=== PATIENT | female | born 1955 | race Caucasian/White ===

== ENCOUNTER → 2016-07-06 | Outpatient (CLI) | payer OTHER ==
[~2016-07-06] MED LIST: ACLI1AER3 INH; ADVIN50/60 INH; ALBINS/ INH; ALBU1NEB10 INH; ALBUAER2 INH; LPT40 PO; OXGN; PRED-301 PO; SERT-234 PO; SPRIN/30 INH; SYMIN160 INH; VNTHFA/IN INH; ZLF/50 PO
== END | disposition home or self-care (01) ==
LOC: C.MAMM 10:18
PROVIDERS: ATTEND Nurse Practitioner
DX: M81.0 Age-related osteoporosis without current pathological fracture (principal)

== ENCOUNTER → 2016-07-21 | Outpatient (CLI) | payer OTHER ==
--- NOTE | 2016-07-21 08:22 | DIAGNOSTIC IMAGING REPORT ---
CHEST 2 VIEWS ROUTINE CLINICAL HISTORY: TOBACCO USE COMPARISON STUDY: 12/27/2013 FINDINGS: Moderate emphysematous change. No focal infiltrate. Diaphragms are somewhat flattened. IMPRESSION: Emphysematous change. No acute process. Electronically signed by: Luis Early M.D. 07/21/2016 8:20 AM Dictated Date/Time: 07/21/2016 8:20 AM
== END | disposition home or self-care (01) ==
LOC: C.RADBBURG 08:05
PROVIDERS: ATTEND Physician Assistant
DX: Z72.0 Tobacco use (principal)

== ENCOUNTER → 2016-07-23 | Outpatient (CLI) | payer OTHER ==
[2016-07-23 18:51] LABS: BLOOD UREA NITROGEN 12 mg/dl (7-18); BUN/CREATININE RATIO 12.6 (10-20); CALCIUM 8.8 mg/dl (8.5-10.1); CARBON DIOXIDE 30 mmol/L (21-32); CHLORIDE 106 mmol/L (98-107); CREATININE 0.92 mg/dl (0.60-1.20); GLUCOSE 111 mg/dl (70-99); SODIUM 140 mmol/L (136-145)
== END | disposition home or self-care (01) ==
LOC: C.LABPVFM 13:33
PROVIDERS: ATTEND Nurse Practitioner
DX: E55.9 Vitamin D deficiency, unspecified (principal); M81.0 Age-related osteoporosis without current pathological fracture; R69 Illness, unspecified

== ENCOUNTER → 2016-12-28 | Day surgery (SDC) | payer OTHER ==
[2016-12-24 13:08] VITALS: BMI 14.0
[~2016-12-28] VITALS: Ht 152.4 cm; Wt 33.2 kg
[~2016-12-28] MED LIST changes: -ACLI1AER3 INH; -ALBU1NEB10 INH; -ALBUAER2 INH; +ALBUT/IPRATROP 3MG/0.5MG NEB 3 ML VIAL INH ONE; +LIDOCAINE HCL 2% 2 ML VIAL (20MG/ML) ONE; +PROPOFOL IV EMULSION 10 MG/ML 20 ML VIAL IV ONE; -SYMIN160 INH; -ZLF/50 PO
--- NOTE | 2016-12-28 11:40 | Endo History and Physical ---
History & Physical Date of Service: Dec 28, 2016. Chief Complaint: Change in bowel habits Referring Physician: Coretta Mai History of Present Illness 61 yo CF who presents for colonoscopy secondary to change in bowel habits. Past Surgical History Hx Cardiac Surgery: No Hx Internal Defibrillator: No Hx Pacemaker: No Hx Abdominal Surgery: Yes () Hx of Implantable Prosthesis: No Hx Post-Op Nausea and Vomiting: No Hx Cancer Surgery: No Hx Thoracic Surgery: Yes (BRONCHOSCOPIES) Hx Orthopedic: Yes (RT FOOT SURGERY) Hx Urinary Tract Surgery: No Family History None Social History Smoking Status: Current Every Day Smoker Hx Substance Use: No Hx Alcohol Use: No Allergies Coded Allergies: No Known Allergies (Verified , 12/24/16) Current Medications Reported Home Medications Medications Dose Route/Sig Max Daily Dose Days Date Category Prednisone 5 Mg Tab 5 Mg PO QAM 12/24/16 Reported Ventolin Hfa (Albuterol) 200 Puffs/83974 Mcg Aers 2-4 Puffs INH Q6H PRN 12/24/16 Reported Proventil 0.083% 2.5MG/3ML (Albuterol Sulf) 2.5 Mg/3 Ml Nebu 2.5 Mg INH QID PRN 12/24/16 Reported Zoloft (Sertraline HCl) 100 Mg Tab 2 Tabs PO QAM 12/24/16 Reported Advair Diskus 500/50 60 Dose (Fluticasone Prop/Salmeterol) 1 Ea Aerp 1 Puff INH BID 12/24/16 Reported Spiriva Handihaler (Tiotropium [place]) 30 Puff/540 Mcg Aerp 1 Cap INH QAM 12/24/16 Reported Oxygen Gas 3-4 Liters NA CONTINOUS 11/27/13 Reported Atorvastatin Calcium (Atorvastatin) 40 Mg Tab 40 Mg PO HS 11/27/13 Reported Vital Signs Weight (Kilograms): 33.18 Height (Feet): 5 Height (Inches): 0 Physical Exam General Appearance: WD/WN, no apparent distress Respiratory/Chest: Auscultation: breath sounds normal Cardiovascular: Heart Auscultation: RRR Abdomen: Bowel Sounds: normal Inspection & Palpation: soft, non-distended, no tenderness, guarding & rebound Assessment and Plan Assessment: 61 yo CF who presents for colonoscopy secondary to change in bowel habits. Plan: Proceed with colonoscopy.
[2016-12-28 11:42] VITALS: Ht 152.4 cm; Wt 33.2 kg
[2016-12-28 11:47] VITALS: TEMP 36.4
[2016-12-28 12:18] VITALS: PULSE 66; O2SAT 100
--- NOTE | 2016-12-28 13:15 | GI REPORT ---
Procedure Date: 12/28/2016 12:06 PM Procedure: Colonoscopy Indications: Change in bowel habits Medicines: Monitored Anesthesia Care Complications: No immediate complications. Estimated Blood Loss: Estimated blood loss: none. Procedure: Pre-Anesthesia Assessment: - Prior to the procedure, a History and Physical was performed, and patient medications and allergies were reviewed. The patient's tolerance of previous anesthesia was also reviewed. The risks and benefits of the procedure and the sedation options and risks were discussed with the patient. All questions were answered, and informed consent was obtained. Prior Anticoagulants: The patient has taken no previous anticoagulant or antiplatelet agents. ASA Grade Assessment: IV - A patient with severe systemic disease that is a constant threat to life. After reviewing the risks and benefits, the patient was deemed in satisfactory condition to undergo the procedure. After I obtained informed consent, the scope was passed under direct vision. Throughout the procedure, the patient's blood pressure, pulse, and oxygen saturations were monitored continuously. The On-site loaner was introduced through the anus and advanced to the terminal ileum. The colonoscopy was performed without difficulty. The patient tolerated the procedure well. The quality of the bowel preparation was good. The terminal ileum, ileocecal valve, appendiceal orifice, and rectum were photographed. Findings: Two sessile polyps were found in the ascending colon. The polyps were 3 to 5 mm in size. These polyps were removed with a cold snare. Resection and retrieval were complete. Multiple small-mouthed diverticula were found in the sigmoid colon. Non-bleeding internal hemorrhoids were found during retroflexion. The hemorrhoids were small. Impression: - Two 3 to 5 mm polyps in the ascending colon, removed with a cold snare. Resected and retrieved. - Diverticulosis in the sigmoid colon. - Non-bleeding internal hemorrhoids. Recommendation: - Resume previous diet. - Continue present medications. - Repeat colonoscopy for surveillance based on pathology results. - Return to primary care physician as previously scheduled. Kyle Mckeon, DO 12/28/2016 1:14:54 PM This report has been signed electronically. Note Initiated On: 12/28/2016 12:06 PM I attest to the content of the Intraoperative Record and orders documented therein, exceptions below
--- NOTE | 2016-12-28 13:28 | Discharge Instructions ---
Endoscopy Patient Instructions Date / Procedure(s) Performed Dec 28, 2016. Colonoscopy Allergy Information Coded Allergies: No Known Allergies (Verified , 12/24/16) Discharge Date / Findings Dec 28, 2016. Colon polyps Diverticulosis Internal hemorrhoids Medication Instructions OK to resume all medications today as prescribed Reported Home Medications Medications Dose Route/Sig Max Daily Dose Days Date Category Prednisone 5 Mg Tab 5 Mg PO QAM 12/24/16 Reported Ventolin Hfa (Albuterol) 200 Puffs/90547 Mcg Aers 2-4 Puffs INH Q6H PRN 12/24/16 Reported Proventil 0.083% 2.5MG/3ML (Albuterol Sulf) 2.5 Mg/3 Ml Nebu 2.5 Mg INH QID PRN 12/24/16 Reported Zoloft (Sertraline HCl) 100 Mg Tab 2 Tabs PO QAM 12/24/16 Reported Advair Diskus 500/50 60 Dose (Fluticasone Prop/Salmeterol) 1 Ea Aerp 1 Puff INH BID 12/24/16 Reported Spiriva Handihaler (Tiotropium [place]) 30 Puff/540 Mcg Aerp 1 Cap INH QAM 12/24/16 Reported Oxygen Gas 3-4 Liters NA CONTINOUS 11/27/13 Reported Atorvastatin Calcium (Atorvastatin) 40 Mg Tab 40 Mg PO HS 11/27/13 Reported Provider Instructions Activity Restrictions - No exercising or heavy lifting for 24 hours. - Do not drink alcohol the day of the procedure. - Do not drive a car or operate machinery until the day after the procedure. - Do not make any important decisions or sign important papers in 24 hours after the procedure. Following Day: - Return to full activity which may include returning to work/school. Diet Start your diet with liquids and light foods (jello, soup, juice, toast). Then eat your usual diet if not nauseated. Treatment For Common After Affects For mild abdominal pain, bloating, or excessive gas: - Rest - Eat lightly - Lie on right side Follow-Up Information Follow-up with SWATI Johnson as scheduled Anesthesia Information What You Should Know You have had a procedure that required some medicine to reduce anxiety and discomfort. This treatment is called moderate sedation. After receiving the treatment, you may be sleepy, but you will be able to breathe on your own. The effects of the treatment may last for several hours. Follow these instructions along with Activity/Diet recommendations noted above: * Do NOT do anything where dizziness or clumsiness would be dangerous. * Rest quietly at home today, then you can be up and about tomorrow. * Have a responsible person stay with you the rest of today. * You may have had an I.V. today. If so, you may take the dressing off later today. Recommendations Call your doctor if: * Trouble breathing * Continuous vomiting for more than 24 hours * Temperature above 101 degrees * Severe abdominal pain or bloating * Pain not relieved by pain medicine ordered * There is increased drainage or redness from any incision * A large amount of rectal bleeding greater than 2-3 tablespoons. (If you had a polyp/s removed or have hemorrhoids, a small amount of blood - from the rectum is to be expected.) * You have any unanswered questions or concerns. IN THE EVENT OF A SERIOUS EMERGENCY, GO TO THE NEAREST EMERGENCY ROOM Your discharge instructions were prepared by provider Kyle Mckeon. Patient Instructions Signature Page Stacy Suazo Patient (or Guardian) Signature/Date: I have read and understand the instructions given to me by my caregivers. Caregiver/RN/Doctor Signature/Date: The above-named patient and/or guardian has received patient instructions on this date. + Original Patient Signature Page (only) stays with chart. Please make copy for patient.
[2016-12-28 13:37] VITALS: BP 172/78; PULSE 69; O2SAT 100
[2016-12-28 13:54] VITALS: PULSE 66; O2SAT 100
--- NOTE | 2016-12-28 14:38 | Anesthesiology Progress Note ---
Anesthesia Post Op Note Date & Time Dec 28, 2016 at 14:38 Vital Signs Pain Intensity: 0 Vital Signs Past 12 Hours Date Time Temp Pulse Resp B/P (MAP) Pulse Ox O2 Delivery O2 Flow Rate FiO2 12/28/16 13:37 69 20 172/78 (109) 100 Nasal Cannula 4 12/28/16 13:23 68 18 182/58 (99) 100 Nasal Cannula 4 12/28/16 13:12 68 18 174/79 (110) 100 Nasal Cannula 4 12/28/16 13:05 69 18 168/75 (106) 100 Nasal Cannula 4 12/28/16 12:18 66 18 100 Nasal Cannula 4.0 12/28/16 11:47 36.4 75 18 170/99 (122) 100 Nasal Cannula 4 Notes Mental Status: alert / awake / arousable, participated in evaluation Pt Amnestic to Procedure: Yes Nausea / Vomiting: adequately controlled Pain: adequately controlled Airway Patency, RR, SpO2: stable & adequate BP & HR: stable & adequate Hydration State: stable & adequate Anesthetic Complications: no major complications apparent
== END | disposition home or self-care (01) ==
LOC: C.GI 11:09
PROVIDERS: ATTEND Internal Medicine
DX: D12.2 Benign neoplasm of ascending colon (principal); K57.30 Diverticulosis of large intestine without perforation or abscess without bleeding; K64.8 Other hemorrhoids; R19.4 Change in bowel habit; F17.200 Nicotine dependence, unspecified, uncomplicated; Z79.899 Other long term (current) drug therapy

== ENCOUNTER → 2017-01-15 | Outpatient (CLI) | payer OTHER ==
[~2017-01-15] MED LIST changes: -ALBUT/IPRATROP 3MG/0.5MG NEB 3 ML VIAL INH ONE; -LIDOCAINE HCL 2% 2 ML VIAL (20MG/ML) ONE; -PROPOFOL IV EMULSION 10 MG/ML 20 ML VIAL IV ONE
[2017-01-15 13:15] LABS: BLOOD UREA NITROGEN 9 mg/dl (7-18); BUN/CREATININE RATIO 9.7 (10-20); CALCIUM 9.3 mg/dl (8.5-10.1); CARBON DIOXIDE 29 mmol/L (21-32); CHLORIDE 108 mmol/L (98-107); CHOLESTEROL 242 mg/dl (0-200); CREATININE 0.96 mg/dl (0.60-1.20); GLUCOSE 95 mg/dl (70-99); POTASSIUM 4.1 mmol/L (3.5-5.1); SODIUM 141 mmol/L (136-145)
[2017-01-15 13:18] LABS: CHOLESTEROL/HDL RATIO 2.2; HDL CHOLESTEROL 109 mg/dl; LDL CHOLESTEROL CALCULATED 113 mg/dl; TRIGLYCERIDES 101 mg/dl (0-150); VERY LOW DENSITY LIPOPROT CALC 20 mg/dl
== END | disposition home or self-care (01) ==
LOC: C.LABPVFM 08:06
PROVIDERS: ATTEND Nurse Practitioner
DX: E55.9 Vitamin D deficiency, unspecified (principal); M81.0 Age-related osteoporosis without current pathological fracture; E78.5 Hyperlipidemia, unspecified; J44.9 Chronic obstructive pulmonary disease, unspecified

== ENCOUNTER 2019-08-27 08:14 | Inpatient (IN) ==
[2019-08-27 08:28] LABS: Basophils # (auto) 0.01 K/uL (0-0.2); Basophils % (auto) 0.1 %; Hematocrit (blood only) 39.6 % (37-47); Hemoglobin 12.8 g/dL (12.0-16.0); Immature Granulocytes # (auto) 0.03 K/uL (0.00-0.02); Immature Granulocytes % (auto) 0.3 %; Lymphocytes # (auto) 1.33 K/uL (1.2-3.4); Lymphocytes % (auto) 11.5 %; Mean Corpuscular Hemoglobin 29.5 pg (25-34); Mean Corpuscular Hgb Conc 32.3 g/dL (32-36); Mean Corpuscular Volume 91.2 fL (80-100); Mean Platelet Volume 11.7 fL (7.4-10.4); Monocytes # (auto) 0.75 K/uL (0.11-0.59); Monocytes % (auto) 6.5 %; Neutrophils # (auto) 9.47 K/uL (1.4-6.5); Neutrophils % (auto) 81.6 %; Platelet Count 165 K/uL (130-400); RDW Coefficient of Variation 14.7 % (11.5-14.5); RDW Standard Deviation 49.3 fL (36.4-46.3); Red Blood Count 4.34 M/uL (4.2-5.4); White Blood Count 11.59 K/uL (4.8-10.8)
[2019-08-27] MEDS ORDERED: OPTIRAY 320 125ml IV PRN (08:31)
[2019-08-27 08:39] LABS: Partial Thromboplastin Time 26.8 Seconds (21.0-31.0); Prothrombin Time 10.6 Seconds (9.0-12.0)
--- NOTE | 2019-08-27 08:45 | CT Scan Report ---
CT SCAN OF THE BRAIN WITHOUT IV CONTRAST CLINICAL HISTORY: Left-sided weakness. COMPARISON STUDY: No priors. TECHNIQUE: Unenhanced axial CT scan of the brain is performed from the vertex to the skull base. A d ose lowering technique was utilized adhering to the principles of ALARA. FINDINGS: Brain parenchyma: There is mild subcortical and periventricular microangiopathic disease. There is lo ss of curiel-white matter differentiation identified in the right frontal lobe. This is concerning for acute to subacute ischemia. There is no hemorrhage or mass effect. No extra-axial fluid collection is seen. Ventricles, sulci, cisterns: Normal in configuration. Intracranial vasculature: There is atherosclerotic calcification of the cavernous carotid and vertebr al arteries. Calvarium: Unremarkable. Sinuses and mastoids: The visualized paranasal sinuses are clear. The mastoid air cells are well pneu matized. Orbits: The bony orbits are grossly intact. There is a right ocular lens implant. IMPRESSION: 1. There is loss of curiel-white matter differentiation identified in the right frontal lobe concerning for acute to subacute ischemia. 2. There is no hemorrhage or mass effect. ACT 112: Negative or not required by law. Electronically signed by: Cristian Holt M.D. 08/27/2019 8:44 AM
[2019-08-27 08:46] LABS: Base Excess VBG -9.3 mEq/L; pH VBG 7.2 (7.36-7.41)
[2019-08-27 08:53] LABS: Albumin Level 3.7 gm/dl (3.4-5.0); BUN Creatinine Ratio 22.6 (10-20); Calcium 8.5 mg/dl (8.5-10.1); Creatinine Clr Calc Pharmacy 38.8 ml/min; Est GFR (African American) 72.8; Est GFR (Non-African American) 62.9; Potassium 4.3 mmol/L (3.5-5.1)
[2019-08-27 08:58] LABS: Albumin Globulin Ratio 1.3 (0.9-2); Bilirubin,Total 0.4 mg/dl (0.2-1); Globulin 2.8 gm/dl (2.5-4.0); Phosphorus 3.4 mg/dl (2.5-4.9); Thyroid Stimulating Hormone 0.946 uIu/ml (0.300-4.500); Total Protein 6.5 gm/dl (6.4-8.2); Troponin I 1.66 ng/ml (0-0.045)
--- NOTE | 2019-08-27 09:04 | CT Scan Report ---
CT ANGIOGRAM OF THE BRAIN; CT ANGIOGRAM OF THE NECK CLINICAL HISTORY: Left-sided weakness. COMPARISON STUDY: Unenhanced CT of the brain performed the same day 08/27/2019. TECHNIQUE: Following the IV administration of 120 of Optiray 320, CT angiogram of the head and neck w as performed from the aortic arch to the vertex. Images are reviewed in the axial, sagittal, and gisella nal planes. 3-D MIPS images are created and assessed. IV contrast was administered without complicati on. All measurements were calculated based on NASCET criteria. A dose lowering technique was utilize d adhering to the principles of ALARA. CT DOSE: 839.61 mGy.cm FINDINGS: Brain parenchyma: There is mild subcortical and periventricular microangiopathic disease. Loss of gra y-white matter differentiation is again identified within several right-sided frontal lobe sulci. The re is no hemorrhage or mass effect. The ventricles, sulci, and cisterns are normal in configuration. Partida-white matter differentiation is preserved. No extra-axial fluid collection is seen. Thoracic aorta: There is atherosclerotic calcification of the thoracic aorta. Visualized portions of the thoracic aorta are normal in caliber. The aortic arch demonstrates standard 3-vessel anatomy. Right carotid arterial system: The right common carotid artery is patent. Plaque causes less than 50% luminal narrowing distally. 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 The occlusion extends for 6 mm were there is reconstitution of flow. The mi d to distal portions of the right internal carotid artery are diminutive but patent. Left carotid arterial system: The left common carotid artery is widely patent, as are the left internet marketing assistant al and external carotid arteries. Atherosclerotic plaque is noted in the common carotid artery the ca rotid bulb. Vertebral arteries: There is high-grade stenosis at the origin of the right vertebral artery. The nata tebral arteries are otherwise patent bilaterally and codominant. Subclavian arteries: Widely patent bilaterally. Intracranial vasculature: There is evidence carotid calcification of the cavernous carotid and verteb ral arteries. The internal carotid arteries are patent at the skull base. The right internal carotid artery appears diminutive, and there is approximately 50% luminal narrowing of the right cavernous ca rotid artery secondary to calcified and soft plaque. There is focal moderate stenosis of the right an terior cerebral artery seen on image #119. The anterior cerebral arteries are otherwise patent. The m iddle cerebral arteries are patent bilaterally. There is pruning of peripheral branch vessels within the posterior right frontal lobe. The vertebrobasilar system and posterior cerebral arteries are wide ly patent. The vertebral arteries are codominant. 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 There is a 1.5 mm aneurysm arising inferiorly at the origin of the left middle cerebral artery, best seen on image #79. Jugular veins: Patent bilaterally. Dural sinuses: Patent. Lung apices: Advanced emphysema is change is noted in the upper lobes. Upper lobe lung parenchyma is otherwise clear as imaged. Biapical scarring is observed. Soft tissues: The visualized pharyngeal soft tissues are normal in appearance noting angiographic pha se technique. The oropharyngeal airway appears widely patent. The salivary and thyroid glands are nor mal in appearance. No cervical lymphadenopathy is seen. Skeletal structures: The skeletal structures are osteopenic. The calvarium appears intact. The cervic al spine is maintained noting multilevel spondylosis. No lytic or blastic lesion is seen. Orbits: The bony orbits are intact. Orbital contents are normal as visualized noting a right ocular l ens implant. Sinuses and mastoids: The paranasal sinuses are clear. The mastoid air cells are well pneumatized. IMPRESSION: 1. Focal loss of partida-white matter differentiation in the posterior right frontal lobe is highly conc erning for acute to subacute ischemia. 2. 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 3. There is focal high-grade stenosis at the origin of the right vertebral artery. 4. The left carotid arterial system is widely patent. 5. The mid to distal right internal carotid artery is diminutive, as well as the intracranial right i nternal carotid artery. 6. There is approximately 50% luminal narrowing of the right cavernous carotid artery. 7. 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 8. There is pruning of peripheral branch vessels in the posterior right frontal lobe, likely related to acute infarct. 9. There is focal high-grade stenosis of the right anterior cerebral artery. 10. Advanced emphysema. ACT 112: Negative or not required by law. Electronically signed by: Cristian Holt M.D. 08/27/2019 9:02 AM
--- NOTE | 2019-08-27 09:05 | XRay Report ---
SINGLE VIEW CHEST CLINICAL HISTORY: Strokelike symptoms. Left-sided weakness. FINDINGS: An AP, portable, upright chest radiograph is compared to study dated 05/01/2019. The examina tion is degraded by portable technique and patient rotation. The cardiomediastinal silhouette is unre markable noting atherosclerotic calcification of the thoracic aorta. Advanced emphysema and chronic i nterstitial thickening are similar to previous. There is bibasilar scarring/atelectasis. No airspace consolidation or large pleural effusion is identified. No pneumothorax is seen. The skeletal structur es are osteopenic. The bony thorax is grossly intact. IMPRESSION: Advanced emphysematous change with no acute cardiopulmonary abnormality. ACT 112: Negative or not required by law. Electronically signed by: Cristian Holt M.D. 08/27/2019 9:04 AM
--- NOTE | 2019-08-27 09:11 | Emergency Department Note ---
Impression & Plan CVA (cerebral vascular accident), COPD (chronic obstructive pulmonary disease), Elevated troponin, O2 dependent ED Provider Note NAME: JEFFREY MUNOZ AGE: 64 SEX: F ARRIVES VIA: Ambulance INFORMANT: Patient, ED PROVIDER(S): Jace Waddell MD CHIEF COMPLAINT: Left facial, arm, and leg weakness. PLAN: Disposition: Admit MEDICAL DECISION MAKING: The patient is a pleasant 64-year-old woman with a past medical history of COPD on home oxygen who presents emergency department with symptoms of stroke with left facial droop and left upper extremity and left lower extremity weakness that was noticed when she was waking up this morning around 7:30 AM with last known well last night around 8 PM. Patient symptoms occur in the setting of being seen in emergency department yesterday after having a fall suffering a right distal radius wrist fracture that was successfully and uneventfully reduced with under sedation with ketamine. On arrival the patient is no acute distress, afebrile with blood pressure hypertensive 170s/70s and vital signs otherwise stable. She has appreciable left lower facial droop and 0/5 strength of the left upper extremity and 2/5 strength of the left lower extremity. NIH stroke scale is 9. Given the patient's last known well is beyond the TPA window this was not considered however stroke alert was still activated given the possibility for endovascular target. Case was reviewed with Dr. Perez and given her CT noncontrast study does show already development of stroke likely feels endovascular therapy will be too risky for hemorrhagic transformation. Suspects stroke likely occurred early last night. CTA did demonstrate extensive findings including complete short segment occlusion of the origin of the right ICA, focal high-grade stenosis at the origin of the right vertebral artery. 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 Pruning of peripheral branch vessels in the posterior right frontal lobe, likely related to acute infarct. Additional findings per report below. I did review the CTA findings with Dr. Perez and recommendations are still as expected given the appearance of the evolution of the patient's infarct in the high risk of hemorrhage if intervention is attempted. This, recommends admission for further evaluation. Given the profound symptoms of the patient and evolving infarct on CT recommends obtaining MRI and further clarifying the size of the infarction prior to initiating aspirin or even anticoagulation given the patient's mild troponin elevation. Does offer that the tele-stroke neurology team would be available for any questions from the inpatient team. Case was d/w Renata Zepeda, [facility] PAC, with Dr. Torres [facility] hospitalist who will evaluate the patient for admission. Triage Nursing notes reviewed and agree them. Prior medical records reviewed Vital Signs: reviewed and remarkable for no significant abnormalities Differential diagnosis: Infection, dehydration, metabolic abnormality, hypo/hyperglycemia, electrolyte disturbance, anemia, hypoxia, cardiac sources, intracerebral event, toxicologic, neurologic, as well as other pathologies. ER treatment provided: See below. Diagnostics interpreted by me: ECG: Normal sinus rhythm, 95 bpm, normal axis, nonspecific ST abnormality laterally and otherwise. no overt ST elevation or depression, anterior infarct is noted. QTc 492, QRS 74. Cardiac Monitoring: An order for continuous cardiac monitoring was placed and demonstrated normal sinus rhythm, 95 bpm, no ectopy. Laboratory studies: See below Imaging studies: CT SCAN OF THE BRAIN WITHOUT IV CONTRAST CLINICAL HISTORY: Left-sided weakness. COMPARISON STUDY: No priors. TECHNIQUE: Unenhanced axial CT scan of the brain is performed from the vertex to the skull base. A dose lowering technique was utilized adhering to the principles of ALARA. FINDINGS: Brain parenchyma: There is mild subcortical and periventricular microangiopathic disease. There is loss of partida-white matter differentiation identified in the right frontal lobe. This is concerning for acute to subacute ischemia. There is no hemorrhage or mass effect. No extra-axial fluid collection is seen. Ventricles, sulci, cisterns: Normal in configuration. Intracranial vasculature: There is atherosclerotic calcification of the cavernous carotid and vertebral arteries. Calvarium: Unremarkable. Sinuses and mastoids: The visualized paranasal sinuses are clear. The mastoid air cells are well pneumatized. Orbits: The bony orbits are grossly intact. There is a right ocular lens imp lant. IMPRESSION: 1. There is loss of partida-white matter differentiation identified in the right f rontal lobe concerning for acute to subacute ischemia. 2. There is no hemorrhage or mass effect. ------ CT ANGIOGRAM OF THE BRAIN; CT ANGIOGRAM OF THE NECK CLINICAL HISTORY: Left-sided weakness. COMPARISON STUDY: Unenhanced CT of the brain performed the same day 08/27/2019. TECHNIQUE: Following the IV administration of 120 of Optiray 320, CT angiogram of the head and neck was performed from the aortic arch to the vertex. Images are reviewed in the axial, sagittal, and coronal planes. 3-D MIPS images are created and assessed. IV contrast was administered without complication. All measurements were calculated based on NASCET criteria. A dose lowering technique was utilized adhering to the principles of ALARA. CT DOSE: 839.61 mGy.cm FINDINGS: Brain parenchyma: There is mild subcortical and periventricular microangiopathic disease. Loss of partida-white matter differentiation is again identified within several right-sided frontal lobe sulci. There is no hemorrhage or mass effect. The ventricles, sulci, and cisterns are normal in configuration. Partida-white matter differentiation is preserved. No extra-axial fluid collection is seen. Thoracic aorta: There is atherosclerotic calcification of the thoracic aorta. Visualized portions of the thoracic aorta are normal in caliber. The aortic arch demonstrates standard 3-vessel anatomy. Right carotid arterial system: The right common carotid artery is patent. Plaque causes less than 50% luminal narrowing distally. There is complete thrombosis at the origin of the right common carotid artery (axial image #216). The occlusion extends for 6 mm were there is reconstitution of flow. The mid to distal portions of the right internal carotid artery are diminutive but patent. Left carotid arterial system: The left common carotid artery is widely patent, as are the left internal and external carotid arteries. Atherosclerotic plaque is noted in the common carotid artery the carotid bulb. Vertebral arteries: There is high-grade stenosis at the origin of the right vertebral artery. The vertebral arteries are otherwise patent bilaterally and codominant. Subclavian arteries: Widely patent bilaterally. Intracranial vasculature: There is evidence carotid calcification of the cavernous carotid and vertebral arteries. The internal carotid arteries are patent at the skull base. The right internal carotid artery appears diminutive, and there is approximately 50% luminal narrowing of the right cavernous carotid artery secondary to calcified and soft plaque. There is focal moderate stenosis of the right anterior cerebral artery seen on image #119. The anterior cerebral arteries are otherwise patent. The middle cerebral arteries are patent bilaterally. There is pruning of peripheral branch vessels within the posterior right frontal lobe. The vertebrobasilar system and posterior cerebral arteries are widely patent. The vertebral arteries are codominant. 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 There is a 1.5 mm aneurysm arising inferiorly at the origin of the left middle cerebral artery, best seen on image #79. Jugular veins: Patent bilaterally. Dural sinuses: Patent. Lung apices: Advanced emphysema is change is noted in the upper lobes. Upper lobe lung parenchyma is otherwise clear as imaged. Biapical scarring is observed. Soft tissues: The visualized pharyngeal soft tissues are normal in appearance noting angiographic phase technique. The oropharyngeal airway appears widely patent. The salivary and thyroid glands are normal in appearance. No cervical lymphadenopathy is seen. Skeletal structures: The skeletal structures are osteopenic. The calvarium ap pears intact. The cervical spine is maintained noting multilevel spondylosis. No lytic or blastic lesion is seen. Orbits: The bony orbits are intact. Orbital contents are normal as visualized noting a right ocular lens implant. Sinuses and mastoids: The paranasal sinuses are clear. The mastoid air cells are well pneumatized. IMPRESSION: 1. Focal loss of partida-white matter differentiation in the posterior right frontal lobe is highly concerning for acute to subacute ischemia. 2. 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 3. There is focal high-grade stenosis at the origin of the right vertebral artery. 4. The left carotid arterial system is widely patent. 5. The mid to distal right internal carotid artery is diminutive, as well as the intracranial right internal carotid artery. 6. There is approximately 50% luminal narrowing of the right cavernous carotid artery. 7. 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 8. There is pruning of peripheral branch vessels in the posterior right frontal lobe, likely related to acute infarct. 9. There is focal high-grade stenosis of the right anterior cerebral artery. 10. Advanced emphysema. Consultation(s): [facility], with Dr. Brian [place] hospitalist who will evaluate the patient for admission. HPI: The patient is a pleasant 64-year-old woman with a past medical history of COPD on home oxygen who presents emergency department with symptoms of stroke with left facial droop and left upper extremity and left lower extremity weakness that was noticed when she was waking up this morning around 7:30 AM with last known well last night around 8 PM. Patient symptoms occur in the setting of being seen in emergency department yesterday after having a fall suffering a right distal radius wrist fracture that was successfully and uneventfully reduced with under sedation with ketamine. ROS: See above HPI for pertinent positives & negatives. A total of 10 systems reviewed and were otherwise negative. PAST MEDICAL HISTORY:See Below PAST SURGICAL HISTORY:See Below FAMILY HISTORY:See Below SOCIAL HISTORY:See Below HOME MEDICATIONS:See Below ALLERGIES:See Below VITALS:See Below PHYSICAL EXAMINATION: GENERAL: Awake, alert, fatigued-appearing, in no distress HENT: Normocephalic, atraumatic. Oropharynx with dry mucous membranes and otherwise unremarkable. . EYES: Normal conjunctiva. Sclera non-icteric. EOMI. No nystamgus. PEARRL. NECK: Supple. No nuchal rigidity. FROM. No JVD. RESPIRATORY: Scant intermittent wheeze, otherwise clear to auscultation. CARDIAC: Regular rate, normal rhythm. Extremities warm and well perfused. Pulses equal. ABDOMEN: Soft, non-distended. No tenderness to palpation. No rebound or guarding. No masses. RECTAL: Deferred. MUSCULOSKELETAL: Chest examination reveals no tenderness. The back is symm etrical on inspection without obvious abnormality. There is no CVA tenderness to palpation. No joint edema. LOWER EXTREMITIES: Calves are equal size bilaterally and non-tender. No edema. No discoloration. NEURO: Severe left lower facial droop. 0/5 LUE strength. 2/5 LLE strength. SKIN: No rash or jaundice noted. ED COURSE: Critical Care: I have personally spent greater than 35 minutes of critical care time in the direct management of this patient. This includes bedside care, interpretation of diagnostic studies, and testing, discussion with consultants, patient, and family members, and other required patient management activities. This 35 minutes is in excess of all separately billable procedures. Jace Waddell MD Past Med/Surg History Medical History Chronic obstructive pulmonary disease (Acute) FOLLOWS WITH GREG PEOPLES / HAS CHRONIC COUGH / RARELY USES RES. 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 Beliefs That Will Affect Care: None marital status: Current Living Situation: Alone and Spouse Current Living Situation Comment: 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, 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, 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 occupational status: disabled Other Information That Helps Us Care for You: No Feels Safe at Home: Yes Safety Concerns: Feels Safe At This Time Smoking Status: Current every day smoker Tobacco Type: cigarettes ; Cigarettes Per Day: 6 to 7 ; Do You Dip or Chew Tobacco: No ; Second Hand Exposure: No ; Tobacco Cessation Education Requested by Patient: No Hx Alcohol Use: No Hx Substance Use: No caffeine: Yes (coffee) Dental Care, Regularly: No Physical Activity Frequency: Daily Seatbelt Use: never Sunscreen Use: No Allergies Allergies Allergy/AdvReac Type Severity Reaction Status Date / Time codeine AdvReac Intermediate vomitting Verified 08/26/19 12:45 Home Meds Home Medications Medication Instructions Recorded Confirmed albuterol sulfate 2 - 4 puff INHALATION Q6H PRN 10/13/18 08/27/19 albuterol sulfate 2.5 mg INHALATION Q4H PRN #2 ml 10/22/18 08/27/19 atorvastatin 40 mg tablet 40 mg PO HS #90 tab 10/22/18 08/27/19 Previous Rx's Medication Instructions Recorded fluticasone fur. 100 mcg-umeclid 1 inh INHALATION QAM #60 ea 05/05/19 62.5 mcg-vilant 25 mcg inhalat.powder sertraline 100 mg tablet 200 mg PO QAM #180 tab 07/27/19 prednisone 5 mg tablet 5 mg PO QAM #90 tab 08/03/19 cephalexin [Keflex] 250 mg PO BID 5 Days #10 cap 08/26/19 cephalexin [Keflex] 500 mg PO Q12H 5 Days #10 cap 08/26/19 ondansetron HCl [Zofran] 4 mg PO TID PRN 5 Days #15 tab 08/26/19 oxycodone [Roxicodone] 5 mg PO Q8H PRN #9 tab 08/26/19 Results & Data (ED) Vital Signs Vital Signs - 24 hr 08/27/19 08:12 08/27/19 08:29 08/27/19 08:30 Temperature 36.4 C L Temperature Source Oral Pulse Rate 95 H 109 H 102 H Pulse Rate from SpO2 Sensor 103 H Respiratory Rate 22 16 22 Respiratory Effort / Characteristics Non-Labored Spontaneous Respiratory Depth Normal Respiratory Pattern Regular Blood Pressure 175/75 H 175/75 H Blood Pressure Mean 108 131 Pulse Oximetry 88 L Oxygen Delivery Method Nasal Cannula Oxygen Flow Rate Sepsis Recent Fever Within 48 Hours No Sepsis Action Taken by Nursing No Action Required Pulse Oximetry Post Tiitration 08/27/19 08:31 08/27/19 08:45 08/27/19 08:53 Temperature Temperature Source Pulse Rate 102 H 92 H 91 H Pulse Rate from SpO2 Sensor 103 H 93 H 91 H Respiratory Rate 22 22 21 Respiratory Effort / Characteristics Respiratory Depth Respiratory Pattern Blood Pressure 167/77 H 147/82 H Blood Pressure Mean 103 102 Pulse Oximetry 92 97 96 Oxygen Delivery Method Oxygen Flow Rate Sepsis Recent Fever Within 48 Hours Sepsis Action Taken by Nursing Pulse Oximetry Post Tiitration 08/27/19 09:00 08/27/19 09:01 08/27/19 09:15 Temperature Temperature Source Pulse Rate 88 88 88 Pulse Rate from SpO2 Sensor 88 89 88 Respiratory Rate 21 22 22 Respiratory Effort / Characteristics Respiratory Depth Respiratory Pattern Blood Pressure 169/77 H 167/71 H Blood Pressure Mean 114 108 Pulse Oximetry 98 98 98 Oxygen Delivery Method Nasal Cannula Oxygen Flow Rate 4 Sepsis Recent Fever Within 48 Hours Sepsis Action Taken by Nursing Pulse Oximetry Post Tiitration 98 08/27/19 09:30 08/27/19 09:45 08/27/19 10:00 Temperature Temperature Source Pulse Rate 84 85 93 H Pulse Rate from SpO2 Sensor 84 85 93 H Respiratory Rate 21 22 24 Respiratory Effort / Characteristics Respiratory Depth Respiratory Pattern Blood Pressure 161/64 H 159/68 H 148/71 H Blood Pressure Mean 118 100 90 Pulse Oximetry 98 99 97 Oxygen Delivery Method Oxygen Flow Rate Sepsis Recent Fever Within 48 Hours Sepsis Action Taken by Nursing Pulse Oximetry Post Tiitration Laboratory Data Attestation: I reviewed the patient's lab results. Result diagrams: 08/27/19 07:45 08/27/19 07:45 Lab Results 08/27/19 08/27/19 08/27/19 Range/Units 07:45 07:45 07:45 WBC 11.59 H (4.8-10.8) K/uL RBC 4.34 (4.2-5.4) M/uL Hgb 12.8 (12.0-16.0) g/dL Hct 39.6 (37-47) % MCV 91.2 (80-100) fL MCH 29.5 (25-34) pg MCHC 32.3 (32-36) g/dL RDW Std Deviation 49.3 H (36.4-46.3) fL RDW Coeff of Rosanna 14.7 H (11.5-14.5) % Plt Count 165 (130-400) K/uL MPV 11.7 H (7.4-10.4) fL Immature Gran % (Auto) 0.3 % Neut % (Auto) 81.6 % Lymph % (Auto) 11.5 % [place] % (Auto) 6.5 % Eos % (Auto) 0.0 % Baso % (Auto) 0.1 % Immature Gran # (Auto) 0.03 H (0.00-0.02) K/uL Neut # (Auto) 9.47 H (1.4-6.5) K/uL Lymph # (Auto) 1.33 (1.2-3.4) K/uL [place] # (Auto) 0.75 H (0.11-0.59) K/uL Eos # (Auto) 0.00 (0-0.5) K/uL Baso # (Auto) 0.01 (0-0.2) K/uL PT 10.6 (9.0-12.0) Seconds INR 1.0 (0.9-1.1) APTT 26.8 (21.0-31.0) Seconds PTT Ratio 1.0 VBG pH (7.36-7.41) VBG pCO2 (38-50) mmHg VBG pO2 mmHg VBG HCO3 mmol/L VBG O2 Saturation % VBG Base Excess mEq/L Barometric Pressure mm/Hg Sodium 140 (136-145) mmol/L Potassium 4.3 (3.5-5.1) mmol/L Chloride 108 H (98-107) mmol/L Carbon Dioxide 22 (21-32) mmol/L Anion Gap 10.0 (3-11) BUN 21 H (7-18) mg/dl Creatinine 0.95 D (0.6-1.2) mg/dl Est Cr Clr Drug Dosing 38.8 ml/min Est GFR ( Amer) 72.8 Est GFR (Non-Af Amer) 62.9 BUN/Creatinine Ratio 22.6 H (10-20) Glucose 90 (70-99) mg/dl POC Glucose (70-99) mg/dl Calcium 8.5 (8.5-10.1) mg/dl Phosphorus 3.4 (2.5-4.9) mg/dl Magnesium 2.0 (1.8-2.4) mg/dl Total Bilirubin 0.4 (0.2-1) mg/dl AST 38 H (15-37) U/L ALT 21 (12-78) U/L Alkaline Phosphatase 50 (45-117) U/L Troponin I 1.660 H* (0-0.045) ng/ml Total Protein 6.5 (6.4-8.2) gm/dl Albumin 3.7 (3.4-5.0) gm/dl Globulin 2.8 (2.5-4.0) gm/dl Albumin/Globulin Ratio 1.3 (0.9-2) 25-OH Vitamin D Total (30-100) ng/ml TSH 0.946 (0.300-4.500) uIu/ml Urine Color Urine Appearance (Clear) Urine pH (4.5-7.5) Ur Specific [place] (1.000-1.030) Urine Protein (Negative) Urine Glucose (UA) (Negative) Urine Ketones (Negative) Urine Blood (Negative) Urine Nitrite (Negative) Urine Bilirubin (Negative) Urine Urobilinogen (Negative) Ur Leukocyte Esterase (Negative) 08/27/19 08/27/19 08/27/19 Range/Units 07:45 08:34 08:34 WBC (4.8-10.8) K/uL RBC (4.2-5.4) M/uL Hgb (12.0-16.0) g/dL Hct (37-47) % MCV (80-100) fL MCH (25-34) pg MCHC (32-36) g/dL RDW Std Deviation (36.4-46.3) fL RDW Coeff of Rosanna (11.5-14.5) % Plt Count (130-400) K/uL MPV (7.4-10.4) fL Immature Gran % (Auto) % Neut % (Auto) % Lymph % (Auto) % [place] % (Auto) % Eos % (Auto) % Baso % (Auto) % Immature Gran # (Auto) (0.00-0.02) K/uL Neut # (Auto) (1.4-6.5) K/uL Lymph # (Auto) (1.2-3.4) K/uL [place] # (Auto) (0.11-0.59) K/uL Eos # (Auto) (0-0.5) K/uL Baso # (Auto) (0-0.2) K/uL PT (9.0-12.0) Seconds INR (0.9-1.1) APTT (21.0-31.0) Seconds PTT Ratio VBG pH 7.20 L (7.36-7.41) VBG pCO2 48 (38-50) mmHg VBG pO2 47 mmHg VBG HCO3 19 mmol/L VBG O2 Saturation 78.0 % VBG Base Excess -9.3 mEq/L Barometric Pressure 732.2 mm/Hg Sodium (136-145) mmol/L Potassium (3.5-5.1) mmol/L Chloride (98-107) mmol/L Carbon Dioxide (21-32) mmol/L Anion Gap (3-11) BUN (7-18) mg/dl Creatinine (0.6-1.2) mg/dl Est Cr Clr Drug Dosing ml/min Est GFR ( Amer) Est GFR (Non-Af Amer) BUN/Creatinine Ratio (10-20) Glucose (70-99) mg/dl POC Glucose (70-99) mg/dl Calcium (8.5-10.1) mg/dl Phosphorus (2.5-4.9) mg/dl Magnesium (1.8-2.4) mg/dl Total Bilirubin (0.2-1) mg/dl AST (15-37) U/L ALT (12-78) U/L Alkaline Phosphatase (45-117) U/L Troponin I 1.600 H* (0-0.045) ng/ml Total Protein (6.4-8.2) gm/dl Albumin (3.4-5.0) gm/dl Globulin (2.5-4.0) gm/dl Albumin/Globulin Ratio (0.9-2) 25-OH Vitamin D Total 27.6 L (30-100) ng/ml TSH (0.300-4.500) uIu/ml Urine Color Urine Appearance (Clear) Urine pH (4.5-7.5) Ur Specific [place] (1.000-1.030) Urine Protein (Negative) Urine Glucose (UA) (Negative) Urine Ketones (Negative) Urine Blood (Negative) Urine Nitrite (Negative) Urine Bilirubin (Negative) Urine Urobilinogen (Negative) Ur Leukocyte Esterase (Negative) 08/27/19 08/27/19 Range/Units 08:37 10:05 WBC (4.8-10.8) K/uL RBC (4.2-5.4) M/uL Hgb (12.0-16.0) g/dL Hct (37-47) % MCV (80-100) fL MCH (25-34) pg MCHC (32-36) g/dL RDW Std Deviation (36.4-46.3) fL RDW Coeff of Rosanna (11.5-14.5) % Plt Count (130-400) K/uL MPV (7.4-10.4) fL Immature Gran % (Auto) % Neut % (Auto) % Lymph % (Auto) % [place] % (Auto) % Eos % (Auto) % Baso % (Auto) % Immature Gran # (Auto) (0.00-0.02) K/uL Neut # (Auto) (1.4-6.5) K/uL Lymph # (Auto) (1.2-3.4) K/uL [place] # (Auto) (0.11-0.59) K/uL Eos # (Auto) (0-0.5) K/uL Baso # (Auto) (0-0.2) K/uL PT (9.0-12.0) Seconds INR (0.9-1.1) APTT (21.0-31.0) Seconds PTT Ratio VBG pH (7.36-7.41) VBG pCO2 (38-50) mmHg VBG pO2 mmHg VBG HCO3 mmol/L VBG O2 Saturation % VBG Base Excess mEq/L Barometric Pressure mm/Hg Sodium (136-145) mmol/L Potassium (3.5-5.1) mmol/L Chloride (98-107) mmol/L Carbon Dioxide (21-32) mmol/L Anion Gap (3-11) BUN (7-18) mg/dl Creatinine (0.6-1.2) mg/dl Est Cr Clr Drug Dosing ml/min Est GFR ( Amer) Est GFR (Non-Af Amer) BUN/Creatinine Ratio (10-20) Glucose (70-99) mg/dl POC Glucose 92 (70-99) mg/dl Calcium (8.5-10.1) mg/dl Phosphorus (2.5-4.9) mg/dl Magnesium (1.8-2.4) mg/dl Total Bilirubin (0.2-1) mg/dl AST (15-37) U/L ALT (12-78) U/L Alkaline Phosphatase (45-117) U/L Troponin I (0-0.045) ng/ml Total Protein (6.4-8.2) gm/dl Albumin (3.4-5.0) gm/dl Globulin (2.5-4.0) gm/dl Albumin/Globulin Ratio (0.9-2) 25-OH Vitamin D Total (30-100) ng/ml TSH (0.300-4.500) uIu/ml Urine Color Yellow Urine Appearance Clear (Clear) Urine pH 5.0 (4.5-7.5) Ur Specific [place] > 1.045 H (1.000-1.030) Urine Protein Negative (Negative) Urine Glucose (UA) Negative (Negative) Urine Ketones 1+ H (Negative) Urine Blood Negative (Negative) Urine Nitrite Negative (Negative) Urine Bilirubin Negative (Negative) Urine Urobilinogen Negative (Negative) Ur Leukocyte Esterase Negative (Negative) Administered Medications Atorvastatin Calcium (Lipitor) 40 mg PO HS MARYCARMEN Stop: 09/26/19 20:59 Last Admin: 08/27/19 20:20 Dose: 40 mg Documented by: [id number] Ioversol (Optiray 320 125ml) 120 ml IV ONCE PRN PRN Reason: Interaction Checking Stop: 08/31/19 08:30 Last Admin: 08/27/19 08:32 Dose: 120 ml Documented by: [id number] Discontinued Medications Aspirin (Aspirin) 300 mg NH ONE ONE Stop: 08/27/19 13:56 Last Admin: 08/27/19 15:13 Dose: 300 mg Documented by: [id number] Clopidogrel Bisulfate (Plavix) 75 mg PO NOW ONE Stop: 08/27/19 11:05 Last Admin: 08/27/19 15:04 Dose: Not Given Documented by: [id number] Blood Pressure Blood Pressure Findings: Elevated blood pressure Blood Pressure Disposition: further management by hospitalist Discharge Plan Visit Data *Final* Discharge Date/Time: 08/27/19 11:52 Chief Complaint: Stroke Alert Stated Complaint: stroke alert ED Provider: Jace Waddell Discharge Problem: CVA (cerebral vascular accident), COPD (chronic obstructive pulmonary disease), Elevated troponin, O2 dependent Patient Disposition: Admitted As Inpatient Discharge Instructions Interventions: ED Discharge Assessment Last Done: 08/27/19 11:52 Discharge Problem: CVA (cerebral vascular accident) Qualifiers: CVA mechanism: unspecified Qualified Code(s): I63.9 - Cerebral infarction, unspecified COPD (chronic obstructive pulmonary disease) Qualifiers: COPD type: chronic bronchitis Chronic bronchitis type: unspecified Qualified Code(s): J42 - Unspecified chronic bronchitis
--- NOTE | 2019-08-27 09:54 | History & Physical Report ---
Date of Service August 27, 2019 Assessment & Plan (1) CVA (cerebral vascular accident): - Admit to tele - Stroke order set completed - CTA head and ceck reviewed: - 1. Focal loss of partida-white matter differentiation in the posterior right frontal lobe is highly concerning for acute to subacute ischemia. 2. 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 3. There is focal high-grade stenosis at the origin of the right vertebral artery. 4. The left carotid arterial system is widely patent. 5. The mid to distal right internal carotid artery is diminutive, as well as the intracranial right internal carotid artery. 6. There is approximately 50% luminal narrowing of the right cavernous carotid artery. 7. 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 8. There is pruning of peripheral branch vessels in the posterior right frontal lobe, likely related to acute infarct. 9. There is focal high-grade stenosis of the right anterior cerebral artery. 10. Advanced emphysema. - Check MRI now - Allow permissive htn -Check echocardiogram with bubble study - Neuro consulted - NPO until seen by speech therapy - PT/OT/ST - statin therapy, discuss asa initiation with neuro, no aspirin given due to possible hemorrhagic conversion (2) Elevated troponin: Troponin was 1.6 on arrival. The patient denies any chest pains or shortness of breath. ECG with normal sinus rhythm, poor R wave progression possible anterior MO, LVH -Trend troponin Likely secondary to acute CVA -Check echo for wall motion abnormalities (3) Hyperlipidemia: - Cont statin therapy -Check lipid panel (4) Osteoporosis: - Check Vit D level, not on supplementation (5) Fracture, ulna, distal: - Sustained fracture yesterday 08/25 and presented here in the ER and had closed reduction with splint placement. Painful, can continue tylenol prn - Would avoid narcotics in the setting of acute stoke while neurochecks are ongoing as to not precipitate weakness or lethargy (6) Distal radius fracture, right: As above (7) Vitamin D deficiency: Vitamin D level here is 27.6 -Start supplementation when taking p.o. better (8) Depression with anxiety: - Continue zoloft (9) COPD (chronic obstructive pulmonary disease): - severe - Cont O2 at 4 L baseline, wears at home - Follows with pulm as outpt, Brayan Bates PA-C - Cont prednisone 5 mg daily, on this chronically-consider stress dose steroids if blood pressures are low (10) DVT prophylaxis: - teds, scds CODE: DNR Dispo: Comes from home, will need PT/OT evaluations and likely rehab placement History of Present Illness Primary Care Provider: SWATI Sher This is a 64-year-old female with PMHx of COPD oxygen dependent on 4 L, hyperlipidemia, tobacco use, osteoporosis, diverticular disease, and vision loss of the R eye, who sustained a right ulnar and radial fracture yesterday after having a fall where she tripped over oxygen tubing at home and presented here in the ER. She did not sustain injury to the head. She was casted and sent home last evening. Patient was last known well around 8 PM. This morning the patient woke up and found to have left-sided facial droop and left upper extremity and lower extremity weakness, she states she was up around 6am but could not get out of bed. Her found her a little before 7am, on the floor in the bedroom. She cannot recall specific events but got herself ready for bed last evening without any issues. Left facial droop still present, LUE strength 0/5 and LLE of 2/5. [place] tele- stroke, Dr. Kitchen, discussed the patient's case with the ER, and given noncontrast CT scan findings they felt endovascular therapy would be too risky for hemorrhagic transformation. They suspected the stroke occurred early last night. CTA reveals right frontal lobe involvement, right ICA occlusion, stenosis of the R vertebral artery, 2 mm left ICA and 1.5 mm left MCA aneurysms. There is pruning of peripheral branch vessels in the posterior right frontal lobe likely related to acute infarct, and stenosis of the right anterior cerebral artery. Allergies Allergy/AdvReac Type Severity Reaction Status Date / Time codeine AdvReac Intermediate vomitting Verified 08/26/19 12:45 Home Medications Home Medications Medication Instructions Recorded Confirmed Type albuterol sulfate 2 - 4 puff INHALATION Q6H PRN 10/13/18 08/27/19 History albuterol sulfate 2.5 mg INHALATION Q4H PRN #2 ml 10/22/18 08/27/19 History atorvastatin 40 mg tablet 40 mg PO HS #90 tab 10/22/18 08/27/19 History fluticasone fur. 100 mcg-umeclid 1 inh INHALATION QAM #60 ea 05/05/19 08/27/19 Rx 62.5 mcg-vilant 25 mcg inhalat.powder sertraline 100 mg tablet 200 mg PO QAM #180 tab 07/27/19 08/27/19 Rx prednisone 5 mg tablet 5 mg PO QAM #90 tab 08/03/19 08/27/19 Rx cephalexin [Keflex] 250 mg PO BID 5 Days #10 cap 08/26/19 08/27/19 Rx cephalexin [Keflex] 500 mg PO Q12H 5 Days #10 cap 08/26/19 08/27/19 Rx ondansetron HCl [Zofran] 4 mg PO TID PRN 5 Days #15 tab 08/26/19 08/27/19 Rx oxycodone [Roxicodone] 5 mg PO Q8H PRN #9 tab 08/26/19 08/27/19 Rx Past Med/Surg History Social History Preferred Language: Kyr[place] Communication Ability: Effective Physician/Allergy/Immunology Required: No Beliefs That Will Affect Care: None marital status: Current Living Situation: Alone and Spouse Current Living Situation Comment: 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, 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, 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 occupational status: disabled Other Information That Helps Us Care for You: No Feels Safe at Home: Yes Safety Concerns: Feels Safe At This Time Smoking Status: Current every day smoker Tobacco Type: cigarettes ; Cigarettes Per Day: 6 to 7 ; Do You Dip or Chew Tobacco: No ; Second Hand Exposure: No ; Tobacco Cessation Education Requested by Patient: No Hx Alcohol Use: No Hx Substance Use: No caffeine: Yes (coffee) Dental Care, Regularly: No Physical Activity Frequency: Daily Seatbelt Use: never Sunscreen Use: No Review of Systems Review of Systems: Constitutional: No fever, sweats or chills, no headache Eyes: No diplopia, no worsening or blurred vision, 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 ENT: normal hearing, no trouble swallowing Respiratory: No cough, sputum, dyspnea at rest or on exertion, on 4L O2 for COPD Cardiovascular: No chest pain, tightness or palpitations Abdomen: No pain, nausea, vomiting, diarrhea or constipation Musculoskeletal: + Unable to move the left upper extremity, can slightly move the left lower ext, No joint pain, calf pain, swelling Neurologic: + LUE and LLE weakness, no numbness/tingling, or balance problems Psychiatric: + anxiety or depression on zoloft Skin: No rash or itch Physical Exam Physical Exam: General: awake, alert, no apparent distress, thin Head: Normocephalic, atraumatic, + Left facial droop, inability to smile with left side, ENT: PERRL, EOMI, no pharyngeal exudate, mucous membranes moist Chest: On 4 L via NC, + crackles at bases, + dry cough, no adventitious breath sounds Cardiac: Regular rate and rhythm, no murmur, no JVD, normal peripheral pulses, good capillary refill Abdominal: NABS x 4 quadrants, soft, nondistended, nontender to palpation, no rebound, guarding or tenderness Extremities: Normal inspection, no peripheral edema or erythema, calfs nontender to palpation Psych: Normal mood and affect Neuro: AAO x 3, strength in LUE rated 0/5, can shrug shoulders bilaterally but weaker in Left compared to right, 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 RUE casted but has full active ROM, LLE strength 3/5, can move at the hip and knee off the bed but cannot perform knee to hill testing with the left,wiggles toes and can roll the ankle. RLE full active ROM. Speech is clear, no peripheral sensory deficits. Results & Data Results & Data ([facility]) Vital Signs (Past 12 Hours) Vital Signs Temp Pulse Resp BP Pulse Ox 08/27/19 09:01 90 22 98 08/27/19 08:12 36.4 C L 95 H 22 175/[address] SCAN OF THE BRAIN WITHOUT IV CONTRAST CLINICAL HISTORY: Left-sided weakness. COMPARISON STUDY: No priors. TECHNIQUE: Unenhanced axial CT scan of the brain is performed from the vertex to the skull base. A dose lowering technique was utilized adhering to the principles of ALARA. FINDINGS: Brain parenchyma: There is mild subcortical and periventricular microangiopathic disease. There is loss of partida-white matter differentiation identified in the right frontal lobe. This is concerning for acute to subacute ischemia. There is no hemorrhage or mass effect. No extra-axial fluid collection is seen. Ventricles, sulci, cisterns: Normal in configuration. Intracranial vasculature: There is atherosclerotic calcification of the cavernous carotid and vertebral arteries. Calvarium: Unremarkable. Sinuses and mastoids: The visualized paranasal sinuses are clear. The mastoid air cells are well pneumatized. Orbits: The bony orbits are grossly intact. There is a right ocular lens implant. IMPRESSION: 1. There is loss of partida-white matter differentiation identified in the right frontal lobe concerning for acute to subacute ischemia. 2. There is no hemorrhage or mass effect. ACT 112: Negative or not required by law. Electronically signed by: Cristian Holt M.D. 08/27/2019 8:[address] ANGIOGRAM OF THE BRAIN; CT ANGIOGRAM OF THE NECK CLINICAL HISTORY: Left-sided weakness. COMPARISON STUDY: Unenhanced CT of the brain performed the same day 08/27/2019. TECHNIQUE: Following the IV administration of 120 of Optiray 320, CT angiogram of the head and neck was performed from the aortic arch to the vertex. Images are reviewed in the axial, sagittal, and coronal planes. 3-D MIPS images are created and assessed. IV contrast was administered without complication. All measurements were calculated based on NASCET criteria. A dose lowering technique was utilized adhering to the principles of ALARA. CT DOSE: 839.61 mGy.cm FINDINGS: Brain parenchyma: There is mild subcortical and periventricular microangiopathic disease. Loss of partida-white matter differentiation is again identified within several right-sided frontal lobe sulci. There is no hemorrhage or mass effect. The ventricles, sulci, and cisterns are normal in configuration. Partida-white matter differentiation is preserved. No extra-axial fluid collection is seen. Thoracic aorta: There is atherosclerotic calcification of the thoracic aorta. Visualized portions of the thoracic aorta are normal in caliber. The aortic arch demonstrates standard 3-vessel anatomy. Right carotid arterial system: The right common carotid artery is patent. Plaque causes less than 50% luminal narrowing distally. There is complete thrombosis at the origin of the right common carotid artery (axial image #216). The occlusion extends for 6 mm were there is reconstitution of flow. The mid to distal portions of the right internal carotid artery are diminutive but patent. Left carotid arterial system: The left common carotid artery is widely patent, as are the left internal and external carotid arteries. Atherosclerotic plaque is noted in the common carotid artery the carotid bulb. Vertebral arteries: There is high-grade stenosis at the origin of the right vertebral artery. The vertebral arteries are otherwise patent bilaterally and codominant. Subclavian arteries: Widely patent bilaterally. Intracranial vasculature: There is evidence carotid calcification of the cavernous carotid and vertebral arteries. The internal carotid arteries are patent at the skull base. The right internal carotid artery appears diminutive, and there is approximately 50% luminal narrowing of the right cavernous carotid artery secondary to calcified and soft plaque. There is focal moderate stenosis of the right anterior cerebral artery seen on image #119. The anterior cerebral arteries are otherwise patent. The middle cerebral arteries are patent bilaterally. There is pruning of peripheral branch vessels within the posterior right frontal lobe. The vertebrobasilar system and posterior cerebral arteries are widely patent. The vertebral arteries are codominant. 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 There is a 1.5 mm aneurysm arising inferiorly at the origin of the left middle cerebral artery, best seen on image #79. Jugular veins: Patent bilaterally. Dural sinuses: Patent. Lung apices: Advanced emphysema is change is noted in the upper lobes. Upper lobe lung parenchyma is otherwise clear as imaged. Biapical scarring is observed. Soft tissues: The visualized pharyngeal soft tissues are normal in appearance noting angiographic phase technique. The oropharyngeal airway appears widely patent. The salivary and thyroid glands are normal in appearance. No cervical lymphadenopathy is seen. Skeletal structures: The skeletal structures are osteopenic. The calvarium appears intact. The cervical spine is maintained noting multilevel spondylosis. No lytic or blastic lesion is seen. Orbits: The bony orbits are intact. Orbital contents are normal as visualized noting a right ocular lens implant. Sinuses and mastoids: The paranasal sinuses are clear. The mastoid air cells are well pneumatized. IMPRESSION: 1. Focal loss of partida-white matter differentiation in the posterior right frontal lobe is highly concerning for acute to subacute ischemia. 2. 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 3. There is focal high-grade stenosis at the origin of the right vertebral artery. 4. The left carotid arterial system is widely patent. 5. The mid to distal right internal carotid artery is diminutive, as well as the intracranial right internal carotid artery. 6. There is approximately 50% luminal narrowing of the right cavernous carotid artery. 7. 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 8. There is pruning of peripheral branch vessels in the posterior right frontal lobe, likely related to acute infarct. 9. There is focal high-grade stenosis of the right anterior cerebral artery. 10. Advanced emphysema. ACT 112: Negative or not required by law. Electronically signed by: Cristian Holt M.D. 08/27/2019 9:02 AM SINGLE VIEW CHEST CLINICAL HISTORY: Strokelike symptoms. Left-sided weakness. FINDINGS: An AP, portable, upright chest radiograph is compared to study dated 05/01/2019. The examination is degraded by portable technique and patient rotation. The cardiomediastinal silhouette is unremarkable noting atherosclerotic calcification of the thoracic aorta. Advanced emphysema and chronic interstitial thickening are similar to previous. There is bibasilar scarring/atelectasis. No airspace consolidation or large pleural effusion is identified. No pneumothorax is seen. The skeletal structures are osteopenic. The bony thorax is grossly intact. IMPRESSION: Advanced emphysematous change with no acute cardiopulmonary abnormality. ACT 112: Negative or not required by law. Electronically signed by: Cristian Holt M.D. 08/27/2019 9:04 AM Dictated: 08/27/19901 Transcribed: 08/27/19901 ECG Additional Comments: 27-AUG-2019 08:33:48 [facility]-EDSTAT ROUTINE RETRIEVAL Poor data quality, interpretation may be adversely affected Normal sinus rhythm Possible Anterior infarct (cited on or before 27-AUG-2019) Abnormal ECG When compared with ECG of 26-AUG-2019 12:03, Significant changes have occurred 25mm/s 10mm/mV 150Hz 9.0.9 12SL 241 LORENZA: 15 Referred by: REFERRED SELF Unconfirmed Vent. rate 95 BPM MA interval 134 ms QRS duration 74 ms QT/QTc 392/492 ms P-R-T axes 76 65 113 Code Status & VTE Plan Code Status DNR - discussed with pt and daughter in law/ and son at bedside. Supervising Physician Co-Signing Physician Notes PA Supervision Note: I personally saw and examined the patient. I verified all sargent points and agree with TARI Zepeda with the following exceptions and/or additions: This patient is a 64-year-old female who presents to the ER with left-sided weakness and facial droop upon awakening this morning. Her last known well time was at approximately 8 PM the night before. Telemetry stroke consult was obtained by the ER and she was found to have complete occlusion of the right internal carotid artery and a right-sided frontoparietal acute CVA on CT. There was no recommendation for thrombectomy given high risk of hemorrhagic conversion given the time out from the event. Patient denies headache, chest pain, shortness of breath. She continues to smoke on a daily basis. History and ROS reviewed as above Vitals reviewed Gen: AAOx3, NAD HEENT: Anicteric sclerae, EOMI, PERRLA CV: RRR no mgr nl S1S2 Pulm: Bilateral rhonchi and wheezes, diminished breath sounds throughout Abd: +BS soft NT ND no masses or hernias Ext: No edema Skin: No rashes, warm/dry Neuro: Cranial nerves II through XII intact except with left-sided facial droop, 5/5 strength throughout the right upper and lower extremities, flaccid left upper extremity, left lower extremity with 4/5 strength in hip flexor and knee flexion and extension and plantar and dorsiflexion, sensation intact to light touch throughout Labs and radiology reviewed ECG with normal sinus rhythm, poor R wave progression, possible anterior MO, unchanged from previous 64-year-old female with history as above, here with left-sided hemiparesis and facial droop, with acute occlusion of right internal carotid artery and acute ischemic CVA. Discussed the case with neurology on the phone-plan to start Plavix, however she failed her dysphagia screen initially. Speech therapy cleared her for pured diet but only with crushed medications. Plavix cannot be crushed. Ordered her a one-time dose of aspirin 300 mg MA x1 and if swallowing improves, could start on Plavix tomorrow. -Ordered echo for positive troponin and for bubble study for CVA -Trend serial troponin -Await brain MRI -Appreciate neurology consultation -PT/OT/speech therapy -Encourage smoking cessation -Check lipid panel, continue atorvastatin -SCDs for prophylaxis, will avoid Lovenox for now given high risk of hemorrhagic conversion PG Care Time/CCT Total # of Minutes Spent Total Time Spent with Patient: Total time spent is greater than 50% in coordination of care (as documented) at patient's floor/unit and/or counseling patient: Coding Level of Care Code 32775 Initial Inpt Care Lvl 3 Diagnoses CVA (cerebral vascular accident) I63.9 Elevated troponin R79.89 Hyperlipidemia E78.5 Osteoporosis M81.0 Fracture, ulna, distal S52.601A Encounter type: initial encounter Fracture morphology: unspecified fracture morphology Fracture type: closed Laterality: right Distal radius fracture, right S52.501A Encounter type: initial encounter Fracture morphology: unspecified fracture morphology Fracture type: closed Vitamin D deficiency E55.9 Depression with anxiety F41.8 COPD (chronic obstructive pulmonary disease) J44.9 DVT prophylaxis Z29.9 (1) Distal radius fracture, right Encounter type: initial encounter Fracture morphology: unspecified fracture morphology Fracture type: closed Qualified Code(s): S52.501A - Unspecified fracture of the lower end of right radius, initial encounter for closed fracture (2) Fracture, ulna, distal Encounter type: initial encounter Fracture morphology: unspecified fracture morphology Fracture type: closed Laterality: right Qualified Code(s): S52.601A - Unspecified fracture of lower end of right ulna, initial encounter for closed fracture
[2019-08-27 10:28] LABS: Appearance Urine Clear (Clear); Bilirubin Urine Negative (Negative); Blood Urine Negative (Negative); Color Urine Yellow; Glucose Urine UA Negative (Negative); Ketones Urine 1+ (Negative); Leukocyte Esterase Urine Negative (Negative); Nitrite Urine Negative (Negative); Protein Urine Negative (Negative); Specific Gravity Urine > 1.045 (1.000-1.030); Urobilinogen Urine Negative (Negative)
[2019-08-27] MEDS ORDERED: CLOPIDOGREL BISULFATE 75 MG TAB PO ONE (11:04)
[2019-08-27] MEDS ORDERED: ACETAMINOPHEN 325 MG TAB PO PRN (11:28)
[2019-08-27] MEDS ORDERED: ALBUTEROL HFA 8 GM INHALER INH PRN (11:28)
[2019-08-27] MEDS ORDERED: ALBUTEROL 0.083% NEBU SOLN 3 ML VIAL INH PRN (11:28)
[2019-08-27] MEDS ORDERED: ONDANSETRON 4 MG OD TAB PO PRN (11:28)
[2019-08-27] MEDS ORDERED: PHARMACIST DISCHARGE MED REC CONSULT PRN (11:28)
[2019-08-27] MEDS ORDERED: ONDANSETRON INJ 2 MG/ML 2 ML VIAL IV PRN (11:28)
[2019-08-27] MEDS ORDERED: ASPIRIN 300 MG SUPP PR ONE (13:55)
--- NOTE | 2019-08-27 14:35 | Electrocardiogram Report ---
Test Reason : Blood Pressure : / mmHG Vent. Rate : 095 BPM Atrial Rate : 095 BPM P-R Int : 134 ms QRS Dur : 074 ms QT Int : 392 ms P-R-T Axes : 076 065 113 degrees QTc Int : 492 ms Poor data quality, interpretation may be adversely affected Normal sinus rhythm Poor R wave progression, consider anterior CO vs. lead placement vs. LVH Abnormal ECG When compared with ECG of 26-AUG-2019 12:03, Significant changes have occurred Confirmed by Filipe Cevallos ([id number]) on 08/27/2019 2:35:01 PM Referred By: REFERRED SELF Confirmed By:Filipe Cevallos
--- NOTE | 2019-08-27 17:27 | Magnetic Resonance Report ---
MRI OF THE BRAIN WITHOUT IV CONTRAST CLINICAL HISTORY: Stroke. COMPARISON STUDY: CT of the brain performed the same day 08/27/2019. TECHNIQUE: MRI of the brain was performed utilizing various T1 and T2-weighted sequences in the axial , sagittal, and coronal planes. IV contrast was not administered for this examination. FINDINGS: Brain parenchyma: There is a 4 cm focus of restricted diffusion identified within the right frontopar ietal region consistent with acute to subacute ischemia. No additional foci of acute ischemia are tiffany ntified. There is no hemorrhage or mass effect. There is minimal microangiopathic change. No extra-ax ial fluid collection is seen. The cerebellar tonsils are normal in configuration. Ventricles, sulci, and cisterns: Normal in configuration. Pituitary and sella: Unremarkable. An 8 mm Tornwaldt cyst is incidentally noted in the posterior phar ynx. Intracranial vasculature: Normal flow voids are maintained at the skull base. Orbits: The bony orbits are grossly intact. Orbital contents are normal in appearance noting a right ocular lens implant. Sinuses and mastoids: Clear. Calvarium: Unremarkable. Cervical cord: Partially visualized cervical spinal cord is normal in morphology and signal intensity . IMPRESSION: 1. Evolving right frontoparietal lobe infarct as above. 2. No additional foci of acute ischemia are identified. 3. There is no hemorrhage or mass effect. ACT 112: Negative or not required by law. Electronically signed by: Cristian Holt M.D. 08/27/2019 5:26 PM
[2019-08-27] MEDS: ATORVASTATIN 40 MG TAB PO SCH (20:20)
[2019-08-28 05:04] LABS: Basophils # (auto) 0.01 K/uL (0-0.2); Basophils % (auto) 0.1 %; Eosinophils # (auto) 0.01 K/uL (0-0.5); Eosinophils % (auto) 0.1 %; Hematocrit (blood only) 38.9 % (37-47); Hemoglobin 12.3 g/dL (12.0-16.0); Immature Granulocytes # (auto) 0.02 K/uL (0.00-0.02); Immature Granulocytes % (auto) 0.2 %; Lymphocytes # (auto) 1.16 K/uL (1.2-3.4); Lymphocytes % (auto) 12.2 %; Mean Corpuscular Hemoglobin 29.4 pg (25-34); Mean Corpuscular Hgb Conc 31.6 g/dL (32-36); Mean Corpuscular Volume 93.1 fL (80-100); Mean Platelet Volume 11.7 fL (7.4-10.4); Monocytes # (auto) 1.09 K/uL (0.11-0.59); Monocytes % (auto) 11.5 %; Neutrophils # (auto) 7.18 K/uL (1.4-6.5); Neutrophils % (auto) 75.9 %; Platelet Count 145 K/uL (130-400); RDW Coefficient of Variation 14.8 % (11.5-14.5); RDW Standard Deviation 50.2 fL (36.4-46.3); Red Blood Count 4.18 M/uL (4.2-5.4); White Blood Count 9.47 K/uL (4.8-10.8)
[2019-08-28 05:31] LABS: Calcium 8.3 mg/dl (8.5-10.1); Creatinine Clr Calc Pharmacy 55.8 ml/min; Est GFR (African American) 107.4; Est GFR (Non-African American) 92.7; Potassium 3.9 mmol/L (3.5-5.1)
[2019-08-28 05:47] LABS: Estimated Average Glucose 114 mg/dl; Hemoglobin A1C 5.6 % (4.5-5.6)
[2019-08-28 06:07] LABS: Troponin I 3.68 ng/ml (0-0.045)
--- NOTE | 2019-08-28 06:25 | Communication Note ---
Date of Service: August 28, 2019 Notified about critical trop this AM of 3.680, continued elevation. Put in for an additional q6h troponin trend since hasn't started downtrending since admission. Consider echo as mentioned and cardiology consult. 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
[2019-08-28] MEDS: UMECLIDINIUM/VILANTEROL 62.5/25MCG 7 PUFFS/INHALER INH SCH (08:30)
[2019-08-28] MEDS: FLUTICASONE FUROATE 100MCG 14 PUFFS/INHALER INH SCH (08:30)
[2019-08-28] MEDS: CLOPIDOGREL BISULFATE 75 MG TAB PO SCH (08:47)
[2019-08-28] MEDS: predniSONE 5 MG TAB PO SCH (08:47)
[2019-08-28] MEDS: SERTRALINE HCL 100 MG TABLET PO SCH (08:48)
--- NOTE | 2019-08-28 10:19 | XCELERA ---
[id number]
--- NOTE | 2019-08-28 14:03 | Hospitalist Progress Note ---
Date of Service August 28, 2019 Assessment & Plan (1) CVA (cerebral vascular accident): MRI brain on 08/26 showed 4 cm focus of restricted diffusion identified within the right frontoparietal region consistent with acute to subacute ischemia. - CTA head and neck reviewed: - 1. Focal loss of curiel-white matter differentiation in the posterior right frontal lobe is highly concerning for acute to subacute ischemia. 2. There is complete short segment occlusion at the origin of the right inter nal carotid artery. 3. There is focal high-grade stenosis at the origin of the right vertebral artery. 4. The left carotid arterial system is widely patent. 5. The mid to distal right internal carotid artery is diminutive, as well as the intracranial right internal carotid artery. 6. There is approximately 50% luminal narrowing of the right cavernous carotid artery. 7. 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 8. There is pruning of peripheral branch vessels in the posterior right frontal lobe, likely related to acute infarct. 9. There is focal high-grade stenosis of the right anterior cerebral artery. 10. Advanced emphysema. - Allow permissive HTN - Check echocardiogram with bubble study - Neuro consulted - PT/OT/ST - Continue statin therapy (2) Elevated troponin: Troponin was 1.6 on arrival. The patient denies any chest pains or shortness of breath. ECG with normal sinus rhythm, poor R wave progression possible anterior OR, LVH. - Trend troponin -> Up to 3.6 on 08/27. - Echo pending - Cardiology consulted - Holding ASA as above until neurology recs in (3) Hyperlipidemia: Cholesterol was 209; LDL 112; HDL 70. - Continue statin therapy (4) Osteoporosis: Vitamin D level was 27 this admission. Not on supplementation. - Start ergocalciferol. (5) Fracture, ulna, distal: Sustained fracture on 08/25 and presented here in the ER and had closed reduction with splint placement. - Can continue Tylenol PRN - Would avoid narcotics in the setting of acute stoke while neurochecks are ongoing as to not precipitate weakness or lethargy (6) Distal radius fracture, right: As above (7) Depression with anxiety: - Continue Zoloft (8) COPD (chronic obstructive pulmonary disease): Severe. With chronic hypoxemic respiratory failure. - Cont O2 at 4 L baseline, wears at home - Follows with pulm as outpt, Brayan Bates PA-C - Cont prednisone 5 mg daily, on this chronically (9) DVT prophylaxis: SCDs - Low DVT risk per admission calculator & also want to avoid heparin in case there is concern for hemorrhagic conversion. Admission and Anticipated Discharge Date Admission Date: August 27, 2019 Subjective No major change today. Right arm pain from prior fracture. Reports no fevers/chills, chest pain, shortness of breath, abdominal pain, nausea, or vomiting. Physical Exam Constitutional: WD/WN, vitals as above Eyes: EOM intact bilaterally; no conjunctival abnormality ENMT: external ear and nose normal, oropharynx normal Neck: trachea midline, no thyromegaly normal visual inspection Respiratory: normal respiratory effort, lungs clear to auscultation no respiratory distress Cardiovascular: RRR, no murmur, no edema Gastrointestinal (Abdomen): Inspection/Auscultation: abdomen normal to inspection; abdomen not distended Musculoskeletal: no cyanosis or clubbing, extremities motor strength 5/5 Skin: no rashes, warm and dry Neurologic: moves all extremities and awake Psychiatric: Orientation: alert, oriented to person and cooperative Results & Data Results & Data ([facility]) Vital Signs (Past 12 Hours) Vital Signs Temp Pulse Resp BP Pulse Ox 08/28/19 04:00 36.7 C 71 18 166/66 H 100 08/28/19 03:18 76 19 179/83 H 100 08/28/19 03:00 71 19 100 08/28/19 02:18 75 18 179/76 H 08/28/19 02:00 71 19 100 PG Care Time/CCT Total # of Minutes Spent Total Time Spent with Patient: Total time spent is greater than 50% in coordination of care (as documented) at patient's floor/unit and/or counseling patient: Coding Level of Care Code 25969 Subseq Hosp Care Lvl 3 Diagnoses CVA (cerebral vascular accident) I63.9 CVA mechanism: unspecified Elevated troponin R79.89 Hyperlipidemia E78.5 Osteoporosis M81.0 Fracture, ulna, distal S52.601A Encounter type: initial encounter Fracture morphology: unspecified fracture morphology Fracture type: closed Laterality: right Distal radius fracture, right S52.501A Encounter type: initial encounter Fracture morphology: unspecified fracture morphology Fracture type: closed Depression with anxiety F41.8 COPD (chronic obstructive pulmonary disease) J44.9 DVT prophylaxis Z29.9 (1) CVA (cerebral vascular accident) CVA mechanism: unspecified Qualified Code(s): I63.9 - Cerebral infarction, unspecified (2) Fracture, ulna, distal Encounter type: initial encounter Fracture morphology: unspecified fracture morphology Fracture type: closed Laterality: right Qualified Code(s): S52.601A - Unspecified fracture of lower end of right ulna, initial encounter for closed fracture (3) Distal radius fracture, right Encounter type: initial encounter Fracture morphology: unspecified fracture morphology Fracture type: closed Qualified Code(s): S52.501A - Unspecified fracture of the lower end of right radius, initial encounter for closed fracture
[2019-08-28] MEDS ORDERED: ERGOCALCIFEROL 50,000 UNITS CAP PO SCH ×2 (14:30→15:00)
--- NOTE | 2019-08-28 15:31 | Cardiology Consultation ---
Date of Consultation August 28, 2019 Assessment & Plan (1) Elevated troponin: Patient is a 64 year old female with PMHx COPD O2 dependant since 2007, HLD, continued and current tobacco use, osteoporosis, diverticular disease, R ulnar and radial wrist fracture, consulted on for concerns of elevated troponin in the setting of a CVA of the R MCA. Elevated Troponin -Elevated on admission at 1.6 -Trended upwards to zenith of 3.6, since has begun downtrending to 2.9 -Continue trending troponin x1 and can stop if still downtrending. -TTE negative. -EKG was NSR with poor R wave progression -Elevation likely secondary to hypertension/subendocardial ischemia vs stroke -Allow for permissive hypertension in the setting of stroke -Can start antihypertensive control with CASEY/ARB once Neurology has seen patient. Hypertension -Allow for permissive hypertension in setting of acute stroke -Start hypertensive management with CASEY/ARB per primary team once Neurology has seen patient. Acute Ischemic MCA -Defer to Neurology and primary team for management. -TTE with bubble study negative -Can d/c Plavix -Restart ASA HLD -Continue statin (2) Hypertension: (3) Acute ischemic right MCA stroke: (4) Hyperlipidemia: Supervising Physician Co-Signing Physician Notes Patient seen and examined with Dr. Caballero. Agree with his assessment and plan. Elevated troponin likely secondary to significant hypertension and subendocardial ischemia. Start anti-hypertensive agent when ok with neurology. History of Present Illness Reason for Consultation: Elevated Troponin Attending Physician: Donavan Smith MD History of Present Illness Patient is a 64 year old female with PMHx COPD O2 dependant since 2007, HLD, continued and current tobacco use, osteoporosis, diverticular disease, R ulnar and radial wrist fracture, consulted on for concerns of elevated troponin in the setting of a CVA of the R MCA. History was obtained by chart review and discu ssion with patient. Of note, patient was last seen well on 08/26/19 at 8PM when she was discharged from the ED after having her R wrist splinted. She had awoken the following morning with L sided droop and weakness and was found on the floor of her bedroom by her . She presented to the ED with L facial droop, LUE and LLE weakness. She was noted to have an evolving R frontoparietal lobe infar ct on MRI. Her case was discussed with [facility] Tele-Stroke and it was determined that she was out of the time window for thrombolytics and that an intervention at that time would be risky for hemorrhagic transformation. Patient was noted to have an elevated Troponin of 1.6 on arrival which raised to a zenith of 3.68 the morning of 08/28/19. This has since started downtrending with last value being 2.97 at 11AM 08/28/19. Patient notes that she has not had any chest pain, pressure, radiating pain, back pain, or dizziness the past few days. She denies any current chest pain or pressure. She notes that she becomes SOB with activity (fairly limited currently), but notes it has been chronic for her due to her COPD. She notes she has been on oxygen therapy since 2007. She also notes she continues to smoke 6-7 cigarettes/day. Allergies Allergy/AdvReac Type Severity Reaction Status Date / Time codeine AdvReac Intermediate vomitting Verified 08/26/19 12:45 Home Medications Home Medications Medication Instructions Recorded Confirmed Type albuterol sulfate 2 - 4 puff INHALATION Q6H PRN 10/13/18 08/27/19 History albuterol sulfate 2.5 mg INHALATION Q4H PRN #2 ml 10/22/18 08/27/19 History atorvastatin 40 mg tablet 40 mg PO HS #90 tab 10/22/18 08/27/19 History fluticasone fur. 100 mcg-umeclid 1 inh INHALATION QAM #60 ea 05/05/19 08/27/19 Rx 62.5 mcg-vilant 25 mcg inhalat.powder sertraline 100 mg tablet 200 mg PO QAM #180 tab 07/27/19 08/27/19 Rx prednisone 5 mg tablet 5 mg PO QAM #90 tab 08/03/19 08/27/19 Rx cephalexin [Keflex] 250 mg PO BID 5 Days #10 cap 08/26/19 08/27/19 Rx cephalexin [Keflex] 500 mg PO Q12H 5 Days #10 cap 08/26/19 08/27/19 Rx ondansetron HCl [Zofran] 4 mg PO TID PRN 5 Days #15 tab 08/26/19 08/27/19 Rx oxycodone [Roxicodone] 5 mg PO Q8H PRN #9 tab 08/26/19 08/27/19 Rx Patient History Medical History Chronic obstructive pulmonary disease (Acute) FOLLOWS WITH GREG PEOPLES / HAS CHRONIC COUGH / RARELY USES RES. 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, 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, 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 occupational status: disabled Other Information That Helps Us Care for You: No Feels Safe at Home: Yes Safety Concerns: Feels Safe At This Time Smoking Status: Current every day smoker Tobacco Type: cigarettes ; Cigarettes Per Day: 6 to 7 ; Do You Dip or Chew Tobacco: No ; Second Hand Exposure: No ; Tobacco Cessation Education Requested by Patient: No Hx Alcohol Use: No Hx Substance Use: No caffeine: Yes (coffee) Dental Care, Regularly: No Physical Activity Frequency: Daily Seatbelt Use: never Sunscreen Use: No Review of Systems Constitutional: + fatigue and + weakness; no fever and no chills Respiratory: + cough, + dyspnea, + dyspnea on exertion and + wheezing Cardiovascular: + dyspnea and + dyspnea on exertion; no chest pain, no chest pain at rest, no chest pain with activity and no radiating jaw, neck or arm pain Gastrointestinal: no abdominal pain Neurologic: + unsteadiness and + localized weakness; no headache(s) Physical Exam Constitutional: + frail appearing, + disheveled and cooperative; no acute distress Respiratory: normal respiratory effort (3L O2 ) and + cough Auscultation: + diminished lung sounds (b/l ) and + wheezes (diffuse throughotu ) Cardiovascular: Rate/Rhythm: regular rate and regular rhythm Heart Sounds: no murmur Vessels: + carotid bruit (soft, R side); no JVD Neurologic: L sided facial droop Psychiatric: Orientation: alert, oriented to person, oriented to place and cooperative Eye Contact: + fair eye contact Affect: + flat affect Results & Data ([facility]) Vital Signs (Past 12 Hours) Vital Signs Temp Pulse Resp BP Pulse Ox 08/28/19 04:00 36.7 C 71 18 166/66 H 100 08/28/19 03:18 76 19 179/83 H 100 PG Care Time/CCT Total # of Minutes Spent Total Time Spent with Patient: Total time spent is greater than 50% in coordination of care (as documented) at patient's floor/unit and/or counseling patient: Coding Level of Care Code 89039 Initial Inpt Care Lvl 3 Diagnoses Elevated troponin R79.89 Hypertension I10 Acute ischemic right MCA stroke I63.511 Hyperlipidemia E78.5 Resident Activity Tracking Resident Involvement: Resident Care Provided Care Provided: Adult Hospital Medicine
--- NOTE | 2019-08-28 15:33 | Neurology Consultation ---
Date of Consultation August 28, 2019 Assessment & Plan (1) Elevated troponin: (2) Distal radius fracture, right: (3) COPD (chronic obstructive pulmonary disease): (4) Hyperlipidemia: (5) Acute ischemic right MCA stroke: Stacy Suazo is a 64 yo woman w/ PMH of COPD on 4L NC, HLD, tobacco abuse, osteoporosis, history of diverticular disease, history of right eye vision loss and recent right ulnar/radial fracture 1 day prior to presentation who presents to [facility] after acute onset of left facial droop present left-sided weakness. Symptom localization: distal right MCA Stroke mechanism: vessel to vessel embolus Stroke WorkUp: - CT head: hypodensity in the right periventricular frontal white matter, as well as loss of curiel-white differentiation in the right posterior frontal lobe. 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 - MRI brain: right posterior frontal subacute infarct, mild SVID - TTE: EF 55-60%, no intra-arterial shunt - Telemetry: pending - A1c: 5.6 - FLP: 112 - Troponin, TSH: 1.6, within normal Stroke Management: - Acute treatment: deferred - Continuous cardiac monitoring, will consider Holter monitor as outpatient if telemetry here unrevealing - Vitals, Neurochecks, NIHSS per unit routine - BP parameters: SBP CAP 180, ok to start anti-hypertensives - Consult speech, PT, OT for supportive management - Counselled concerning stroke education, smoking cessation, healthy diet, physical activity, weight loss - Follow up with PCP for assistance with outpatient goals (BP <130/80, LDL <70, A1c <7) - Follow up in neurology clinic in 6-8 weeks - would see if Dr Garcia would offer an early CEA (though it is not 100% clear when she had the occlusion as the stroke only affects the distal MCA territory and the R ICA already has a small caliber which is suggestive of chronic occlusion and not amenable to CEA) Secondary Stroke Prevention: - Antiplatelet: ok to start ASA 81mg po daily (small to moderate stroke burden) - Anticoagulation: Not indicated at this time - Statin: Atorvastatin 80mg daily HTN: - BP parameters, as above - Start BP medications with goal of lowering BP to normotension over next 3-4 days - defer to cardiology regarding elevated troponin level FEN/GI: - Diet: NPO until cleared by Speech evaluation - Monitor lytes and replete PRN Glucose Control: - Sliding scale insulin and accuchecks per primary team to avoid hyperglycemia Thank you for this interesting consult. Plan of care was discussed with primary team. Please call with any questions. (6) ICAO (internal carotid artery occlusion): History of Present Illness Attending Physician: Donavan Smith MD History of Present Illness Stacy Suazo is a 64 yo woman w/ PMH of COPD on 4L NC, HLD, tobacco abuse, osteoporosis, history of diverticular disease, history of right eye vision loss and recent right ulnar/radial fracture 1 day prior to presentation who presents to [facility] after acute onset of left facial droop present left-sided weakness. 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 In the ED, she was afebrile, BP 175/75, heart rate 95, respiratory rate 22 on home nasal cannula. Labs notable for WBC 11.59, hemoglobin 12.8, platelets 165, sodium 148, creatinine 0.95, glucose 98, INR 1.0, TSH within normal, troponin 1.6, urinalysis negative for infection, vitamin D 25 OH low at 27.6. She had a CT head that was independently reviewed and showed a hypodensity in the right periventricular frontal white matter, as well as loss of curiel-white differentiation in the right posterior frontal lobe. CTA head and neck was notable for high-grade stenosis at the right ICA bifurcation with complete occlusion of the proximal right ICA, dominant right vertebral artery, high-grade stenosis of the left vertebral artery at the origin, diminutive right ICA from site of the occlusion through the intracranial trifurcation, right cavernous segment ICA stenosis secondary to atherosclerosis, 2 mm aneurysm of the supraclinoid left ICA, 1.5 mm aneurysm of the inferior left MCA. Images were reviewed by Lashawn tele-stroke and she was deemed a non-candidate for IAT given risk for hemorrhagic transformation. On examination today, she reports feeling slightly depressed given that she broke her right arm 2 days ago and now cannot move her left arm secondary to stroke. She denied taking aspirin at home. She does continue to smoke daily and is on oxygen at home therapy for COPD. MRI of the brain was obtained and shows a subacute infarct in the right posterior frontal lobe with mild small vessel disease. Stroke Workflow: Where patient arrived from: home Time patient arrived in ED: 8:12am on 08/27/19 Triaged as Trauma: No In-house stroke: n/a Mode of arrival: Ambulance Time patient undergoes CT head: 8:20am Time patient undergoes advanced imagin:28am on 08/27/19 CT ASPECT: 8 Time IV tpa is given: NA tPA bolus: NA tPA dose: NA If tpa not given, why not: Outside of time window, two aneurysms noted on CTA H&N If delay >60min after hospital arrival, why: n/a If no IA therapy, why not: No clear penumbra on available imaging at the time Patient Features: Admission NIHSS: Admission Modified [place] Scale: 9 Time patient last seen well: ~8pm on 08/26/19 Wake up stroke: Yes Intubation status: Not intubated Stroke Risk Factors: Hypertension: N Hyperlipidemia: Y Atrial Fib: N Tobacco: Y Diabetes: N Taking NOAC or warfarin: N Allergies Allergy/AdvReac Type Severity Reaction Status Date / Time codeine AdvReac Intermediate vomitting Verified 08/26/19 12:45 Home Medications Home Medications Medication Instructions Recorded Confirmed Type albuterol sulfate 2 - 4 puff INHALATION Q6H PRN 10/13/18 08/27/19 History albuterol sulfate 2.5 mg INHALATION Q4H PRN #2 ml 10/22/18 08/27/19 History atorvastatin 40 mg tablet 40 mg PO HS #90 tab 10/22/18 08/27/19 History fluticasone fur. 100 mcg-umeclid 1 inh INHALATION QAM #60 ea 05/05/19 08/27/19 Rx 62.5 mcg-vilant 25 mcg inhalat.powder sertraline 100 mg tablet 200 mg PO QAM #180 tab 07/27/19 08/27/19 Rx prednisone 5 mg tablet 5 mg PO QAM #90 tab 08/03/19 08/27/19 Rx cephalexin [Keflex] 250 mg PO BID 5 Days #10 cap 08/26/19 08/27/19 Rx cephalexin [Keflex] 500 mg PO Q12H 5 Days #10 cap 08/26/19 08/27/19 Rx ondansetron HCl [Zofran] 4 mg PO TID PRN 5 Days #15 tab 08/26/19 08/27/19 Rx oxycodone [Roxicodone] 5 mg PO Q8H PRN #9 tab 08/26/19 08/27/19 Rx Patient History Medical History Chronic obstructive pulmonary disease (Acute) FOLLOWS WITH GREG PEOPLES / HAS CHRONIC COUGH / RARELY USES RES. 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 Beliefs That Will Affect Care: None marital status: Current Living Situation: Alone and Spouse Current Living Situation 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: 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, 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, 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 occupational status: disabled Other Information That Helps Us Care for You: No Feels Safe at Home: Yes Safety Concerns: Feels Safe At This Time Smoking Status: Current every day smoker Tobacco Type: cigarettes ; Cigarettes Per Day: 6 to 7 ; Do You Dip or Chew Tobacco: No ; Second Hand Exposure: No ; Tobacco Cessation Education Requested by Patient: No Hx Alcohol Use: No Hx Substance Use: No caffeine: Yes (coffee) Dental Care, Regularly: No Physical Activity Frequency: Daily Seatbelt Use: never Sunscreen Use: No Review of Systems Review of Systems: 14 point review of systems completed and negative except as in HPI. Exam (Neuro) Physical Exam: General Exam: GEN: NAD, sitting down in chair near bed. HEENT: No conjunctival injection, no rhinorrhea CV: RRR on monitor, no significant edema. PULM: Nonlabored respirations on 3-4L NC Neuro Exam: MS: Awake and Alert. Oriented to person, place, and date. Speech fluent and appropriate without dysarthria or paraphasic errors. Language intact including naming, comprehension, repetition. Cognition and memory grossly intact. Attention intact. No neglect. CN: Visual atkins full. No extinction to double simultaneous stimuli. Unable to visualize fundi on fundoscopic exam as patient kept closing eyes. PERRLA OU. EOMI without nystagmus. Facial sensation intact to LT. left facial droop. Hearing intact to conversation. Uvula midline with symmetric palatal elevation. Shoulder shrug normal on the right. Tongue midline. MOTOR: Normal bulk and tone. Right arm is in a cast, she is able to elevate her shoulders and wiggle her fingers but otherwise cannot be assessed further. Left arm has minimal antigravity and is predominantly flaccid throughout. RLE strength 5/5 at iliopsoas, hamstrings, quadriceps, tibialis anterior, and gastrocnemius. LLE strength 3/5 at iliopsoas, hamstrings, quadriceps, 5-/5 tibialis anterior, and gastrocnemius. REFLEXES: 1+ at L biceps, triceps, brachioradialis, 1+ bilateral patella, and absent Achilles bilaterally. Flexor plantar responses bilaterally. SENSORY: Intact to LT throughout, no extinction to double simultaneous stimuli. COORDINATION: Unable to assess dysmetria due to broken arm. Brigid also deferred.. GAIT: Deferred due to physical status. NIH STROKE SCALE 1A. Level of Consciousness (0-3) = 0 1B. LOC Questions (0-2) = 0 1C. LOC Commands (0-2) = 0 2. Best Horizontal Gaze (0-2) = 0 3. Visual Atkins (0-3) = 0 4. Facial Palsy (0-3) = 3 5. Motor Arm Right (0-4) = 0 Left (0-4) = 4 6. Motor Leg Right (0-4) = 0 Left (0-4) = 1 7. Limb Ataxia (0-2) = 0 8. Sensory (0-2) = 0 9. Best Language (0-3) = 0 10. Dysarthria (0-2) = 0 11. Extinction and Inattention (0-2) = 0 NIHSS TOTAL = 8 Results & Data ([facility]) Vital Signs (Past 12 Hours) Vital Signs Temp Pulse Resp BP Pulse Ox 08/28/19 04:00 36.7 C 71 18 166/66 H 100 08/28/19 03:18 76 19 179/83 H 100 PG Care Time/CCT Total # of Minutes Spent Total Time Spent with Patient: Total time spent is greater than 50% in coordination of care (as documented) at patient's floor/unit and/or counseling patient: Coding Level of Care Code 65577 Initial Inpt Care Lvl 3 Diagnoses Elevated troponin R79.89 Distal radius fracture, right S52.501A Encounter type: initial encounter Fracture morphology: unspecified fracture morphology Fracture type: closed COPD (chronic obstructive pulmonary disease) J44.9 Hyperlipidemia E78.5 Acute ischemic right MCA stroke I63.511 ICAO (internal carotid artery occlusion) I65.29 (1) Distal radius fracture, right Encounter type: initial encounter Fracture morphology: unspecified fracture morphology Fracture type: closed Qualified Code(s): S52.501A - Unspecified fracture of the lower end of right radius, initial encounter for closed fracture
[2019-08-28] MEDS: ATORVASTATIN 40 MG TAB PO SCH (19:54)
[2019-08-29 04:31] LABS: Basophils # (auto) 0.01 K/uL (0-0.2); Basophils % (auto) 0.2 %; Eosinophils # (auto) 0.05 K/uL (0-0.5); Eosinophils % (auto) 0.8 %; Hematocrit (blood only) 38.7 % (37-47); Hemoglobin 12.5 g/dL (12.0-16.0); Immature Granulocytes # (auto) 0.01 K/uL (0.00-0.02); Immature Granulocytes % (auto) 0.2 %; Lymphocytes # (auto) 0.97 K/uL (1.2-3.4); Mean Corpuscular Hemoglobin 29.8 pg (25-34); Mean Corpuscular Hgb Conc 32.3 g/dL (32-36); Mean Corpuscular Volume 92.4 fL (80-100); Mean Platelet Volume 10.9 fL (7.4-10.4); Monocytes # (auto) 0.94 K/uL (0.11-0.59); Monocytes % (auto) 15.5 %; Neutrophils # (auto) 4.07 K/uL (1.4-6.5); Neutrophils % (auto) 67.3 %; Platelet Count 128 K/uL (130-400); RDW Coefficient of Variation 14.6 % (11.5-14.5); RDW Standard Deviation 49.5 fL (36.4-46.3); Red Blood Count 4.19 M/uL (4.2-5.4); White Blood Count 6.05 K/uL (4.8-10.8)
[2019-08-29 04:47] LABS: BUN Creatinine Ratio 32.4 (10-20); Calcium 8.3 mg/dl (8.5-10.1); Creatinine Clr Calc Pharmacy 72.2 ml/min; Est GFR (Non-African American) 100.9; Magnesium 1.9 mg/dl (1.8-2.4); Potassium 3.9 mmol/L (3.5-5.1)
[2019-08-29 04:49] LABS: Phosphorus 1.8 mg/dl (2.5-4.9)
--- NOTE | 2019-08-29 10:02 | Consultation ---
Date of Consultation August 29, 2019 Assessment & Plan (1) ICAO (internal carotid artery occlusion): Pt with acute R hemispheric CVA and R ICA occlusion, possibly chronic. Pt may have embolized intracranially as well. Pt discussed by phone with Dr Long, since he is not available this week. He recommends to reeval pt in office in 2 weeks to determine whether she would benefit from surgical intervention. Pt is agreeable. If further cerebrovascular events occur prior to Dr Long's return next wednesday, recommend transfer to tertiary center or eval by Dr White. Please call if needed. History of Present Illness Reason for Consultation: Carotid stenosis/CVA Attending Physician: Donavan Smith MD History of Present Illness 64 yo f with hx of HTN, COPD, hyperlipidemia, osteoporosis, depression/anxiety, admitted with acute R hemispheric CVA, noted to have R ICA occlusion on CTA neck. Pt tripped and fell at home 3 days ago and broke her R forearm. THe following morning, her found her on the floor with L sided facial droop and L arm flaccid. Pt states no prior CVA in past. Admits fatigue and depression d/t inability to use either arm presently. Admits L leg weakness, but is able to stand and move her leg/foot. No recovery in L arm as of yet. Denies recent illness, chest pain, fever, dizziness, SOB, abd pain, N/V, rest pain, claudication, other complaints. CTA neck/head demonstrates patent R common carotid, occluded prox R ICA with diminutive artery distally, cavernous carotid stenosis and MCA stenosis, as well as intracranial aneurysm. Allergies Allergy/AdvReac Type Severity Reaction Status Date / Time codeine AdvReac Intermediate vomitting Verified 08/26/19 12:45 Home Medications Home Medications Medication Instructions Recorded Confirmed Type albuterol sulfate 2 - 4 puff INHALATION Q6H PRN 10/13/18 08/27/19 History albuterol sulfate 2.5 mg INHALATION Q4H PRN #2 ml 10/22/18 08/27/19 History atorvastatin 40 mg tablet 40 mg PO HS #90 tab 10/22/18 08/27/19 History fluticasone fur. 100 mcg-umeclid 1 inh INHALATION QAM #60 ea 05/05/19 08/27/19 Rx 62.5 mcg-vilant 25 mcg inhalat.powder sertraline 100 mg tablet 200 mg PO QAM #180 tab 07/27/19 08/27/19 Rx prednisone 5 mg tablet 5 mg PO QAM #90 tab 08/03/19 08/27/19 Rx cephalexin [Keflex] 250 mg PO BID 5 Days #10 cap 08/26/19 08/27/19 Rx cephalexin [Keflex] 500 mg PO Q12H 5 Days #10 cap 08/26/19 08/27/19 Rx ondansetron HCl [Zofran] 4 mg PO TID PRN 5 Days #15 tab 08/26/19 08/27/19 Rx oxycodone [Roxicodone] 5 mg PO Q8H PRN #9 tab 08/26/19 08/27/19 Rx Patient History Medical History Chronic obstructive pulmonary disease (Acute) FOLLOWS WITH GREG [facility]LES / HAS CHRONIC COUGH / RARELY USES RES. INHALER Depression Diverticular disease Hyperlipidemia Influenza B Osteoporosis Vision loss, right eye Surgical History History of bronchoscopy History of section History of colonoscopy Hx of foot surgery RIGHT Hx of hemorrhoidectomy Family History Denies family history of Ovarian cancer Prostate cancer Myocardial infarction Breast cancer Colorectal cancer Social History Preferred Language: Hebrew Communication Ability: Effective Certified Flex Endoscope Reprocessor Required: No Beliefs That Will Affect Care: None marital status: Current Living Situation: Alone and Spouse Current Living Situation Comment: 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, 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, 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 occupational status: disabled Other Information That Helps Us Care for You: No Feels Safe at Home: Yes Safety Concerns: Feels Safe At This Time Smoking Status: Current every day smoker Tobacco Type: cigarettes ; Cigarettes Per Day: 6 to 7 ; Do You Dip or Chew Tobacco: No ; Second Hand Exposure: No ; T obacco Cessation Education Requested by Patient: No Hx Alcohol Use: No Hx Substance Use: No caffeine: Yes (coffee) Dental Care, Regularly: No Physical Activity Frequency: Daily Seatbelt Use: never Sunscreen Use: No Review of Systems Review of Systems: All systems reviewed & are unremarkable except as noted in HPI & below (difficult for pt to speak d/t facial droop) Physical Exam Constitutional: + frail appearing, cooperative and comfortable; not in distress Eyes: PERRL, conjunctivae normal, anicteric sclerae ENMT: external ear and nose normal, oropharynx normal Ears: no hearing impairment Neck: normal visual inspection Respiratory: normal respiratory effort Auscultation: + diminished lung sounds and + wheezes (few scattered) Cardiovascular: Rate/Rhythm: regular rate and regular rhythm Vessels: femoral pulses present, posterior tibial pulses present, dorsalis pedis pulses present, brachial pulses present and radial pulses present; + abnormal peripheral pulses Extremities: normal capillary refill; no edema Gastrointestinal (Abdomen): normal bowel sounds, soft, nontender, no hepatosplenomegaly Musculoskeletal: Extremities: + abnormal strength (L arm 0/5, LLE 3/5, RUE and RLE 5/5); no cyanosis Skin: no rashes, warm and dry Neurologic: + focal motor deficit and awake; + CN's not intact (L sided facial droop) and not confused Speech / Cognition: + abnormal speech (difficult for pt d/t facial droop); normal cognition Psychiatric: Orientation: alert and oriented x 3 Eye Contact: good eye contact Affect: + depressed affect, + anxious affect and + irritable affect Results & Data Vital Signs (Past 12 Hours) Vital Signs Temp Pulse Pulse Resp BP BP Pulse Ox 08/29/19 04:00 36.7 C 71 16 191/77 H 99 08/29/19 00:08 68 16 168/81 H 99
--- NOTE | 2019-08-29 10:16 | Cardiology Progress Note ---
Date of Service August 29, 2019 Assessment & Plan (1) Elevated troponin: Patient is a 64 year old female with PMHx COPD O2 dependant since 2007, HLD, continued and current tobacco use, osteoporosis, diverticular disease, R ulnar and radial wrist fracture, consulted on for concerns of elevated troponin in the setting of a CVA of the R MCA. Elevated Troponin -Elevated on admission at 1.6 -Trended upwards to zenith of 3.6, now downtrended to 2.130 -TTE negative. -EKG was NSR with poor R wave progression -Elevation likely secondary to hypertension/subendocardial ischemia vs stroke -Allow for permissive hypertension in the setting of stroke -Can start antihypertensive control with CASEY/ARB once Neurology okay. Hypertension -Allow for permissive hypertension in setting of acute stroke -Start hypertensive management with CASEY/ARB per primary team Acute Ischemic MCA -Defer to Neurology and primary team for management. -TTE with bubble study negative -Can d/c Plavix -Continue ASA HLD -Continue statin (2) Hypertension: (3) Acute ischemic right MCA stroke: (4) Hyperlipidemia: Admission and Anticipated Discharge Date Admission Date: August 27, 2019 Supervising Physician Co-Signing Physician Notes Patient seen and examined with Dr. Caballero. Agree with his assessment and plan. Subjective Patient seen in the AM seated in the chair. Patient notes that she feels slightly better than yesterday, but is still feeling tired. Denies any chest pain, chest pressure, radiating pain to neck or arm, or dizziness. Review of Systems Constitutional: + fatigue and + weakness; no fever, no chills and no sweats Respiratory: + cough, + dyspnea on exertion and + wheezing; no pain on inspiration and no pain with cough Cardiovascular: + dyspnea and + dyspnea on exertion; no chest pain, no chest pain at rest, no chest pain with activity, no radiating jaw, neck or arm pain, no palpitations, no edema and no calf pain Gastrointestinal: no abdominal pain, no nausea, no vomiting, no constipation and no diarrhea/loose stools Genitourinary: no dysuria Neurologic: + unsteadiness and + localized weakness (L arm and leg ); no headache(s) Physical Exam Constitutional: + frail appearing and cooperative; no acute distress Respiratory: normal respiratory effort (2L O2 ) and + cough Auscultation: + diminished lung sounds (b/l ) and + wheezes (diffuse throughotu ) Cardiovascular: Rate/Rhythm: regular rate and regular rhythm Heart Sounds: no murmur Vessels: + carotid bruit (soft, R side); no JVD Psychiatric: Orientation: alert, oriented to person, oriented to place and cooperative; + not oriented to time (Thought it was the nd) Eye Contact: + fair eye contact Affect: + flat affect Results & Data ([facility]) Vital Signs (Past 12 Hours) Vital Signs Temp Pulse Pulse Resp BP BP Pulse Ox 08/29/19 04:00 36.7 C 71 16 191/77 H 99 08/29/19 00:08 68 16 168/81 H 99 PG Care Time/CCT Total # of Minutes Spent Total Time Spent with Patient: Total time spent is greater than 50% in coordination of care (as documented) at patient's floor/unit and/or counseling patient: Coding Level of Care Code 19194 Subseq Hosp Care Lvl 3 Diagnoses Elevated troponin R79.89 Hypertension I10 Acute ischemic right MCA stroke I63.511 Hyperlipidemia E78.5 Resident Activity Tracking Resident Involvement: Resident Care Provided Care Provided: Adult Hospital Medicine
[2019-08-29] MEDS: CLOPIDOGREL BISULFATE 75 MG TAB PO SCH (10:45)
[2019-08-29] MEDS: SERTRALINE HCL 100 MG TABLET PO SCH (10:45)
[2019-08-29] MEDS: predniSONE 5 MG TAB PO SCH (10:45)
[2019-08-29] MEDS: UMECLIDINIUM/VILANTEROL 62.5/25MCG 7 PUFFS/INHALER INH SCH (10:46)
[2019-08-29] MEDS: FLUTICASONE FUROATE 100MCG 14 PUFFS/INHALER INH SCH (10:46)
[2019-08-29] MEDS: ASPIRIN 81 MG ECTAB PO SCH (10:47)
--- NOTE | 2019-08-29 15:45 | Hospitalist Progress Note ---
Date of Service August 29, 2019 Assessment & Plan (1) CVA (cerebral vascular accident): MRI brain on 08/26 showed 4 cm focus of restricted diffusion identified within the right frontoparietal region consistent with acute to subacute ischemia. - CTA head and neck shows complete short segment occlusion at the origin of the right internal carotid artery and the mid to distal right internal carotid artery is diminutive, as well as the intracranial right internal carotid artery. - Echo negative for interatrial shunt. - Allow permissive HTN - Will start HTN medication. - Neuro consulted - PT/OT/ST -> Recommend acute rehab. - ASA & Plavix x 3 weeks, then switch to just ASA 81mg - Continue statin therapy - Consider Holter monitor, though this so far seems unlikely to be cardioembolic. (2) Elevated troponin: Troponin was 1.6 on arrival. The patient denies any chest pains or shortness of breath. ECG with normal sinus rhythm, poor R wave progression possible anterior SC, LVH. - Trend troponin -> Up to 3.6 on 08/27. - Echo showed no regional wall motion abnormalities. - Cardiology consulted - Now on ASA/Plavix (3) Hyperlipidemia: Cholesterol was 209; LDL 112; HDL 70. - Continue statin therapy (4) Osteoporosis: Vitamin D level was 27 this admission. Not on supplementation. - Started ergocalciferol 50,000 units weekly on 08/27 (5) Fracture, ulna, distal: Sustained fracture on 08/25 and presented here in the ER and had closed reduction with splint placement. - Can continue Tylenol PRN - Orthopedics consult for any surgical needs (6) Distal radius fracture, right: As above (7) Depression with anxiety: - Continue Zoloft (8) COPD (chronic obstructive pulmonary disease): Severe. With chronic hypoxemic respiratory failure. - Cont O2 at 4 L baseline, wears at home - Follows with pulbev as outpt, Brayan Bates PA-C - Cont prednisone 5 mg daily, on this chronically (9) DVT prophylaxis: SCDs - Low DVT risk per admission calculator & also want to avoid heparin in case there is concern for hemorrhagic conversion. Admission and Anticipated Discharge Date Admission Date: August 27, 2019 Subjective No return of function to the left hand yet. Left leg is moving slightly. Reports no fevers/chills, chest pain, shortness of breath, abdominal pain, nausea, or vomiting. Physical Exam Constitutional: WD/WN, vitals as above Eyes: EOM intact bilaterally; no conjunctival abnormality ENMT: external ear and nose normal, oropharynx normal Neck: trachea midline, no thyromegaly normal visual inspection Respiratory: normal respiratory effort, lungs clear to auscultation no respiratory distress Cardiovascular: RRR, no murmur, no edema Gastrointestinal (Abdomen): Inspection/Auscultation: abdomen normal to inspection; abdomen not distended Musculoskeletal: no cyanosis or clubbing, extremities motor strength 5/5 Skin: no rashes, warm and dry Neurologic: moves all extremities and awake Psychiatric: Orientation: alert, oriented to person and cooperative Results & Data Results & Data ([facility]) Vital Signs (Past 12 Hours) Vital Signs Temp Pulse Resp BP Pulse Ox 08/29/19 04:00 36.7 C 71 16 191/77 H 99 PG Care Time/CCT Total # of Minutes Spent Total Time Spent with Patient: Total time spent is greater than 50% in coordination of care (as documented) at patient's floor/unit and/or counseling patient: Coding Level of Care Code 58300 Subseq Hosp Care Lvl 3 Diagnoses CVA (cerebral vascular accident) I63.9 CVA mechanism: unspecified Elevated troponin R79.89 Hyperlipidemia E78.5 Osteoporosis M81.0 Fracture, ulna, distal S52.601A Encounter type: initial encounter Fracture morphology: unspecified fracture morphology Fracture type: closed Laterality: right Distal radius fracture, right S52.501A Encounter type: initial encounter Fracture morphology: unspecified fracture morphology Fracture type: closed Depression with anxiety F41.8 COPD (chronic obstructive pulmonary disease) J44.9 DVT prophylaxis Z29.9 (1) CVA (cerebral vascular accident) CVA mechanism: unspecified Qualified Code(s): I63.9 - Cerebral infarction, unspecified (2) Fracture, ulna, distal Encounter type: initial encounter Fracture morphology: unspecified fracture morphology Fracture type: closed Laterality: right Qualified Code(s): S52.601A - Unspecified fracture of lower end of right ulna, initial encounter for closed fracture (3) Distal radius fracture, right Encounter type: initial encounter Fracture morphology: unspecified fracture morphology Fracture type: closed Qualified Code(s): S52.501A - Unspecified fracture of the lower end of right radius, initial encounter for closed fracture
[2019-08-29] MEDS ORDERED: HydrALAZINE HCL 20 MG/ML VIAL IV PRN (15:46)
--- NOTE | 2019-08-29 16:37 | Orthopedic Consultation ---
Date of Consultation August 29, 2019 Assessment & Plan (1) Closed fracture distal radius and ulna: The patient will likely require surgical fixation of distal radius and ulna once medically stabilized, nonweightbearing right upper extremity, maintain splint immobilization, ice and elevation, pain control, we will discuss the patient's case with [facility] [place] in regards to further recommendations and treatment during current hospital stay. Thank you for the consultation History of Present Illness Reason for Consultation: Right distal radius/ulna fracture Attending Physician: Donavan Smith MD History of Present Illness The patient is a 64-year-old female who presented to [facility] emergency department on 08/26/2019 after a mechanical fall from standing height subsequently sustained a right distal radius/ulna fracture which was closed reduced in the emergency department splinted. The patient returned to the emergency department on 08/27/2019 after exhibiting strokelike symptoms, she was subsequently found to have a right para frontal infarct with left-sided hemiplegia. The patient was admitted for further evaluation and treatment of her acute ischemic CVA. Patient denies hitting head or loss of consciousness. Denies any associated injuries. Pain well controlled. Allergies Allergy/AdvReac Type Severity Reaction Status Date / Time codeine AdvReac Intermediate vomitting Verified 08/26/19 12:45 Home Medications Home Medications Medication Instructions Recorded Confirmed Type albuterol sulfate 2 - 4 puff INHALATION Q6H PRN 10/13/18 08/27/19 History albuterol sulfate 2.5 mg INHALATION Q4H PRN #2 ml 10/22/18 08/27/19 History fluticasone fur. 100 mcg-umeclid 1 inh INHALATION QAM #60 ea 05/05/19 08/27/19 Rx 62.5 mcg-vilant 25 mcg inhalat.powder sertraline 100 mg tablet 200 mg PO QAM #180 tab 07/27/19 08/27/19 Rx prednisone 5 mg tablet 5 mg PO QAM #90 tab 08/03/19 08/27/19 Rx oxycodone [Roxicodone] 5 mg PO Q8H PRN #9 tab 08/26/19 08/27/19 Rx aspirin 81 mg PO QAM #1 tab 09/01/19 Rx atorvastatin 80 mg PO HS #90 tab 09/01/19 08/27/19 Rx ergocalciferol (vitamin D2) 50,000 unit PO Mo@0900 #1 cap 09/01/19 Rx lisinopril 10 mg PO QAM #1 tab 09/01/19 Rx nicotine 14 mg TRANSDERMAL QAM #1 ea 09/01/19 Rx Patient History Medical History Chronic obstructive pulmonary disease (Acute) FOLLOWS WITH GREG PEOPLES / HAS CHRONIC COUGH / RARELY USES RES. 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, 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, 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 occupational status: disabled Feels Safe at Home: Yes Smoking Status: Current every day smoker Tobacco Type: cigarettes ; Cigarettes Per Day: 6 to 7 ; Second Hand Exposure: No ; Hx Alcohol Use: No Hx Substance Use: No caffeine: Yes (coffee) Dental Care, Regularly: No Physical Activity Frequency: Daily Seatbelt Use: never Sunscreen Use: No Review of Systems Review of Systems: All systems reviewed & are unremarkable except as noted in HPI & below Constitutional: as per Subjective / HPI Physical Exam Physical Exam: Right upper extremity physical exam limited secondary to splint, actively wiggles all 5 fingers, sensory intact to light touch grossly, capillary refill less than 2 seconds. Constitutional: WD/WN, vitals as above Results & Data ([facility]) Diagnostic Findings XR wrist RT 2V CLINICAL HISTORY: post red COMPARISON: None. DISCUSSION: Moderate improvement in alignment post closed reduction. Persistent moderate bony distraction. Comminuted fractures of the distal radius and ulna are again noted. Soft tissue edema IMPRESSION: Moderate improvement in bony alignment post closed reduction. Comminuted fractures as described. Persistent moderate bony displacement
--- NOTE | 2019-08-29 16:40 | Neurology Progress Note ---
Date of Service August 29, 2019 Assessment & Plan (1) Elevated troponin: (2) Distal radius fracture, right: (3) COPD (chronic obstructive pulmonary disease): (4) Hyperlipidemia: (5) Acute ischemic right MCA stroke: Stacy Suazo is a 64 yo woman w/ PMH of COPD on 4L NC, HLD, tobacco abuse, osteoporosis, history of diverticular disease, history of right eye vision loss and recent right ulnar/radial fracture 1 day prior to presentation who presents to [facility] after acute onset of left facial droop present left-sided weakness. Symptom localization: distal right MCA Stroke mechanism: vessel to vessel embolus Stroke WorkUp: - CT head: hypodensity in the right periventricular frontal white matter, as well as loss of curiel-white differentiation in the right posterior frontal lobe. 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 - MRI brain: right posterior frontal subacute infarct, mild SVID - TTE: EF 55-60%, no intra-arterial shunt - Telemetry: pending - A1c: 5.6 - FLP: 112 - Troponin, TSH: 1.6, within normal Stroke Management: - Continuous cardiac monitoring, recommend loop recorder as outpatient if telemetry here unrevealing - Vitals, Neurochecks, NIHSS per unit routine - BP parameters: SBP CAP 180, ok to start anti-hypertensives - Consult speech, PT, OT for supportive management - Counselled concerning stroke education, smoking cessation, healthy diet, physical activity, weight loss - Follow up with PCP for assistance with outpatient goals (BP <130/80, LDL <70, A1c <7) - Follow up in neurology clinic in 6-8 weeks - would see if Dr Garcia would offer an early CEA (though it is not 100% clear when she had the occlusion as the stroke only affects the distal MCA territory and the R ICA already has a small caliber which is suggestive of chronic occlusion and not amenable to CEA). If no surgically amendable lesion, should continue maximal medical therapy with aspirin and atorvastatin indefinitely. -Safe to transfer to stepdown from neurological standpoint Secondary Stroke Prevention: - Antiplatelet: ok to start ASA 81mg po daily, can add Plavix 75 mg daily also per Chance trial - Anticoagulation: Not indicated at this time - Statin: Atorvastatin 80mg daily HTN: - BP parameters, as above - Start BP medications with goal of lowering BP to normotension over next 3-4 days - defer to cardiology regarding elevated troponin level FEN/GI: - Diet: NPO until cleared by Speech evaluation - Monitor lytes and replete PRN Glucose Control: - Sliding scale insulin and accuchecks per primary team to avoid hyperglycemia Thank you for this interesting consult. Plan of care was discussed with primary team. Please call with any questions. (6) ICAO (internal carotid artery occlusion): Admission and Anticipated Discharge Date Admission Date: August 27, 2019 Subjective NAEs overnight. She was resting this afternoon and denied any complaints currently. Review of Systems Review of Systems: 14 point review of systems completed and negative except as in HPI. Exam (Neuro) Physical Exam: General Exam: GEN: NAD, sitting down in chair near bed. HEENT: No conjunctival injection, no rhinorrhea CV: RRR on monitor, no significant edema. PULM: Nonlabored respirations on 3-4L NC Neuro Exam: MS: Awake and Alert. Oriented to person, place, and date. Speech fluent and appropriate without dysarthria or paraphasic errors. Language intact including naming, comprehension, repetition. Cognition and memory grossly intact. Attention intact. No neglect. CN: Visual atkins full. No extinction to double simultaneous stimuli. Unable to visualize fundi on fundoscopic exam as patient kept closing eyes. PERRLA OU. EOMI without nystagmus. Facial sensation intact to LT. Left facial droop. Hearing intact to conversation. Uvula midline with symmetric palatal elevation. Shoulder shrug normal on the right. Tongue midline. MOTOR: Normal bulk and tone. Right arm is in a cast, she is able to elevate her shoulders and wiggle her fingers but otherwise cannot be assessed further. Left arm has minimal antigravity and is predominantly flaccid throughout. RLE strength 5/5 at iliopsoas, hamstrings, quadriceps, tibialis anterior, and gastrocnemius. LLE strength 5-/5 at iliopsoas, hamstrings, quadriceps, tibialis anterior, and gastrocnemius. REFLEXES: 1+ at L biceps, triceps, brachioradialis, 1+ bilateral patella, and absent Achilles bilaterally. Flexor plantar responses bilaterally. SENSORY: Intact to LT throughout, no extinction to double simultaneous stimuli. COORDINATION: Unable to assess dysmetria due to broken arm. Brigid also deferred.. GAIT: Deferred due to physical status. NIH STROKE SCALE 1A. Level of Consciousness (0-3) = 0 1B. LOC Questions (0-2) = 0 1C. LOC Commands (0-2) = 0 2. Best Horizontal Gaze (0-2) = 0 3. Visual Atkins (0-3) = 0 4. Facial Palsy (0-3) = 3 5. Motor Arm Right (0-4) = 0 Left (0-4) = 4 6. Motor Leg Right (0-4) = 0 Left (0-4) = 0 7. Limb Ataxia (0-2) = 0 8. Sensory (0-2) = 0 9. Best Language (0-3) = 0 10. Dysarthria (0-2) = 1 11. Extinction and Inattention (0-2) = 0 NIHSS TOTAL = 8 PG Care Time/CCT Total # of Minutes Spent Total Time Spent with Patient: Total time spent is greater than 50% in coordination of care (as documented) at patient's floor/unit and/or counseling patient: Coding Level of Care Code 87145 Subseq Hosp Care Lvl 2 Diagnoses Elevated troponin R79.89 Distal radius fracture, right S52.501A Encounter type: initial encounter Fracture morphology: unspecified fracture morphology Fracture type: closed COPD (chronic obstructive pulmonary disease) J44.9 Hyperlipidemia E78.5 Acute ischemic right MCA stroke I63.511 ICAO (internal carotid artery occlusion) I65.29 (1) Distal radius fracture, right Encounter type: initial encounter Fracture morphology: unspecified fracture morphology Fracture type: closed Qualified Code(s): S52.501A - Unspecified fracture of the lower end of right radius, initial encounter for closed fracture
[2019-08-29] MEDS: lisinopriL 10 MG TAB PO SCH (17:12)
[2019-08-29] MEDS: ATORVASTATIN 40 MG TAB PO SCH (20:34)
[2019-08-30 04:38] LABS: Basophils # (auto) 0.02 K/uL (0-0.2); Basophils % (auto) 0.3 %; Eosinophils # (auto) 0.04 K/uL (0-0.5); Eosinophils % (auto) 0.6 %; Hematocrit (blood only) 39.8 % (37-47); Hemoglobin 12.9 g/dL (12.0-16.0); Immature Granulocytes # (auto) 0.01 K/uL (0.00-0.02); Immature Granulocytes % (auto) 0.2 %; Lymphocytes # (auto) 0.92 K/uL (1.2-3.4); Lymphocytes % (auto) 14.4 %; Mean Corpuscular Hemoglobin 29.8 pg (25-34); Mean Corpuscular Hgb Conc 32.4 g/dL (32-36); Mean Corpuscular Volume 91.9 fL (80-100); Mean Platelet Volume 10.9 fL (7.4-10.4); Monocytes # (auto) 0.78 K/uL (0.11-0.59); Monocytes % (auto) 12.2 %; Neutrophils # (auto) 4.64 K/uL (1.4-6.5); Neutrophils % (auto) 72.3 %; Platelet Count 142 K/uL (130-400); RDW Coefficient of Variation 14.1 % (11.5-14.5); RDW Standard Deviation 48.1 fL (36.4-46.3); Red Blood Count 4.33 M/uL (4.2-5.4); White Blood Count 6.41 K/uL (4.8-10.8)
[2019-08-30 05:30] LABS: BUN Creatinine Ratio 28.6 (10-20); Calcium 8.4 mg/dl (8.5-10.1); Creatinine Clr Calc Pharmacy 83.7 ml/min; Est GFR (African American) 122.8; Est GFR (Non-African American) 105.9; Magnesium 1.9 mg/dl (1.8-2.4); Phosphorus 2.2 mg/dl (2.5-4.9); Potassium 3.5 mmol/L (3.5-5.1)
[2019-08-30] MEDS: lisinopriL 10 MG TAB PO SCH (07:45)
[2019-08-30] MEDS: predniSONE 5 MG TAB PO SCH (07:45)
[2019-08-30] MEDS: ASPIRIN 81 MG ECTAB PO SCH (07:45)
[2019-08-30] MEDS: UMECLIDINIUM/VILANTEROL 62.5/25MCG 7 PUFFS/INHALER INH SCH (07:45)
[2019-08-30] MEDS: CLOPIDOGREL BISULFATE 75 MG TAB PO SCH (07:45)
[2019-08-30] MEDS: SERTRALINE HCL 100 MG TABLET PO SCH (07:45)
[2019-08-30] MEDS: FLUTICASONE FUROATE 100MCG 14 PUFFS/INHALER INH SCH (07:45)
[2019-08-30] MEDS: OXYCODONE HCL IR 5 MG TAB (IMMEDIATE RELEASE) PO PRN (09:55)
--- NOTE | 2019-08-30 16:48 | Hospitalist Progress Note ---
Date of Service August 30, 2019 Assessment & Plan (1) CVA (cerebral vascular accident): MRI brain on 08/26 showed 4 cm focus of restricted diffusion identified within the right frontoparietal region consistent with acute to subacute ischemia. - CTA head and neck shows complete short segment occlusion at the origin of the right internal carotid artery and the mid to distal right internal carotid artery is diminutive, as well as the intracranial right internal carotid artery. - Echo negative for interatrial shunt. - Allow permissive HTN - Will start HTN medication. - Neuro consulted - PT/OT/ST -> Recommend acute rehab. - ASA & Plavix x 3 weeks, then switch to just ASA 81mg - Will hold Plavix for plan for surgery on wrist - Continue statin therapy (increase to 80 mg) - Consider Holter monitor, though this so far seems unlikely to be cardioembolic. (2) Elevated troponin: Troponin was 1.6 on arrival. The patient denies any chest pains or shortness of breath. ECG with normal sinus rhythm, poor R wave progression possible anterior HI, LVH. - Trend troponin -> Up to 3.6 on 08/27. - Echo showed no regional wall motion abnormalities. - Cardiology consulted - Now on ASA (3) Hyperlipidemia: Cholesterol was 209; LDL 112; HDL 70. - Continue statin therapy (4) Osteoporosis: Vitamin D level was 27 this admission. Not on supplementation. - Started ergocalciferol 50,000 units weekly on 08/27 (5) Fracture, ulna, distal: Sustained fracture on 08/25 and presented here in the ER and had closed reduction with splint placement. - Can continue Tylenol PRN - Orthopedics consult for any surgical needs -> Likely will need surgery. Trying to plan when to do it. (6) Distal radius fracture, right: As above (7) Depression with anxiety: Understandably depressed about loss of function. - Continue Zoloft (8) COPD (chronic obstructive pulmonary disease): Severe. With chronic hypoxemic respiratory failure. - Cont O2 at 4 L baseline, wears at home - Follows with pulbev as outpt, Brayan Bates PA-C - Cont prednisone 5 mg daily, on this chronically (9) DVT prophylaxis: Heparin 5000 units SQ Q12h Admission and Anticipated Discharge Date Admission Date: August 27, 2019 Subjective No change today in left arm. Leg is getting stronger. Reports no fevers/chills, chest pain, shortness of breath, abdominal pain, nausea, or vomiting. Physical Exam Constitutional: WD/WN, vitals as above Eyes: EOM intact bilaterally; no conjunctival abnormality ENMT: external ear and nose normal, oropharynx normal Neck: trachea midline, no thyromegaly normal visual inspection Respiratory: normal respiratory effort, lungs clear to auscultation no respiratory distress Cardiovascular: RRR, no murmur, no edema Gastrointestinal (Abdomen): Inspection/Auscultation: abdomen normal to inspection; abdomen not distended Musculoskeletal: no cyanosis or clubbing, extremities motor strength 5/5 Skin: no rashes, warm and dry Neurologic: moves all extremities and awake Psychiatric: Orientation: alert, oriented to person and cooperative Results & Data Results & Data ([facility]) Vital Signs (Past 12 Hours) Vital Signs Temp Pulse Resp BP Pulse Ox 08/30/19 16:00 37 C 85 16 151/76 H 96 08/30/19 11:00 36.4 C L 78 16 107/75 96 08/30/19 08:00 37 C 73 16 165/75 H 96 PG Care Time/CCT Total # of Minutes Spent Total Time Spent with Patient: Total time spent is greater than 50% in coordination of care (as documented) at patient's floor/unit and/or counseling patient: Coding Level of Care Code 98898 Subseq Hosp Care Lvl 3 Diagnoses CVA (cerebral vascular accident) I63.9 CVA mechanism: unspecified Elevated troponin R79.89 Hyperlipidemia E78.5 Osteoporosis M81.0 Fracture, ulna, distal S52.601A Encounter type: initial encounter Fracture morphology: unspecified fracture morphology Fracture type: closed Laterality: right Distal radius fracture, right S52.501A Encounter type: initial encounter Fracture morphology: unspecified fracture morphology Fracture type: closed Depression with anxiety F41.8 COPD (chronic obstructive pulmonary disease) J44.9 DVT prophylaxis Z29.9 (1) CVA (cerebral vascular accident) CVA mechanism: unspecified Qualified Code(s): I63.9 - Cerebral infarction, unspecified (2) Fracture, ulna, distal Encounter type: initial encounter Fracture morphology: unspecified fracture morphology Fracture type: closed Laterality: right Qualified Code(s): S 52.601A - Unspecified fracture of lower end of right ulna, initial encounter for closed fracture (3) Distal radius fracture, right Encounter type: initial encounter Fracture morphology: unspecified fracture morphology Fracture type: closed Qualified Code(s): S52.501A - Unspecified fracture of the lower end of right radius, initial encounter for closed fracture
[2019-08-30] MEDS ORDERED: POTASSIUM PHOS 3 MMOL/1 ML INFUSION IV STA (16:55)
[2019-08-30] MEDS ORDERED: POTASSIUM PHOSPHATE 30 MMOL in SODIUM CHLORIDE 0.9% 500 ML IV ONE (17:15)
[2019-08-30] MEDS: ATORVASTATIN 40 MG TAB PO SCH (19:56)
[2019-08-30] MEDS ORDERED: ATORVASTATIN 40 MG TAB PO SCH (21:00)
[2019-08-31 04:35] LABS: Hematocrit (blood only) 37.4 % (37-47); Hemoglobin 12.2 g/dL (12.0-16.0); Mean Corpuscular Hemoglobin 29.5 pg (25-34); Mean Corpuscular Hgb Conc 32.6 g/dL (32-36); Mean Corpuscular Volume 90.6 fL (80-100); Mean Platelet Volume 11.3 fL (7.4-10.4); Platelet Count 163 K/uL (130-400); RDW Coefficient of Variation 14.4 % (11.5-14.5); RDW Standard Deviation 47.6 fL (36.4-46.3); Red Blood Count 4.13 M/uL (4.2-5.4); White Blood Count 4.67 K/uL (4.8-10.8)
[2019-08-31 05:00] LABS: Calcium 8.2 mg/dl (8.5-10.1); Est GFR (African American) 115.5; Est GFR (Non-African American) 99.6; Magnesium 1.7 mg/dl (1.8-2.4)
[2019-08-31 05:02] LABS: Phosphorus 4.2 mg/dl (2.5-4.9)
[2019-08-31] MEDS: OXYCODONE HCL IR 5 MG TAB (IMMEDIATE RELEASE) PO PRN ×2 (08:58→20:38)
[2019-08-31] MEDS: SERTRALINE HCL 100 MG TABLET PO SCH (08:59)
[2019-08-31] MEDS: lisinopriL 10 MG TAB PO SCH (08:59)
[2019-08-31] MEDS: ASPIRIN 81 MG ECTAB PO SCH (08:59)
[2019-08-31] MEDS: predniSONE 5 MG TAB PO SCH (08:59)
[2019-08-31] MEDS: FLUTICASONE FUROATE 100MCG 14 PUFFS/INHALER INH SCH (09:00)
[2019-08-31] MEDS: UMECLIDINIUM/VILANTEROL 62.5/25MCG 7 PUFFS/INHALER INH SCH (09:00)
--- NOTE | 2019-08-31 14:20 | Hospitalist Progress Note ---
Date of Service August 31, 2019 Assessment & Plan (1) CVA (cerebral vascular accident): MRI brain on 08/26 showed 4 cm focus of restricted diffusion identified within the right frontoparietal region consistent with acute to subacute ischemia. - CTA head and neck shows complete short segment occlusion at the origin of the right internal carotid artery and the mid to distal right internal carotid artery is diminutive, as well as the intracranial right internal carotid artery. - Discussed with vascular PA. Will follow with Dr. Long in the office next week. - Echo negative for interatrial shunt. - Neuro consulted - PT/OT/ST -> Recommend acute rehab. Planning for [facility]. - Initially ASA & Plavix x 3 weeks, then switch to just ASA 81mg; however, will hold Plavix for plan for surgery on wrist. Will see surgeons next week. - Continue statin therapy (increased to 80 mg) - Started lisinopril on 08/28 for high BP. Will increase to 20 mg today. - Consider Holter monitor, though this so far seems unlikely to be cardioembolic. (2) Elevated troponin: Troponin was 1.6 on arrival. The patient denies any chest pains or shortness of breath. ECG with normal sinus rhythm, poor R wave progression possible anterior IL, LVH. - Trend troponin -> Up to 3.6 on 08/27. - Echo showed no regional wall motion abnormalities. - Cardiology consulted -> No further investigation at this time. - Now on ASA (3) Hyperlipidemia: Cholesterol was 209; LDL 112; HDL 70. - Continue statin therapy (increased to 80 mg) (4) Osteoporosis: Vitamin D level was 27 this admission. Not on supplementation. - Started ergocalciferol 50,000 units weekly on 08/27 (5) Fracture, ulna, distal: Sustained fracture on 08/25 and presented here in the ER and had closed reduction with splint placement. - Can continue Tylenol PRN - Orthopedics consult for any surgical needs -> Likely will need surgery. Will see Dr. Mirza next week then plan for surgery. (6) Distal radius fracture, right: As above (7) Depression with anxiety: Understandably depressed about loss of function. - Continue Zoloft (8) COPD (chronic obstructive pulmonary disease): Severe. With chronic hypoxemic respiratory failure. - Cont O2 at 4 L baseline, wears at home - Follows with pulm as outpt, Brayan Bates PA-C - Continue Anoro Ellipta. - Cont prednisone 5 mg daily, on this chronically (9) DVT prophylaxis: Heparin 5000 units SQ Q12h Admission and Anticipated Discharge Date Admission Date: August 27, 2019 Subjective Somewhat better spirits today. Willing to go to rehab. Reports no fevers/chills, chest pain, shortness of breath, abdominal pain, nausea, or vomiting. Physical Exam Constitutional: WD/WN, vitals as above Eyes: EOM intact bilaterally; no conjunctival abnormality ENMT: external ear and nose normal, oropharynx normal Neck: trachea midline, no thyromegaly normal visual inspection Respiratory: normal respiratory effort, lungs clear to auscultation no respiratory distress Cardiovascular: RRR, no murmur, no edema Gastrointestinal (Abdomen): Inspection/Auscultation: abdomen normal to inspection; abdomen not distended Musculoskeletal: no cyanosis or clubbing, extremities motor strength 5/5 Extremities: + extremities abnormal to inspection (Right arm bandaged.) Skin: no rashes, warm and dry Neurologic: moves all extremities and awake Psychiatric: Orientation: alert, oriented to person and cooperative Results & Data Results & Data ([facility]) Vital Signs (Past 12 Hours) Vital Signs Temp Pulse Pulse Resp BP BP Pulse Ox 08/31/19 11:22 36.7 C 64 16 163/73 H 100 08/31/19 08:00 37 C 94 H 20 138/63 98 08/31/19 03:45 37.1 C 74 16 162/69 H 97 PG Care Time/CCT Total # of Minutes Spent Total Time Spent with Patient: Total time spent is greater than 50% in coordination of care (as documented) at patient's floor/unit and/or counseling patient: Coding Level of Care Code 51151 Subseq Hosp Care Lvl 3 Diagnoses CVA (cerebral vascular accident) I63.9 CVA mechanism: unspecified Elevated troponin R79.89 Hyperlipidemia E78.5 Osteoporosis M81.0 Fracture, ulna, distal S52.601A Encounter type: initial encounter Fracture morphology: unspecified fracture morphology Fracture type: closed Laterality: right Distal radius fracture, right S52.501A Encounter type: initial encounter Fracture morphology: unspecified fracture morphology Fracture type: closed Depression with anxiety F41.8 COPD (chronic obstructive pulmonary disease) J44.9 DVT prophylaxis Z29.9 (1) CVA (cerebral vascular accident) CVA mechanism: unspecified Qualified Code(s): I63.9 - Cerebral infarction, unspecified (2) Fracture, ulna, distal Encounter type: initial encounter Fracture morphology: unspecified fracture morphology Fracture type: closed Laterality: right Qualified Code(s): S52.601A - Unspecified fracture of lower end of right ulna, initial encounter for closed fracture (3) Distal radius fracture, right Encounter type: initial encounter Fracture morphology: unspecified fracture morphology Fracture type: closed Qualified Code(s): S52.501A - Unspecified fracture of the lower end of right radius, initial encounter for closed fracture
[2019-08-31] MEDS: MAGNESIUM SULFATE / D5W 1 GM/100 ML BAG IV SCH ×2 (15:25→16:28)
[2019-08-31] MEDS: ATORVASTATIN 40 MG TAB PO SCH (20:38)
[2019-09-01] MEDS: OXYCODONE HCL IR 5 MG TAB (IMMEDIATE RELEASE) PO PRN (03:57)
[2019-09-01 05:08] LABS: Hematocrit (blood only) 37.9 % (37-47); Hemoglobin 12.4 g/dL (12.0-16.0); Mean Corpuscular Hemoglobin 29.6 pg (25-34); Mean Corpuscular Hgb Conc 32.7 g/dL (32-36); Mean Corpuscular Volume 90.5 fL (80-100); Mean Platelet Volume 10.7 fL (7.4-10.4); Platelet Count 170 K/uL (130-400); RDW Coefficient of Variation 14.3 % (11.5-14.5); RDW Standard Deviation 46.9 fL (36.4-46.3); Red Blood Count 4.19 M/uL (4.2-5.4); White Blood Count 5.92 K/uL (4.8-10.8)
[2019-09-01 05:24] LABS: BUN Creatinine Ratio 27.2 (10-20); Calcium 8.5 mg/dl (8.5-10.1); Creatinine Clr Calc Pharmacy 58.9 ml/min; Est GFR (African American) 114.8; Magnesium 1.9 mg/dl (1.8-2.4); Potassium 3.8 mmol/L (3.5-5.1)
[2019-09-01 05:31] LABS: Phosphorus 3.2 mg/dl (2.5-4.9)
[2019-09-01] MEDS ORDERED: NICOTINE 14 MG/24 HR PATCH TD SCH (09:00)
[2019-09-01] MEDS: FLUTICASONE FUROATE 100MCG 14 PUFFS/INHALER INH SCH (09:15)
[2019-09-01] MEDS: ASPIRIN 81 MG ECTAB PO SCH (09:15)
[2019-09-01] MEDS: UMECLIDINIUM/VILANTEROL 62.5/25MCG 7 PUFFS/INHALER INH SCH (09:15)
[2019-09-01] MEDS: lisinopriL 10 MG TAB PO SCH (09:16)
[2019-09-01] MEDS: SERTRALINE HCL 100 MG TABLET PO SCH (09:16)
[2019-09-01] MEDS: predniSONE 5 MG TAB PO SCH (09:16)
[2019-09-01] MEDS ORDERED: STROKE PATIENT DISCHARGE STA (11:47)
--- NOTE | 2019-09-01 16:41 | Discharge Summary ---
Date of Service September 01, 2019 Admission HPI Per Admitting Provider This is a 64-year-old female with PMHx of COPD oxygen dependent on 4 L, hyperlipidemia, tobacco use, osteoporosis, diverticular disease, and vision loss of the R eye, who sustained a right ulnar and radial fracture yesterday after having a fall where she tripped over oxygen tubing at home and presented here in the ER. She did not sustain injury to the head. She was casted and sent home last evening. Patient was last known well around 8 PM. This morning the patient woke up and found to have left-sided facial droop and left upper extremity and lower extremity weakness, she states she was up around 6am but could not get out of bed. Her found her a little before 7am, on the floor in the bedroom. She cannot recall specific events but got herself ready for bed last evening without any issues. Left facial droop still present, LUE strength 0/5 and LLE of 2/5. Lashawn tele- stroke, Dr. Kitchen, discussed the patient's case with the ER, and given noncontrast CT scan findings they felt endovascular therapy would be too risky for hemorrhagic transformation. They suspected the stroke occurred early last night. CTA reveals right frontal lobe involvement, right ICA occlusion, stenosis of the R vertebral artery, 2 mm left ICA and 1.5 mm left MCA aneurysms. There is pruning of peripheral branch vessels in the posterior right frontal lobe likely related to acute infarct, and stenosis of the right anterior cerebral artery. Principal Diagnosis Stroke Discharge Exam Constitutional WD/WN, vitals as above Eyes EOM intact bilaterally; no conjunctival abnormality ENMT external ear and nose normal, oropharynx normal Neck trachea midline, no thyromegaly normal visual inspection Respiratory normal respiratory effort, lungs clear to auscultation no respiratory distress Cardiovascular RRR, no murmur, no edema Gastrointestinal (Abdomen) Inspection/Auscultation: abdomen normal to inspection; abdomen not distended Musculoskeletal no cyanosis or clubbing, extremities motor strength 5/5 Extremities: + extremities abnormal to inspection (Right arm bandaged.) Skin no rashes, warm and dry Neurologic moves all extremities and awake Psychiatric Orientation: alert, oriented to person and cooperative Discharge Data Allergies Allergy/AdvReac Type Severity Reaction Status Date / Time codeine AdvReac Intermediate vomitting Verified 08/26/19 12:45 Consultations 08/27/19 09:45 ED Decision to Admit Stat 08/27/19 11:28 Consult Case Management - Discharge Planning Routine Consult Neurology Routine 08/28/19 14:03 Consult Cardiology Routine 08/28/19 17:46 Consult Vascular Surgery Routine 08/29/19 12:28 Consult Orthopedic Surgery Routine Ordered Studies 08/27/19 08:20 CT angio head w con Stat CT angio neck with con Stat CT head/brain wo con Stat 08/27/19 11:28 MR brain wo con Routine Hospital Course (1) CVA (cerebral vascular accident): MRI brain on 08/26 showed 4 cm focus of restricted diffusion identified within the right frontoparietal region consistent with acute to subacute ischemia. - CTA head and neck shows complete short segment occlusion at the origin of the right internal carotid artery and the mid to distal right internal carotid artery is diminutive, as well as the intracranial right internal carotid artery. - Discussed with vascular PA. Will follow with Dr. Long in the office next week. - Echo negative for interatrial shunt. - Neuro consulted - PT/OT/ST -> Recommend acute rehab. Planning for [facility]. - Initially ASA & Plavix x 3 weeks, then switch to just ASA 81mg; however, will hold Plavix for plan for surgery on wrist. Will see orthopedic surgeon (Dr. Mirza) next week. - Continue statin therapy (increased to atorvastatin 80 mg) - Started lisinopril on 08/28 for high BP. BPs improved after that. (2) Elevated troponin: Troponin was 1.6 on arrival. The patient denies any chest pains or shortness of breath. ECG with normal sinus rhythm, poor R wave progression possible anterior [place], LVH. - Trend troponin -> Up to 3.6 on 08/27. - Echo showed no regional wall motion abnormalities. - Cardiology consulted -> No further investigation at this time. - Now on ASA; will start Plavix after possible hand surgery. (3) Hyperlipidemia: Cholesterol was 209; LDL 112; HDL 70. - Continue statin therapy (increased to atorvastatin 80 mg) (4) Osteoporosis: Vitamin D level was 27 this admission. Not on supplementation. - Started ergocalciferol 50,000 units weekly on Wednesday, 08/27 (5) Fracture, ulna, distal: Sustained fracture on 08/25 and presented here in the ER and had closed reduction with splint placement. - Can continue Tylenol PRN - Orthopedics consult for any surgical needs -> Likely will need surgery. Will see Dr. Mirza next week then plan for surgery. (6) Distal radius fracture, right: As above (7) Depression with anxiety: Understandably depressed about loss of function. - Continue Zoloft (8) COPD (chronic obstructive pulmonary disease): Severe. With chronic hypoxemic respiratory failure. - Cont O2 at 4 L baseline, wears at home - Follows with Brayan donaldson PA-C - Continue Anoro Ellipta. - Cont prednisone 5 mg daily, on this chronically (9) DVT prophylaxis: Heparin 5000 units SQ Q12h Total Time Total Time Spent Total Time Spent (In Minutes): 35 Discharge Plan Discharge Items Patient Disposition: Transfer Inpatient Rehab Fac Reason For Visit: CVA Discharge Diagnosis: Stroke Activity: Resume your previous activity Non-emergency contact: Primary Care Provider, Surgeon and Neurologist Call non-emergency contact if: your symptoms worsen Follow-up/Referrals: Coretta Mai CRNP [Primary Care Provider] - Inge Shipman MD [Physician] - (Please see Dr. Shipman next month for stroke follow up.) Krishna Long MD [Physician] - (Please see Dr. Long next week in clinic to follow up with your vascular studies.) Aguilar Mirza M.D. [Physician] - (Please see Dr. Mirza next week in the clinic about your right wrist.) Diet: Heart Healthy Addtl Attending Provider Instructions: Ms. Suazo was admitted to the hospital with a stroke. She was seen by neurology and will need to follow up within a month with Dr. Shipman. She has a right wrist fracture of the distal ulna and radius and will need to see Dr. Mirza in the office next week with likely surgery scheduled after that. After surgery, she should restart her Plavix for 3 weeks. She will need to see Dr. Long in the clinic next week as well to review her carotid scans to see if she requires a carotid endarterectomy or not. Her Tay should be called or Facetimed for these meetings. His cell phone number is [phone]. Pending Studies at Discharge: No Stand-Alone Forms: My [facility] Skilled Items Patient informed of condition?: Yes DNR: Yes Discharge Level of Care: Acute rehab Communicable Disease: No Discharge Prognosis: Stable Lines: None Urinary Catheter: No Medications and DC Order Prescriptions: New lisinopril 10 mg Tablet 10 mg PO QAM Qty: 1 RF: 0 nicotine 7 mg/24 hr Patch 24 Hour 14 mg transdermal QAM Qty: 1 RF: 0 aspirin 81 mg Tablet,Delayed Release (Dr/Ec) 81 mg PO QAM Qty: 1 RF: 0 ergocalciferol (vitamin D2) 1,250 mcg (50,000 unit) Capsule 50,000 unit PO Mo@0900 Qty: 1 RF: 0 Continued Trelegy Ellipta 100-62.5-25 mcg blister with device 1 inh inhalation QAM Qty: 60 RF: 2 sertraline 100 mg tablet 200 mg PO QAM Qty: 180 RF: 1 prednisone 5 mg tablet 5 mg PO QAM Qty: 90 RF: 1 albuterol sulfate 2.5 mg /3 mL (0.083 %) solution for nebulization 2.5 mg inhalation Q4H PRN (Reason: shortness of breath or wheezing) Qty: 2 RF: 0 albuterol sulfate 90 mcg/actuation HFA aerosol inhaler 2 - 4 puff inhalation Q6H PRN (Reason: Shortness Of Breath Or Wheezing) RF: 0 ondansetron HCl [Zofran] 4 mg tablet 4 mg PO TID PRN (Reason: nausea and vomiting) 5 Days Qty: 15 RF: 0 oxycodone [Roxicodone] 5 mg tablet 5 mg PO Q8H PRN (Reason: pain) Qty: 9 RF: 0 Changed atorvastatin 40 mg tablet 80 mg PO HS Qty: 90 RF: 0 Discontinued cephalexin [Keflex] 500 mg capsule 500 mg PO Q12H 5 Days Qty: 10 RF: 0 cephalexin [Keflex] 250 mg capsule 250 mg PO BID 5 Days Qty: 10 RF: 0 Discharge Orders: Discharge Order (Routine); Ordered 09/01/19 Ordered By: Donavan Smith Admission Data Admit Date/Time: 08/27/19 10:10 Attending Provider: Donavan Smith Admit Provider: Loreta Torres Primary Care Provider: Coretta Mai Other Providers: Donna Zepeda ; Sekou Levi ; Donavan Smith ; Filipe Cevallos ; Krishna Long ; Dave Hutchins ; [facility] Other Interventions: Discharge Summary Assessment (RN) Last Done: 09/01/19 12:59 DC Date/Time DO NOT enter until pt leaves facility: 09/01/19 14:54 Coding Level of Care Code D/C Day Management >30 mins Diagnoses CVA (cerebral vascular accident) I63.9 CVA mechanism: unspecified Elevated troponin R79.89 Hyperlipidemia E78.5 Osteoporosis M81.0 Fracture, ulna, distal S52.601A Encounter type: initial encounter Fracture morphology: unspecified fracture morphology Fracture type: closed Laterality: right Distal radius fracture, right S52.501A Encounter type: initial encounter Fracture morphology: unspecified fracture morphology Fracture type: closed Depression with anxiety F41.8 COPD (chronic obstructive pulmonary disease) J44.9 DVT prophylaxis Z29.9
== END 2019-09-01 14:54 | DRG 65 ==
LOC: ED 08:14 → 1E 10:10 → SUATTDRO 10:10 → 1E 11:00

== ENCOUNTER 2024-02-15 11:00 | Inpatient (IN) ==
--- NOTE | 2024-01-28 11:05 | PAT Medication Instructions ---
Medication Instructions Date of Service January 28, 2024 Home Medications Medication Instructions Recorded aspirin 81 mg tablet,delayed 81 mg PO QAM #1 tab 09/01/19 release Flutter Valve #1 ea 08/13/20 albuterol sulfate 2.5 mg/3 mL 2.5 mg (3 mL) inhalation QID PRN 03/03/22 (0.083 %) solution for nebulization shortness of breath or wheezing #180 mL albuterol sulfate 90 mcg/actuation 2 - 4 puff inhalation Q6H PRN 01/04/23 aerosol inhaler Shortness Of Breath Or Wheezing #18 grams lisinopril 10 mg tablet 10 mg PO QAM #90 tabs 04/15/23 sertraline 100 mg tablet 150 mg (1.5 x 100 mg) PO QAM #135 07/19/23 tabs aspirin 81 mg tablet,delayed release 81 mg PO QAM acetaminophen 325 mg capsule 650 mg PO Q4H PRN albuterol sulfate 2.5 mg/3 mL (0.083 %) solution for nebulization 2.5 mg (3 mL) inhalation QID PRN albuterol sulfate 90 mcg/actuation aerosol inhaler 2 - 4 puff inhalation Q6H PRN lisinopril 10 mg tablet 10 mg PO QAM sertraline 100 mg tablet 150 mg (1.5 x 100 mg) PO QAM bupropion HCl 75 mg tablet 75 mg PO HS fluticasone fur. 100 mcg-umeclid 62.5 mcg-vilant 25 mcg inhalat.powder (Trelegy Ellipta) 1 inh inhalation HS rosuvastatin 40 mg tablet (Crestor) 40 mg PO HS ASK your prescriber and surgeon aspirin 81 mg tablet,delayed release 81 mg PO QAM DO NOT take the morning of surgery lisinopril 10 mg tablet 10 mg PO QAM Take morning of surgery With a small sip of water, OTHERWISE NOTHING TO EAT OR DRINK AFTER MIDNIGHT: acetaminophen 325 mg capsule 650 mg PO Q4H PRN(if needed) albuterol sulfate 2.5 mg/3 mL (0.083 %) solution for nebulization 2.5 mg (3 mL) inhalation QID PRN(use if needed; please bring with you to hospital day of surgery if possible) albuterol sulfate 90 mcg/actuation aerosol inhaler 2 - 4 puff inhalation Q6H PRN (if needed) sertraline 100 mg tablet 150 mg (1.5 x 100 mg) PO QAM Take evening before surgery acetaminophen 325 mg capsule 650 mg PO Q4H PRN(if needed) albuterol sulfate 2.5 mg/3 mL (0.083 %) solution for nebulization 2.5 mg (3 mL) inhalation QID PRN(if needed) albuterol sulfate 90 mcg/actuation aerosol inhaler 2 - 4 puff inhalation Q6H PRN (if needed) bupropion HCl 75 mg tablet 75 mg PO HS fluticasone fur. 100 mcg-umeclid 62.5 mcg-vilant 25 mcg inhalat.powder (Trelegy Ellipta) 1 inh inhalation HS rosuvastatin 40 mg tablet (Crestor) 40 mg PO HS Other Notes If you have any questions please call us at [phone] or [phone] or [phone] or [phone]
--- NOTE | 2024-02-01 13:56 | Anesthesiology Consultation ---
Date of Service February 01, 2024 Assessment & Plan (1) Encounter for pre-operative examination: Infectious disease screening: Per assessment on 02/01/24- No known recent infectious disease contacts or current infectious disease symptoms. Chart Review Chart Review: Acceptable Risk for Surgery and Patient seen in Pre Admission Testing Teaching & Discussion Pre-Anesthesia Teaching/Discussion Notes: Instructed NPO after midnight before surgery,except medications with 15 cc of water. Medication instructions provided according to the PAT guidelines. History Surgery Operation Date: 02/15/24 10:10 Proposed Procedures p Femoral to Femoral Bypass - Krishna Long MD Height/Weight Height: 5 ft Weight: 33.4 kg Allergies Allergy/AdvReac Type Severity Reaction Status Date / Time codeine AdvReac Intermediate Vomiting Verified 02/01/24 13:58 Medications Home Medications Medication Instructions Recorded Confirmed Last Taken aspirin 81 mg tablet,delayed 81 mg PO QAM #1 tab 09/01/19 01/28/24 Unknown release acetaminophen 325 mg capsule 650 mg PO Q4H PRN Pain 09/14/19 01/28/24 Unknown Flutter Valve #1 ea 08/13/20 12/10/23 Unknown albuterol sulfate 2.5 mg/3 mL 2.5 mg (3 mL) inhalation QID PRN 03/03/22 01/28/24 Unknown (0.083 %) solution for nebulization shortness of breath or wheezing #180 mL albuterol sulfate 90 mcg/actuation 2 - 4 puff inhalation Q6H PRN 01/04/23 01/28/24 Unknown aerosol inhaler Shortness Of Breath Or Wheezing #18 grams lisinopril 10 mg tablet 10 mg PO QAM #90 tabs 04/15/23 01/28/24 Unknown sertraline 100 mg tablet 150 mg (1.5 x 100 mg) PO QAM #135 07/19/23 01/28/24 Unknown tabs bupropion HCl 75 mg tablet 75 mg PO HS 01/28/24 01/28/24 Unknown fluticasone fur. 100 mcg-umeclid 1 inh inhalation HS 01/28/24 01/28/24 Unknown 62.5 mcg-vilant 25 mcg inhalat.powder (Trelegy Ellipta) rosuvastatin 40 mg tablet (Crestor) 40 mg PO HS 01/28/24 01/28/24 Unknown Past Medical History Medical History Arthritis Chronic obstructive pulmonary disease Chronic respiratory failure with hypoxia 3-4L O2 NC Depression Diverticular disease History of stroke Age 64 > left hand "does not work" Taking ASA Hyperlipidemia Hypertension ICAO (internal carotid artery occlusion) Vascular visit 11/04/23: "Her carotid ultrasound performed prior ot today's appointment demonstrates a known right carotid occlusion, and about 50% stenosis of her left ICA which is similar to previousl imaging." Recommend 1 year carotid ultrasound follow-up Iliac artery occlusion Multiple pulmonary nodules Per records Osteoporosis Per records Exercise / Class Metabolic Activity III < 4 Walking/Shop/Light housework Past Family History Family History Other No family history of adverse response to anesthesia Denies family history of Ovarian cancer Prostate cancer Myocardial infarction Breast cancer Colorectal cancer Past Surgical History Surgical History History of bronchoscopy History of cataract surgery right History of section x1 History of colonoscopy History of tonsillectomy History of tooth extraction Hx of foot surgery right Hx of hemorrhoidectomy Past Anesthesia History No Hx of Anesthesia Complications and No Family Hx of Anesthesia Complications History of PONV No Hx of PONV and No Hx of Motion Sickness Social History Smoking Status: Current some day smoker tobacco type: cigarettes Smoking cigarettes per day: Occasional cigarette use, quit daily smoking at age 64 Do You Dip or Chew Tobacco: No Hx Alcohol Use: No Hx Substance Use: No substance use type: does not use Review of Systems Breathing at baseline. Patient denies chest pain, fever, chills, cough, wheezing. Physical Exam Vital Signs BP 113/78 P 70 SP02 on 3L via NC RESP 96%RA Physical Full cervical extension range of motion. Full TMJ range of motion. TMD > 3.5 finger breaths Mallampati Score I Dentition: upper full dentures, edentulous Lungs: course breath sounds Cardiac: regular rate and rhythm, no murmurs noted Spine: normal Carotid arteries: + bruit Extremities: no LE edema Lab Results Anesthesia Preop Results Results Anesthesia Widget: WBC 5.46 K/ul (4.8-10.8) 02/01/24 Hgb 13.3 g/dl (12.0-16.0) 02/01/24 Hct 41.2 % (37.0-47.0) 02/01/24 Plt 181 K/uL (130-400) 02/01/24 Na 145 mmol/L (136-145) 02/01/24 K 4.2 mmol/L (3.5-5.1) 02/01/24 Cl 107 mmol/L (98-107) 02/01/24 CO2 31 mmol/L (21-32) 02/01/24 BUN 24 mg/dl (6-23) H 02/01/24 Creat 1.12 mg/dl (0.6-1.2) 02/01/24 Glucose Level 94 mg/dl (70-99(Fasting)) 02/01/24 PT 10.2 Seconds (9.0-12.0) 02/01/24 PTT 27 Seconds (21-31) 02/01/24 INR 0.9 (0.9-1.1) 02/01/24 Blood Type O Positive 02/01/24 Antibody Screen NEGATIVE 02/01/24 Testing Electrocardiogram Date: 02/01/24 NSR at 67bpm. PRWP, consider anterior MA vs lead placement vs LVH. Compared to 08/27/2019, ST no longer depressed in lateral leads, NS TWA improved in lateral leads per assembly line supervisor comparison. Echo done 08/28/19. Chest X-Ray Date: 02/01/24 FINDINGS: Pulmonary Parenchyma: Interstitial lung changes seen. Hyperinflated lungs seen with flattening of bilateral hemidiaphragm seen concerning for air trapping. No evidence of consolidation, collapse, or focal opacities. No pulmonary nodules identified. No evidence of pleural effusion or pleural thickening. Heart and Mediastinum: Heart size and shape are normal. Ectatic aorta seen. No mediastinal widening or masses. No hilar or mediastinal lymphadenopathy. Bony thorax appears intact without fractures or deformities. Soft tissues overlying the chest wall are unremarkable. IMPRESSION: Interstitial lung changes seen. Hyperinflated lungs seen with flattening of bilateral hemidiaphragm seen concerning for air trapping. Echocardiogram Date: 08/28/19 EF 55-60%. No RWMA. No significant valvular disease.
--- NOTE | 2024-02-14 15:19 | History & Physical Report ---
Date of Service February 14, 2024 History of Present Illness Primary Care Provider: SWATI Sher Subjective I had the pleasure of seeing Stacy today for follow-up. As you know she is a 68-year-old female who has severe claudication of the right lower extremity. She had an ultrasound of her aortoiliac segments with which showed a right common and external iliac occlusion and reconstitution of the common femoral artery. She denies any tissue loss of the foot denies any rest pain of the right foot. Objective Vitals & Measurements HR: 59 (Monitored) BP: 152/72 SpO2: 97% Physical Exam On exam she is awake alert oriented x 3. She is in no apparent distress. Her blood pressure is 152/72. Her lungs are clear. Her heart has a RRR. Abdominal exam is benign. Her radials are +2 bilaterally. Femorals are +2 on the left and nonpalpable on the right. He has appreciate pedal pulses on the right but does have a good pedal pulse on the left. Capillary refill is slightly decreased on the right when compared to the left Diagnostic Results Her noninvasive suggest a right common iliac and external iliac artery occlusion with reconstitution of the common femoral artery. The left side showed no evidence of stenosis in the external or common iliac arteries. Assessment/Plan 1. Aortoiliac occlusive disease At this point I do not believe we could do the common iliac and external iliac revascularization endovascularly. We recommended an open femoral to femoral bypass graft. We went over the risks options benefits which included in the consent form. She is agreeable to go ahead with the procedure. This will be scheduled in the near future. Thank you very much for letting us participate in the care of this patient. Sincerely, Ambrocio Long MD Allergies Allergy/AdvReac Type Severity Reaction Status Date / Time codeine AdvReac Intermediate Vomiting Verified 02/01/24 13:58 Home Medications Medication Instructions Recorded Confirmed Type aspirin 81 mg tablet,delayed 81 mg PO QAM #1 tab 09/01/19 01/28/24 Rx release acetaminophen 325 mg capsule 650 mg PO Q4H PRN Pain 09/14/19 01/28/24 History Flutter Valve #1 ea 08/13/20 12/10/23 Rx albuterol sulfate 2.5 mg/3 mL 2.5 mg (3 mL) inhalation QID PRN 03/03/22 01/28/24 Rx (0.083 %) solution for nebulization shortness of breath or wheezing #180 mL albuterol sulfate 90 mcg/actuation 2 - 4 puff inhalation Q6H PRN 01/04/23 01/28/24 Rx aerosol inhaler Shortness Of Breath Or Wheezing #18 grams lisinopril 10 mg tablet 10 mg PO QAM #90 tabs 04/15/23 01/28/24 Rx sertraline 100 mg tablet 150 mg (1.5 x 100 mg) PO QAM #135 07/19/23 01/28/24 Rx tabs bupropion HCl 75 mg tablet 75 mg PO HS 01/28/24 01/28/24 History rosuvastatin 40 mg tablet (Crestor) 40 mg PO HS 01/28/24 01/28/24 History fluticasone fur. 100 mcg-umeclid 1 inh inhalation HS #60 ea 02/11/24 Rx 62.5 mcg-vilant 25 mcg inhalat.powder (Trelegy Ellipta) Past Med/Surg History Problem List Encounter for pre-operative examination Mass of right axilla COPD with emphysema Vision loss, right eye Vitamin D deficiency (Chronic) Medical History Arthritis Chronic obstructive pulmonary disease Chronic respiratory failure with hypoxia 3-4L O2 NC Depression Diverticular disease History of stroke Age 64 > left hand "does not work" Taking ASA Hyperlipidemia Hypertension ICAO (internal carotid artery occlusion) Vascular visit 11/04/23: "Her carotid ultrasound performed prior ot today's appointment demonstrates a known right carotid occlusion, and about 50% stenosis of her left ICA which is similar to previousl imaging." Recommend 1 year carotid ultrasound follow-up Iliac artery occlusion Multiple pulmonary nodules Per records Osteoporosis Per records Surgical History History of bronchoscopy History of cataract surgery right History of section x1 History of colonoscopy History of tonsillectomy History of tooth extraction Hx of foot surgery right Hx of hemorrhoidectomy Family History Other No family history of adverse response to anesthesia Denies family history of Ovarian cancer Prostate cancer Myocardial infarction Breast cancer Colorectal cancer Social History Smoking Status: Current some day smoker Tobacco Type: Cigarettes Age Started Using Tobacco: 18; Age Quit Using Tobacco: 65; Cigarettes Per Day: Occasional cigarette use, quit daily smoking at age 64; Second Hand Exposure: No; Do You Dip or Chew Tobacco: No; Hx Alcohol Use: No Hx Substance Use: No Preferred Language: Chinese Communication Ability: Effective Visual Impairment: Limited Hearing Ability: Normal School Operations Manager Required: No Beliefs That Will Affect Care: None marital status: Current Living Situation: Alone Current Living Situation Comment: " is there sometimes, kind of seperated" current occupational status: disabled How many Children do You have: 2 Feels Safe at Home: Yes Safety Concerns: Feels Safe At This Time Childhood Exposure to Second-Hand Smoke: Yes Diet: regular caffeine: Yes (coffee) during the past year weight has: remained stable Dental Care, Regularly: No Physical Activity Frequency: Daily Seatbelt Use: never Sunscreen Use: No Assistive Devices: Denture - Upper, Glasses, Nebulizer and Oxygen - Continuous
[2024-02-15] MEDS: SODIUM CHLORIDE 0.9% 1,000 ML IV SCH ×2 (12:05→18:41)
[2024-02-15] MEDS: ALBUT/IPRATROP 3MG/0.5MG NEB 3 ML VIAL NEB STA (12:36)
[2024-02-15] MEDS: LACTATED RINGER'S 1,000 ML IV SCH (12:46)
[2024-02-15] MEDS ORDERED: HYDROmorphone INJ 1 MG/ML SYRINGE IV PRN (13:07)
[2024-02-15] MEDS ORDERED: ePHEDrine sulfate 50 MG/ML AMP IV PRN (13:07)
[2024-02-15] MEDS ORDERED: ONDANSETRON INJ 2 MG/ML 2 ML VIAL IV PRN ×2 (13:07→17:51)
[2024-02-15] MEDS ORDERED: ATROPINE SULFATE 0.1 MG/ML 10ML SYR IV PRN (13:07)
--- NOTE | 2024-02-15 13:19 | History & Physical Bridge Note ---
Date of Service February 15, 2024 History & Physical Bridge Note I have examined the patient, reviewed the History & Physical and in the interval since the performance of the History & Physical I have noted the following changes of clinical significance: no changes noted
[2024-02-15] MEDS ORDERED: fentaNYL citrate PF 100 MCG/2 ML VIAL ONE ×2 (13:28→14:38)
[2024-02-15] MEDS ORDERED: ONDANSETRON INJ 2 MG/ML 2 ML VIAL ONE (13:28)
[2024-02-15] MEDS ORDERED: DEXAMETHASONE SOD INJ 4 MG/ML VIAL ONE (13:28)
[2024-02-15] MEDS ORDERED: ROCURONIUM BROMIDE 10 MG/ML 5 ML VIAL IV ONE (13:28)
[2024-02-15] MEDS ORDERED: PROPOFOL IV EMULSION 10 MG/ML 20 ML VIAL IV ONE (13:28)
[2024-02-15] MEDS: ceFAZolin 2000MG 2,000 MG/15 ML SYR IV SCH ×2 (13:55→21:16)
[2024-02-15] MEDS ORDERED: HEPARIN SOD (PORCINE) 1000 UNIT/ML ONE (14:39)
[2024-02-15] MEDS ORDERED: PHENYLEPHRINE HCL 10 MG/ML VIAL ONE (14:52)
[2024-02-15] MEDS ORDERED: PROTAMINE SULFATE 10 MG/ML 5 ML VIAL IV ONE (15:36)
[2024-02-15] MEDS: BUPIVACAINE/EPINEPHRINE 0.5% MPF 1:200,000 30 ML VIAL ONE (15:44)
[2024-02-15] MEDS: PAPAVERINE HCL INJ 30 MG/ML 2 ML VIAL ONE (15:44)
[2024-02-15] MEDS: LIDOCAINE 1% LOCAL 20 ML VIAL ONE (15:44)
[2024-02-15] MEDS ORDERED: GLYCOPYRROLATE 0.2 MG/ML VIAL ONE (15:47)
[2024-02-15] MEDS ORDERED: NEOSTIGMINE METHYLSULFATE 1 MG/ML 10ML VIAL ONE (15:47)
[2024-02-15] MEDS: HEPARIN (PORCINE) 1000 UNIT/ML 10 ML (CATH LAB USE ONLY) ONE (15:59)
[2024-02-15] MEDS: ceFAZolin 330 MG/ML 1 GM VIAL ONE (16:00)
[2024-02-15] MEDS: GELATIN SPONGE SZ 100 ONE (16:00)
[2024-02-15] MEDS: THROMBIN FOR SOLN 20000 UNIT KIT ONE (16:01)
--- NOTE | 2024-02-15 16:08 | Post Operative Brief Note ---
Immediate Post Op Note Date of Surgery February 15, 2024 Pre & Post Diagnosis Operation Date: 02/15/24 13:00 Pre-Op Diagnosis: Right iliac artery occlusion. Post-Op Diagnosis: Right iliac artery occlusion. I identified the patient and participated in the time-out.: Yes Procedure Operation Date: 02/15/24 13:00 Actual Procedures p Femoral to Femoral Bypass Left to Right - Krishna Long MD Surgeon Krishna Long MD Supervisor Decorating DO Sadie Bueno,PAC Estimated Blood Loss 100 Findings Consistent with Post-Op Diagnosis Drains Bergeron Catheter Anesthesia Type General Complications none Disposition Accompanied Patient To Recovery: No Disposition: Recovery Room
--- NOTE | 2024-02-15 16:22 | Operative Report ---
Post Operative Report Pre & Post Diagnosis Operation Date: 02/15/24 13:00 Pre-Op Diagnosis: Right iliac artery occlusion. Post-Op Diagnosis: Right iliac artery occlusion. I identified the patient and participated in the time-out.: Yes Procedure Operation Date: 02/15/24 13:00 Actual Procedures p Femoral to Femoral Bypass Left to Right - Krishna Long MD Surgeon Krishna Long MD Blast Furnace Keeper DO Blanche BuenoMinarchick,PAC Estimated Blood Loss 100 Findings Consistent with Post-Op Diagnosis Left to right fem-fem bypass with 6mm ringed PTFE with good doppler signal within graft and in [employer] distal to graft. BLE with pedal doppler signals. Fluids Per anesthesia report Specimens No specimen Drains No drain Complications None apparent at case conclusion Indications Limb limiting claudication Description of Procedure The patient was brought to the operating room and placed on the operating table in supine position. Patient was sedated and intubated and had a Bergeron catheter placed by nursing. The abdomen and bilateral groins, and legs were prepped and draped in the usual sterile fashion. A vertical incision was made in the left groin and carried down with a combination of electrocautery and sharp dissection. A combination of electrocautery, clips and ties was used for control of superficial branches. The femoral sheath was then opened using Metzenbaum scissors and sharp dissection of the common femoral artery, superficial femoral artery, distal external iliac artery and profunda femoris was performed. Direction was then turned to the right groin and the common femoral artery, superficial femoral artery, and distal external iliac artery were exposed in the previously described fashion. Next a tunnel between the groin incisions was developed in a plane above the external oblique muscle within the subcutaneous tissue with blunt dissection. A 6mm ringed PTFE graft was placed within the tunnel. The patient was then systemically heparinized to an ACT >200, with ACT checks every twenty minutes and re-dosing of heparin to maintain this goal. Next the right distal EIA and distal [employer] were clamped. A #11 blade was used to make a vertical arteriotomy in the right [employer] which was then extended using Andre scissors proximally and distally. An end to side anastomosis between the [place] artery was fashioned using 6-0 Prolene in a running fashion. Prior to completion of the anastomosis, the profunda femoris, superficial femoral artery and external iliac arteries were unclamped and allowed to be flushed. Thorough irrigation using heparinized saline flush was performed and the anastomosis was completed. Attention was then turned to the left groin. A #11 blade was used to make a vertical arteriotomy which was then extended using Andre scissors proximally and distally between the left EIA and distal [employer]. After all debris was cleared from the femoral artery posterior wall, an end to side anastomosis between the [place] artery was fashioned using 6-0 Prolene in a running fashion. Prior to completion of the anastomosis, the graft was de-aired, and the profunda femoris, superficial femoral artery and external iliac arteries were unclamped and allowed to be flushed. Thorough irrigation using heparinized saline flush was performed and the anastomosis was completed. Thrombin-soaked Gelfoam was applied to both groins. Meticulous hemostasis using electrocautery and thrombin was achieved. Antibiotic irrigation was used to irrigate the groins. A multilayer closure of the left groin was completed using 2-0 Vicryl to approximate the femoral sheath as well as multiple layers of subcutaneous tissue. A 3-0 Vicryl suture was used to approximate the deep dermis and tayler were used to approximate the skin edges. Then, a multilayer closure of the right groin was completed using 2-0 Vicryl to approximate the femoral sheath as well as multiple layers of subcutaneous tissue. A 3-0 Vicryl suture was used to approximate the deep dermis and tayler were used to approximate the skin edges. Sterile dressings were applied to both groins. The patient had signals in the both extremities at the end of the case and no change to baseline right lower extremity exam. This concluded the case and the patient was taken to recovery in stable condition. Dr Long was present and scrubbed for the entirety of the procedure. I attest to the content of the Intraoperative Record and any orders documented therein. Any exceptions are noted below.
[2024-02-15] MEDS: fentaNYL citrate PF 100 MCG/2 ML VIAL IV PRN (16:54)
[2024-02-15 17:03] LABS: Basophils # (auto) 0.06 K/uL (0.00-0.20); Basophils % (auto) 0.7 %; Eosinophils # (auto) 0.04 K/uL (0.00-0.50); Eosinophils % (auto) 0.5 %; Hematocrit (blood only) 40.8 % (37.0-47.0); Hemoglobin 12.8 g/dl (12.0-16.0); Immature Granulocytes # (auto) 0.04 K/uL (0.01-0.20); Immature Granulocytes % (auto) 0.5 %; Lymphocytes # (auto) 1.56 K/uL (1.20-3.40); Lymphocytes % (auto) 17.7 %; Mean Corpuscular Hemoglobin 30.5 pg (25.0-34.0); Mean Corpuscular Hgb Conc 31.4 g/dL (32.0-36.0); Mean Corpuscular Volume 97.1 fL (80.0-100.0); Monocytes # (auto) 0.24 K/uL (0.11-0.59); Monocytes % (auto) 2.7 %; Neutrophils # (auto) 6.87 K/uL (1.40-6.50); Neutrophils % (auto) 77.9 %; Platelet Count 195 K/uL (130-400); RDW Coefficient of Variation 13.6 % (11.5-14.5); RDW Standard Deviation 48.3 fL (36.4-46.3); White Blood Count 8.81 K/ul (4.8-10.8)
--- NOTE | 2024-02-15 17:34 | Anesthesiology Progress Note ---
Date of Service February 15, 2024 Anesthesia Post Procedure Vital Signs Vital Signs: Temp Pulse Pulse Resp BP BP Pulse Ox 02/15/24 17:30 69 13 110/54 L 98 02/15/24 17:20 67 13 101/53 L 98 02/15/24 17:10 67 11 L 112/50 L 97 02/15/24 17:00 71 17 127/53 L 99 02/15/24 16:50 68 14 116/48 L 98 02/15/24 16:40 70 16 134/60 100 02/15/24 16:30 79 23 157/72 H 96 02/15/24 16:23 36.6 C 89 17 170/81 H 100 02/15/24 12:37 83 20 96 02/15/24 12:14 02/15/24 11:54 36.7 C 68 20 135/61 97 O2 Del Method O2 Flow Rate 02/15/24 17:30 Nasal Cannula 3 02/15/24 17:20 Nasal Cannula 3 02/15/24 17:10 Nasal Cannula 3 02/15/24 17:00 Nasal Cannula 3 02/15/24 16:50 Nasal Cannula 4 02/15/24 16:40 Nasal Cannula 4 02/15/24 16:30 Nasal Cannula 4 02/15/24 16:23 Nasal Cannula 4 02/15/24 12:37 Nasal Cannula 3 02/15/24 12:14 Nasal Cannula 3 02/15/24 11:54 Nasal Cannula 3 Pain Intensity Bilateral Groin: Pain Intensity: 2 Transfer of Care Handoff Completed per policy Notes Mental Status: alert / awake / arousable Patient Amnestic to Procedure: Yes Nausea / Vomiting: adequately controlled Pain: adequately controlled Airway Patency, RR, SpO2: stable & adequate BP & HR: stable & adequate Hydration State: stable & adequate Anesthetic Complications: no major complications apparent and Pt Satisfied with anesthetic care
[2024-02-15] MEDS ORDERED: ALBUTEROL 0.083% NEBU SOLN 3 ML VIAL INH PRN (17:51)
[2024-02-15] MEDS ORDERED: ALBUTEROL HFA 8 GM INHALER INH PRN (17:51)
--- NOTE | 2024-02-15 18:40 | Critical Care Consultation ---
Date of Consultation February 15, 2024 Assessment & Plan (1) Iliac artery occlusion: (2) COPD with emphysema: (3) Hypertension: (4) Depression: (5) Hyperlipidemia: Plan Reason Critically Ill: 68 YOF presents to ICU postoperative from Fem-Fem LT-RT bypass. Patient is currently not on any hemodynamic supporting medications Neuro - No acute needs, hx of CVA CAM ICU:: Negative - pain controlled- pain medications tiered per primary vascular surgery Cardiac - S/P FEM-FEM bypass, PAD, Hx HTN, HLD - BP parameters reviewed - surgical sites intact without hematomas- left PT without Doppler signa- nursing reports present on arrival and communicated to surgical attending - legs are warm and sensation intact - Continue CASEY as hemodynamics and renal function permit - Antiplatelet medications per vascular surgery once hemostasis is ensured - continue Rosuvastatin Respiratory - COPD with chronic 3LNC use at home - previous hx of smoking- no PFTs recent available for review- continue ROSA as needed, Continue Umeclidinium/Vilanterol and Fluticasone daily - las exacerbation appears to be in december 2023 GI - No acute needs - advance diet as tolerated RENAL/LYTES - No acute needs - ICU electrolyte protocol - NO acute needs ENDO - No acute needs - Goal BG <180mg/dl HEME - No acute needs - follow CBC in am as ordered by primary surgical services ID - NO concern at this time for infective process - post operative abx per surgical tea LINES/IV ACCESS - PIV Continue use of these lines DVT PROPHYLAXIS - SCDS, chemoprophylaxis on hold at this time as POD #0 from vascular procedure- ASA further prophy per surgical team DISPO: ICU for postoperative hemodynamic monitoring and frequent NV/CV exams. I have personally spent 45 minutes of time in the direct management of this patient. This is a life/limb threatening event. This includes time spent evalu ating patient, direct bedside care, chart review, placing orders, interpretation of diagnostic studies, discussion with consultants, patient, and family members, as well as other required patient management activities. This time is exclusive of all separately billable procedures, and teaching time and separate from and in addition to any other critical care service time. Thank you for allowing us to participate in the care of this patient. Please refer to my attending physician's documentation for any further recommendations. History of Present Illness Reason for Consultation: s/p Fem-Fem bypass Left to Right for Right liiac artery occlusion- postoperaative care Requesting Physician: Krishna Long Attending Physician: Krishna Long MD History of Present Illness 68 YOF with medical history of: COPD- oxygen dependant, Vision loss right eye, Occlusive Aortioilliac disease/PAD, carotid artery stenosis. Patient is POD #0 from FEM-FEM LT-RT bypass. Patient was evaluated in her room in the ICU postoperatively. Patient is awake, on 3L NC, tolerating clears, pain controlled. Movment and sensation of her lower extremities and offers no complaints at this time. Operative report reviewed and parameters reviewed. CODE: FULL Allergies Allergy/AdvReac Type Severity Reaction Status Date / Time codeine AdvReac Intermediate Vomiting Verified 02/15/24 12:05 Home Medications Medication Instructions Recorded Confirmed Type aspirin 81 mg tablet,delayed 81 mg PO QAM #1 tab 09/01/19 02/15/24 Rx release acetaminophen 325 mg capsule 650 mg PO Q4H PRN Pain 09/14/19 02/15/24 History Flutter Valve #1 ea 08/13/20 12/10/23 Rx albuterol sulfate 2.5 mg/3 mL 2.5 mg (3 mL) inhalation QID PRN 03/03/22 02/15/24 Rx (0.083 %) solution for nebulization shortness of breath or wheezing #180 mL albuterol sulfate 90 mcg/actuation 2 - 4 puff inhalation Q6H PRN 01/04/23 02/15/24 Rx aerosol inhaler Shortness Of Breath Or Wheezing #18 grams lisinopril 10 mg tablet 10 mg PO QAM #90 tabs 04/15/23 02/15/24 Rx sertraline 100 mg tablet 150 mg (1.5 x 100 mg) PO QAM #135 07/19/23 02/15/24 Rx tabs bupropion HCl 75 mg tablet 75 mg PO HS 01/28/24 02/15/24 History rosuvastatin 40 mg tablet (Crestor) 40 mg PO HS 01/28/24 02/15/24 History fluticasone fur. 100 mcg-umeclid 1 inh inhalation HS #60 ea 02/11/24 02/15/24 Rx 62.5 mcg-vilant 25 mcg inhalat.powder (Trelegy Ellipta) Patient History Medical History Arthritis Chronic obstructive pulmonary disease Chronic respiratory failure with hypoxia 3-4L O2 NC Depression Diverticular disease History of stroke Age 64 > left hand "does not work" Taking ASA Hyperlipidemia Hypertension ICAO (internal carotid artery occlusion) Vascular visit 11/04/23: "Her carotid ultrasound performed prior ot today's appointment demonstrates a known right carotid occlusion, and about 50% stenosis of her left ICA which is similar to previousl imaging." Recommend 1 year carotid ultrasound follow-up Iliac artery occlusion Multiple pulmonary nodules Per records Osteoporosis Per records Surgical History History of bronchoscopy History of cataract surgery right History of section x1 History of colonoscopy History of tonsillectomy History of tooth extraction Hx of foot surgery right Hx of hemorrhoidectomy Family History Other No family history of adverse response to anesthesia Denies family history of Ovarian cancer Prostate cancer Myocardial infarction Breast cancer Colorectal cancer Social History Smoking Status: Current some day smoker Tobacco Type: Cigarettes Age Started Using Tobacco: 18; Age Quit Using Tobacco: 65; Cigarettes Per Day: Occasional cigarette use, quit daily smoking at age 64; Second Hand Exposure: No; Do You Dip or Chew Tobacco: No; Hx Alcohol Use: No Hx Substance Use: No Preferred Language: Jamaican Communication Ability: Effective Visual Impairment: Limited Hearing Ability: Normal Hypoid Gear Generator Required: No Beliefs That Will Affect Care: None marital status: Current Living Situation: Alone Current Living Situation Comment: " is there sometimes, kind of seperated" current occupational status: disabled How many Children do You have: 2 Feels Safe at Home: Yes Safety Concerns: Feels Safe At This Time Childhood Exposure to Second-Hand Smoke: Yes Diet: regular caffeine: Yes (coffee) during the past year weight has: remained stable Dental Care, Regularly: No Physical Activity Frequency: Daily Seatbelt Use: never Sunscreen Use: No Assistive Devices: Denture - Upper, Glasses, Nebulizer and Oxygen - Continuous Review of Systems Review of Systems: REVIEW OF SYSTEMS: Constitutional: No fever, sweats or chills Eyes: No diplopia, no worsening or blurred vision ENT: normal hearing, no trouble swallowing Respiratory: No new cough, sputum, dyspnea at rest or on exertion Cardiovascular: No chest pain, tightness or palpitations Abdomen: No pain, nausea, vomiting, diarrhea or constipation Musculoskeletal: No new joint pain, calf pain, swelling Neurologic: No weakness, numbness/tingling, or balance problems Psychiatric: No anxiety or depression Physical Exam Physical Exam: PHYSICAL EXAM: General: awake, alert, no apparent distress Head: Normocephalic, atraumatic ENT: PERRLA, EOMI, no pharyngeal exudate, mucous membranes moist Neuro: AAO x 3, speech clear and appropriate, strength intact bilaterally 5/5, sensation intact and equal all extremities no pronator drift Chest: equal rise and fall of the chest, no accessory muscle use, no heaves or thrills, decreased in bases expiratory wheeze, on 3L NC, Cardiac: Regular rate and rhythm, telemetry reviewed- NSR no ectopy, skin warm dry, cap refill <3 seconds, peripheral pulses +2 no JVD, no murmur, no edema, peripheral pulses in feet 1+ but dopplerable except left PT GI: NABS x 4 quadrants, soft, nontender to palpation, no rebound, guarding or tenderness : Spontaneously voiding, no pain, no CVA tenderness, Results & Data Results & Data Vital Signs (Past 12 Hours) Vital Signs Temp Pulse Pulse Pulse Resp BP BP 02/15/24 18:18 37 C 02/15/24 18:09 70 16 02/15/24 18:08 114/57 L 02/15/24 18:00 67 02/15/24 17:51 02/15/24 17:50 66 17 02/15/24 17:40 36.7 C 68 23 02/15/24 17:30 69 13 02/15/24 17:20 67 13 02/15/24 17:10 67 11 L 02/15/24 17:00 71 17 02/15/24 16:50 68 14 116/48 L 02/15/24 16:40 70 16 134/60 02/15/24 16:30 79 23 157/72 H 02/15/24 16:23 36.6 C 89 17 02/15/24 12:37 83 20 02/15/24 12:14 02/15/24 11:54 36.7 C 68 20 BP Pulse Ox O2 Del Method O2 Flow Rate FiO2 02/15/24 18:18 02/15/24 18:09 94 Nasal Cannula 3 02/15/24 18:08 02/15/24 18:00 02/15/24 17:51 Nasal Cannula 3 02/15/24 17:50 117/59 L 99 Nasal Cannula 3 02/15/24 17:40 107/60 98 Nasal Cannula 3 02/15/24 17:30 110/54 L 98 Nasal Cannula 3 02/15/24 17:20 101/53 L 98 Nasal Cannula 3 02/15/24 17:10 112/50 L 97 Nasal Cannula 3 02/15/24 17:00 127/53 L 99 Nasal Cannula 3 02/15/24 16:50 98 Nasal Cannula 4 02/15/24 16:40 100 Nasal Cannula 4 02/15/24 16:30 96 Nasal Cannula 4 02/15/24 16:23 170/81 H 100 Nasal Cannula 4 02/15/24 12:37 96 Nasal Cannula 3 02/15/24 12:14 Nasal Cannula 3 02/15/24 11:54 135/61 97 Nasal Cannula 3 Laboratory Results Abnormal lab results 02/15/24 02/15/24 02/15/24 Range/Units 11:42 16:51 18:50 MCHC 31.4 L (32.0-36.0) g/dL RDW Std Deviation 48.3 H (36.4-46.3) fL Neut # (Auto) 6.87 H (1.40-6.50) K/uL POC Glucose 102 H (70-99) mg/dl Crossmatch See Detail Coding Level of Care Code 38596 IN/OBS CONSULT LVL 3,45M Diagnoses Iliac artery occlusion I74.5 Pulmonary emphysema, unspecified emphysema type J43.9 Emphysema type: unspecified Hypertension I10 Depression F32.9 Hyperlipidemia E78.5 (2) COPD with emphysema Emphysema type: unspecified Qualified Code(s): J43.9 - Emphysema, unspecified
[2024-02-15] MEDS ORDERED: NON-FORMULARY MEDICATION (Fluticasone-Umeclidin-Vilanter [Trelegy Ellipta] 100-62.5-25 mcg INH SCH (21:00)
[2024-02-15] MEDS: ROSUVASTATIN CALCIUM 20 MG TAB PO SCH (21:16)
[2024-02-15] MEDS: buPROPion HCl 75 MG TABLET PO SCH (21:17)
[2024-02-15] MEDS: oxyCODONE/ACETAMINOPHEN 5mg/325mg TAB PO PRN (21:27)
[2024-02-16 04:38] LABS: Basophils # (auto) 0.02 K/uL (0.00-0.20); Basophils % (auto) 0.2 %; Hematocrit (blood only) 33.3 % (37.0-47.0); Hemoglobin 10.5 g/dl (12.0-16.0); Immature Granulocytes # (auto) 0.02 K/uL (0.01-0.20); Immature Granulocytes % (auto) 0.2 %; Lymphocytes % (auto) 12.2 %; Mean Corpuscular Hemoglobin 30.4 pg (25.0-34.0); Mean Corpuscular Hgb Conc 31.5 g/dL (32.0-36.0); Mean Corpuscular Volume 96.5 fL (80.0-100.0); Mean Platelet Volume 11.4 fL (9.4-12.4); Monocytes # (auto) 0.81 K/uL (0.11-0.59); Neutrophils # (auto) 7.03 K/uL (1.40-6.50); Neutrophils % (auto) 78.4 %; Platelet Count 151 K/uL (130-400); RDW Coefficient of Variation 13.8 % (11.5-14.5); RDW Standard Deviation 49.4 fL (36.4-46.3); Red Blood Count 3.45 M/uL (4.20-5.40); White Blood Count 8.98 K/ul (4.8-10.8)
[2024-02-16 05:14] LABS: BUN Creatinine Ratio 31.3 (10-20); Creatinine Clr Calc Pharmacy 28.2 ml/min; Potassium 4.8 mmol/L (3.5-5.1)
[2024-02-16] MEDS: UMECLIDINIUM/VILANTEROL 62.5/25MCG 7 PUFFS/INHALER INH SCH (08:57)
[2024-02-16] MEDS: FLUTICASONE FUROATE 100MCG 14 PUFFS/INHALER INH SCH (08:57)
[2024-02-16] MEDS: ASPIRIN 81 MG ECTAB PO SCH (08:57)
[2024-02-16] MEDS: SERTRALINE HCL 50 MG TABLET PO SCH (08:58)
--- NOTE | 2024-02-16 13:07 | Surgery Progress Note ---
Date of Service February 16, 2024 Assessment & Plan (1) S/P vascular surgery: Plan: Pt now POD #1 after L to R fem fem BPG. Doing well post op. Incisions dry and feet warm and well perfused. Continue PT/OT. Also seen by Dr Long today, will transfer to floor. (2) Acute postoperative anemia due to expected blood loss: Plan: Pt with hgb 10 today, baseline 12. VSS stable and pt without sx. continue to monitor. Admission and Anticipated Discharge Date Admission Date: February 15, 2024 Subjective 68 yo f POD #1 after L to R fem fem BPG, seen in f/u today. Pt admits incisional pain, but states her feet are feeling better. Denies chest pain, SOB, N/V, other complaints. Review of Systems Review of Systems: All systems reviewed & are unremarkable except as noted in HPI & below Physical Exam Constitutional: WD/WN, vitals as above + thin; not in distress Respiratory: normal respiratory effort, lungs clear to auscultation Auscultation: + diminished lung sounds Cardiovascular: Rate/Rhythm: regular rate and regular rhythm Vessels: posterior tibial pulses present (Dopplerable LLE), dorsalis pedis pulses present (dopplerable RLE) and radial pulses present; + abnormal peripheral pulses Extremities: normal capillary refill; no edema Gastrointestinal (Abdomen): Inspection/Auscultation: abdomen normal to inspection and normal bowel sounds Percussion/Palpation: abdomen soft; abdomen nontender Musculoskeletal: no cyanosis or clubbing, extremities motor strength 5/5 Skin: no rashes, warm and dry Neurologic: moves all extremities and awake; no focal motor deficits and not confused Psychiatric: A+Ox3, euthymic affect Results & Data Vital Signs (Past 12 Hours) Vital Signs Pulse Resp BP Pulse Ox Pulse Ox Pulse Ox O2 Del Method 02/16/24 11:08 109/47 L 02/16/24 11:06 66 17 95 02/16/24 11:00 71 18 100 02/16/24 10:31 93 02/16/24 10:11 131/44 L 02/16/24 10:06 82 20 02/16/24 10:00 108 H 20 02/16/24 09:53 130/44 L 02/16/24 09:49 98/46 L 02/16/24 09:15 85 20 02/16/24 09:09 111/52 L 02/16/24 09:09 111/52 L 02/16/24 09:09 84 19 02/16/24 09:03 92 H 24 02/16/24 08:59 107/47 L 02/16/24 08:48 78 20 02/16/24 08:03 86 16 02/16/24 08:00 94 H 02/16/24 08:00 98 02/16/24 07:30 Nasal Cannula 02/16/24 07:18 88 17 88 L 02/16/24 07:08 100/44 L 02/16/24 06:48 66 17 100 02/16/24 06:00 63 19 99 02/16/24 05:09 67 19 97 02/16/24 05:08 119/52 L 02/16/24 04:51 70 17 94 02/16/24 04:08 103/48 L 02/16/24 04:08 103/48 L 02/16/24 04:06 64 19 96 02/16/24 04:03 60 17 96 02/16/24 03:03 62 17 98 02/16/24 02:08 92/46 L 02/16/24 02:08 92/46 L 02/16/24 02:08 92/46 L 02/16/24 02:00 62 24 96 02/16/24 01:12 65 17 96 02/16/24 01:08 98/48 L 02/16/24 01:08 98/48 L 02/16/24 01:08 98/48 L O2 Del Method O2 Flow Rate O2 Flow Rate O2 Flow Rate 02/16/24 11:08 02/16/24 11:06 02/16/24 11:00 02/16/24 10:31 3 02/16/24 10:11 02/16/24 10:06 02/16/24 10:00 02/16/24 09:53 02/16/24 09:49 02/16/24 09:15 02/16/24 09:09 02/16/24 09:09 02/16/24 09:09 02/16/24 09:03 02/16/24 08:59 02/16/24 08:48 02/16/24 08:03 02/16/24 08:00 02/16/24 08:00 Nasal Cannula 3 02/16/24 07:30 3 02/16/24 07:18 02/16/24 07:08 02/16/24 06:48 02/16/24 06:00 02/16/24 05:09 02/16/24 05:08 02/16/24 04:51 02/16/24 04:08 02/16/24 04:08 02/16/24 04:06 02/16/24 04:03 02/16/24 03:03 02/16/24 02:08 02/16/24 02:08 02/16/24 02:08 02/16/24 02:00 02/16/24 01:12 02/16/24 01:08 02/16/24 01:08 02/16/24 01:08
[2024-02-16] MEDS: lisinopril 10 MG TAB PO SCH (13:23)
[2024-02-16] MEDS: MoRPHine SULFATE 4 MG/ML 1 ML CARP\\VIAL IV PRN (13:52)
[2024-02-16] MEDS: APIXABAN 2.5 MG TAB PO SCH (20:21)
[2024-02-17 05:15] LABS: Hematocrit (blood only) 32.8 % (37.0-47.0); Hemoglobin 10.4 g/dl (12.0-16.0)
[2024-02-17 05:32] LABS: BUN Creatinine Ratio 21.5 (10-20); Calcium 8.4 mg/dl (8.6-10.3); Potassium 3.8 mmol/L (3.5-5.1)
--- NOTE | 2024-02-17 13:14 | Surgery Progress Note ---
Date of Service February 17, 2024 Assessment & Plan (1) S/P vascular surgery: Plan: POD 2 from fem fem bypass. Doing well. Can go to rehab when bed available. Admission and Anticipated Discharge Date Admission Date: February 15, 2024 Subjective Patient complaining of incisional pain today. Denies any foot pain Physical Exam Constitutional: WD/WN, vitals as above Respiratory: normal respiratory effort; no respiratory distress Cardiovascular: Rate/Rhythm: regular rate and regular rhythm Skin: + incision (dry and clean) Neurologic: CN's II-XI intact bilaterally and moves all extremities Psychiatric: A+Ox3, euthymic affect Results & Data Vital Signs (Past 12 Hours) Vital Signs Temp Pulse Resp BP Pulse Ox O2 Del Method O2 Flow Rate 02/17/24 07:43 37.7 C H 77 16 101/51 L 96 Nasal Cannula 3
[2024-02-18 07:04] VITALS: BP 97/57; PULSE 63; RESP 16; TEMP 98.2; O2SAT 98
[2024-02-18 07:48] LABS: Hematocrit (blood only) 29.6 % (37.0-47.0); Hemoglobin 9.4 g/dl (12.0-16.0)
[2024-02-18 08:38] LABS: Calcium 8.5 mg/dl (8.6-10.3); Potassium 4.1 mmol/L (3.5-5.1)
[2024-02-18 08:44] LABS: BUN Creatinine Ratio 20.3 (10-20); Creatinine Clr Calc Pharmacy 37.7 ml/min
--- NOTE | 2024-02-18 11:24 | Surgery Progress Note ---
Date of Service February 18, 2024 Assessment & Plan (1) S/P vascular surgery: Plan: POD 3 from fem fem bypass. Doing well. Ambulating with walker, pain improved, wishes to go home. Discussed with case management, they will set up . Admission and Anticipated Discharge Date Admission Date: February 15, 2024 Subjective 68 yo f POD #3 after L to R fem fem BPG, seen in f/u today . Patient complaining of mild incisional pain today, states much improved. Denies any foot pain. Ambulating in room and hallway, wishes to go home. Review of Systems Review of Systems: All systems reviewed & are unremarkable except as noted in HPI & below Physical Exam Constitutional: WD/WN, vitals as above + thin; not in distress Respiratory: normal respiratory effort, lungs clear to auscultation Auscultation: + diminished lung sounds Cardiovascular: Rate/Rhythm: regular rate and regular rhythm Vessels: posterior tibial pulses present (Dopplerable LLE), dorsalis pedis pulses present (dopplerable RLE) and radial pulses present; + abnormal peripheral pulses Extremities: normal capillary refill; no edema Gastrointestinal (Abdomen): Inspection/Auscultation: abdomen normal to inspection and normal bowel sounds Percussion/Palpation: abdomen soft; abdomen nontender Musculoskeletal: no cyanosis or clubbing, extremities motor strength 5/5 Skin: no rashes, warm and dry Neurologic: moves all extremities and awake; no focal motor deficits and not confused Psychiatric: A+Ox3, euthymic affect Results & Data Vital Signs (Past 12 Hours) Vital Signs Temp Pulse Resp BP Pulse Ox O2 Del Method O2 Flow Rate 02/18/24 07:02 36.8 C 63 16 97/57 L 98 Nasal Cannula 2
--- NOTE | 2024-02-18 11:26 | Discharge Summary ---
Date of Service February 18, 2024 Admission HPI Per Admitting Provider Subjective I had the pleasure of seeing Stacy today for follow-up. As you know she is a 68-year-old female who has severe claudication of the right lower extremity. She had an ultrasound of her aortoiliac segments with which showed a right common and external iliac occlusion and reconstitution of the common femoral artery. She denies any tissue loss of the foot denies any rest pain of the right foot. Objective Vitals & Measurements HR: 59 (Monitored) BP: 152/72 SpO2: 97% Physical Exam On exam she is awake alert oriented x 3. She is in no apparent distress. Her blood pressure is 152/72. Her lungs are clear. Her heart has a RRR. Abdominal exam is benign. Her radials are +2 bilaterally. Femorals are +2 on the left and nonpalpable on the right. He has appreciate pedal pulses on the right but does have a good pedal pulse on the left. Capillary refill is slightly decreased on the right when compared to the left Diagnostic Results Her noninvasive suggest a right common iliac and external iliac artery occlusion with reconstitution of the common femoral artery. The left side showed no evidence of stenosis in the external or common iliac arteries. Assessment/Plan 1. Aortoiliac occlusive disease At this point I do not believe we could do the common iliac and external iliac revascularization endovascularly. We recommended an open femoral to femoral bypass graft. We went over the risks options benefits which included in the consent form. She is agreeable to go ahead with the procedure. This will be scheduled in the near future. Thank you very much for letting us participate in the care of this patient. Sincerely, Ambrocio Long MD Admission Exam Per Admitting Provider On exam she is awake alert oriented x 3. She is in no apparent distress. Her blood pressure is 152/72. Her lungs are clear. Her heart has a RRR. Abdominal exam is benign. Her radials are +2 bilaterally. Femorals are +2 on the left and nonpalpable on the right. He has appreciate pedal pulses on the right but does have a good pedal pulse on the left. Capillary refill is slightly decre ased on the right when compared to the left Principal Diagnosis 1. s/p L to R fem fem BPG 2. R iliac artery occlusion Discharge Exam Constitutional WD/WN, vitals as above + thin; not in distress Respiratory normal respiratory effort, lungs clear to auscultation Auscultation: + diminished lung sounds Cardiovascular Rate/Rhythm: regular rate and regular rhythm Vessels: posterior tibial pulses present (Dopplerable BLE), dorsalis pedis pulses present (dopplerable BLE) and radial pulses present; + abnormal peripheral pulses Extremities: normal capillary refill; no edema Gastrointestinal (Abdomen) Inspection/Auscultation: abdomen normal to inspection and normal bowel sounds Percussion/Palpation: abdomen soft; abdomen nontender Musculoskeletal no cyanosis or clubbing, extremities motor strength 5/5 Skin no rashes, warm and dry Neurologic moves all extremities and awake; no focal motor deficits and not confused Psychiatric A+Ox3, euthymic affect Discharge Data Allergies Allergy/AdvReac Type Severity Reaction Status Date / Time codeine AdvReac Intermediate Vomiting Verified 02/15/24 12:05 Consultations 02/15/24 17:51 Consult Cotton Stripper Routine Procedures Performed Operation Date: 02/15/24 13:00 Actual Procedures p Femoral to Femoral Bypass Left to Right - Krishna Long MD Hospital Course (1) S/P vascular surgery: POD 3 from fem fem bypass. Doing well, hgb stable. Ambulating with walker, pain improved, wishes to go home. Discussed with case management, they will set up HH. Total Time Total Time Spent Total Time Spent (In Minutes): 0 Discharge Plan Discharge Items Patient Disposition: Home - Home Health Services Reason For Visit: Right Iliac Artery Occlusion Discharge Diagnosis: 1. s/p L to R femoral to femoral artery bypass 2. R iliac artery occlusion Condition on Discharge: Good Activity: Per Instructions section Lifting: No more than 10 pounds Lifting Comment: for 6 weeks Bathing Comment: May shower, no bathing x 6 weeks Weightbearing: Full weightbearing Non-emergency contact: Primary Care Provider and Surgeon Call non-emergency contact if: you have any medication questions, your symptoms worsen, your pain is not controlled, your pain is concerning for you, you have a fever, your wound has increased redness and your wound has increased drainage Follow-up/Referrals: Coretta Mai CRNP [Primary Care Provider] - (Follow up with your PCP within 2 weeks) Krishna Long MD [Physician] - (Follow up with Dr Long or Kaya Minarchick PA-C, in 2 weeks for staple removal) Diet: Heart Healthy Addtl Attending Provider Instructions: ACTIVITY RECOMMENDATIONS: 1. May shower, no soaking tub baths x 6 weeks. 2. No lifting more than 10 lbs x 6 weeks. 3. No dressings required to BL groin wounds, just keep clean and dry. SPECIAL CARE INSTRUCTIONS: Call your doctor if: * Temperature above 101 degrees * Pain not relieved by pain medicine ordered * There is increased drainage or redness from any incision * You have any unanswered questions or concerns. Pending Studies at Discharge: No Stand-Alone Forms: [facility], Smoking Cessation Medications and DC Order Prescriptions: New Eliquis 2.5 mg Tablet 2.5 mg PO BID Qty: 60 11RF oxycodone-acetaminophen [Percocet] 5-325 mg Tablet 1 tab PO Q6H PRN (Reason: pain) Qty: 30 0RF Continued lisinopril 10 mg tablet 10 mg PO QAM Qty: 90 3RF sertraline 100 mg tablet 150 mg PO QAM Qty: 135 3RF Trelegy Ellipta 100-62.5-25 mcg blister with device 1 inh inhalation HS Qty: 60 4RF (DME) Flutter Valve Device See Rx Instructions .ROUTE .MEDSUPPLY Qty: 1 0RF Rx Instructions: Use it every 6 hours when awake. albuterol sulfate 90 mcg/actuation HFA aerosol inhaler 2 - 4 puff inhalation Q6H PRN (Reason: Shortness Of Breath Or Wheezing) Qty: 18 5RF albuterol sulfate 2.5 mg /3 mL (0.083 %) solution for nebulization 2.5 mg inhalation QID PRN (Reason: shortness of breath or wheezing) Qty: 180 4RF aspirin 81 mg Tablet,Delayed Release (Dr/Ec) 81 mg PO QAM Qty: 1 0RF bupropion HCl 75 mg tablet 75 mg PO HS Rx Instructions: take with lower dose sertraline rosuvastatin [Crestor] 40 mg tablet 40 mg PO HS Held acetaminophen 325 mg capsule 650 mg PO Q4H PRN (Reason: Pain) Hold Instructions: Hold while taking oxycodone/acetaminophen for pain. Discharge Orders: Discharge Order (Routine); Ordered 02/18/24 Ordered By: Kaya Reece Admission Data Admit Date/Time: 02/15/24 12:51 Attending Provider: Krishna Long Admit Provider: Krishna Long Primary Care Provider: Coretta Mai Other Providers: [facility]; David Bar; Donal Manrique; William Pandey; Chidi Parsons; Osmin Subramanian; Janice Sanders; Porfirio Gasca; Mary Umanzor; America Talbot; Westley Zaman; Eduardo Canales; Mamie Lorenzo
--- NOTE | 2024-02-20 11:37 | Coding Query ---
MALNUTRITION To promote full compliance with coding requirements relating to patient care, physician participation is requested in all cases of molecular geneticist uncertainty. Please assist us with the question(s) below: RD note: Severe Malnutrition--current BMI 14.[address] an X within the parenthesis (x). If other, please document: "Malnutrition" is documented in this record. If possible, please check the box that provides a more specific diagnosis: ( ) Mild malnutrition ( ) Moderate malnutrition ( x) Severe malnutrition ( ) Protein malnutrition (kwashiorkor) ( ) Severe protein calorie malnutrition ( ) Protein calorie malnutrition, unspecified ( ) Other (please specify): Was this diagnosis present on admission? Please place an X within the parenthesis (x). (x ) Present on admission ( ) Not present on admission ( ) Unable to be clinically determined Thank you Raven TELLO
== END 2024-02-18 14:06 | disposition home health service (06) | DRG 252 ==
LOC: ASU 11:00 → 1E 12:51 → 3N 02-16 19:10

== ENCOUNTER 2024-06-27 07:25 | Observation (INO) ==
[~2024-06-27 07:25] MED LIST changes: -ADVIN50/60 INH; -ALBINS/ INH; -LPT40 PO; -OXGN; -PRED-301 PO; +Patient's HEIGHT &/or WEIGHT Needed STA; -SERT-234 PO; -SPRIN/30 INH; -VNTHFA/IN INH
--- OUTSIDE RECORDS SUMMARY | 2024-06-27 07:38 | External Medical Summary | Continuity of Care Document ---
Author Name Unknown Organization [facility] [address] [facility] Address [address] [place], [place] [id number] Care Team Providers Care Political Science Professor Name Role Phone Coretta Mai Primary Care Physician [phone] Encounter [facility] [id number] Date(s): 06/12/24 - 06/12/24 [facility] [address], [address] [place] [address] [phone] Discharge Disposition: Home or Self Care Attending Physician: EMILEE Reece Lynn Referring Physician: SWATI Mai Candace Encounter Type: Clinic Allergies, Adverse Reactions, Alerts No Known Allergies Medications albuterol CFC free 90 mcg/inh MDI Start: 09/12/19 3:25:00 PM EDT, 2 puff, inhaled, qid, PRN: as needed for wheezing Start Date: 09/12/19 Status: Ordered Repeat number: 1 aspirin 81 mg oral delayed release tablet Start: 09/12/19 3:25:00 PM EDT, 1 tab, PO, Daily Start Date: 09/12/19 Status: Ordered Repeat number: 1 atorvastatin 80 mg oral tablet Start: 09/12/19 3:25:00 PM EDT, 1 tab, PO, Daily Start Date: 09/12/19 Status: Ordered Repeat number: 1 lisinopril 10 mg oral tablet Start: 09/12/19 3:26:00 PM EDT, 1 tab, PO, Daily Start Date: 09/12/19 Status: Ordered Repeat number: 1 rosuvastatin 40 mg oral tablet TAKE 1 TABLET BY MOUTH ONCE DAILY Start Date: 01/27/24 Status: Ordered Repeat number: 1 sertraline 100 mg oral tablet TAKE 2 TABLETS BY MOUTH IN THE MORNING Start Date: 09/12/19 Status: Ordered Repeat number: 1 Trelegy Ellipta inhalation powder Start: 09/12/19 3:26:00 PM EDT, 1 puff, inhaled, Daily Start Date: 09/12/19 Status: Ordered Repeat number: 1 Problem List Condition Confirmation Course Effective Dates Status H ealth Status Informant Carotid stenosis Confirmed Active Cachexia Confirmed Active 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 Confirmed Active Right wrist fracture Confirmed Active Oxygen dependent Confirmed Active Depression Confirmed Active Soft tissue mass Confirmed Active Leg edema Confirmed Active Acute fracture RIGHT RADIAL ULNA Confirmed Active S/P femoral-femoral bypass surgery Confirmed Active HLD (hyperlipidemia) Confirmed Active Aortoiliac occlusive disease Confirmed Active Osteoporosis Confirmed Active Right leg pain Confirmed Active Right sided cerebral hemisphere cerebrovascular accident (CVA) Confirmed Active Tobacco user Confirmed Active Ulnar neuropathy of right upper extremity Confirmed Active Vitamin D deficiency Confirmed Active Procedures Procedure Date Related Diagnosis Body Site Status Femoral-femoral artery vascular bypass 02/15/24 Completed Results Radiology Reports * Exam Date Time Procedure Performing Provider Status 06/12/24 9:12 AM VL Ankle-Brachial Index-Complete Fiona Parkinson; Final Notes: (VL Ankle-Brachial Index-Complete) Reason For Exam: AIOD VL Ankle-Brachial Index-Complete [facility] FINAL REPORT Name: JEFFREY MUNOZ : 1955 Visit: [id number] Date: 12 Jun 2024 TYPE OF TEST: Peripheral Arterial Testing REASON FOR TEST AIOD - initial post fem-fem bypass graft duplex INTERPRETATION/FINDINGS Resting ankle/brachial indices and multilevel Doppler waveforms of the bilateral lower extremities were obtained. 1. Doppler waveforms on the right demonstrate abnormal monophasic waveforms in the common femoral, anterior tibial, posterior tibial and peroneal arteries. Biphasic waveforms noted in the right superficial femoral and popliteal arteries. 2. Doppler waveforms on the left demonstrate abnormal monophasic waveforms in the common femoral, deep femoral, superficial femoral, popliteal, anterior tibial and posterior tibial arteries. 3. The resting ankle/brachial index is 0.70 (moderately reduced) on the right and 0.67 (moderately reduced) on the left. Retrospective comparison: Right DIXIE increased from 0.47 to 0.70 (patient is s/p L-R fem-fem bypass graft) and left DIXIE decreased from 0.77 to 0.67 when compared to the prior ABIs performed 01/20/25. IMPRESSION/COMMENTS I have personally reviewed the data relevant to the interpretation of this study. TECHNOLOGIST: MIKI Gonzalez,RDMS,RVT PHYSICIAN: Krishna Long M.D. Signed: 06/12/2024 10:02 AM Final Dictated by:MD Long Eugene J Dictated DT/TM:06/12/2024 10:02 Signed by:MD Long Eugene J Signed (Electronic Signature):06/12/2024 10:02 Transcribed by:YEMI Social History Social History Type Response Smoking Status Current some day lig ht smoker Sex Female Sex Representation Female (finding) Patient Care team information Care Team Personnel Name: SWATI Mai Candace Position: Referring Member Role: Primary Care Provider [address]: [address] [place] [address] Telecom: [phone] Name: EMILEE Reece Lynn Position: Physician Driver License Agent Exempt - Vasc Surg Member Role: Lifetime Relationship [address]: [address] [place] [address] Telecom: [phone] Care Team Related Persons Name: SHELLY MUNOZ Insurance Providers Guarantor name: JEFFREY MUNOZ Health Plan Information #: 1 Payer: [employer] Member Number: [id number] Policy Number: NA Group Number: [id number] Health Plan Information #: 2 Payer: MEDICARE Member Number: NA Policy Number: NA Group Number: NA Health Plan Information #: 3 Payer: [employer] Member Number: NA Policy Number: NA Group Number: NA
--- OUTSIDE RECORDS SUMMARY | 2024-06-27 07:38 | External Medical Summary | Continuity of Care Document ---
Author Name Unknown Organization [facility] [address] [facility] Address [address] [place], [place] [id number] Care Team Providers Care Dental Equipment Repairer Name Role Phone Coretta Mai Primary Care Physician [phone] Encounter [facility] YANET [id number] Date(s): 06/15/24 - 06/15/[address] [facility] [address], [address] [place] [address] [phone] Encounter Diagnosis Aortoiliac occlusive disease(Discharge Diagnosis) - 06/15/24 Discharge Disposition: Home or Self Care Attending Physician: EMILEE Reece Lynn Referring Physician: SWATI Mia Candace Encounter Type: Clinic Allergies, Adverse Reactions, Alerts No Known Allergies Assessment and Plan Extracted from: Title:Clinical Document Author:EMILEE Reece Lynn Date:06/15/24 [facility] OUTPATIENT NOTE Name: JEFFREY SUAZO Patient Number: [id number] : 1955 Date of Service: 06/15/2024 Chief Complaint: _Follow-up for aortoiliac disease HPI: _Ms. Suazo is an elderly female who presents to Dr. Long's vascular surgery clinic today for 3-month follow-up visit regarding her history of aortoiliac occlusive disease and a left to right femorofemoral bypass which occurred in January 2024 due to a right iliac artery occlusion. Patient states that she is not very active due to other medical problems and is now on oxygen via nasal cannula 24 hours a day. She states that if she stands too long her buttocks become numb. She states her legs hurt when she stands for a long time as well. Additionally she is not able to walk very far before stopping, although some of this is due to shortness of breath and some is due to discomfort in her legs. She denies any nonhealing wounds or ulcerations, discoloration of the feet or toes, rest pain at night. Her aortoiliac ultrasound performed prior to today's appointment demonstrates known occlusion of her right common iliac artery, and a patent left to right femoral artery to femoral artery bypass. She appears to have a severe stenosis of her left common iliac artery although this area is not well-visualized. The velocity of flow through her bypass is low, concerning for compromised graft. Her bilateral ABIs are 0.7. Current Home Meds: (Last Updated 06/15 13:07) albuterol (albuterol CFC free 90 mcg/inh MDI) 2 puff inhaled qid PRN: as needed for wheezing apixaban (Eliquis 2.5 mg oral tablet) 2.5 mg PO bid aspirin (aspirin 81 mg oral delayed release tablet) 81 mg PO Daily atorvastatin (atorvastatin 80 mg oral tablet) 80 mg PO Daily fluticasone/umeclidinium/vilanterol (Trelegy Ellipta inhalation powder) 1 puff inhaled Daily lisinopril (lisinopril 10 mg oral tablet) 10 mg PO Daily rosuvastatin (rosuvastatin 40 mg oral tablet) TAKE 1 TABLET BY MOUTH ONCE DAILY sertraline (sertraline 100 mg oral tablet) 150 mg PO Daily Allergies and Sensitivities: NKA Past Medical History: Problems: S/P femoral-femoral bypass surgery Aortoiliac occlusive disease Tobacco user Right wrist fracture Closed fracture of radius with malunion Ulnar neuropathy of right upper extremity Carotid stenosis Acute fracture RIGHT RADIAL ULNA Cachexia Vitamin D deficiency Osteoporosis Oxygen dependent Right sided cerebral hemisphere cerebrovascular accident (CVA) HLD (hyperlipidemia) Depression Leg edema Soft tissue mass Right leg pain COPD with asthma OBJECTIVE Vitals: Last Updated 06/15/24 13:11 Date Temp BP Location Pulse RR SpO2 Pain 06/15/24 154/72 Left Arm 70 96 03/10/24 140/80 84 93 03/10/24 4 Vital Signs are the last 3 documented. No Orthostatic Data Available Height and Weight: Last Updated 09/27/19 15:29 Date BMI Wt(kg) Wt(lb) Method Ht(cm) (ft-in) Method 09/27/19 15.58 36 79 Standing Scale 152 5-0 Heights and Weights are the last 3 documented. Physical Exam Constitutional: In general patient is a thin frail older than stated age appearing female in no distress. She is alert and oriented with any focal deficits. She is on oxygen via nasal cannula. Her heart is regular, lungs are decreased significantly with sparse wheezing but otherwise clear. Abdomen is soft nontender with no active bowel sounds in all 4 quadrants. Femorofemoral bypass is visible. Her left femoral pulse is +2, her right is +1. Her left lower extremity distal pulses +1, her right lower extremity distal pulse is nonpalpable. She has brisk capillary refill to the toes and no sign of distal ischemia ASSESSMENT: _ PLAN: _ 1 ) _aortoiliac occlusive disease, history of left to right femorofemoral bypass Patient is about 4 months status post left to right femorofemoral bypass. Preoperative imaging did not indicate any significant stenosis of her left common iliac artery, however, her most recent aortoiliac ultrasound does indicate over 75% stenosis of her left common iliac artery. She does have low velocity flow through her femorofemoral bypass, and her femoral pulses are palpable. Due to concern for the compromised graft, I would like to discuss these findings further with Dr. Long before deciding on a plan. I will discuss with Dr. Long later today and call the patient tomorrow to finalize a plan. Patient is agreeable to this plan. She will call with any other questions. Thank you for letting us participate in the care of this patient. I have personally spent _25__ minutes performing [id number] and hdw-bbsx-wf-face activities on this date of service. Time does not include separately reported services. Activities Include: x__ review of the medical record _x_ obtaining a history _x_ physical exam/evaluation __ review labs x__ review radiology reports _x_ counseling/educating patient/family/caregiver __ discussion/referral to other healthcare professional x__ documenting care in the medical record __ independent interpretation of results _x_ communication of results to patient/family/caregiver _x_ coordination of care Medications albuterol CFC free 90 mcg/inh MDI [...] Date: 09/12/19 Status: Ordered Repeat number: 1 Eliquis 2.5 mg oral tablet 1 tab, PO, bid Start Date: 06/15/24 Status: Ordered Repeat number: 1 lisinopril 10 mg oral tablet Start: 09/12/19 3:26:00 PM EDT, 1 tab, PO, Daily Start Date: 09/12/19 Status: Ordered Repeat number: 1 rosuvastatin 40 mg oral tablet TAKE 1 TABLET BY MOUTH ONCE DAILY Start Date: 01/27/24 Status: Ordered Repeat number: 1 sertraline 100 mg oral tablet 1.5 tab, PO, Daily Start Date: 09/12/19 Status: Ordered Repeat number: 1 Trelegy Ellipta inhalation powder Start: 09/12/19 3:26:00 PM EDT, 1 puff, inhaled, Daily Start Date: 09/12/19 Status: Ordered Repeat number: 1 Mental Status 06/15/24 Barriers to Learning one year None evide nt Mandatory Health Literacy Documentation Yes Health Literacy Communication Barriers N ever Primary Language Belgian Problem List Condition Confirmation Course Effective Dates [...] Confirmed Active Vitamin D deficiency Confirmed Active Diagnosis Diagnosis Type Effective Dates Health Status Clinical Service Informant Aortoiliac occlusive disease Discharge Diagnosis 06/15/24 Procedures Procedure Date Related Diagnosis Body Site Status Left to Right Femoral-femora l artery vascular bypass 02/15/24 Completed Vital Signs Most recent to oldest [Reference Range]: 1 Heart Rate 70 bpm (06/15/24 1:11 PM) Blood Pressure 154/72mmHg (06/15/24 1:11 PM) Cuff Pulse Pressure 82 mmHg (06/15/24 1:11 PM) BP Location # 1 Left Arm (06/15/24 1:11 PM) Social History Social History Type Response Smoking Status Current every day li ght smoker Sex Female Sex Representation Female (finding) [facility] Outpt Note * EMILEE Reece Lynn: PERFORM Event Display: [facility] Outpt Note Authored Date: [id number] [facility] OUTPATIENT NOTE Name: JEFFREY SUAZO Patient Number: [id number] : 1955 Date of Service: 06/15/2024 Chief Complaint: _Follow-up for aortoiliac disease HPI: _Ms. Suazo is an elderly female who presents to Dr. Long's vascular surgery clinic today for3-month follow-up visit regarding her history of aortoiliac occlusive disease and a left to right femorofemoral bypass which occurred in January 2024 due to a right iliac artery occlusion. Patient states that she is not very active due to other medical problems and is now on oxygen via nasal cannula 24 hours a day. She states that if she stands too long her buttocks become numb. She states her legs hurt when she stands for a long time as well. Additionally she is not able to walk very far before stopping, although some of this is due to shortness of breath and some is due to discomfort in her legs. She denies any nonhealing wounds or ulcerations, discoloration of the feet or toes, rest pain at night. Her aortoiliac ultrasound performed prior to today's appointment demonstrates known occlusion of her right common iliac artery, and a patent left to right femoral artery to femoral artery bypass. Sheappears to have a severe stenosis of her left common iliac artery although this area is not well-visualized. The velocity of flow through her bypass is low, concerning for compromised graft. Her bilateral ABIs are 0.7. Current Home Meds: (Last Updated 06/15 13:07) albuterol (albuterol CFC free 90 mcg/inh MDI) 2 puff inhaled qid PRN: as needed for wheezing apixaban (Eliquis 2.5 mg oral tablet) 2.5 mg PO bid aspirin (aspirin 81 mg oral delayed release tablet) 81 mg PO Daily atorvastatin (atorvastatin 80 mg oral tablet) 80 mg PO Daily fluticasone/umeclidinium/vilanterol (Trelegy Ellipta inhalation powder) 1 puff inhaled Daily lisinopril (lisinopril 10 mg oral tablet) 10 mg PO Daily rosuvastatin (rosuvastatin 40 mg oral tablet) TAKE 1 TABLET BY MOUTH ONCE DAILY sertraline (sertraline 100 mg oral tablet) 150 mg PO Daily Allergies and Sensitivities: NKA Past Medical History: Problems: S/P femoral-femoral bypass surgery Aortoiliac occlusive disease Tobacco user Right wrist fracture Closed fracture of radius with malunion Ulnar neuropathy of right upper extremity Carotid stenosis Acute fracture RIGHT RADIAL ULNA Cachexia Vitamin D deficiency Osteoporosis Oxygen dependent Right sided cerebral hemisphere cerebrovascular accident (CVA) HLD (hyperlipidemia) Depression Leg edema Soft tissue mass Right leg pain COPD with asthma OBJECTIVE Vitals: Last Updated 06/15/24 13:11 Date Temp BP Location Pulse RR SpO2 Pain 06/15/24 154/72 Left Arm 70 96 03/10/24 140/80 84 93 03/10/24 4 Vital Signs are the last 3 documented. No Orthostatic Data Available Height and Weight: Last Updated 09/27/19 15:29 Date BMI Wt(kg) Wt(lb) Method Ht(cm) (ft-in) Method 09/27/19 15.58 36 79 Standing Scale 152 5-0 Heights and Weights are the last 3 documented. Physical Exam Constitutional: In general patient is a thin frail older than stated age appearing female in no distress. She is alert and oriented with any focal deficits. She is on oxygen via nasal cannula. Her heart is regular, lungs are decreased significantly with sparse wheezing but otherwise clear. Abdomen is soft nontender with no active bowel sounds in all 4 quadrants. Femorofemoral bypass is visible. Her left femoral pulse is +2, her right is +1. Her left lower extremity distal pulses +1, her right lower extremity distal pulse is nonpalpable. She has brisk capillary refill to the toes and no sign of distal ischemia ASSESSMENT: _ PLAN: _ 1 ) _aortoiliac occlusive disease, history of left to right femorofemoral bypass Patient is about 4 months status post left to right femorofemoral bypass. Preoperative imaging did not indicate any significant stenosis of her left common iliac artery, however, her most recent aortoiliac ultrasound does indicate over 75% stenosis of her left common iliac artery. She does have low velocity flow through her femorofemoral bypass, and her femoral pulses are palpable. Due to concernfor the compromised graft, I would like to discuss these findings further with Dr. Long before deciding on a plan. I will discuss with Dr. Long later today and call the patient tomorrow to finalize a plan. Patient is agreeable to this plan. She will call with any other questions. Thank you for letting us participate in the care of this patient. I have personally spent _25__ minutes performing dkze-ly-btif and ujv-mzyy-ik-face activities on this date of service. Time does not include separately reported services. Activities Include: x__ review of the medical record _x_ obtaining a history _x_ physical exam/evaluation __ review labs x__ review radiology reports _x_ counseling/educating patient/family/caregiver __ discussion/referral to other healthcare professional x__ documenting care in the medical record __ independent interpretation of results _x_ communication of results to patient/family/caregiver _x_ coordination of care Electronic Signature on File CC: SWATI Johnson [address] [place] [id number] * Electronically Reviewed/Signed by: Kaya Reece PA-C Author Signature Dt/Tm:06/15/2024 01:48 PM [facility] [place] [address] Patient Care team information Care Team Personnel Name: SWATI Mai Candace Position: Referring Member Role: Primary Care Provider Address: [address] [place] [address] Telecom: [phone] Name: EMILEE Reece Lynn Position: 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 Exempt - Vasc Surg Member Role: Lifetime Relationship Address: [address] [place] [address] [place] Telecom: [phone] Care Team Related Persons Name: SHELLY SUAZO Insurance Providers Guarantor name: JEFFREY SUAZO Health Plan Information #: 1 Payer: [facility] Member Number: [id number] Policy Number: [place]DEL[place]MAN Group Number: [id number] Health Plan Information #: 2 Payer: MEDICARE Member Number: [id number] Policy Number: [place]MAN Group Number: NA Health Plan Information #: 3 Payer: [facility] Member Number: [id number] Policy Number: NA Group Number: NA
--- OUTSIDE RECORDS SUMMARY | 2024-06-27 07:38 | External Medical Summary | Continuity of Care Document ---
Author Name Unknown Organization [facility] [address] [facility] Address [address] [place], [place] [id number] Care Team Providers Care Employment Instructional Associate Name Role Phone Coretta Mai Primary Care Physician [phone] Encounter [facility] [id number] Date(s): 06/12/24 - 06/12/24 [facility] [address], [address] [place] [phone] Discharge Disposition: Home or Self Care Attending [...] Date Time Procedure Performing Provider Status 06/12/24 9:11 AM VL Aortoiliac Duplex Complete Maurice Parkinson; Final Notes: (VL Aortoiliac Duplex Complete) Reason For Exam: fem femBPG VL Aortoiliac Duplex Complete [facility] FINAL REPORT Name: JEFFREY MUNOZ : 1955 Visit: [id number] Date: 12 Jun 2024 TYPE OF TEST: Aorto-Iliac Duplex REASON FOR TEST S/P L-R fem fem crossover bypass graft - initial post op duplex INTERPRETATION/FINDINGS Arterial duplex imaging of the abdominal aorta, bilateral iliac arteries and left-right fem fem bypass graft was performed. Technically challenging exam due to overlying bowel gas. 1. The abdominal aorta is small in caliber with diffuse calcific atherosclerosis noted. No hemodynamically significant stenosis or occlusion appreciated. 2. Occlusion of the right common iliac artery. 3. Patent left-right fem-fem bypass graft without evidence of restenosis. The graft velocities range from 33-41cm/s which may suggest a compromised graft. 4. Patent outflow with retrograde flow noted in the external iliac artery and antegrade flow noted in the internal iliac artery. 5. >75% stenosis in the left common iliac artery ratio/fem-fem graft inflow (ratio >4). This area was difficult to visualize and differentiate between the distal TYRON, proximal EIA and proximal IIA. Post stenotic turbulence and delayed upstroke with monophasic flow noted in the external iliac artery. 6. Patent left external iliac and common femoral arteries without evidence of stenosis. Retrospective comparison: This was the initial post graft duplex. IMPRESSION/COMMENTS I have personally reviewed the data relevant to the interpretation of this study. TECHNOLOGIST: MIKI Gonzalez,RDMS,RVT PHYSICIAN: Krishna Long M.D. Signed: 06/12/2024 10:03 AM Final Dictated by:MD Logn Eugene J Dictated DT/TM:06/12/2024 10:03 Signed by:MD Long Eugene J Signed (Electronic Signature):06/12/2024 10:03 Transcribed by:YEMI Social History Social History Type Response Smoking Status Current some day lig ht smoker Sex Female Sex Representation Female (finding) Patient Care team information Care Team Personnel Name: SWATI Mai Candace Position: Referring Member Role: Primary Care Provider Address: [address] [place] [address] Telecom: [phone] Name: EMILEE Reece Lynn Position: Physician Crap Shooter Exempt - Vasc Surg Member Role: Lifetime Relationship Address: [address] [place] [address] Telecom: [phone] Care Team Related Persons Name: SHELLY MUNOZ Insurance Providers Guarantor name: JEFFREY MUNOZ Health Plan Information #: 1 Payer: [employer] Member Number: [id number] Policy Number: NA Group Number: [id number] Health Plan Information #: 2 Payer: MEDICARE Member Number: NA Policy Number: NA Group Number: NA Health Plan Information #: 3 Payer: [employer] Member Number: NA Policy Number: NA Group Number: NA
--- NOTE | 2024-06-27 07:44 | History & Physical Bridge Note ---
Date of Service June 27, 2024 History & Physical Bridge Note I have examined the patient, reviewed the History & Physical and in the interval since the performance of the History & Physical I have noted the following changes of clinical significance: no changes noted
--- NOTE | 2024-06-27 07:44 | History & Physical Report ---
Date of Service June 27, 2024 History of Present Illness Primary Care Provider: SWATI Sher Name: JEFFREY SUAZO Patient Number: [id number] : 1955 Date of Service: 06/15/2024 Chief Complaint: _Follow-up for aortoiliac disease HPI: _Ms. Suazo is an elderly female who presents to Dr. Long's vascular surgery clinic today for 3-month follow-up visit regarding her history of aortoiliac occlusive disease and a left to right femorofemoral bypass which occurred in January 2024 due to a right iliac artery occlusion. Patient states that she is not very active due to other medical problems and is now on oxygen via nasal cannula 24 hours a day. She states that if she stands too long her buttocks become numb. She states her legs hurt when she stands for a long time as well. Additionally she is not able to walk very far before stopping, although some of this is due to shortness of breath and some is due to discomfort in her legs. She denies any nonhealing wounds or ulcerations, discoloration of the feet or toes, rest pain at night. Her aortoiliac ultrasound performed prior to today's appointment demonstrates known occlusion of her right common iliac artery, and a patent left to right femoral artery to femoral artery bypass. She appears to have a severe stenosis of her left common iliac artery although this area is not well-visualized. The velocity of flow through her bypass is low, concerning for compromised graft. Her bilateral ABIs are 0.7. Current Home Meds: (Last Updated 06/15 13:07) albuterol (albuterol CFC free 90 mcg/inh MDI) 2 puff inhaled qid PRN: as needed for wheezing apixaban (Eliquis 2.5 mg oral tablet) 2.5 mg PO bid aspirin (aspirin 81 mg oral delayed release tablet) 81 mg PO Daily atorvastatin (atorvastatin 80 mg oral tablet) 80 mg PO Daily fluticasone/umeclidinium/vilanterol (Trelegy Ellipta inhalation powder) 1 puff inhaled Daily lisinopril (lisinopril 10 mg oral tablet) 10 mg PO Daily rosuvastatin (rosuvastatin 40 mg oral tablet) TAKE 1 TABLET BY MOUTH ONCE DAILY sertraline (sertraline 100 mg oral tablet) 150 mg PO Daily Allergies and Sensitivities: NKA Past Medical History: Problems: S/P femoral-femoral bypass surgery Aortoiliac occlusive disease Tobacco user Right wrist fracture Closed fracture of radius with malunion Ulnar neuropathy of right upper extremity Carotid stenosis Acute fracture RIGHT RADIAL ULNA Cachexia Vitamin D deficiency Osteoporosis Oxygen dependent Right sided cerebral hemisphere cerebrovascular accident (CVA) HLD (hyperlipidemia) Depression Leg edema Soft tissue mass Right leg pain COPD with asthma OBJECTIVE Vitals: Last Updated 06/15/24 13:11 Date Temp BP Location Pulse RR SpO2 Pain 06/15/24 154/72 Left Arm 70 96 03/10/24 140/80 84 93 03/10/24 4 Vital Signs are the last 3 documented. No Orthostatic Data Available Height and Weight: Last Updated 09/27/19 15:29 Date BMI Wt(kg) Wt(lb) Method Ht(cm) (ft-in) Method 09/27/19 15.58 36 79 Standing Scale 152 5-0 Heights and Weights are the last 3 documented. Physical Exam Constitutional: In general patient is a thin frail older than stated age appearing female in no distress. She is alert and oriented with any focal deficits. She is on oxygen via nasal cannula. Her heart is regular, lungs are decreased significantly with sparse wheezing but otherwise clear. Abdomen is soft nontender with no active bowel sounds in all 4 quadrants. Femorofemoral bypass is visible. Her left femoral pulse is +2, her right is +1. Her left lower extremity distal pulses +1, her right lower extremity distal pulse is nonpalpable. She has brisk capillary refill to the toes and no sign of distal ischemia ASSESSMENT: _ PLAN: _ 1 ) _aortoiliac occlusive disease, history of left to right femorofemoral bypass Patient is about 4 months status post left to right femorofemoral bypass. Preoperative imaging did not indicate any significant stenosis of her left common iliac artery, however, her most recent aortoiliac ultrasound does indicate over 75% stenosis of her left common iliac artery. She does have low velocity flow through her femorofemoral bypass, and her femoral pulses are palpable. Due to concern for the compromised graft, I would like to discuss these findings further with Dr. Long before deciding on a plan. I will discuss with Dr. Long later today and call the patient tomorrow to finalize a plan. Patient is agreeable to this plan. She will call with any other questions. Thank you for letting us participate in the care of this patient. I have personally spent_25__ minutes performing [id number] and xjr-[id number]-[id number] activities on this date of service.Time does not include separately reported services. Activities Include: x__ review of the medical record _x_ obtaining a history _x_ physical exam/evaluation __ review labs x__ review radiology reports _x_ counseling/educating patient/family/caregiver __ discussion/referral to other healthcare professional x__ documenting care in the medical record __ independent interpretation of results _x_ communication of results to patient/family/caregiver _x_ coordination of care Signature Line Electronic Signature on File CC: SWATI Johnson [id number] [facility] [id number] * Electronically Reviewed/Signed by: Kaya Reece PA-C Author Signature Dt/Tm:06/15/2024 01:48 PM [facility] [place], [address] [facility] [place]. [id number] Result Type: HVI Outpt Note Date of Service: June 15, 2024 13:40 EDT Authorization Status: Final Author or Import Date: EMILEE Reece Lynn on June 15, 2024 13:48 EDT Verified By: EMILEE Reece Lynn on June 15, 2024 13:48 EDT Encounter info: [id number], [place] [id number], Clinic, 06/15/2024 - 06/15/2024 Allergies Allergy/AdvReac Type Severity Reaction Status Date / Time codeine AdvReac Intermediate Vomiting Verified 06/27/24 07:35 Home Medications Medication Instructions Recorded Confirmed Type aspirin 81 mg tablet,delayed 81 mg PO QAM #1 tab 09/01/19 04/07/24 Rx release acetaminophen 325 mg capsule 650 mg PO Q4H PRN Pain 09/14/19 04/07/24 History Flutter Valve #1 ea 08/13/20 04/07/24 Rx albuterol sulfate 2.5 mg/3 mL 2.5 mg (3 mL) inhalation QID PRN 03/03/22 04/07/24 Rx (0.083 %) solution for nebulization shortness of breath or wheezing #180 mL albuterol sulfate 90 mcg/actuation 2 - 4 puff inhalation Q6H PRN 01/04/23 Rx aerosol inhaler Shortness Of Breath Or Wheezing #18 grams sertraline 100 mg tablet 150 mg (1.5 x 100 mg) PO QAM #135 07/19/23 04/07/24 Rx tabs bupropion HCl 75 mg tablet 75 mg PO HS 01/28/24 04/07/24 History rosuvastatin 40 mg tablet (Crestor) 40 mg PO HS 01/28/24 04/07/24 History fluticasone fur. 100 mcg-umeclid 1 inh inhalation HS #60 ea 02/11/24 04/07/24 Rx 62.5 mcg-vilant 25 mcg inhalat.powder (Trelegy Ellipta) apixaban 2.5 mg tablet (Eliquis) 2.5 mg PO BID #60 tabs 02/18/24 04/07/24 Rx lisinopril 10 mg tablet 10 mg PO QAM #90 tabs 06/05/24 Rx Past Med/Surg History Problem List Postoperative anemia S/P femoral-femoral bypass surgery Dr Long R leg Acute postoperative anemia due to expected blood loss S/P vascular surgery Hyperlipidemia Depression Hypertension Mass of right axilla COPD with emphysema Vision loss, right eye Vitamin D deficiency (Chronic) Medical History Multiple pulmonary nodules Chronic respiratory failure with hypoxia ICAO (internal carotid artery occlusion) Osteoporosis Arthritis History of stroke Diverticular disease Chronic obstructive pulmonary disease Surgical History History of tooth extraction History of tonsillectomy History of cataract surgery History of bronchoscopy Hx of foot surgery History of section Hx of hemorrhoidectomy History of colonoscopy Family History Other No family history of adverse response to anesthesia Denies family history of Ovarian cancer Prostate cancer Myocardial infarction Breast cancer Colorectal cancer Social History Smoking Status: Current some day smoker Tobacco Type: Cigarettes Age Started Using Tobacco: 18; Age Quit Using Tobacco: 65; packs per day: 1; Cigarettes Per Day: Occasional cigarette use, quit daily smoking at age 64; Second Hand Exposure: No; Do You Dip or Chew Tobacco: No; Hx Alcohol Use: No Hx Substance Use: No Preferred Language: Vietnamese Communication Ability: Effective Visual Impairment: Limited Hearing Ability: Normal Marketing Support Coordinator Required: No Beliefs That Will Affect Care: None marital status: Current Living Situation: Spouse Current Living Situation Comment: " is there sometimes, kind of seperated" current occupational status: disabled How many Children do You have: 2 Feels Safe at Home: Yes Childhood Exposure to Second-Hand Smoke: Yes Diet: regular caffeine: Yes (coffee) during the past year weight has: remained stable Dental Care, Regularly: No Physical Activity Frequency: Daily Seatbelt Use: never Sunscreen Use: No Assistive Devices: Walker
[2024-06-27] MEDS: SODIUM CHLORIDE 0.9% 1,000 ML IV SCH (07:48)
[2024-06-27 08:09] LABS: Creatinine Clr Calc Pharmacy 33.2 ml/min
[2024-06-27] MEDS: CEFAZOLIN 2,000 MG/15 ML SYR IV SCH (10:21)
--- NOTE | 2024-06-27 10:31 | Pre Anesthesia Assessment ---
Date of Service June 27, 2024 Pre Sedation Assessment Vital Signs Temp Pulse Resp BP Pulse Ox O2 Del Method O2 Flow Rate 06/27/24 07:49 Nasal Cannula 3 06/27/24 07:49 36.5 C 56 L 20 188/78 H 99 Nasal Cannula 3 Cardiovascular RRR, no murmur, no edema Respiratory normal respiratory effort, lungs clear to auscultation Pre-Sedation Airway Assessment Smoking Status: Current every day smoker Hx Sleep Apnea: No Hx Difficult Intubation: No Short, Thick Neck: Yes Thyromental Distance: > or= 3.5 Finger Breadths Oral Cavity: + Dental Abnormalities Mallampati Class: III ASA: ASA3 NPO Status Date of Last Intake of Fluids: 06/26/24 Time of Last Intake of Fluids: 20:00 Date of Last Intake of Solid Food: 06/26/24 Time of Last Intake of Solid Foods: 20:00 Procedure Planning Contraindications for Sedation: none Current Medications Reviewed: Yes Notes The planned sedation has been discussed with the patient. Informed Consent was obtained. I have identified the patient, determined the appropriateness of sedation and have assessed the patient immediately prior to the procedure. All medicine(s) and interventions are by my order.
[2024-06-27] MEDS: fentaNYL citrate PF 100 MCG/2 ML VIAL ONE ×2 (10:50→11:36)
[2024-06-27] MEDS: MIDAZOLAM HCL 1 MG/ML 2ML VIAL ONE ×2 (10:50→11:37)
[2024-06-27] MEDS: ATROPINE SULFATE 0.1 MG/ML 10ML SYR IV ONE (12:05)
[2024-06-27] MEDS: NITROGLYCERIN 5 MG/ML 10 ML VIAL ONE (12:11)
[2024-06-27] MEDS: NITROGLYCERIN/D5W 100 MCG/ML BTL ONE (12:17)
[2024-06-27] MEDS: hydrALAZINE HCL 20 MG/ML VIAL ONE (12:30)
[2024-06-27] MEDS ORDERED: ROCURONIUM BROMIDE 10 MG/ML 5 ML VIAL IV ONE (12:31)
[2024-06-27] MEDS ORDERED: PROPOFOL IV EMULSION 10 MG/ML 20 ML VIAL IV ONE (12:31)
[2024-06-27] MEDS ORDERED: LIDOCAINE 2% 2 ML VIAL/AMP(20MG/ML) INFIL ONE (12:31)
[2024-06-27] MEDS: LIDOCAINE 1% LOCAL 20 ML VIAL ONE (12:32)
[2024-06-27] MEDS: VISIPAQUE IV PRN (12:34)
[2024-06-27] MEDS: HEPARIN SOD (PORCINE) 1000 UNIT/ML ONE ×2 (12:34→14:31)
[2024-06-27] MEDS ORDERED: ceFAZolin 330 MG/ML 1 GM VIAL ONE (13:06)
[2024-06-27] MEDS ORDERED: LABETALOL HCL IV 5 MG/ML 20ML IV ONE (13:06)
[2024-06-27] MEDS ORDERED: fentaNYL citrate PF 100 MCG/2 ML VIAL ONE (13:06)
[2024-06-27] MEDS ORDERED: HEPARIN SOD (PORCINE) 1000 UNIT/ML ONE (13:08)
[2024-06-27] MEDS ORDERED: ceFAZolin 2000MG 2,000 MG/15 ML SYR IV ONE (13:20)
[2024-06-27] MEDS ORDERED: PHENYLEPHRINE 100MCG/ML 5ML SYR ONE (14:06)
--- NOTE | 2024-06-27 14:16 | Anesthesiology Consultation ---
Date of Service June 27, 2024 Assessment & Plan ASA ASA3E Proposed Anesthesia Anesthesia Type: General Risk / Benefits Reviewed With: PT / POA / Parent / Guardian, Accepts Plan and Informed Consent Obtained History Surgery Operation Date: 06/27/24 09:55 Proposed Procedures p Left Iliac Angiogram with Intervention, via Axillary/Brachial Access - Krishna Long MD Height/Weight Height: 5 ft Weight: 33.3 kg Allergies Allergy/AdvReac Type Severity Reaction Status Date / Time codeine AdvReac Intermediate Vomiting Verified 06/27/24 07:35 Medications Home Medications Medication Instructions Recorded Confirmed Last Taken aspirin 81 mg tablet,delayed 81 mg PO QAM #1 tab 09/01/19 06/27/24 06/27/24 05:30 release acetaminophen 325 mg capsule 650 mg PO Q4H PRN Pain 09/14/19 06/27/24 Unknown Flutter Valve #1 ea 08/13/20 04/07/24 Unknown albuterol sulfate 2.5 mg/3 mL 2.5 mg (3 mL) inhalation QID PRN 03/03/22 06/27/24 Unknown (0.083 %) solution for nebulization shortness of breath or wheezing #180 mL albuterol sulfate 90 mcg/actuation 2 - 4 puff inhalation Q6H PRN 01/04/23 06/27/24 06/27/24 05:30 aerosol inhaler Shortness Of Breath Or Wheezing #18 grams sertraline 100 mg tablet 150 mg (1.5 x 100 mg) PO QAM #135 07/19/23 06/27/24 06/27/24 05:30 tabs bupropion HCl 75 mg tablet 75 mg PO HS 01/28/24 06/27/24 06/26/24 rosuvastatin 40 mg tablet (Crestor) 40 mg PO HS 01/28/24 06/27/24 06/27/24 05:30 fluticasone fur. 100 mcg-umeclid 1 inh inhalation HS #60 ea 02/11/24 06/27/24 06/26/24 20:00 62.5 mcg-vilant 25 mcg inhalat.powder (Trelegy Ellipta) apixaban 2.5 mg tablet (Eliquis) 2.5 mg PO BID #60 tabs 02/18/24 06/27/24 06/27/24 05:30 lisinopril 10 mg tablet 10 mg PO QAM #90 tabs 06/05/24 06/27/24 06/27/24 05:30 Active Medications Generic Name Dose Route Start Last Admin Trade Name Freq PRN Reason Stop Dose Admin Sodium Chloride 1,000 mls @ 100 mls/hr 06/27/24 06:00 06/27/24 10:42 Nss IV 06/27/24 15:59 Infused .Q10H MARYCARMEN Infusion Cefazolin Sodium 2,000 mg in 15 mls @ 3.75 mls/min 06/27/24 06:00 06/27/24 10:21 Ancef 2000mg IV 06/27/24 18:00 3.75 mls/min PREOP MARYCARMEN Administration Protocol Iodixanol 60 ml 06/27/24 12:33 06/27/24 12:34 Visipaque IV 07/01/24 12:32 60 ml UD PRN Administration Interaction Checking NPO Date Last Intake of Fluids: 06/26/24 Time Last Intake of Fluids: 20:00 Date Last Intake of Solids: 06/26/24 Time Last Intake of Solids: 20:00 Past Medical History Medical History Multiple pulmonary nodules Chronic respiratory failure with hypoxia ICAO (internal carotid artery occlusion) Osteoporosis Arthritis History of stroke Diverticular disease Chronic obstructive pulmonary disease Exercise / Class Metabolic Activity II 4-5 Yardwork/Stairs/Walk up hill Past Family History Family History Other No family history of adverse response to anesthesia Denies family history of Ovarian cancer Prostate cancer Myocardial infarction Breast cancer Colorectal cancer Past Surgical History Surgical History History of tooth extraction History of tonsillectomy History of cataract surgery History of bronchoscopy Hx of foot surgery History of section Hx of hemorrhoidectomy History of colonoscopy Past Anesthesia History No Hx of Anesthesia Complications and No Family Hx of Anesthesia Complications History of PONV No Hx of PONV and No Hx of Motion Sickness Social History Smoking Status: Current every day smoker tobacco type: cigarettes Smoking cigarettes per day: Occasional cigarette use, quit daily smoking at age 64 Do You Dip or Chew Tobacco: No Hx Alcohol Use: No Hx Substance Use: No substance use type: does not use Physical Exam Vital Signs Last Vital Signs Temp 36.5 C 06/27/24 07:49 Pulse 114 H 06/27/24 12:30 Resp 18 06/27/24 12:30 BP 194/98 H 06/27/24 12:30 Pulse Ox 98 06/27/24 12:30 O2 Del Method Oxymask 06/27/24 12:30 O2 Flow Rate 3 06/27/24 12:30 Constitutional + cachectic; no acute distress ENMT Mouth: + edentulous and + small oral opening; no dentition abnormality Thyromental Distance: > or= 3.5 Finger Breadths Mallampati Class: III Neck normal visual inspection Respiratory normal respiratory effort; no respiratory distress Auscultation: lungs clear to auscultation bilaterally Cardiovascular Rate/Rhythm: regular rate and regular rhythm Heart Sounds: no murmur Musculoskeletal Spine: normal cervical ROM Psychiatric Orientation: alert and oriented x 3 Testing Laboratory Results 06/27/24 07:32 Electrocardiogram [place], [place] Electrocardiogram Report Signed Patient: JEFFREY MUNOZ Admit Date: 02/01/24 MR#: [id number] Att Phy: Krishna Long M.D. Acct ID: [id number] Mirella Phy: Coretta Mai CRNP Date: 1955 Fam Phy: Age: 68 Location: [facility] Sex: F Room/Bed: cc: DICTATED BY: Bob Kurtz MD Test Reason : Blood Pressure : */* mmHG Vent. Rate : 67 BPM Atrial Rate : 67 BPM P-R Int : 178 ms QRS Dur : 64 ms QT Int : 436 ms P-R-T Axes : 87 78 84 degrees QTcB Int : 460 ms Normal sinus rhythm Poor R wave progression, consider anterior MD vs. lead placement vs. LVH Abnormal ECG When compared with ECG of 27-Aug-2019 08:33, ST no longer depressed in Lateral leads Nonspecific T wave abnormality, improved in Lateral leads Confirmed by Bob Kurtz ([id number]) on 02/01/2024 6:34:03 PM Referred By: Krishna Long Confirmed By: Bob Kurtz Echocardiogram Date: 08/28/19 EF: 55% Day of Procedure Evaluation. Date of Surgery June 27, 2024 Height/Weight Height: 5 ft Weight: 33.3 kg Vital Signs Last Vital Signs Temp 36.5 C 06/27/24 07:49 Pulse 114 H 06/27/24 12:30 Resp 18 06/27/24 12:30 BP 194/98 H 06/27/24 12:30 Pulse Ox 98 06/27/24 12:30 O2 Del Method Oxymask 06/27/24 12:30 O2 Flow Rate 3 06/27/24 12:30 Allergies Allergy/AdvReac Type Severity Reaction Status Date / Time codeine AdvReac Intermediate Vomiting Verified 06/27/24 07:35 Medications Home Medications Medication Instructions Recorded Confirmed Last Taken aspirin 81 mg tablet,delayed 81 mg PO QAM #1 tab 09/01/19 06/27/24 06/27/24 05:30 release acetaminophen 325 mg capsule 650 mg PO Q4H PRN Pain 09/14/19 06/27/24 Unknown Flutter Valve #1 ea 08/13/20 04/07/24 Unknown albuterol sulfate 2.5 mg/3 mL 2.5 mg (3 mL) inhalation QID PRN 03/03/22 06/27/24 Unknown (0.083 %) solution for nebulization shortness of breath or wheezing #180 mL albuterol sulfate 90 mcg/actuation 2 - 4 puff inhalation Q6H PRN 01/04/23 06/27/24 06/27/24 05:30 aerosol inhaler Shortness Of Breath Or Wheezing #18 grams sertraline 100 mg tablet 150 mg (1.5 x 100 mg) PO QAM #135 07/19/23 06/27/24 06/27/24 05:30 tabs bupropion HCl 75 mg tablet 75 mg PO HS 01/28/24 06/27/24 06/26/24 rosuvastatin 40 mg tablet (Crestor) 40 mg PO HS 01/28/24 06/27/24 06/27/24 05:30 fluticasone fur. 100 mcg-umeclid 1 inh inhalation HS #60 ea 02/11/24 06/27/24 06/26/24 20:00 62.5 mcg-vilant 25 mcg inhalat.powder (Trelegy Ellipta) apixaban 2.5 mg tablet (Eliquis) 2.5 mg PO BID #60 tabs 02/18/24 06/27/24 06/27/24 05:30 lisinopril 10 mg tablet 10 mg PO QAM #90 tabs 06/05/24 06/27/24 06/27/24 05:30 Active Medications Generic Name Dose Route Start Last Admin Trade Name Freq PRN Reason Stop Dose Admin Sodium Chloride 1,000 mls @ 100 mls/hr 06/27/24 06:00 06/27/24 10:42 Nss IV 06/27/24 15:59 Infused .Q10H MARYCARMEN Infusion Cefazolin Sodium 2,000 mg in 15 mls @ 3.75 mls/min 06/27/24 06:00 06/27/24 10:21 Ancef 2000mg IV 06/27/24 18:00 3.75 mls/min PREOP MARYCARMEN Administration Protocol Iodixanol 60 ml 06/27/24 12:33 06/27/24 12:34 Visipaque IV 07/01/24 12:32 60 ml UD PRN Administration Interaction Checking Past Anesthesia History No Hx of Anesthesia Complications and No Family Hx of Anesthesia Complications History of PONV No Hx of PONV and No Hx of Motion Sickness NPO Date Last Intake of Fluids: 06/26/24 Time Last Intake of Fluids: 20:00 Date Last Intake of Solids: 06/26/24 Time Last Intake of Solids: 20:00 Home Medications Home Medications Medication Instructions Recorded Confirmed Last Taken aspirin 81 mg tablet,delayed 81 mg PO QAM #1 tab 09/01/19 06/27/24 06/27/24 05:30 release acetaminophen 325 mg capsule 650 mg PO Q4H PRN Pain 09/14/19 06/27/24 Unknown Flutter Valve #1 ea 08/13/20 04/07/24 Unknown albuterol sulfate 2.5 mg/3 mL 2.5 mg (3 mL) inhalation QID PRN 03/03/22 06/27/24 Unknown (0.083 %) solution for nebulization shortness of breath or wheezing #180 mL albuterol sulfate 90 mcg/actuation 2 - 4 puff inhalation Q6H PRN 01/04/23 06/27/24 06/27/24 05:30 aerosol inhaler Shortness Of Breath Or Wheezing #18 grams sertraline 100 mg tablet 150 mg (1.5 x 100 mg) PO QAM #135 07/19/23 06/27/24 06/27/24 05:30 tabs bupropion HCl 75 mg tablet 75 mg PO HS 01/28/24 06/27/24 06/26/24 rosuvastatin 40 mg tablet (Crestor) 40 mg PO HS 01/28/24 06/27/24 06/27/24 05:30 fluticasone fur. 100 mcg-umeclid 1 inh inhalation HS #60 ea 02/11/24 06/27/24 06/26/24 20:00 62.5 mcg-vilant 25 mcg inhalat.powder (Trelegy Ellipta) apixaban 2.5 mg tablet (Eliquis) 2.5 mg PO BID #60 tabs 02/18/24 06/27/24 06/27/24 05:30 lisinopril 10 mg tablet 10 mg PO QAM #90 tabs 06/05/24 06/27/24 06/27/24 05:30 Active Medications Generic Name Dose Route Start Last Admin Trade Name Freq PRN Reason Stop Dose Admin Sodium Chloride 1,000 mls @ 100 mls/hr 06/27/24 06:00 06/27/24 10:42 Nss IV 06/27/24 15:59 Infused .Q10H MARYCARMEN Infusion Cefazolin Sodium 2,000 mg in 15 mls @ 3.75 mls/min 06/27/24 06:00 06/27/24 10:21 Ancef 2000mg IV 06/27/24 18:00 3.75 mls/min PREOP MARYCARMEN Administration Protocol Iodixanol 60 ml 06/27/24 12:33 06/27/24 12:34 Visipaque IV 07/01/24 12:32 60 ml UD PRN Administration Interaction Checking Exercise / Class Metabolic Activity Metabolic Activity: II 4-5 Yardwork/Stairs/Walk up hill Physical Exam Constitutional: + cachectic; no acute distress Mouth: + edentulous and + small oral opening; no dentition abnormality Thyromental Distance: > or= 3.5 Finger Breadths Mallampati Class: III Neck: + visual inspection normal Respiratory: + respiratory effort normal and + clear to auscultation bilaterally; no respiratory distress Cardiovascular: + regular rate and + regular rhythm; no murmur Musculoskeletal: no limited cervical ROM Psychiatric: + alert and + oriented x 3 ASA ASA3E Proposed Anesthesia Proposed Anesthesia: General Risk / Benefits Reviewed With: PT / POA / Parent / Guardian, Accepts Plan and Informed Consent Obtained Additional Comments: We were called to urgently/emergently provide anesthesia for a femoral endarterectomy. Labs and studies reviewed.
[2024-06-27] MEDS ORDERED: ATROPINE SULFATE 0.1 MG/ML 10ML SYR IV PRN (14:20)
[2024-06-27] MEDS ORDERED: HYDROmorphone INJ 1 MG/ML SYRINGE IV PRN (14:20)
[2024-06-27] MEDS: GELATIN SPONGE SZ 100 ONE (14:20)
[2024-06-27] MEDS ORDERED: PROMETHAZINE HCL 6.25 MG in SODIUM CHLORIDE 0.9% 50 ML IV PRN (14:20)
[2024-06-27] MEDS ORDERED: NEOSTIGMINE METHYLSULFATE 1 MG/ML 10ML VIAL ONE (14:23)
[2024-06-27] MEDS ORDERED: GLYCOPYRROLATE 0.2 MG/ML VIAL ONE (14:23)
[2024-06-27] MEDS: THROMBIN FOR SOLN 20000 UNIT KIT ONE (14:26)
[2024-06-27] MEDS: ceFAZolin 330 MG/ML 1 GM VIAL ONE (14:38)
[2024-06-27] MEDS ORDERED: MoRPHine SULFATE 4 MG/ML 1 ML CARP\\VIAL IV PRN (14:41)
[2024-06-27] MEDS ORDERED: ONDANSETRON INJ 2 MG/ML 2 ML VIAL IV PRN (14:41)
[2024-06-27] MEDS ORDERED: ALBUTEROL 0.083% NEBU SOLN 3 ML VIAL INH PRN (14:46)
[2024-06-27] MEDS ORDERED: ALBUTEROL HFA 8 GM INHALER INH PRN (14:46)
[2024-06-27] MEDS ORDERED: CLOPIDOGREL BISULFATE 300 MG TAB PO STA (14:47)
--- NOTE | 2024-06-27 14:51 | Post Anesthesia Assessment ---
Date of Service June 27, 2024 Post Sedation Assessment Vital Signs Temp Pulse Pulse Resp BP Pulse Ox O2 Del Method 06/27/24 12:30 114 H 18 194/98 H 98 Oxymask 06/27/24 12:25 114 H 18 186/98 H 98 Oxymask 06/27/24 12:20 114 H 18 166/82 H 98 Oxymask 06/27/24 12:15 116 H 18 168/84 H 98 Oxymask 06/27/24 12:10 120 H 18 148/56 H 98 Oxymask 06/27/24 12:05 38 L 18 187/66 H 98 Oxymask 06/27/24 12:00 40 L 18 200/62 H 98 Oxymask 06/27/24 11:55 64 18 178/62 H 99 Oxymask 06/27/24 11:50 62 18 176/74 H 99 Oxymask 06/27/24 11:45 64 18 170/72 H 99 Oxymask 06/27/24 11:40 62 18 200/72 H 99 Oxymask 06/27/24 11:35 66 18 198/76 H 100 Oxymask 06/27/24 11:30 66 18 196/72 H 100 Oxymask 06/27/24 11:25 66 18 194/74 H 100 Oxymask 06/27/24 11:20 70 18 190/78 H 100 Oxymask 06/27/24 11:15 62 18 184/74 H 99 Oxymask 06/27/24 11:10 62 18 182/74 H 99 Oxymask 06/27/24 11:05 62 18 188/76 H 99 Oxymask 06/27/24 11:00 60 18 186/76 H 99 Oxymask 06/27/24 10:55 64 18 182/80 H 99 Oxymask 06/27/24 10:50 64 18 180/80 H 99 Oxymask 06/27/24 10:45 66 18 168/84 H 99 Oxymask 06/27/24 07:49 Nasal Cannula 06/27/24 07:49 36.5 C 56 L 20 188/78 H 99 Nasal Cannula O2 Flow Rate 06/27/24 12:30 3 06/27/24 12:25 3 06/27/24 12:20 3 06/27/24 12:15 3 06/27/24 12:10 3 06/27/24 12:05 3 06/27/24 12:00 3 06/27/24 11:55 3 06/27/24 11:50 3 06/27/24 11:45 3 06/27/24 11:40 3 06/27/24 11:35 3 06/27/24 11:30 3 06/27/24 11:25 3 06/27/24 11:20 3 06/27/24 11:15 3 06/27/24 11:10 3 06/27/24 11:05 3 06/27/24 11:00 3 06/27/24 10:55 3 06/27/24 10:50 3 06/27/24 10:45 3 06/27/24 07:49 3 06/27/24 07:49 3 Recovery Score Activity: Moves 4 extremities Respiration: Deep Breath/Cough Circulation: +/-20% PreAnes Value Consciousness: Fully Awake Oxygen Saturation: O2 needed for >90% Post Anesthesia Score: 9 Discharge Sedation Level of Care: Fast Track Phase II Post Sedation Plan On clinical assessment, the patient appears to have tolerated the sedation without complications. Patient is recovering as anticipated. Patient will continue to be monitored by nursing and may be discharged when sedation discharge criteria are met per below protocol. Upon Completions of procedure up to 15 minutes continue every 5 minute vital signs and the P.A.R. score; then discharge to a Phase I or Fast Track to Phase II per the following guidelines: * Discharge Patient to appropriate Phase II area if PAR is 8 or greater or return to pre- procedure baseline. The post - procedure orders will be as directed. * If PAR score is less than 8 or not return to pre-procedure baseline then patient will follow Phase I monitoring till PAR is reached for Phase II. The Phase I may be done in procedure room or may call to secure a Phase I area. * If naloxone or flumazenil are used for reversal, hold in Phase I for continued monitoring from when last reversal dose was given for a minimum of 60 minutes or longer pending the nurse and/or physician discretion of patient condition before discharge to Phase II. Please call the Sedation Physician to re-evaluate and complete post-note for discharge to Phase II area. Do NOT discharge from procedure sedation or Phase 1 until post- sedation evaluation note is complete by procedure /sedation MD Sedation Discharge Instructions to be given to the patient at discharge to home.
--- NOTE | 2024-06-27 14:51 | Post Operative Brief Note ---
Immediate Post Op Note Date of Surgery June 27, 2024 Pre & Post Diagnosis Operation Date: 06/27/24 09:55 Pre-Op Diagnosis: Aortoiliac Occlusive Disorder Post-Op Diagnosis: Left common iliac artery stenosis, left femoral artery stensosis, dissection left external iliac artery I identified the patient and participated in the time-out.: Yes Procedure Operation Date: 06/27/24 09:55 Actual Procedures p Left Iliac Angiogram Brachial Approach,Percutaneous Tranluminal Angioplasty and Stenting of Left Iliac Artery,Ultrasound Localization of Left Brachial Artery,Moderate Sedation [id number](Left) - Krishna Long MD s Left Femoral Embolectomy, Left Femoral Endarterectomy with Bovine Patch Angioplasty(Left) - Krishna Long MD Surgeon Krishna Long MD Truck Car And Bus Cleaner MD Gianna Estimated Blood Loss 50 Findings Consistent with Post-Op Diagnosis Drains Bergeron Catheter (Placed under anesthesia) Anesthesia Type General Complications Dissection of intimal hyperplasia and occlusion of left common femoral artery Disposition Accompanied Patient To Recovery: No Disposition: Recovery Room
[2024-06-27] MEDS ORDERED: ACETAMINOPHEN 325 MG TAB PO PRN (14:54)
--- NOTE | 2024-06-27 15:02 | Operative Report ---
Post Operative Report Pre & Post Diagnosis Operation Date: 06/27/24 09:55 Pre-Op Diagnosis: Aortoiliac Occlusive Disorder Post-Op Diagnosis: Left common iliac artery stenosis, left femoral artery stensosis, dissection left external iliac artery I identified the patient and participated in the time-out.: Yes Procedure Operation Date: 06/27/24 09:55 Actual Procedures p Left Iliac Angiogram Brachial Approach,Percutaneous Tranluminal Angioplasty and Stenting of Left Iliac Artery,Ultrasound Localization of Left Brachial Artery,Moderate Sedation [id number](Left) - Krishna Long MD s Left Femoral Embolectomy, Left Femoral Endarterectomy with Bovine Patch Angioplasty(Left) - Krishna Long MD Surgeon Krishna Long MD Clinical Research Tech Stu Oliver MD Estimated Blood Loss 50 Findings Consistent with Post-Op Diagnosis Severe stenosis of the infrarenal aorta and left common iliac artery improved following stent placement. Following stent placement there was a filling defect in the distal SURVIVAL SPECIALIST with retrograde filling of the fem-fem bypass. Following endarterectomy and patch angioplasty of the left SURVIVAL SPECIALIST there was a good pulse throughout the SFA, profunda, fem-fem bypass and SURVIVAL SPECIALIST. Specimens None Anesthesia Type General Complications None Disposition Accompanied Patient To Recovery: No Indications Stacy Suazo is a pleasant 69 year old female with CLTI of the bilateral lower extremities. She had a prior fem fem bypass for an occluded right TYRON. She developed new stenosis flow limiting of the left TYRON as inflow to her bypass. After discussion of the above procedure, risks and benefits, the patient elected to proceed with an angiogram via left arm access. Description of Procedure The patient was taken to the operating room and placed in a supine position. Pre-operative antibiotics, 2g Ancef, were administered and conscious sedation was given, Versed and Fentanyl. The left arm was prepped and drapped in the standard steril fashion. Time out was performed. Using ultrasound guideance, the left brachial artery was accessed with micropuncture technique over the humoral condyle. A J wire was inserted and the needle was exchanged for a 5Fr sheath. An angled glide wire was then advanced into the ascending aorta. An angled glide catheter was used to direct the wire to the infrarenal aorta where a pigtail catheter was then placed. An aortogram was performed showing severe stenosis of the infrarenal aorta and L TYRON, an occluded R TYRON, and a patent L EIA and fem fem bypass. An angled glide wire was then advanced from the arm to the L SURVIVAL SPECIALIST. 3000U of heparin were given The L TYRON was then ballooned using a 5mm x 60mm Oakley. Imaging following showed improvement however residual stenosis. The 5Fr sheath was then exchanged for a 7Fr sheath. 250mcg Nitroglycerin were given. Two VBX 8x39mm and one VBX 8 x 29mm were then deployed from the infrarenal aorta into the distal TYRON, covering the remaining lesion. The proximal portion was postdilated to 9mm. Completion angiogram showed well opposed stents with good placement, resolution of stenosis and good flow. However a new filling defect was seen in the common femoral artery and there was retrograde filling of the fem fem bypass. Due to suspected emboli to the SURVIVAL SPECIALIST, decision was made to convert to a left groin cutdown. The 7Fr sheath was removed and pressure was held. There was a small hematoma present at the end and a pressure dressing was applied. The right and left groin were prepped and draped in the usual sterile fashion. Patient was induced under general anesthesia. An incision was made over the left groin. Dissection through soft tissue proceeded with electrocautery. Converted to Jesse when the femoral sheath was encountered. Dissection was difficult due to extensive scar tissue from her prior Fem fem. The proximal SFA was encountered distal to the bypass. It was dissected free and clamped. Another 3000U heparin were given. A Tony #3 Embolectomy catheter was passed proximally. There was not good inflow but no clot was retrieved. Dissection then proceeded proximally. The byass, profunda and proximal SURVIVAL SPECIALIST were isolated with difficulty. There was a good pulse in the proximal SURVIVAL SPECIALIST but not the distal SURVIVAL SPECIALIST. The SURVIVAL SPECIALIST was clamped proximally. An arteriotomy was made in the SURVIVAL SPECIALIST using a #11 blade. There was fibrinous material and a dissection within the SURVIVAL SPECIALIST. An endarterectomy was performed. Extending the arteriotomy from the proximal SURVIVAL SPECIALIST onto the SFA. Patch angioplasty using 5-0 Prolene and a bovine carotid patch was then performed. At completion there was a good pulse throught the SURVIVAL SPECIALIST, SFA, profunda and fem fem bypass. Hemostasis was obtained. The groin was closed using a combination of interrupted 2-0 vicryl and running 3-0 vicryl and tayler. PT and DP signals were confirmed. The patient was transferred to the PACU in stable condition. Dr. Long was present and scrubbed for the entire procedure. I attest to the content of the Intraoperative Record and any orders documented therein. Any exceptions are noted below. Supervising Physician Co-Signing Physician Notes Krishna Long MD
[2024-06-27] MEDS: ePHEDrine sulfate 50 MG/ML AMP IV PRN (15:22)
[2024-06-27 15:32] LABS: Basophils # (auto) 0.04 K/uL (0.00-0.20); Basophils % (auto) 0.3 %; Eosinophils # (auto) 0.03 K/uL (0.00-0.50); Eosinophils % (auto) 0.2 %; Hematocrit (blood only) 33.2 % (37.0-47.0); Hemoglobin 10.7 g/dl (12.0-16.0); Immature Granulocytes # (auto) 0.07 K/uL (0.01-0.20); Immature Granulocytes % (auto) 0.6 %; Lymphocytes # (auto) 1.38 K/uL (1.20-3.40); Lymphocytes % (auto) 11.2 %; Mean Corpuscular Hemoglobin 29.7 pg (25.0-34.0); Mean Corpuscular Hgb Conc 32.2 g/dL (32.0-36.0); Mean Corpuscular Volume 92.2 fL (80.0-100.0); Mean Platelet Volume 11.1 fL (9.4-12.4); Monocytes # (auto) 0.83 K/uL (0.11-0.59); Monocytes % (auto) 6.7 %; Neutrophils # (auto) 9.99 K/uL (1.40-6.50); Platelet Count 157 K/uL (130-400); RDW Coefficient of Variation 14.6 % (11.5-14.5); RDW Standard Deviation 49.6 fL (36.4-46.3); White Blood Count 12.34 K/ul (4.8-10.8)
--- NOTE | 2024-06-27 15:34 | Critical Care Consultation ---
Date of Consultation June 27, 2024 Assessment & Plan (1) S/P femoral-femoral bypass surgery: (2) S/P vascular surgery: (3) COPD with emphysema: (4) Cachexia: (5) Postoperative anemia: Plan Impression: 69-year-old cachectic female with a history of COPD admitted with claudication and common femoral artery stenosis status post angioplasty. Procedure was complicated by dissection requiring arteriotomy and angioplasty. Blood pressures are on the low side postoperatively. The patient has sequelae from prior stroke. Recommendations: 1. Common femoral artery stenosis: Status post angioplasty with stent placement. Management per vascular surgery. Would defer long-term anticoagulation as well as antiplatelet agents to vascular surgery. 2. Postoperative labs are pending. Will follow-up with those results. 3. Cachexia: Dietary consult per hospital protocol. 4. COPD: Not bronchospastic currently. Continue inhalers. No indication for steroids or antibiotics at this point time. 5. Hypotension: Suspect related to anesthesia. Will continue to follow. Blood pressure goals per vascular surgery. May require low-dose Tez-Synephrine. 6. Prior stroke: The patient is able to follow commands but has residual deficits from prior stroke. She is not verbal currently. Discussed with vascular surgery. Will continue to observe closely as she emerges from anesthesia and consider additional evaluation should her mental status fail to improve. Thanks for the opportunity participating the care of this patient. Will continue to follow with you. Feel free to contact us with questions or concerns History of Present Illness Attending Physician: Krishna Long MD History of Present Illness Asked by vascular surgery to assist in evaluation management of this patient status post femoral stenting due to peripheral arterial disease. History is obtained from discussion with vascular surgery as well as review the electronic medical record. The patient is a 69-year-old female with a complex history of significant vascular disease including aortoiliac occlusive disease status post left to right femoral bypass. Patient had progressive claudication and outpatient follow-up showed occlusion of the right common iliac artery and a patent left to right femoral artery bypass. Severe stenosis of the left common iliac artery wa s noted. The patient was taken to the OR today for balloon angioplasty and stenting of the left common femoral artery.. Angioplasty and stenting were performed however there appeared to be a defect in the distal common femoral artery which was a dissection requiring arteriotomy and patch angioplasty. The patient was initially hypertensive during the procedure but received labetalol which resulted in significantly lower blood pressure. She is mildly hypotensive in the PACU. She is able to follow commands but is not verbal. She has had a prior stroke with some contractions of the left upper extremity. Allergies Allergy/AdvReac Type Severity Reaction Status Date / Time codeine AdvReac Intermediate Vomiting Verified 06/27/24 07:35 Home Medications Medication Instructions Recorded Confirmed Type aspirin 81 mg tablet,delayed 81 mg PO QAM #1 tab 09/01/19 06/27/24 Rx release acetaminophen 325 mg capsule 650 mg PO Q4H PRN Pain 09/14/19 06/27/24 History Flutter Valve #1 ea 08/13/20 04/07/24 Rx albuterol sulfate 2.5 mg/3 mL 2.5 mg (3 mL) inhalation QID PRN 03/03/22 06/27/24 Rx (0.083 %) solution for nebulization shortness of breath or wheezing #180 mL albuterol sulfate 90 mcg/actuation 2 - 4 puff inhalation Q6H PRN 01/04/23 Rx aerosol inhaler Shortness Of Breath Or Wheezing #18 grams sertraline 100 mg tablet 150 mg (1.5 x 100 mg) PO QAM #135 07/19/23 06/27/24 Rx tabs bupropion HCl 75 mg tablet 75 mg PO HS 01/28/24 06/27/24 History rosuvastatin 40 mg tablet (Crestor) 40 mg PO HS 01/28/24 06/27/24 History fluticasone fur. 100 mcg-umeclid 1 inh inhalation HS #60 ea 02/11/24 06/27/24 Rx 62.5 mcg-vilant 25 mcg inhalat.powder (Trelegy Ellipta) apixaban 2.5 mg tablet (Eliquis) 2.5 mg PO BID #60 tabs 02/18/24 06/27/24 Rx lisinopril 10 mg tablet 10 mg PO QAM #90 tabs 06/05/24 06/27/24 Rx Patient History Medical History Multiple pulmonary nodules Chronic respiratory failure with hypoxia ICAO (internal carotid artery occlusion) Osteoporosis Arthritis History of stroke Diverticular disease Chronic obstructive pulmonary disease Surgical History History of tooth extraction History of tonsillectomy History of cataract surgery History of bronchoscopy Hx of foot surgery History of section Hx of hemorrhoidectomy History of colonoscopy Family History Other No family history of adverse response to anesthesia Denies family history of Ovarian cancer Prostate cancer Myocardial infarction Breast cancer Colorectal cancer Social History Smoking Status: Current every day smoker Tobacco Type: Cigarettes Age Started Using Tobacco: 18; Age Quit Using Tobacco: 65; packs per day: 1; Cigarettes Per Day: Occasional cigarette use, quit daily smoking at age 64; Second Hand Exposure: No; Do You Dip or Chew Tobacco: No; Tobacco Cessation Education Requested by Patient: No Hx Alcohol Use: No Hx Substance Use: No Preferred Language: Thai Communication Ability: Effective Visual Impairment: Limited Hearing Ability: Normal Shift Supervisor Melting Required: No Beliefs That Will Affect Care: None marital status: Current Living Situation: Family Current Living Situation Comment: " is there sometimes, kind of seperated" current occupational status: disabled How many Children do You have: 2 Other Information That Helps Us Care for You: No Feels Safe at Home: Yes Safety Concerns: Feels Safe At This Time Childhood Exposure to Second-Hand Smoke: Yes Diet: regular caffeine: Yes (coffee) during the past year weight has: remained stable Dental Care, Regularly: No Physical Activity Frequency: Daily Seatbelt Use: never Sunscreen Use: No Assistive Devices: Glasses, Oxygen - Continuous and Walker Review of Systems Review of Systems: Please refer to admission H&P. No additions or deletions Physical Exam Constitutional: + thin and + cachectic Neck: trachea midline, no thyromegaly Respiratory: no respiratory distress, no labored breathing, no cough and not tachypneic Auscultation: + diminished lung sounds; no crackles and no wheezes Cardiovascular: RRR, no murmur, no edema Gastrointestinal (Abdomen): Patient's stent is visible in her lower abdomen. Bowel sounds are diminished. Neurologic: Patient has significant contractures of the left upper extremity. She is able to move her right arm and right lower extremity to command. Left lower extremity movement is present but decreased. Patient is able to follow commands but is not answering questions verbally Results & Data Results & Data Vital Signs (Past 12 Hours) Vital Signs Temp Pulse Pulse Pulse Resp BP Pulse Ox 06/27/24 14:53 36.5 C 77 20 122/58 L 88 L 06/27/24 12:30 114 H 18 194/98 H 98 06/27/24 12:25 114 H 18 186/98 H 98 06/27/24 12:20 114 H 18 166/82 H 98 06/27/24 12:15 116 H 18 168/84 H 98 06/27/24 12:10 120 H 18 148/56 H 98 06/27/24 12:05 38 L 18 187/66 H 98 06/27/24 12:00 40 L 18 200/62 H 98 06/27/24 11:55 64 18 178/62 H 99 06/27/24 11:50 62 18 176/74 H 99 06/27/24 11:45 64 18 170/72 H 99 06/27/24 11:40 62 18 200/72 H 99 06/27/24 11:35 66 18 198/76 H 100 06/27/24 11:30 66 18 196/72 H 100 06/27/24 11:25 66 18 194/74 H 100 06/27/24 11:20 70 18 190/78 H 100 06/27/24 11:15 62 18 184/74 H 99 06/27/24 11:10 62 18 182/74 H 99 06/27/24 11:05 62 18 188/76 H 99 06/27/24 11:00 60 18 186/76 H 99 06/27/24 10:55 64 18 182/80 H 99 06/27/24 10:50 64 18 180/80 H 99 06/27/24 10:45 66 18 168/84 H 99 06/27/24 07:49 06/27/24 07:49 36.5 C 56 L 20 188/78 H 99 O2 Del Method O2 Flow Rate 06/27/24 14:53 Oxymask 4 06/27/24 12:30 Oxymask 3 06/27/24 12:25 Oxymask 3 06/27/24 12:20 Oxymask 3 06/27/24 12:15 Oxymask 3 06/27/24 12:10 Oxymask 3 06/27/24 12:05 Oxymask 3 06/27/24 12:00 Oxymask 3 06/27/24 11:55 Oxymask 3 06/27/24 11:50 Oxymask 3 06/27/24 11:45 Oxymask 3 06/27/24 11:40 Oxymask 3 06/27/24 11:35 Oxymask 3 06/27/24 11:30 Oxymask 3 06/27/24 11:25 Oxymask 3 06/27/24 11:20 Oxymask 3 06/27/24 11:15 Oxymask 3 06/27/24 11:10 Oxymask 3 06/27/24 11:05 Oxymask 3 06/27/24 11:00 Oxymask 3 06/27/24 10:55 Oxymask 3 06/27/24 10:50 Oxymask 3 06/27/24 10:45 Oxymask 3 06/27/24 07:49 Nasal Cannula 3 06/27/24 07:49 Nasal Cannula 3 Critical Care Results & Data Vital Signs (Past 12 Hours) Vital Signs Temp Pulse Pulse Pulse Resp BP Pulse Ox 06/27/24 14:53 36.5 C 77 20 122/58 L 88 L 06/27/24 12:30 114 H 18 194/98 H 98 06/27/24 12:25 114 H 18 186/98 H 98 06/27/24 12:20 114 H 18 166/82 H 98 06/27/24 12:15 116 H 18 168/84 H 98 06/27/24 12:10 120 H 18 148/56 H 98 06/27/24 12:05 38 L 18 187/66 H 98 06/27/24 12:00 40 L 18 200/62 H 98 06/27/24 11:55 64 18 178/62 H 99 06/27/24 11:50 62 18 176/74 H 99 06/27/24 11:45 64 18 170/72 H 99 06/27/24 11:40 62 18 200/72 H 99 06/27/24 11:35 66 18 198/76 H 100 06/27/24 11:30 66 18 196/72 H 100 06/27/24 11:25 66 18 194/74 H 100 06/27/24 11:20 70 18 190/78 H 100 06/27/24 11:15 62 18 184/74 H 99 06/27/24 11:10 62 18 182/74 H 99 06/27/24 11:05 62 18 188/76 H 99 06/27/24 11:00 60 18 186/76 H 99 06/27/24 10:55 64 18 182/80 H 99 06/27/24 10:50 64 18 180/80 H 99 06/27/24 10:45 66 18 168/84 H 99 06/27/24 07:49 06/27/24 07:49 36.5 C 56 L 20 188/78 H 99 O2 Del Method O2 Flow Rate 06/27/24 14:53 Oxymask 4 06/27/24 12:30 Oxymask 3 06/27/24 12:25 Oxymask 3 06/27/24 12:20 Oxymask 3 06/27/24 12:15 Oxymask 3 06/27/24 12:10 Oxymask 3 06/27/24 12:05 Oxymask 3 06/27/24 12:00 Oxymask 3 06/27/24 11:55 Oxymask 3 06/27/24 11:50 Oxymask 3 06/27/24 11:45 Oxymask 3 06/27/24 11:40 Oxymask 3 06/27/24 11:35 Oxymask 3 06/27/24 11:30 Oxymask 3 06/27/24 11:25 Oxymask 3 06/27/24 11:20 Oxymask 3 06/27/24 11:15 Oxymask 3 06/27/24 11:10 Oxymask 3 06/27/24 11:05 Oxymask 3 06/27/24 11:00 Oxymask 3 06/27/24 10:55 Oxymask 3 06/27/24 10:50 Oxymask 3 06/27/24 10:45 Oxymask 3 06/27/24 07:49 Nasal Cannula 3 06/27/24 07:49 Nasal Cannula 3 Lab & Micro Results (Past 24 Hours) RBC Pending 06/27/24 WBC Pending 06/27/24 Hgb Pending 06/27/24 Hct Pending 06/27/24 MCV Pending 06/27/24 MCH Pending 06/27/24 MCHC Pending 06/27/24 Plt Count Pending 06/27/24 BUN 21 mg/dl (6-23) 06/27/24 Creatinine 0.83 mg/dl (0.6-1.2) 06/27/24 No Data to Display I & O Totals 24 Hours 06/26/24 06/27/24 06/28/24 06:59 06:59 06:59 Intake Total 200 / 200 Balance 200 / 200 Cumulative 06/20/24 09:12 thru 06/27/24 14:20 Intake Total 200 Balance 200 RT Ventilator Mngmt (Last Documented) Ventilator Ordered Settings Respiratory Rate 20 06/27/24 14:53 Ventilator - PT Measurements Respiratory Rate 20 Coding Level of Care Code 43297 INT INP/OBS CARE 2/55MIN Diagnoses S/P femoral-femoral bypass surgery Z95.828 S/P vascular surgery Z98.890 Pulmonary emphysema, unspecified emphysema type J43.9 Emphysema type: unspecified Cachexia R64 Postoperative anemia D64.9 (3) COPD with emphysema Emphysema type: unspecified Qualified Code(s): J43.9 - Emphysema, unspecified
--- NOTE | 2024-06-27 16:27 | Anesthesiology Progress Note ---
Date of Service June 27, 2024 Anesthesia Post Procedure Vital Signs Vital Signs: Temp Pulse Pulse Pulse Resp BP Pulse Ox 06/27/24 16:00 36.8 C 60 19 101/45 L 96 06/27/24 15:50 64 18 104/48 L 93 06/27/24 15:40 64 20 99/46 L 97 06/27/24 15:30 58 L 20 102/44 L 94 06/27/24 15:20 54 L 21 88/40 L 98 06/27/24 15:10 56 L 22 89/38 L 96 06/27/24 15:00 65 22 102/38 L 100 06/27/24 14:53 36.5 C 77 20 122/58 L 88 L 06/27/24 12:30 114 H 18 194/98 H 98 06/27/24 12:25 114 H 18 186/98 H 98 06/27/24 12:20 114 H 18 166/82 H 98 06/27/24 12:15 116 H 18 168/84 H 98 06/27/24 12:10 120 H 18 148/56 H 98 06/27/24 12:05 38 L 18 187/66 H 98 06/27/24 12:00 40 L 18 200/62 H 98 06/27/24 11:55 64 18 178/62 H 99 06/27/24 11:50 62 18 176/74 H 99 06/27/24 11:45 64 18 170/72 H 99 06/27/24 11:40 62 18 200/72 H 99 06/27/24 11:35 66 18 198/76 H 100 06/27/24 11:30 66 18 196/72 H 100 06/27/24 11:25 66 18 194/74 H 100 06/27/24 11:20 70 18 190/78 H 100 06/27/24 11:15 62 18 184/74 H 99 06/27/24 11:10 62 18 182/74 H 99 06/27/24 11:05 62 18 188/76 H 99 06/27/24 11:00 60 18 186/76 H 99 06/27/24 10:55 64 18 182/80 H 99 06/27/24 10:50 64 18 180/80 H 99 06/27/24 10:45 66 18 168/84 H 99 06/27/24 07:49 06/27/24 07:49 36.5 C 56 L 20 188/78 H 99 O2 Del Method O2 Flow Rate 06/27/24 16:00 Nasal Cannula 3 06/27/24 15:50 Nasal Cannula 3 06/27/24 15:40 Nasal Cannula 4 06/27/24 15:30 Nasal Cannula 4 06/27/24 15:20 Nasal Cannula 4 06/27/24 15:10 Oxymask 6 06/27/24 15:00 Oxymask 10 06/27/24 14:53 Oxymask 4 06/27/24 12:30 Oxymask 3 06/27/24 12:25 Oxymask 3 06/27/24 12:20 Oxymask 3 06/27/24 12:15 Oxymask 3 06/27/24 12:10 Oxymask 3 06/27/24 12:05 Oxymask 3 06/27/24 12:00 Oxymask 3 06/27/24 11:55 Oxymask 3 06/27/24 11:50 Oxymask 3 06/27/24 11:45 Oxymask 3 06/27/24 11:40 Oxymask 3 06/27/24 11:35 Oxymask 3 06/27/24 11:30 Oxymask 3 06/27/24 11:25 Oxymask 3 06/27/24 11:20 Oxymask 3 06/27/24 11:15 Oxymask 3 06/27/24 11:10 Oxymask 3 06/27/24 11:05 Oxymask 3 06/27/24 11:00 Oxymask 3 06/27/24 10:55 Oxymask 3 06/27/24 10:50 Oxymask 3 06/27/24 10:45 Oxymask 3 06/27/24 07:49 Nasal Cannula 3 06/27/24 07:49 Nasal Cannula 3 Transfer of Care Handoff Completed per policy Notes Mental Status: alert / awake / arousable Patient Amnestic to Procedure: Yes Nausea / Vomiting: adequately controlled Pain: adequately controlled Airway Patency, RR, SpO2: stable & adequate BP & HR: stable & adequate Hydration State: stable & adequate Anesthetic Complications: no major complications apparent
[2024-06-27] MEDS: LACTATED RINGER'S 1,000 ML IV SCH (17:17)
[2024-06-27] MEDS: ceFAZolin 2000MG 2,000 MG/15 ML SYR IV SCH (17:18)
[2024-06-27] MEDS: CLOPIDOGREL BISULFATE 300 MG TAB PO SCH (19:47)
[2024-06-27] MEDS: buPROPion HCl 75 MG TABLET PO SCH (20:55)
[2024-06-27] MEDS: ROSUVASTATIN CALCIUM 20 MG TAB PO SCH (20:55)
[2024-06-27] MEDS ORDERED: NON-FORMULARY MEDICATION (Fluticasone-Umeclidin-Vilanter [Trelegy Ellipta] 100-62.5-25 mcg INH SCH (21:00)
[2024-06-28 06:00] LABS: Basophils # (auto) 0.02 K/uL (0.00-0.20); Basophils % (auto) 0.2 %; Hematocrit (blood only) 30.4 % (37.0-47.0); Hemoglobin 9.7 g/dl (12.0-16.0); Immature Granulocytes # (auto) 0.05 K/uL (0.01-0.20); Immature Granulocytes % (auto) 0.4 %; Lymphocytes % (auto) 6.1 %; Mean Corpuscular Hemoglobin 29.5 pg (25.0-34.0); Mean Corpuscular Hgb Conc 31.9 g/dL (32.0-36.0); Mean Corpuscular Volume 92.4 fL (80.0-100.0); Mean Platelet Volume 11.2 fL (9.4-12.4); Monocytes # (auto) 0.96 K/uL (0.11-0.59); Monocytes % (auto) 7.3 %; Neutrophils # (auto) 11.29 K/uL (1.40-6.50); Platelet Count 144 K/uL (130-400); RDW Coefficient of Variation 15.1 % (11.5-14.5); RDW Standard Deviation 51.7 fL (36.4-46.3); Red Blood Count 3.29 M/uL (4.20-5.40); White Blood Count 13.12 K/ul (4.8-10.8)
[2024-06-28 06:17] LABS: BUN Creatinine Ratio 25.8 (10-20); Creatinine Clr Calc Pharmacy 33.9 ml/min; Potassium 3.8 mmol/L (3.5-5.1)
[2024-06-28] MEDS: lisinopril 10 MG TAB PO SCH (07:36)
[2024-06-28] MEDS: SERTRALINE HCL 50 MG TABLET PO SCH (07:36)
[2024-06-28] MEDS: ASPIRIN 81 MG ECTAB PO SCH (07:36)
[2024-06-28] MEDS: APIXABAN 2.5 MG TAB PO SCH (07:37)
[2024-06-28] MEDS: CLOPIDOGREL BISULFATE 75 MG TAB PO SCH (07:37)
[2024-06-28] MEDS: UMECLIDINIUM/VILANTEROL 62.5/25MCG 7 PUFFS/INHALER INH SCH (07:38)
[2024-06-28] MEDS: FLUTICASONE FUROATE 100MCG 14 PUFFS/INHALER INH SCH (07:38)
--- NOTE | 2024-06-28 07:45 | Critical Care Progress Note ---
Date of Service June 28, 2024 Assessment & Plan (1) S/P femoral-femoral bypass surgery: (2) S/P vascular surgery: (3) COPD with emphysema: (4) Cachexia: (5) Postoperative anemia: Plan Impression: 69-year-old cachectic female with a history of COPD admitted with claudication and common femoral artery stenosis status post angioplasty. Procedure was complicated by dissection requiring arteriotomy and angioplasty. Blood pressures are on the low side postoperatively. The patient has sequelae from prior stroke. 24-hour events: No adverse events appreciated overnight. She does have some mild seeping from the incision site. Recommendations: 1. Common femoral artery stenosis: Status post angioplasty with stent placement. Management per vascular surgery. Would defer long-term anticoagulation as well as antiplatelet agents to vascular surgery. 2. Postoperative labs are pending. Will follow-up with those results. 3. Cachexia: Dietary consult per hospital protocol. 4. COPD: Not bronchospastic currently. Continue inhalers. No indication for steroids or antibiotics at this point time. 5. Hypotension: Improved. Suspect related to anesthesia. 6. Prior stroke: Patient is awake, alert, and oriented at this time. Thanks for the opportunity participating the care of this patient. Patient stable for downgrade from the ICU at this time. Admission and Anticipated Discharge Date Admission Date: June 27, 2024 Subjective Patient seen and evaluated at bedside. No adverse events overnight. The patient complains of no pain at this time. Review of Systems Review of Systems: As per subjective Physical Exam Constitutional: + thin and + cachectic Neck: trachea midline, no thyromegaly Respiratory: no respiratory distress, no labored breathing, no cough and not tachypneic Auscultation: + diminished lung sounds; no crackles and no wheezes Cardiovascular: RRR, no murmur, no edema Gastrointestinal (Abdomen): Patient's stent is visible in her lower abdomen. Bowel sounds are diminished. Neurologic: Patient has significant contractures of the left upper extremity. She is able to move her right arm and right lower extremity to command. Left lower extremity movement is present but decreased. Patient is able to follow commands but is not answering questions verbally Results & Data Results & Data Vital Signs (Past 12 Hours) Vital Signs Temp Pulse Resp BP Pulse Ox 06/28/24 06:22 147/54 H 06/28/24 06:22 147/54 H 06/28/24 06:21 68 18 98 06/28/24 06:12 75 21 99 06/28/24 06:03 76 21 98 06/28/24 05:54 75 23 98 06/28/24 05:33 70 21 98 06/28/24 05:30 155/55 H 06/28/24 05:26 37.1 C 06/28/24 05:21 81 23 97 06/28/24 05:18 87 23 95 06/28/24 05:09 64 21 98 06/28/24 04:30 165/63 H 06/28/24 04:30 165/63 H 06/28/24 04:06 79 21 96 06/28/24 04:00 78 24 96 06/28/24 04:00 156/61 H 06/28/24 04:00 156/61 H 06/28/24 04:00 156/61 H 06/28/24 04:00 156/61 H 06/28/24 03:57 81 22 97 06/28/24 03:36 75 21 97 06/28/24 03:30 143/64 H 06/28/24 03:21 83 22 97 06/28/24 03:00 159/63 H 06/28/24 03:00 159/63 H 06/28/24 02:51 83 21 98 06/28/24 02:42 77 21 97 06/28/24 02:39 78 21 97 06/28/24 02:30 148/58 H 06/28/24 02:15 75 20 98 06/28/24 02:06 72 21 98 06/28/24 02:00 151/57 H 06/28/24 01:54 71 21 97 06/28/24 01:42 71 21 97 06/28/24 01:30 72 21 96 06/28/24 01:03 80 21 97 06/28/24 01:00 142/68 H 06/28/24 01:00 142/68 H 06/28/24 01:00 142/68 H 06/28/24 00:54 80 24 95 06/28/24 00:21 73 20 98 06/28/24 00:15 65 22 98 06/28/24 00:00 36.6 C 06/27/24 23:54 71 21 98 06/27/24 23:42 69 21 98 06/27/24 23:36 70 21 98 06/27/24 23:27 70 20 98 06/27/24 23:15 70 06/27/24 23:05 128/47 L 06/27/24 22:48 81 21 90 06/27/24 22:42 70 21 91 06/27/24 22:30 72 22 06/27/24 22:24 72 22 90 06/27/24 22:09 63 21 97 06/27/24 22:00 153/53 H 06/27/24 22:00 153/53 H 06/27/24 22:00 153/53 H 06/27/24 21:36 65 22 97 06/27/24 21:30 147/52 H 06/27/24 21:30 147/52 H 06/27/24 21:30 67 22 96 06/27/24 21:21 66 23 97 06/27/24 21:15 62 21 96 06/27/24 21:01 118/48 L 06/27/24 21:01 118/48 L 06/27/24 21:01 118/48 L 06/27/24 21:00 64 22 06/27/24 20:51 72 22 96 06/27/24 20:30 163/61 H 06/27/24 20:30 163/61 H 06/27/24 20:30 163/61 H 06/27/24 20:30 70 24 06/27/24 20:21 67 21 97 06/27/24 20:18 74 22 96 06/27/24 20:00 144/55 H 06/27/24 20:00 36.5 C 06/27/24 19:54 66 21 98 06/27/24 19:51 69 22 98 Coding Level of Care Code 78370 SUB INP/OBS CARE 2/MIN Diagnoses S/P femoral-femoral bypass surgery Z95.828 S/P vascular surgery Z98.890 Pulmonary emphysema, unspecified emphysema type J43.9 Emphysema type: unspecified Cachexia R64 Postoperative anemia D64.9 (3) COPD with emphysema Emphysema type: unspecified Qualified Code(s): J43.9 - Emphysema, unspecified
--- NOTE | 2024-06-28 08:33 | Surgery Progress Note ---
Date of Service June 28, 2024 Assessment & Plan (1) S/P vascular surgery: Plan: patient doing well post op Will transfer to floor hopefully home tomorrow Admission and Anticipated Discharge Date Admission Date: June 27, 2024 Subjective Patient complaining of incisional groin pain. Denies foot pain Physical Exam Constitutional: WD/WN, vitals as above Respiratory: normal respiratory effort; no respiratory distress Cardiovascular: RRR, no murmur, no edema Extremities: normal capillary refill good pedal doppler flow Skin: + incision (groin incision dry and clean , arm puncture without problems) Neurologic: CN's II-XI intact bilaterally and moves all extremities Psychiatric: A+Ox3, euthymic affect Results & Data Vital Signs (Past 12 Hours) Vital Signs Temp Pulse Resp BP Pulse Ox 06/28/24 06:22 147/54 H 06/28/24 06:22 147/54 H 06/28/24 06:21 68 18 98 06/28/24 06:12 75 21 99 06/28/24 06:03 76 21 98 06/28/24 05:54 75 23 98 06/28/24 05:33 70 21 98 06/28/24 05:30 155/55 H 06/28/24 05:26 37.1 C 06/28/24 05:21 81 23 97 06/28/24 05:18 87 23 95 06/28/24 05:09 64 21 98 06/28/24 04:30 165/63 H 06/28/24 04:30 165/63 H 06/28/24 04:06 79 21 96 06/28/24 04:00 78 24 96 06/28/24 04:00 156/61 H 06/28/24 04:00 156/61 H 06/28/24 04:00 156/61 H 06/28/24 04:00 156/61 H 06/28/24 03:57 81 22 97 06/28/24 03:36 75 21 97 06/28/24 03:30 143/64 H 06/28/24 03:21 83 22 97 06/28/24 03:00 159/63 H 06/28/24 03:00 159/63 H 06/28/24 02:51 83 21 98 06/28/24 02:42 77 21 97 06/28/24 02:39 78 21 97 06/28/24 02:30 148/58 H 06/28/24 02:15 75 20 98 06/28/24 02:06 72 21 98 06/28/24 02:00 151/57 H 06/28/24 01:54 71 21 97 06/28/24 01:42 71 21 97 06/28/24 01:30 72 21 96 06/28/24 01:03 80 21 97 06/28/24 01:00 142/68 H 06/28/24 01:00 142/68 H 06/28/24 01:00 142/68 H 06/28/24 00:54 80 24 95 06/28/24 00:21 73 20 98 06/28/24 00:15 65 22 98 06/28/24 00:00 36.6 C 06/27/24 23:54 71 21 98 06/27/24 23:42 69 21 98 06/27/24 23:36 70 21 98 06/27/24 23:27 70 20 98 06/27/24 23:15 70 06/27/24 23:05 128/47 L 06/27/24 22:48 81 21 90 06/27/24 22:42 70 21 91 06/27/24 22:30 72 22 06/27/24 22:24 72 22 90 06/27/24 22:09 63 21 97 06/27/24 22:00 153/53 H 06/27/24 22:00 153/53 H 06/27/24 22:00 153/53 H 06/27/24 21:36 65 22 97 06/27/24 21:30 147/52 H 06/27/24 21:30 147/52 H 06/27/24 21:30 67 22 96 06/27/24 21:21 66 23 97 06/27/24 21:15 62 21 96 06/27/24 21:01 118/48 L 06/27/24 21:01 118/48 L 06/27/24 21:01 118/48 L 06/27/24 21:00 64 22 06/27/24 20:51 72 22 96
[2024-06-28] MEDS: oxyCODONE/ACETAMINOPHEN 5mg/325mg TAB PO PRN (15:35)
[2024-06-29 06:13] LABS: BUN Creatinine Ratio 21.9 (10-20); Calcium 8.2 mg/dl (8.6-10.3); Creatinine Clr Calc Pharmacy 47.1 ml/min; Potassium 3.6 mmol/L (3.5-5.1)
[2024-06-29 06:17] LABS: Basophils # (auto) 0.01 K/uL (0.00-0.20); Basophils % (auto) 0.1 %; Eosinophils # (auto) 0.01 K/uL (0.00-0.50); Eosinophils % (auto) 0.1 %; Hematocrit (blood only) 26.1 % (37.0-47.0); Hemoglobin 8.6 g/dl (12.0-16.0); Immature Granulocytes # (auto) 0.03 K/uL (0.01-0.20); Immature Granulocytes % (auto) 0.3 %; Lymphocytes # (auto) 0.67 K/uL (1.20-3.40); Lymphocytes % (auto) 7.1 %; Mean Corpuscular Volume 90.9 fL (80.0-100.0); Mean Platelet Volume 11.4 fL (9.4-12.4); Monocytes # (auto) 0.85 K/uL (0.11-0.59); Neutrophils # (auto) 7.84 K/uL (1.40-6.50); Neutrophils % (auto) 83.4 %; Platelet Count 100 K/uL (130-400); RDW Coefficient of Variation 14.8 % (11.5-14.5); RDW Standard Deviation 49.4 fL (36.4-46.3); Red Blood Count 2.87 M/uL (4.20-5.40); White Blood Count 9.41 K/ul (4.8-10.8)
--- NOTE | 2024-06-29 15:22 | Surgery Progress Note ---
Date of Service June 29, 2024 Assessment & Plan (1) S/P vascular surgery: Plan: patient doing well post op Will check wound in the morning. If still bleeding may need exploration. Admission and Anticipated Discharge Date Admission Date: June 27, 2024 Subjective Patient complaining of incisional pain left groin. She has no complaints of foot pain. Physical Exam Constitutional: WD/WN, vitals as above Respiratory: normal respiratory effort; no respiratory distress Cardiovascular: Rate/Rhythm: regular rate and regular rhythm Vessels: radial pulses present Extremities: normal capillary refill Skin: + incision (groin incision with serosang uineous drainage) Left arm puncture is ecchymotic Neurologic: CN's II-XI intact bilaterally and moves all extremities Psychiatric: A+Ox3, euthymic affect Results & Data Vital Signs (Past 12 Hours) Vital Signs Temp Pulse Resp BP Pulse Ox O2 Del Method O2 Flow Rate 06/29/24 14:18 37.3 C 77 16 173/68 H 99 Nasal Cannula 3.0 06/29/24 07:48 37.0 C 76 16 177/70 H 96 Nasal Cannula 3.0 06/29/24 07:20 Nasal Cannula 2 06/29/24 03:47 36.9 C 76 16 160/71 H 99 Nasal Cannula 3
[2024-06-30 08:21] LABS: Calcium 7.8 mg/dl (8.6-10.3); Creatinine Clr Calc Pharmacy 49.4 ml/min; Potassium 3.6 mmol/L (3.5-5.1)
[2024-06-30 08:27] LABS: Basophils # (auto) 0.01 K/uL (0.00-0.20); Basophils % (auto) 0.1 %; Eosinophils # (auto) 0.03 K/uL (0.00-0.50); Eosinophils % (auto) 0.4 %; Hematocrit (blood only) 22.6 % (37.0-47.0); Hemoglobin 7.4 g/dl (12.0-16.0); Immature Granulocytes # (auto) 0.03 K/uL (0.01-0.20); Immature Granulocytes % (auto) 0.4 %; Lymphocytes # (auto) 0.53 K/uL (1.20-3.40); Lymphocytes % (auto) 6.6 %; Mean Corpuscular Hgb Conc 32.7 g/dL (32.0-36.0); Mean Corpuscular Volume 91.5 fL (80.0-100.0); Monocytes # (auto) 0.82 K/uL (0.11-0.59); Monocytes % (auto) 10.2 %; Neutrophils # (auto) 6.61 K/uL (1.40-6.50); Neutrophils % (auto) 82.3 %; Platelet Count 90 K/uL (130-400); Platelet Estimate Decreased (Normal); RBC Morphology Unremarkable; RDW Coefficient of Variation 14.6 % (11.5-14.5); RDW Standard Deviation 49.2 fL (36.4-46.3); Red Blood Count 2.47 M/uL (4.20-5.40); White Blood Count 8.03 K/ul (4.8-10.8)
[2024-06-30] MEDS ORDERED: SODIUM CHLORIDE 0.9% 100 ML IV PRN (09:47)
--- NOTE | 2024-06-30 09:55 | Surgery Progress Note ---
Date of Service June 30, 2024 Assessment & Plan (1) S/P vascular surgery: Plan: Pt with BLE well perfused since procedure. L groin still with moderate bleeding, no large hematoma noted under incision. Hgb down to 7.4 today, VSS. Discussed with Dr Hardin, planning on surgical exploration later today to identify source of bleeding. Pt NPO. (2) Postoperative anemia: Plan: Transfuse 1U PRBC pre op. see above for plan Admission and Anticipated Discharge Date Admission Date: June 27, 2024 Subjective 69 yo f s/p LLE revascularization, seen in f/u today. Pt continues to have moderate bloody drainage from distal end of incision. Pt states feeling ok except for LUE pain/ecchymosis. VSS Review of Systems Review of Systems: All systems reviewed & are unremarkable except as noted in HPI & below Physical Exam Constitutional: WD/WN, vitals as above Respiratory: normal respiratory effort, lungs clear to auscultation normal respiratory effort; no respiratory distress Cardiovascular: RRR, no murmur, no edema Rate/Rhythm: regular rate and regular rhythm Vessels: radial pulses present Extremities: normal capillary refill Skin: + incision (L groin significant bloody d rainage. No significant hematoma.) Neurologic: CN's II-XI intact bilaterally and moves all extremities Psychiatric: A+Ox3, euthymic affect Results & Data Vital Signs (Past 12 Hours) Vital Signs Temp Pulse Resp BP Pulse Ox O2 Del Method O2 Flow Rate 06/30/24 07:14 37.2 C 79 16 146/73 H 99 Room Air 06/29/24 22:51 37.1 C 82 16 148/78 H 94 Nasal Cannula 3
--- NOTE | 2024-06-30 10:28 | Anesthesiology Consultation ---
Date of Service June 30, 2024 Assessment & Plan Chart Review Chart Review: Acceptable Risk for Surgery and Patient NOT seen in Pre Admission Testing Consults Requested none History Surgery Operation Date: 06/27/24 09:55 Proposed Procedures p Left Iliac Angiogram with Intervention, via Axillary/Brachial Access - Krishna Long MD Operation Date: 06/30/24 09:50 Proposed Procedures p Exploration Left Groin Control Bleeding - Krishna Long MD Height/Weight Height: 5 ft Weight: 36.5 kg Allergies Allergy/AdvReac Type Severity Reaction Status Date / Time codeine AdvReac Intermediate Vomiting Verified 06/27/24 07:35 Medications Home Medications Medication Instructions Recorded Confirmed Last Taken aspirin 81 mg tablet,delayed 81 mg PO QAM #1 tab 09/01/19 06/27/24 06/27/24 05:30 release acetaminophen 325 mg capsule 650 mg PO Q4H PRN Pain 09/14/19 06/27/24 Unknown Flutter Valve #1 ea 08/13/20 04/07/24 Unknown albuterol sulfate 2.5 mg/3 mL 2.5 mg (3 mL) inhalation QID PRN 03/03/22 06/27/24 Unknown (0.083 %) solution for nebulization shortness of breath or wheezing #180 mL albuterol sulfate 90 mcg/actuation 2 - 4 puff inhalation Q6H PRN 01/04/23 06/27/24 06/27/24 05:30 aerosol inhaler Shortness Of Breath Or Wheezing #18 grams sertraline 100 mg tablet 150 mg (1.5 x 100 mg) PO QAM #135 07/19/23 06/27/24 06/27/24 05:30 tabs bupropion HCl 75 mg tablet 75 mg PO HS 01/28/24 06/27/24 06/26/24 rosuvastatin 40 mg tablet (Crestor) 40 mg PO HS 01/28/24 06/27/24 06/27/24 05:30 fluticasone fur. 100 mcg-umeclid 1 inh inhalation HS #60 ea 02/11/24 06/27/24 06/26/24 20:00 62.5 mcg-vilant 25 mcg inhalat.powder (Trelegy Ellipta) apixaban 2.5 mg tablet (Eliquis) 2.5 mg PO BID #60 tabs 02/18/24 06/27/24 06/27/24 05:30 lisinopril 10 mg tablet 10 mg PO QAM #90 tabs 06/05/24 06/27/24 06/27/24 05:30 Active Medications Generic Name Dose Route Start Last Admin Trade Name Freq PRN Reason Stop Dose Admin Apixaban 2.5 mg 06/28/24 09:00 06/29/24 08:44 Apixaban 2.5 Mg Tab PO 07/28/24 08:59 2.5 mg BID MARYCARMEN Administration Aspirin 81 mg 06/28/24 09:00 06/30/24 08:33 Aspirin 81 Mg Ectab PO 07/28/24 08:59 81 mg QAM MARYCARMEN Administration Bupropion HCl 75 mg 06/27/24 21:00 06/29/24 20:48 Bupropion Hcl 75 Mg Tablet PO 07/27/24 20:59 75 mg HS MARYCARMEN Administration Clopidogrel Bisulfate 75 mg 06/28/24 09:00 06/30/24 08:34 Clopidogrel Bisulfate 75 Mg Tab PO 07/28/24 08:59 75 mg QAM MARYCARMEN Administration Fluticasone Furoate 1 puffs 06/28/24 09:00 06/30/24 08:34 Fluticasone Furoate 100mcg 14 Puffs/Inhaler INH 07/28/24 08:59 1 puffs DAILY MARYCARMEN Administration Lisinopril 10 mg 06/28/24 09:00 06/30/24 08:34 Lisinopril 10 Mg Tab PO 07/28/24 08:59 10 mg QAM MARYCARMEN Administration Oxycodone/Acetaminophen 1 - 2 tab 06/27/24 14:41 06/30/24 08:38 Oxycodone/Acetaminophen 5mg/325mg Tab PO 07/11/24 14:40 1 tab Q4H PRN Administration Pain (Scale 3,4,5,6) Rosuvastatin Calcium 40 mg 06/27/24 21:00 06/29/24 20:48 Rosuvastatin Calcium 20 Mg Tab PO 07/27/24 20:59 40 mg HS MARYCARMEN Administration Sertraline HCl 150 mg 06/28/24 09:00 06/30/24 08:34 Sertraline Hcl 50 Mg Tablet PO 07/28/24 08:59 150 mg QAM MARYCARMEN Administration Umeclidinium/Vilanterol 1 puffs 06/28/24 09:00 06/30/24 08:35 Umeclidinium/Vilanterol 62.5/25mcg 7 Puffs/Inhaler INH 07/28/24 08:59 1 puffs DAILY MARYCARMEN Administration NPO Date Last Intake of Fluids: 06/26/24 Time Last Intake of Fluids: 20:00 Date Last Intake of Solids: 06/26/24 Time Last Intake of Solids: 20:00 Past Medical History Medical History Multiple pulmonary nodules Chronic respiratory failure with hypoxia ICAO (internal carotid artery occlusion) Osteoporosis Arthritis History of stroke Diverticular disease Chronic obstructive pulmonary disease Past Family History Family History Other No family history of adverse response to anesthesia Denies family history of Ovarian cancer Prostate cancer Myocardial infarction Breast cancer Colorectal cancer Past Surgical History Surgical History History of tooth extraction History of tonsillectomy History of cataract surgery History of bronchoscopy Hx of foot surgery History of section Hx of hemorrhoidectomy History of colonoscopy Social History Smoking Status: Current every day smoker tobacco type: cigarettes Smoking cigarettes per day: Occasional cigarette use, quit daily smoking at age 64 Do You Dip or Chew Tobacco: No Hx Alcohol Use: No Hx Substance Use: No substance use type: does not use Physical Exam Vital Signs Last Vital Signs Temp 37.2 C 06/30/24 07:14 Pulse 79 06/30/24 07:14 Resp 16 06/30/24 07:14 BP 146/73 H 06/30/24 07:14 Pulse Ox 99 06/30/24 07:14 O2 Del Method Nasal Cannula 06/30/24 07:45 O2 Flow Rate 3 06/30/24 07:45 Testing Laboratory Results 06/30/24 07:08 06/30/24 07:08
[2024-06-30] MEDS ORDERED: PROPOFOL IV EMULSION 10 MG/ML 20 ML VIAL IV ONE (10:40)
[2024-06-30] MEDS ORDERED: fentaNYL citrate PF 100 MCG/2 ML VIAL ONE (10:41)
[2024-06-30] MEDS ORDERED: ROCURONIUM BROMIDE 10 MG/ML 5 ML VIAL IV ONE (10:42)
[2024-06-30] MEDS ORDERED: KETAMINE HCL 10MG/ML SYR ONE (10:44)
[2024-06-30] MEDS ORDERED: VASOPRESSIN 20 UNIT/ML VIAL ONE (10:55)
--- NOTE | 2024-06-30 11:11 | History & Physical Bridge Note ---
Date of Service June 30, 2024 History & Physical Bridge Note I have examined the patient, reviewed the History & Physical and in the interval since the performance of the History & Physical I have noted the following changes of clinical significance: no changes noted
[2024-06-30] MEDS: ceFAZolin 2000MG 2,000 MG/15 ML SYR IV ONE (12:20)
[2024-06-30] MEDS ORDERED: ceFAZolin 330 MG/ML 1 GM VIAL ONE (12:26)
[2024-06-30] MEDS: BUPIVACAINE/EPINEPHRINE 0.5% MPF 1:200,000 30 ML VIAL ONE (12:32)
[2024-06-30] MEDS: ceFAZolin 330 MG/ML 1 GM VIAL ONE (12:32)
--- NOTE | 2024-06-30 12:33 | Post Operative Brief Note ---
Immediate Post Op Note Date of Surgery June 30, 2024 Pre & Post Diagnosis Operation Date: 06/30/24 09:50 Pre-Op Diagnosis: Aortoiliac Occlusive Disorder Post-Op Diagnosis: Aortoiliac Occlusive Disorder I identified the patient and participated in the time-out.: Yes Procedure Operation Date: 06/30/24 09:50 Actual Procedures p Exploration Left Groin Control Bleeding(Left) - Krishna Long MD Surgeon Krishna Long MD Marble Coper MD Blanche WilsonMinarchick,PAC Estimated Blood Loss 0 Findings Consistent with Post-Op Diagnosis Drains Bergeron Catheter (Placed under anesthesia) Anesthesia Type General Complications none Disposition Accompanied Patient To Recovery: No Disposition: Recovery Room
[2024-06-30] MEDS: GELATIN SPONGE SZ 100 ONE (12:35)
[2024-06-30] MEDS: THROMBIN FOR SOLN 20000 UNIT KIT ONE (12:35)
[2024-06-30] MEDS ORDERED: SUGAMMADEX SODIUM 200 MG/2 ML VIAL IV ONE (12:35)
--- NOTE | 2024-06-30 12:42 | Operative Report ---
Post Operative Report Pre & Post Diagnosis Operation Date: 06/30/24 09:50 Pre-Op Diagnosis: Aortoiliac Occlusive Disorder Post-Op Diagnosis: Aortoiliac Occlusive Disorder I identified the patient and participated in the time-out.: Yes Procedure Operation Date: 06/30/24 09:50 Actual Procedures p Exploration Left Groin Control Bleeding(Left) - Krishna Long MD Surgeon Krishna Long MD Physics Technical Officer MD Blanche WilsonMinjackie,PAC Estimated Blood Loss 1 Findings Consistent with Post-Op Diagnosis Superficial bleeding from skin edge alond distal portion of incision. No other source of bleeding identified Specimens None Anesthesia Type General Complications None Disposition Accompanied Patient To Recovery: No Indications Patient s/p left femoral artery endarterectomy and patch angioplasty. Post- operatively with bleeding from her incision resulting in acute blood loss anemia and requiring blood transfusion. To control her bleeding, the above procedure was discussed including steps, risks, and benefits. Patient elected to proceed with the above listed groin exploration Description of Procedure The patient was taken to the operating room and placed in the supine position. General endotracheal anesthesia was induced. The left groin was prepped and draped in the standard fashion. Time-out was performed. The tayler were removed. The superficial layer of 3-0 vicryl suture was cut. The wound was examined. There was minimal bleeding along the superficial skin edge of the distal incision. This was controlled with electrocautery. No other bleeding was present. Hemostasis was confirmed. The wound was closed with tayler. Patient awoke without complication Dr. Long was present and scrubbed for the entire procedure. I attest to the content of the Intraoperative Record and any orders documented therein. Any exceptions are noted below. Supervising Physician Co-Signing Physician Notes Krishna Long MD
[2024-06-30] MEDS ORDERED: ONDANSETRON INJ 2 MG/ML 2 ML VIAL IV PRN (12:52)
[2024-06-30] MEDS ORDERED: fentaNYL citrate PF 100 MCG/2 ML VIAL IV PRN (12:52)
[2024-06-30] MEDS ORDERED: ePHEDrine sulfate 50 MG/ML AMP IV PRN (12:52)
[2024-06-30] MEDS ORDERED: ATROPINE SULFATE 0.1 MG/ML 10ML SYR IV PRN (12:52)
--- NOTE | 2024-06-30 13:56 | Anesthesiology Progress Note ---
Date of Service June 30, 2024 Anesthesia Post Procedure Vital Signs Vital Signs: Temp Pulse Pulse Pulse Resp BP BP 06/30/24 13:45 80 21 06/30/24 13:30 98.8 F 75 19 06/30/24 13:20 79 19 06/30/24 13:10 78 19 06/30/24 13:00 82 21 06/30/24 12:51 97.5 F L 87 17 06/30/24 11:50 97.7 F 82 18 122/54 L 06/30/24 11:35 97.5 F L 82 18 143/57 H 06/30/24 11:20 97.9 F 75 17 143/57 H 06/30/24 11:00 97.7 F 79 17 139/60 06/30/24 07:45 06/30/24 07:14 99.0 F 79 16 06/29/24 22:51 98.8 F 82 16 06/29/24 19:45 06/29/24 14:18 99.1 F 77 16 BP Pulse Ox O2 Del Method O2 Flow Rate 06/30/24 13:45 162/66 H 99 Nasal Cannula 2 06/30/24 13:30 167/75 H 97 Nasal Cannula 2 06/30/24 13:20 165/71 H 98 Nasal Cannula 2 06/30/24 13:10 177/65 H 98 Nasal Cannula 2 06/30/24 13:00 175/71 H 98 Nasal Cannula 2 06/30/24 12:51 167/59 H 100 Nasal Cannula 2 06/30/24 11:50 100 3 06/30/24 11:35 100 3 06/30/24 11:20 100 3 06/30/24 11:00 100 Nasal Cannula 3 06/30/24 07:45 Nasal Cannula 3 06/30/24 07:14 146/73 H 99 Room Air 06/29/24 22:51 148/78 H 94 Nasal Cannula 3 06/29/24 19:45 Nasal Cannula 3 06/29/24 14:18 173/68 H 99 Nasal Cannula 3.0 Pain Intensity Left Hand: Pain Intensity: 5 Transfer of Care Handoff Completed per policy Notes Mental Status: alert / awake / arousable and participated in evaluation Patient Amnestic to Procedure: Yes Nausea / Vomiting: adequately controlled Pain: adequately controlled Airway Patency, RR, SpO2: stable & adequate BP & HR: stable & adequate Hydration State: stable & adequate Anesthetic Complications: no major complications apparent and Pt Satisfied with anesthetic care
[2024-07-01 07:38] VITALS: BP 113/58; PULSE 79; RESP 16; TEMP 99.3; O2SAT 99
--- NOTE | 2024-07-01 10:21 | Surgery Progress Note ---
Date of Service July 01, 2024 Assessment & Plan (1) S/P vascular surgery: Plan: Patient doing well. No further bleeding. D\C today (2) Postoperative anemia: Plan: Skin edge bleeder treated yesterday. No further bleeding Admission and Anticipated Discharge Date Admission Date: June 27, 2024 Subjective 69 yo f s/p LLE revascularization and exploration of wound. No further bleeding noted Physical Exam Constitutional: WD/WN, vitals as above ENMT: Mallampati Class: III Respiratory: normal respiratory effort; no respiratory distress Cardiovascular: Rate/Rhythm: regular rate and regular rhythm Vessels: radial pulses present Extremities: normal capillary refill Skin: + incision (dressing dry and clean) Neurologic: CN's II-XI intact bilaterally and moves all extremities Psychiatric: A+Ox3, euthymic affect Results & Data Vital Signs (Past 12 Hours) Vital Signs Temp Pulse Pulse Resp BP Pulse Ox O2 Del Method 07/01/24 07:37 37.4 C 79 16 113/58 L 99 Nasal Cannula 07/01/24 03:00 37.2 C 74 18 159/71 H 98 Nasal Cannula 06/30/24 23:00 37.2 C 72 18 125/63 97 Room Air O2 Flow Rate 07/01/24 07:37 3 07/01/24 03:00 2 06/30/24 23:00
== END 2024-07-01 12:14 | disposition home or self-care (01) | DRG 252 ==
LOC: ASU 07:25 → 1E 14:41 → INTOOBSV 14:41 → 3W 06-28 12:18

== ENCOUNTER 2024-07-01 16:59 | Observation (INO) ==
--- NOTE | 2024-07-01 17:53 | Emergency Department Note ---
History of Present Illness General Chief complaint: Weakness Stated complaint: WEAKNESS, FALL S/P HOSPITAL DISCHARGE Time Seen by Provider: 07/01/24 17:29 History of Present Illness Provider complaint: Weakness fall Onset (ago): hour(s) 3 69-year-old female presents to the emergency department for fall vomiting and weakness. Patient was discharged from the hospital today at noon after having a left-sided femoropopliteal bypass performed by Dr. Long. Patient reports her symptoms began at 1600, 4 hours after discharge. Family reports that the patient is extremely weak. Patient does wear 3 L nasal cannula at all time. Home Medications Medication Instructions Recorded Confirmed Type aspirin 81 mg tablet,delayed 81 mg PO QAM #1 tab 09/01/19 07/01/24 Rx release acetaminophen 325 mg capsule 650 mg PO Q4H PRN Pain 09/14/19 07/01/24 History Flutter Valve #1 ea 08/13/20 07/01/24 Rx albuterol sulfate 2.5 mg/3 mL 2.5 mg (3 mL) inhalation QID PRN 03/03/22 07/01/24 Rx (0.083 %) solution for nebulization shortness of breath or wheezing #180 mL sertraline 100 mg tablet 150 mg (1.5 x 100 mg) PO QAM #135 07/19/23 07/01/24 Rx tabs bupropion HCl 75 mg tablet 75 mg PO HS 01/28/24 07/01/24 History rosuvastatin 40 mg tablet (Crestor) 40 mg PO HS 01/28/24 07/01/24 History fluticasone fur. 100 mcg-umeclid 1 inh inhalation HS #60 ea 02/11/24 07/01/24 Rx 62.5 mcg-vilant 25 mcg inhalat.powder (Trelegy Ellipta) apixaban 2.5 mg tablet (Eliquis) 2.5 mg PO BID #60 tabs 02/18/24 07/01/24 Rx lisinopril 10 mg tablet 10 mg PO QAM #90 tabs 06/05/24 07/01/24 Rx albuterol sulfate 90 mcg/actuation 2 - 4 puff inhalation Q6 PRN 07/01/24 07/01/24 History aerosol inhaler Shortness Of Breath Or Wheezing oxycodone 5 mg tablet 5 mg PO Q6H PRN pain #30 tabs 07/01/24 07/01/24 Rx Allergies Allergy/AdvReac Type Severity Reaction Status Date / Time codeine AdvReac Intermediate Vomiting Verified 06/27/24 07:35 Past Med/Surg History Problem List (Updated 07/01/24 @ 21:37 by Edgar Ayala MD) Weakness (Acute) Cachexia Postoperative anemia S/P femoral-femoral bypass surgery Dr Long, Ander leg Acute postoperative anemia due to expected blood loss S/P vascular surgery Hyperlipidemia Depression Hypertension Mass of right axilla COPD with emphysema Vision loss, right eye Vitamin D deficiency (Chronic) Medical History Multiple pulmonary nodules Per records Chronic respiratory failure with hypoxia 3-4L O2 NC ICAO (internal carotid artery occlusion) Vascular visit 11/04/23: "Her carotid ultrasound performed prior ot today's appointment demonstrates a known right carotid occlusion, and about 50% stenosis of her left ICA which is similar to previousl imaging." Recommend 1 year carotid ultrasound follow-up Osteoporosis Per records Arthritis History of stroke Age 64 > left hand "does not work" Taking ASA Diverticular disease Chronic obstructive pulmonary disease Surgical History History of tooth extraction History of tonsillectomy History of cataract surgery right History of bronchoscopy Hx of foot surgery right History of section x1 Hx of hemorrhoidectomy History of colonoscopy Family History Other No family history of adverse response to anesthesia Denies family history of Ovarian cancer Prostate cancer Myocardial infarction Breast cancer Colorectal cancer Social History Smoking Status: Never smoker Tobacco Type: Cigarettes Age Started Using Tobacco: 18; Age Quit Using Tobacco: 65; packs per day: 1; Cigarettes Per Day: Occasional cigarette use, quit daily smoking at age 64; Second Hand Exposure: No; Do You Dip or Chew Tobacco: No; Hx Alcohol Use: No Hx Substance Use: No Preferred Language: Greek Communication Ability: Effective Visual Impairment: Limited Hearing Ability: Normal Senior Trainer Required: No Beliefs That Will Affect Care: None marital status: Current Living Situation: Family Current Living Situation Comment: " is there sometimes, kind of seperated" current occupational status: disabled How many Children do You have: 2 Feels Safe at Home: Yes Childhood Exposure to Second-Hand Smoke: Yes Diet: regular caffeine: Yes (coffee) during the past year weight has: remained stable Dental Care, Regularly: No Physical Activity Frequency: Daily Seatbelt Use: never Sunscreen Use: No Assistive Devices: Oxygen - Continuous and Walker Physical Exam Vital Signs Vital Signs - 24 hr 07/01/24 17:00 07/01/24 17:00 07/01/24 17:08 Temperature 36.5 C Temperature Source Temporal Artery Scan Pulse Rate 83 Pulse Rate [Right Brachial] 75 Pulse Rhythm [Right Brachial] Regular Pulse Strength [Right Brachial] Normal Respiratory Rate 18 18 Respiratory Effort / Characteristics Non-Labored Non-Labored Respiratory Depth Normal Normal Respiratory Pattern Regular Regular Blood Pressure 119/67 Blood Pressure [Right Arm] 136/62 Blood Pressure Mean 84 Blood Pressure Mean [Right Arm] 86 Blood Pressure Position [Right Arm] Lying Pulse Oximetry 100 100 91 Oxygen Delivery Method Nasal Cannula Nasal Cannula Nasal Cannula Oxygen Flow Rate 3 3 3 Sepsis Recent Fever Within 48 Hours No Sepsis New/Unexplained Change in Mental Status N/A Sepsis Action Taken by Nursing No Action Required 07/01/24 17:40 07/01/24 17:40 07/01/24 17:53 Temperature Temperature Source Pulse Rate 73 Pulse Rate [Right Brachial] 74 Pulse Rhythm [Right Brachial] Regular Pulse Strength [Right Brachial] Normal Respiratory Rate 22 Respiratory Effort / Characteristics Non-Labored Respiratory Depth Normal Respiratory Pattern Regular Blood Pressure Blood Pressure [Right Arm] 149/53 H Blood Pressure Mean Blood Pressure Mean [Right Arm] 85 Blood Pressure Position [Right Arm] Lying Pulse Oximetry 100 100 Oxygen Delivery Method Room Air Nasal Cannula Oxygen Flow Rate 3 Sepsis Recent Fever Within 48 Hours Sepsis New/Unexplained Change in Mental Status Sepsis Action Taken by Nursing 07/01/24 17:55 07/01/24 18:10 07/01/24 18:45 Temperature Temperature Source Pulse Rate Pulse Rate [Right Brachial] 75 80 79 Pulse Rhythm [Right Brachial] Regular Regular Regular Pulse Strength [Right Brachial] Normal Normal Normal Respiratory Rate 20 16 18 Respiratory Effort / Characteristics Non-Labored Non-Labored Non-Labored Respiratory Depth Normal Normal Normal Respiratory Pattern Regular Regular Regular Blood Pressure Blood Pressure [Right Arm] 143/66 H 134/61 154/67 H Blood Pressure Mean Blood Pressure Mean [Right Arm] 91 85 96 Blood Pressure Position [Right Arm] Lying Lying Lying Pulse Oximetry 100 100 91 Oxygen Delivery Method Nasal Cannula Nasal Cannula Nasal Cannula Oxygen Flow Rate 3 3 3 Sepsis Recent Fever Within 48 Hours Sepsis New/Unexplained Change in Mental Status Sepsis Action Taken by Nursing 07/01/24 19:00 07/01/24 19:15 07/01/24 19:30 Temperature Temperature Source Pulse Rate Pulse Rate [Right Brachial] 73 78 79 Pulse Rhythm [Right Brachial] Pulse Strength [Right Brachial] Respiratory Rate 18 18 18 Respiratory Effort / Characteristics Respiratory Depth Respiratory Pattern Blood Pressure Blood Pressure [Right Arm] 152/66 H 155/74 H 122/84 Blood Pressure Mean Blood Pressure Mean [Right Arm] 94 101 96 Blood Pressure Position [Right Arm] Pulse Oximetry 100 98 97 Oxygen Delivery Method Nasal Cannula Oxygen Flow Rate 3 Sepsis Recent Fever Within 48 Hours Sepsis New/Unexplained Change in Mental Status Sepsis Action Taken by Nursing 07/01/24 19:45 07/01/24 20:00 07/01/24 20:15 Temperature Temperature Source Pulse Rate Pulse Rate [Right Brachial] 71 71 79 Pulse Rhythm [Right Brachial] Pulse Strength [Right Brachial] Respiratory Rate 18 18 18 Respiratory Effort / Characteristics Respiratory Depth Respiratory Pattern Blood Pressure Blood Pressure [Right Arm] 151/59 H 148/62 H 119/72 Blood Pressure Mean Blood Pressure Mean [Right Arm] 89 90 87 Blood Pressure Position [Right Arm] Pulse Oximetry 98 100 98 Oxygen Delivery Method Nasal Cannula Oxygen Flow Rate 3 Sepsis Recent Fever Within 48 Hours Sepsis New/Unexplained Change in Mental Status Sepsis Action Taken by Nursing 07/01/24 20:30 07/01/24 20:45 07/01/24 21:00 Temperature Temperature Source Pulse Rate Pulse Rate [Right Brachial] 85 81 80 Pulse Rhythm [Right Brachial] Pulse Strength [Right Brachial] Respiratory Rate 18 18 18 Respiratory Effort / Characteristics Respiratory Depth Respiratory Pattern Blood Pressure Blood Pressure [Right Arm] 149/77 H 136/63 155/82 H Blood Pressure Mean Blood Pressure Mean [Right Arm] 101 87 106 Blood Pressure Position [Right Arm] Pulse Oximetry 92 97 98 Oxygen Delivery Method Oxygen Flow Rate Sepsis Recent Fever Within 48 Hours Sepsis New/Unexplained Change in Mental Status Sepsis Action Taken by Nursing Physical Exam GENERAL: Cachectic. HENT: Exam performed. -Head: Normocephalic and atraumatic. EYES: Conjunctivae and EOM are normal. Pupils are equal, round, and reactive to light. Right eye exhibits no discharge. Left eye exhibits no discharge. No scleral icterus. NECK: Normal range of motion. Neck supple. No JVD present. No spinous process tenderness present. CV: Normal rate, regular rhythm, normal heart sounds and intact distal pulses. There is no peripheral edema. Palpable radial pulses bue. PULM/CHEST: Effort normal and breath sounds normal. No respiratory distress. No stridor. She has no wheezes. She has no rales. ABD: The abdomen is soft. There is no tenderness. There is no rebound, no guarding MUSC/SKEL: Pelvis stable. NEURO: Motor and sensation grossly intact. SKIN: Surgical incision in the patient's left groin is clean and dry. VASC: Palpable DP and PT pulses of the right lower extremity. Signal present in the left DP and PT pulse. Course Course 1728: The patient was evaluated in room B4. A complete history and physical exam was performed Cardiac monitoring: An order was placed for continuous cardiac monitoring. The monitor shows a rate of 70 with sinus rhythm interpreted by me 2035: Vital signs stable. Labs are unremarkable. Imaging shows no PE. No traumatic findings on imaging. I read the patient's CTA abdomen pelvis report to Dr. Long, the patient's surgeon, verbatim. He states from his standpoint there is no problem from a vascular standpoint the patient can be admitted to medicine if needed. 2047: Spoke with Cary from general surgery. She she and I both agree that the mass in the patient's abdomen pelvis is most likely a chronic finding. Will plan to admit the patient to medicine. 2105: Vital signs stable supplemental oxygen via nasal cannula. Discussed the plan to admit the patient to the hospital service with the patient and family and they are in agreement stating they cannot take care of the patient at home as she is too weak. 2110: Received a message from [facility] general surgery PA with Dr. Burns. Apparently the mass is known and someone had discussed it with Dr. Burns yesterday. Will proceed with plan to admit to medicine. Administered Medications Discontinued Medications Ioversol (Optiray 320 125ml) 119 ml IV ONCE ONE Stop: 07/01/24 18:27 Last Admin: 07/01/24 18:27 Dose: 119 ml Documented By: EILEEN Medical Decision Making Laboratory Data Attestation: I reviewed the patient's lab results. 07/01/24 17:44 07/01/24 17:44 Lab Results 07/01/24 07/01/24 07/01/24 Range/Units 17:44 17:56 17:59 WBC 10.22 (4.8-10.8) K/ul RBC 3.05 L (4.20-5.40) M/uL Hgb 9.0 L (12.0-16.0) g/dl POC Hgb 8.8 L (12.0-16.0) g/dl Hct 27.6 L (37.0-47.0) % POC Hct 26 L (37-47) % MCV 90.5 (80.0-100.0) fL MCH 29.5 (25.0-34.0) pg MCHC 32.6 (32.0-36.0) g/dL RDW Std Deviation 51.8 H (36.4-46.3) fL RDW Coeff of Rosanna 15.5 H (11.5-14.5) % Plt Count 145 D (130-400) K/uL MPV 11.5 (9.4-12.4) fL Immature Gran % (Auto) 0.2 % Neut % (Auto) 92.1 % Lymph % (Auto) 2.9 % [place] % (Auto) 4.7 % Eos % (Auto) 0.0 % Baso % (Auto) 0.1 % Neut # (Auto) 9.41 H (1.40-6.50) K/uL Lymph # (Auto) 0.30 L (1.20-3.40) K/uL [place] # (Auto) 0.48 (0.11-0.59) K/uL Eos # (Auto) 0.00 (0.00-0.50) K/uL Baso # (Auto) 0.01 (0.00-0.20) K/uL Immature Gran # (Auto) 0.02 (0.01-0.20) K/uL PT 10.3 (9.0-12.0) Seconds INR 0.9 (0.9-1.1) APTT 28 (21-31) Seconds PTT Ratio 1.0 VBG pH (7.36-7.41) VBG pCO2 (38-50) mmHg VBG pO2 mmHg VBG HCO3 mmol/L VBG O2 Saturation % VBG Base Excess mEq/L POC Sodium 143 (135-144) mmol/L Sodium 143 (136-145) mmol/L POC Potassium 3.7 (3.3-5.0) mmol/L Potassium 3.8 (3.5-5.1) mmol/L POC Chloride 98 L (101-112) mmol/L Chloride 104 (98-107) mmol/L Carbon Dioxide 37 H (21-32) mmol/L POC Total CO2 30 (24-31) mmol/L Anion Gap 2 L (3-11) POC Anion Gap 19.0 (16-25) mmol/L POC BUN 20 H (7-18) mg/dl BUN 20 (6-23) mg/dl Creatinine 0.91 D (0.6-1.2) mg/dl POC Creatinine 1.0 (0.6-1.3) mg/dl Est Cr Clr Drug Dosing 34.0 ml/min eGFR 67.87 BUN/Creatinine Ratio 22.0 H (10-20) Glucose 142 H (70-99(Fasting)) mg/dl POC Glucose (other) 142 H (70-99) mg/dl Lactate 1.7 (0.4-2.0) mmol/L Calcium 8.5 L (8.6-10.3) mg/dl POC Ioniz Calcium Yanci 1.14 (1.12-1.32) mmol/l Magnesium 2.0 (1.7-2.4) mg/dl Total Bilirubin 0.4 (0.2-1.0) mg/dl Direct Bilirubin 0.1 (0-0.2) mg/dl AST 23 (13-39) U/L ALT 10 (7-52) U/L Alkaline Phosphatase 47 (34-104) U/L Troponin I High Sens 15.1 H (0-14) pg/ml Total Protein 6.2 (6.0-8.3) gm/dl Albumin 3.6 (3.4-5.0) gm/dl Procalcitonin 0.15 (0-0.5) ng/ml Urine Color Urine Appearance (Clear) Urine pH (4.5-7.5) Ur Specific [place] (1.000-1.030) Urine Protein (Negative) Urine Glucose (UA) (Negative) Urine Ketones (Negative) Urine Blood (Negative) Urine Nitrite (Negative) Urine Bilirubin (Negative) Urine Urobilinogen (Negative) Ur Leukocyte Esterase (Negative) Urine WBC (Auto) (0-5) /hpf Urine RBC (Auto) (0-2) /hpf U Hyaline Cast (Auto) (0-2) /lpf U Epithel Cells (Auto) (0-2) /hpf Urine Bacteria (Auto) (None Seen) Hyaline Casts (None Presnt) /lpf Blood Type O Positive Antibody Screen NEGATIVE 07/01/24 07/01/24 Range/Units 18:04 19:01 WBC (4.8-10.8) K/ul RBC (4.20-5.40) M/uL Hgb (12.0-16.0) g/dl POC Hgb (12.0-16.0) g/dl Hct (37.0-47.0) % POC Hct (37-47) % MCV (80.0-100.0) fL MCH (25.0-34.0) pg MCHC (32.0-36.0) g/dL RDW Std Deviation (36.4-46.3) fL RDW Coeff of Rosanna (11.5-14.5) % Plt Count (130-400) K/uL MPV (9.4-12.4) fL Immature Gran % (Auto) % Neut % (Auto) % Lymph % (Auto) % [place] % (Auto) % Eos % (Auto) % Baso % (Auto) % Neut # (Auto) (1.40-6.50) K/uL Lymph # (Auto) (1.20-3.40) K/uL [place] # (Auto) (0.11-0.59) K/uL Eos # (Auto) (0.00-0.50) K/uL Baso # (Auto) (0.00-0.20) K/uL Immature Gran # (Auto) (0.01-0.20) K/uL PT (9.0-12.0) Seconds INR (0.9-1.1) APTT (21-31) Seconds PTT Ratio VBG pH 7.39 (7.36-7.41) VBG pCO2 54 H (38-50) mmHg VBG pO2 31 mmHg VBG HCO3 33 mmol/L VBG O2 Saturation 60.5 % VBG Base Excess 6.2 mEq/L POC Sodium (135-144) mmol/L Sodium (136-145) mmol/L POC Potassium (3.3-5.0) mmol/L Potassium (3.5-5.1) mmol/L POC Chloride (101-112) mmol/L Chloride (98-107) mmol/L Carbon Dioxide (21-32) mmol/L POC Total CO2 (24-31) mmol/L Anion Gap (3-11) POC Anion Gap (16-25) mmol/L POC BUN (7-18) mg/dl BUN (6-23) mg/dl Creatinine (0.6-1.2) mg/dl POC Creatinine (0.6-1.3) mg/dl Est Cr Clr Drug Dosing ml/min eGFR BUN/Creatinine Ratio (10-20) Glucose (70-99(Fasting)) mg/dl POC Glucose (other) (70-99) mg/dl Lactate (0.4-2.0) mmol/L Calcium (8.6-10.3) mg/dl POC Ioniz Calcium Yanci (1.12-1.32) mmol/l Magnesium (1.7-2.4) mg/dl Total Bilirubin (0.2-1.0) mg/dl Direct Bilirubin (0-0.2) mg/dl AST (13-39) U/L ALT (7-52) U/L Alkaline Phosphatase (34-104) U/L Troponin I High Sens (0-14) pg/ml Total Protein (6.0-8.3) gm/dl Albumin (3.4-5.0) gm/dl Procalcitonin (0-0.5) ng/ml Urine Color Yellow Urine Appearance Clear (Clear) Urine pH 5.5 (4.5-7.5) Ur Specific [place] > 1.045 H (1.000-1.030) Urine Protein 1+ H (Negative) Urine Glucose (UA) Negative (Negative) Urine Ketones Trace H (Negative) Urine Blood 2+ H (Negative) Urine Nitrite Negative (Negative) Urine Bilirubin Negative (Negative) Urine Urobilinogen Negative (Negative) Ur Leukocyte Esterase Trace H (Negative) Urine WBC (Auto) 0-5 (0-5) /hpf Urine RBC (Auto) 11-20 H (0-2) /hpf U Hyaline Cast (Auto) 6-10 H (0-2) /lpf U Epithel Cells (Auto) 0-2 (0-2) /hpf Urine Bacteria (Auto) 1+ H (None Seen) Hyaline Casts Present A (None Presnt) /lpf Blood Type Antibody Screen Imaging Data Attestation: I personally reviewed and interpreted this imaging study as follows: My Impression: Chest x-ray: Emphysematous changes. No significant change from the chest x-ray done in January 2024 Radiologist's Impression: Aorta w/Runoff CTA 07/01/24 17:40 CT ANGIOGRAM of the ABDOMEN/PELVIS AORTOGRAM with BILATERAL LOWER EXTREMITY RUNOFF: Indication: Lower extremity pain IV CONTRAST: 100 mL of OMNIPAQUE 300 COMPARISON: None FINDINGS: Limited images through the lower thorax: Cardiomegaly. Extensive emphysema and bronchiolitis. Bibasilar atelectasis and scarring. The visualized upper abdominal visceral structures: Unremarkable Kidneys: There appears to be symmetric nephrograms of the kidneys. Gallbladder and biliary tree, pancreas and adrenal glands: Unremarkable. Scattered lymph nodes. Bowel loops: No evidence of obstruction. Normal appendix. The bowel loops are displaced to the left. Skeletal: No acute process identified. PERITONEUM: There is a very large masslike fat containing structure occupying most of the right sided peritoneum resulting in significant mass effect as manifested by left word shifting/displacement of the visceral and hollow viscus. There are some heterogeneity to this with nonfat densities noted scattered throughout, for example as seen on series 12, image 176. ANGIOGRAM FINDINGS: CTA RUNOFF of BILATERAL Lower Extremities: The MIP images, sagittal and coronal reformats were created. The 3D MIP image reformations were then rotated around the multiple planes. Additional MIP slab reformats were also performed. Source axial images are also available for interpretation. ABOMEN CTA: Extensive atherosclerosis with stenoses of the celiac trunk, the SMA, the renal arteries and the LIVIA. There is a stent in the distal abdominal aorta extending into the left common iliac and external leg arteries which is patent. Severe atherosclerosis with near occlusive narrowing of the left internal iliac artery, the right external and internal iliac arteries. There is a femoral to femoral bypass graft with stenosis at its origin off of the left femoral artery (series 12, image 363). BILATERAL CTA RUNOFF: LEFT: Extensive atherosclerosis resulting in multifocal moderate narrowing of the right superficial femoral artery. Atherosclerosis involving the infrapopliteal arteries. Two-vessel runoff is seen via the posterior tibial artery and the peroneal artery. The anterior tibial artery may be occluded at the level of the ankle mortise. RIGHT: Moderate narrowing in the distal superficial femoral artery secondary to atherosclerosis. Three-vessel runoff. Inflammatory changes in the left groin with small pockets of fluid and gas likely representing postsurgical changes following recent surgery. There is asymmetric soft tissue swelling of the left lower extremity with subcutaneous edema. The included venous system on the delayed imaging demonstrates patency of the deep venous systems. IMPRESSION: Postsurgical changes of femoral to femoral artery bypass graft. There is a suggested stenosis at the origin off of the bypass arising from the left femoral artery as above. Left greater than right atherosclerosis of the lower extremity superficial femoral arteries and infrapopliteal arteries resulting in moderate stenoses as above. Inflammatory changes in the left groin with small pockets of fluid and gas likely representing postsurgical changes following recent surgery. There is asymmetric soft tissue swelling of the left lower extremity with subcutaneous edema. The included venous system on the delayed imaging demonstrates patency of the deep venous systems. Large macroscopic fat-containing structure/process occupying most of the right peritoneal cavity of the abdomen resulting in significant mass effect as manifested by leftward displacement of the bowel structures and viscera. Some heterogeneity is suggested to this structure. Please correlate with medical workup up to this point. Considerations may include lipomatous hypertrophy/heterogeneous lipoma. Liposarcoma may be a consideration as well. Electronically signed by Yeison Workman 07-01-2024 8:28 PM Chest X-Ray 07/01/24 17:40 EXAM: Portable AP chest radiograph TECHNIQUE: AP portable radiograph of the chest was obtained. INDICATION: Shortness of breath Comparison: None FINDINGS: LINES and TUBES: None CARDIOVASCULAR: Cardiac silhouette is enlarged in size. LUNGS/PLEURA: No focal consolidation identified. Peribronchial cuffing suggesting bronchiolitis. Extensive emphysema. No significant pleural fluid. No discernible pneumothorax. OSSEOUS/OTHER: No displaced acute osseous process identified. IMPRESSION: Extensive emphysema. Peribronchial cuffing suggesting bronchiolitis. No focal consolidation detected. Cardiomegaly. Electronically signed by Yeison Workman 07-01-2024 8:[address] 07/01/24 17:42 Clinical history: Weakness and falls Technique: Axial computed tomography images were obtained of the cervical spine without intravenous contrast. Sagittal and coronal reconstructions were obtained Findings: No fracture is identified. No listhesis is seen. No focal osseous lesion is evident. There is atlantoaxial osteoarthritis. At C2-3, no disc herniation is identified. There is no spinal stenosis. The neural foramen are patent At C3-4, no disc herniation is identified. There is no spinal stenosis. The neural foramen are patent At C4-5, no disc herniation is identified. There is no spinal stenosis. The neural foramen are patent At C5-6, there is mild spinal stenosis due to a disc bulge. There is left greater than right neural foramen narrowing that may affect the left C6 nerve root At C6-7, there is mild spinal stenosis due to a disc bulge. There is left greater than right neural foramen narrowing that may affect the left C7 nerve root At C7-T1, no disc herniation is identified. There is no spinal stenosis. The neural foramen are patent There is emphysema. There is apparent partially calcified pleural parenchymal scarring in the right lung apex. The visualized soft tissues of the neck appear unremarkable. No foreign body is seen Impression: 1. No definite cervical spine fracture 2. Mild spinal stenosis at C5-6 and C6-7 3. Left C5-6 and C6-7 neural foramen narrowing that may affect the exiting nerve roots ACT 112: Positive. There are findings on this exam that require communication between the performing entity and the patient following Patient Test Result Information Act ([place] ACT 112) guidelines. Electronically signed by Akira Purdy 07-01-2024 6:54 PM Chest CTA 07/01/24 17:42 EXAM: CT angio chest PE protocol CLINICAL HISTORY: fall ro pe TECHNIQUE: CT angiography of the chest was performed with and without intravenous contrast with the following protocol: axial images with, reconstructed coronal and sagittal images. Non-contrast images were initially acquired, followed by contrast-enhanced images in arterial and venous phases. Intravenous contrast was administered using automated injection techniques. Bolus tracking was employed to optimize arterial phase imaging. One of these 3D techniques was utilized: Maximum Intensity Pixel (MIP), 3D Reconstructed Images, Volume Rendered Images, Surface Shaded Rendering. One of the following dose reduction techniques was utilized for this exam: Automated exposure control, adjustment of the mA and/or kV according to patient size, and use of iterative reconstruction. COMPARISON: 02/01/2024. FINDINGS: Aorta and Great Vessels: Ascending Aorta: Normal in caliber, no aneurysm, dissection, or significant atherosclerosis. Aortic Arch: Normal in caliber, no aneurysm, or dissection. Atheromatous calcifications are noted. Descending Aorta: Normal in caliber, no aneurysm, or dissection. Atheromatous calcifications are noted. Pulmonary Arteries: The main pulmonary artery and its branches are patent. No evidence of pulmonary embolism or significant stenosis. Heart: Cardiac Chambers: Normal in size. No evidence of cardiomegaly. Pericardium: No pericardial effusion or thickening. Lungs and Pleura: Marked pulmonary emphysematous changes. Right apical pulmonary thick reticular infiltration with faint calcific foci likely granulomatous. Calcified subpleural pulmonary nodule at the left upper lung lobe measuring 3 mm. Bilateral basal pulmonary atelectatic bands. Left basal pleural thickening/reaction. Mediastinum: No mediastinal mass or abnormal lymphadenopathy. Normal appearance of the trachea and central bronchi. Hilar Structures: Hilar structures are normal without enlargement. Chest Wall: No mass lesions or abnormalities in the chest wall. Vascular Structures: Superior Vena Cava: Patent without evidence of stenosis or thrombus. Inferior Vena Cava: Patent without evidence of stenosis or thrombus. Bones and Soft Tissues: No fractures, lytic, or blastic lesions of the visualized bony structures. Soft tissues are unremarkable. IMPRESSION: 1. No evidence of pulmonary embolism. 2. Marked pulmonary emphysematous changes. stable. 3. Right apical pulmonary thick reticular infiltration with faint calcific foci likely granulomatous. 4. Calcified subpleural pulmonary nodule at the left upper lung lobe measuring 3 mm. (granulomatous). 5. Bilateral basal pulmonary atelectatic bands. 6. Left basal pleural thickening/reaction. Electronically signed by Edward Dan 07-01-2024 8:[address] 07/01/24 17:42 Clinical History: Weakness and falls Technique: Axial computed tomography images were obtained of the brain without intravenous contrast. Findings: There is diffuse cerebral atrophy, within expected limits for the patient's age. Areas of decreased attenuation are seen within the periventricular white matter, likely representing chronic small vessel ischemic disease. There is an apparent old right frontal lobe infarct. There is also a suspected small old infarct of the central emily. There is no definite sign of acute infarction. No intracranial hemorrhage is evident. No definite mass lesion is seen on this noncontrast examination. There is no midline shift or other form of herniation. No hydrocephalus is seen. No fracture is identified. The orbits and the visualized paranasal sinuses appear unremarkable. The mastoid air cells appear clear. Impression: 1. Cerebral atrophy , old infarcts, and chronic small vessel ischemic disease 2. No definite acute pathology Electronically signed by Akira Purdy 07-01-2024 6:49 PM ECG Data Attestation: I personally reviewed and interpreted this ECG as follows: Rate (beats per minute): 73 Rhythm: + normal sinus ECG Intervals/blocks: + Normal SD and + Normal QT-c ECG ST segments: + Normal ST segments Additional Comments: QRS 70 MDM Narrative 172: The patient was evaluated in room B4. A complete history and physical exam was performed Cardiac monitoring: An order was placed for continuous cardiac monitoring. The monitor shows a rate of 70 with sinus rhythm interpreted by me 2035: Vital signs stable. Labs are unremarkable. Imaging shows no PE. No traumatic findings on imaging. I read the patient's CTA abdomen pelvis report to Dr. Long, the patient's surgeon, verbatim. He states from his standpoint there is no problem from a vascular standpoint the patient can be admitted to medicine if needed. 2047: Spoke with Cary from general surgery. She she and I both agree that the mass in the patient's abdomen pelvis is most likely a chronic finding. Will plan to admit the patient to medicine. 2105: Vital signs stable supplemental oxygen via nasal cannula. Discussed the plan to admit the patient to the hospital service with the patient and family and they are in agreement stating they cannot take care of the patient at home as she is too weak. 2110: Received a message from [facility] general surgery PA with Dr. Burns. Apparently the mass is known and someone had discussed it with Dr. Burns yesterday. Will proceed with plan to admit to medicine. Impression & Plan Weakness Discharge Plan Visit Data Chief Complaint: Weakness Stated Complaint: WEAKNESS, FALL S/P HOSPITAL DISCHARGE ED Provider: Edgar Ayala Discharge Problem: Weakness Patient Disposition: Being Evaluated by Hospitalist Forms Stand Alone Forms: My [facility] [place] [employer] [place] [employer] Prescriptions Prescriptions: No Action sertraline 100 mg tablet 150 mg PO QAM Qty: 135 3RF Trelegy Ellipta 100-62.5-25 mcg blister with device 1 inh inhalation HS Qty: 60 4RF lisinopril 10 mg tablet 10 mg PO QAM Qty: 90 3RF (DME) Flutter Valve Device See Rx Instructions .ROUTE .MEDSUPPLY Qty: 1 0RF Rx Instructions: Use it every 6 hours when awake. acetaminophen 325 mg capsule 650 mg PO Q4H PRN (Reason: Pain) Hold Instructions: Hold while taking oxycodone/acetaminophen for pain. albuterol sulfate 2.5 mg /3 mL (0.083 %) solution for nebulization 2.5 mg inhalation QID PRN (Reason: shortness of breath or wheezing) Qty: 180 4RF aspirin 81 mg Tablet,Delayed Release (Dr/Ec) 81 mg PO QAM Qty: 1 0RF oxycodone 5 mg tablet 5 mg PO Q6H PRN (Reason: pain) Qty: 30 0RF albuterol sulfate 90 mcg/actuation HFA aerosol inhaler 2 - 4 puff inhalation Q6 PRN (Reason: Shortness Of Breath Or Wheezing) bupropion HCl 75 mg tablet 75 mg PO HS Rx Instructions: take with lower dose sertraline rosuvastatin [Crestor] 40 mg tablet 40 mg PO HS Eliquis 2.5 mg Tablet 2.5 mg PO BID Qty: 60 11RF Referrals Referrals: Coretta Mai CRNP [Primary Care Provider] -
[2024-07-01 18:04] LABS: Hematocrit (blood only) 27.6 % (37.0-47.0); Mean Corpuscular Hemoglobin 29.5 pg (25.0-34.0); Mean Corpuscular Hgb Conc 32.6 g/dL (32.0-36.0); Mean Corpuscular Volume 90.5 fL (80.0-100.0); Mean Platelet Volume 11.5 fL (9.4-12.4); Platelet Count 145 K/uL (130-400); RDW Coefficient of Variation 15.5 % (11.5-14.5); RDW Standard Deviation 51.8 fL (36.4-46.3); Red Blood Count 3.05 M/uL (4.20-5.40); White Blood Count 10.22 K/ul (4.8-10.8)
[2024-07-01 18:11] LABS: Base Excess VBG 6.2 mEq/L; HCO3 VBG 33 mmol/L; Oxygen Saturation VBG 60.5 %; PCO2 VBG 54 mmHg (38-50); PO2 VBG 31 mmHg; pH VBG 7.39 (7.36-7.41)
[2024-07-01 18:16] LABS: iSTAT Hemoglobin 8.8 g/dl (12.0-16.0); iSTAT Ionized Calcium 1.14 mmol/l (1.12-1.32); iSTAT Potassium 3.7 mmol/L (3.3-5.0)
[2024-07-01 18:24] LABS: Basophils # (auto) 0.01 K/uL (0.00-0.20); Basophils % (auto) 0.1 %; Immature Granulocytes # (auto) 0.02 K/uL (0.01-0.20); Immature Granulocytes % (auto) 0.2 %; Lymphocytes % (auto) 2.9 %; Monocytes # (auto) 0.48 K/uL (0.11-0.59); Monocytes % (auto) 4.7 %; Neutrophils # (auto) 9.41 K/uL (1.40-6.50); Neutrophils % (auto) 92.1 %
[2024-07-01] MEDS: OPTIRAY 320 125ml IV ONE (18:27)
[2024-07-01 18:29] LABS: Albumin Level 3.6 gm/dl (3.4-5.0); Bilirubin Direct 0.1 mg/dl (0-0.2); Bilirubin,Total 0.4 mg/dl (0.2-1.0); Calcium 8.5 mg/dl (8.6-10.3); Potassium 3.8 mmol/L (3.5-5.1); Total Protein 6.2 gm/dl (6.0-8.3)
[2024-07-01 18:36] LABS: Troponin I High Sensitivity 15.1 pg/ml (0-14)
[2024-07-01 18:39] LABS: INR 0.9 (0.9-1.1); Partial Thromboplastin Time 28 Seconds (21-31); Prothrombin Time 10.3 Seconds (9.0-12.0)
--- NOTE | 2024-07-01 18:49 | CT Scan Report ---
Clinical History: Weakness and falls Technique: Axial computed tomography images were obtained of the brain without intravenous contrast. Findings: There is diffuse cerebral atrophy, within expected limits for the patient's age. Areas of decreased attenuation are seen within the periventricular white matter, likely representing chronic small vessel ischemic disease. There is an apparent old right frontal lobe infarct. There is also a suspected small old infarct of the central emily. There is no definite sign of acute infarction. No intracranial hemorrhage is evident. No definite mass lesion is seen on this noncontrast examination. There is no midline shift or other form of herniation. No hydrocephalus is seen. No fracture is identified. The orbits and the visualized paranasal sinuses appear unremarkable. The mastoid air cells appear clear. Impression: 1. Cerebral atrophy , old infarcts, and chronic small vessel ischemic disease 2. No definite acute pathology Electronically signed by Akira Purdy 07-01-2024 6:49 PM
--- NOTE | 2024-07-01 18:55 | CT Scan Report ---
Clinical history: Weakness and falls Technique: Axial computed tomography images were obtained of the cervical spine without intravenous contrast. Sagittal and coronal reconstructions were obtained Findings: No fracture is identified. No listhesis is seen. No focal osseous lesion is evident. There is atlantoaxial osteoarthritis. At C2-3, no disc herniation is identified. There is no spinal stenosis. The neural foramen are patent At C3-4, no disc herniation is identified. There is no spinal stenosis. The neural foramen are patent At C4-5, no disc herniation is identified. There is no spinal stenosis. The neural foramen are patent At C5-6, there is mild spinal stenosis due to a disc bulge. There is left greater than right neural foramen narrowing that may affect the left C6 nerve root At C6-7, there is mild spinal stenosis due to a disc bulge. There is left greater than right neural foramen narrowing that may affect the left C7 nerve root At C7-T1, no disc herniation is identified. There is no spinal stenosis. The neural foramen are patent There is emphysema. There is apparent partially calcified pleural parenchymal scarring in the right lung apex. The visualized soft tissues of the neck appear unremarkable. No foreign body is seen Impression: 1. No definite cervical spine fracture 2. Mild spinal stenosis at C5-6 and C6-7 3. Left C5-6 and C6-7 neural foramen narrowing that may affect the exiting nerve roots ACT 112: Positive. There are findings on this exam that require communication between the performing entity and the patient following Patient Test Result Information Act ([place] ACT 112) guidelines. Electronically signed by Akira Purdy 07-01-2024 6:54 PM
[2024-07-01 19:54] LABS: Appearance Urine Clear (Clear); Bacteria Urine Automated 1+ (None Seen); Bilirubin Urine Negative (Negative); Blood Urine 2+ (Negative); Color Urine Yellow; Epithelial Cell Urine Auto 0-2 /hpf (0-2); Glucose Urine UA Negative (Negative); Hyaline Casts Urine Present /lpf (None Presnt); Ketones Urine Trace (Negative); Leukocyte Esterase Urine Trace (Negative); Nitrite Urine Negative (Negative); Protein Urine 1+ (Negative); Specific Gravity Urine > 1.045 (1.000-1.030); Urobilinogen Urine Negative (Negative); WBC Urine Automated 0-5 /hpf (0-5); pH Urine 5.5 (4.5-7.5)
--- NOTE | 2024-07-01 20:28 | CT Scan Report ---
CT ANGIOGRAM of the ABDOMEN/PELVIS AORTOGRAM with BILATERAL LOWER EXTREMITY RUNOFF: Indication: Lower extremity pain IV CONTRAST: 100 mL of OMNIPAQUE 300 COMPARISON: None FINDINGS: Limited images through the lower thorax: Cardiomegaly. Extensive emphysema and bronchiolitis. Bibasilar atelectasis and scarring. The visualized upper abdominal visceral structures: Unremarkable Kidneys: There appears to be symmetric nephrograms of the kidneys. Gallbladder and biliary tree, pancreas and adrenal glands: Unremarkable. Scattered lymph nodes. Bowel loops: No evidence of obstruction. Normal appendix. The bowel loops are displaced to the left. Skeletal: No acute process identified. PERITONEUM: There is a very large masslike fat containing structure occupying most of the right sided peritoneum resulting in significant mass effect as manifested by left word shifting/displacement of the visceral and hollow viscus. There are some heterogeneity to this with nonfat densities noted scattered throughout, for example as seen on series 12, image 176. ANGIOGRAM FINDINGS: CTA RUNOFF of BILATERAL Lower Extremities: The MIP images, sagittal and coronal reformats were created. The 3D MIP image reformations were then rotated around the multiple planes. Additional MIP slab reformats were also performed. Source axial images are also available for interpretation. ABOMEN CTA: Extensive atherosclerosis with stenoses of the celiac trunk, the SMA, the renal arteries and the LIVIA. There is a stent in the distal abdominal aorta extending into the left common iliac and external leg arteries which is patent. Severe atherosclerosis with near occlusive narrowing of the left internal iliac artery, the right external and internal iliac arteries. There is a femoral to femoral bypass graft with stenosis at its origin off of the left femoral artery (series 12, image 363). BILATERAL CTA RUNOFF: LEFT: Extensive atherosclerosis resulting in multifocal moderate narrowing of the right superficial femoral artery. Atherosclerosis involving the infrapopliteal arteries. Two-vessel runoff is seen via the posterior tibial artery and the peroneal artery. The anterior tibial artery may be occluded at the level of the ankle mortise. RIGHT: Moderate narrowing in the distal superficial femoral artery secondary to atherosclerosis. Three-vessel runoff. Inflammatory changes in the left groin with small pockets of fluid and gas likely representing postsurgical changes following recent surgery. There is asymmetric soft tissue swelling of the left lower extremity with subcutaneous edema. The included venous system on the delayed imaging demonstrates patency of the deep venous systems. IMPRESSION: Postsurgical changes of femoral to femoral artery bypass graft. There is a suggested stenosis at the origin off of the bypass arising from the left femoral artery as above. Left greater than right atherosclerosis of the lower extremity superficial femoral arteries and infrapopliteal arteries resulting in moderate stenoses as above. Inflammatory changes in the left groin with small pockets of fluid and gas likely representing postsurgical changes following recent surgery. There is asymmetric soft tissue swelling of the left lower extremity with subcutaneous edema. The included venous system on the delayed imaging demonstrates patency of the deep venous systems. Large macroscopic fat-containing structure/process occupying most of the right peritoneal cavity of the abdomen resulting in significant mass effect as manifested by leftward displacement of the bowel structures and viscera. Some heterogeneity is suggested to this structure. Please correlate with medical workup up to this point. Considerations may include lipomatous hypertrophy/heterogeneous lipoma. Liposarcoma may be a consideration as well. Electronically signed by Yeison Workman 07-01-2024 8:28 PM
--- NOTE | 2024-07-01 20:32 | XRay Report ---
EXAM: Portable AP chest radiograph TECHNIQUE: AP portable radiograph of the chest was obtained. INDICATION: Shortness of breath Comparison: None FINDINGS: LINES and TUBES: None CARDIOVASCULAR: Cardiac silhouette is enlarged in size. LUNGS/PLEURA: No focal consolidation identified. Peribronchial cuffing suggesting bronchiolitis. Extensive emphysema. No significant pleural fluid. No discernible pneumothorax. OSSEOUS/OTHER: No displaced acute osseous process identified. IMPRESSION: Extensive emphysema. Peribronchial cuffing suggesting bronchiolitis. No focal consolidation detected. Cardiomegaly. Electronically signed by Yeison Workman 07-01-2024 8:31 PM
--- NOTE | 2024-07-01 20:53 | CT Scan Report ---
EXAM: CT angio chest PE protocol CLINICAL HISTORY: fall ro pe TECHNIQUE: CT angiography of the chest was performed with and without intravenous contrast with the following protocol: axial images with, reconstructed coronal and sagittal images. Non-contrast images were initially acquired, followed by contrast-enhanced images in arterial and venous phases. Intravenous contrast was administered using automated injection techniques. Bolus tracking was employed to optimize arterial phase imaging. One of these 3D techniques was utilized: Maximum Intensity Pixel (MIP), 3D Reconstructed Images, Volume Rendered Images, Surface Shaded Rendering. One of the following dose reduction techniques was utilized for this exam: Automated exposure control, adjustment of the mA and/or kV according to patient size, and use of iterative reconstruction. COMPARISON: 02/01/2024. FINDINGS: Aorta and Great Vessels: Ascending Aorta: Normal in caliber, no aneurysm, dissection, or significant atherosclerosis. Aortic Arch: Normal in caliber, no aneurysm, or dissection. Atheromatous calcifications are noted. Descending Aorta: Normal in caliber, no aneurysm, or dissection. Atheromatous calcifications are noted. Pulmonary Arteries: The main pulmonary artery and its branches are patent. No evidence of pulmonary embolism or significant stenosis. Heart: Cardiac Chambers: Normal in size. No evidence of cardiomegaly. Pericardium: No pericardial effusion or thickening. Lungs and Pleura: Marked pulmonary emphysematous changes. Right apical pulmonary thick reticular infiltration with faint calcific foci likely granulomatous. Calcified subpleural pulmonary nodule at the left upper lung lobe measuring 3 mm. Bilateral basal pulmonary atelectatic bands. Left basal pleural thickening/reaction. Mediastinum: No mediastinal mass or abnormal lymphadenopathy. Normal appearance of the trachea and central bronchi. Hilar Structures: Hilar structures are normal without enlargement. Chest Wall: No mass lesions or abnormalities in the chest wall. Vascular Structures: Superior Vena Cava: Patent without evidence of stenosis or thrombus. Inferior Vena Cava: Patent without evidence of stenosis or thrombus. Bones and Soft Tissues: No fractures, lytic, or blastic lesions of the visualized bony structures. Soft tissues are unremarkable. IMPRESSION: 1. No evidence of pulmonary embolism. 2. Marked pulmonary emphysematous changes. stable. 3. Right apical pulmonary thick reticular infiltration with faint calcific foci likely granulomatous. 4. Calcified subpleural pulmonary nodule at the left upper lung lobe measuring 3 mm. (granulomatous). 5. Bilateral basal pulmonary atelectatic bands. 6. Left basal pleural thickening/reaction. Electronically signed by Edward Dan 07-01-2024 8:53 PM
--- NOTE | 2024-07-01 22:24 | History & Physical Report ---
Date of Service July 01, 2024 Assessment & Plan (1) Weakness: (2) Abdominal mass: (3) S/P femoral-femoral bypass surgery: (4) COPD with emphysema: (5) Elevated troponin: Plan 69-year-old female PMHx s/p L sided femoropopliteal bypass (06/27/2024)with exploratory L groin procedure (06/30/2024) for arterial iliac occlusive disorder he was discharged the day of arrival (07/01/2024) who is presenting for weakness and increased falls since discharge on the day of arrival. Patient also has a history of COPD, HTN, depression, HLD, and prior CVA (2019). Patient was discharged 07/01/2024 after surgical intervention by Dr. Long. ED evaluation reveals no leukocytosis, H&H 9.0/27.6 (near patient's baseline); PT/INR Dimino; VBG's [id number]; CMP CO2 37, AG 2, BUN/creatinine ratio 22, glucose 142, calcium 8.5; lactate 1.7; troponin 15.1, pending repeat; procalcitonin 0.15; UA with some trace findings as well as 2+ blood and 11-20 RBCs as well as hyaline cast; CXR with extensive emphysema, peribronchial cuffing suggestive of bronchiolitis, but no focal consolidation; chest CTA no PE, pulmonary emphysematous changes found, right apical pulmonary thick reticular infiltrate likely granulomatous, calcified subpleural pulmonary nodule LDL 1 [place] 3 mm), bilateral basal pulmonary atelectatic bands, left basal pleural thickening/reaction; head CT cerebral atrophy, old infarct, chronic small vessel ischemic disease, probably chronic but age-indeterminate small infarcts in the left paramedian emily and in the right cerebellum, no acute findings; cervical spine CT no definite fracture, mild spinal stenosis C5-6 and C6-7, L C5-6 and C6-7 neural foramen narrowing; aorta with runoff CTA postsurgical changes of femoral-femoral artery bypass graft, L >R atherosclerosis lower extremity superficial femoral arteries/infra popliteal arteries, inflammatory changes L groin small pocket of fluid and gas likely postsurgical, asymptomatic soft tissue swelling LLE with subcu edema, large macroscopic fat containing structure/process occupying most of the R peritoneal cavity of the abdomen resulting in significant mass effect with leftward displacement of the viscera (lipomatous hypertrophy/heterogenous lipoma, or liposarcoma). #Weakness Weakness starting day of arrival, which is also day of discharge after L sided femoropopliteal bypass with exploratory L. groin procedure on 06/27 then 06/30; fall on the day of arrival, no chest pain/SOB/syncope. Suspect this will ultimately be more related to anemia compared to other etiologies at time of admission, trend CBC to evaluate need for transfusion which may be causing her weakness. - CBC w/o leukocytosis, H/H 9.0/27.6; CMP with elevated BUN/Cr; UA w/o infection, ? dehydration- CBC, BMP am - Transfuse if Hgb < 7 - LR @ 80 mL/hr x 500 mL - Fall precautions - PT/OT ordered- appreciate assistance #Abdominal mass States that this was mentioned to her prior, but not sure when. Vomiting x 1 day of arrival, no pain or N/D/C otherwise. No tenderness to palpation. - CTA Large macroscopic fat containing structure/process occupying most of the R peritoneal cavity of the abdomen resulting in significant mass effect with leftward displacement of the viscera (lipomatous hypertrophy/heterogenous lipoma, or liposarcoma). - LFTs WNL - Opioids for pain - bowel regimen added prn if constipation - Gen Sx consulted - Bx ordered at discretion of IR; Will refer to Sx/Onc if IR unable to perform biopsy-- Appreciate ongoing input + recs from Gen Sx team #S/p Bypass Sx/Arterial iliac occlusive disorder S/p L sided femoropopliteal bypass (06/27/2024) and exploratory L groin procedure (06/30/2024) with recent hospital discharge 07/01/2024. On Eliquis + ASA. - H/H 9.0/27.6- CBC am - CTA (Aorta with runoff CTA) postsurgical changes of femoral-femoral artery bypass graft, L >R atherosclerosis lower extremity superficial femoral arteries/infra popliteal arteries, inflammatory changes L groin small pocket of fluid and gas likely postsurgical, asymptomatic soft tissue swelling LLE with subcu edema - Pain management as ordered - oxycodone #Elevated troponin Denies any chest pain. - Troponin 15.1, pending repeat - EKG NSR, without ischemic changes - Likely 2/2 demand #COPD H/o COPD, emphysema. Baseline O2 requirements 4L per NC at all times. Does not follow with pulm. - Mild wheezing on exam - duoneb x 1 then prn - Continue baseline O2 - Continue FV - No evidence of exacerbation today - Continue home meds albuterol inhaler/nebulizer, Trelegy #Depression- Sertraline, Bupropion #HLD- Rosuvastatin #HTN- Lisinopril #History of CVA- Frontal + parietal lobe infarct 2019, residual L arm/hand weakness and LLE weakness; No new deficits Dispo: Admit, med/tele VTE prophylaxis: On Eliquis- continue This document was dictated utilizing [employer]. Please excuse any grammatical errors that may be secondary to use of this software. Admission and Anticipated Discharge Date Admission Date: 07/01/2024 History of Present Illness Chief Complaint: Weakness, fall Primary Care Provider: SWATI Sher 69-year-old female PMHx s/p L sided femoropopliteal bypass (06/27/2024)with exploratory L groin procedure (06/30/2024) for arterial iliac occlusive disorder he was discharged the day of arrival (07/01/2024) who is presenting for weakness and increased falls since discharge on the day of arrival. Did have 1 episode of vomiting. Patient also has a history of COPD, HTN, depression, HLD, and prior CVA. Patient was discharged 07/01/2024 after surgical intervention by Dr. Long. Approximately 4 hours after discharge to home, patient became weak and had a fall. She is on Eliquis. Patient states that she was using her walker when she fell up against the door because she felt too weak. Family member helped her get back to her bearings but she still continued to feel weak. She then had a second fall in her bedroom and landed on her left arm which did produce some bleeding, but no current pain. States that she did not have any symptoms prior to the event to include chest pain, shortness of breath, weakness, or numbness/tingling. States that she did not lose consciousness. Is having no symptoms right now. Did have 1 episode of vomiting, no current nausea or vomiting. Adamantly states "I do not want to stay here." Overall denying chest pain, shortness of breath, palpitations, abdominal pain, N/D/C, LUTS, URI symptoms, fever/chills, or syncope. Has not had this happen before. Overall feels that her surgical site is healing well. ED evaluation reveals no leukocytosis, H&H 9.0/27.6 (near patient's baseline); PT/INR WNL; VBG's [id number]; CMP CO2 37, AG 2, BUN/creatinine ratio 22, glucose 142, calcium 8.5; lactate 1.7; troponin 15.1, pending repeat; procalcitonin 0.15; UA with some trace findings as well as 2+ blood and 11-20 RBCs as well as hyaline cast; CXR with extensive emphysema, peribronchial cuffing suggestive of bronchiolitis, but no focal consolidation; chest CTA no PE, pulmonary emphysematous changes found, right apical pulmonary thick reticular infiltrate likely granulomatous, calcified subpleural pulmonary nodule LLL (3 mm), bilateral basal pulmonary atelectatic bands, left basal pleural thickening/reaction; head CT cerebral atrophy, old infarct, chronic small vessel ischemic disease, probably chronic but age-indeterminate small infarcts in the left paramedian emily and in the righ t cerebellum, no acute findings; cervical spine CT no definite fracture, mild spinal stenosis C5-6 and C6-7, L C5-6 and C6-7 neural foramen narrowing; aorta with runoff CTA postsurgical changes of femoral-femoral artery bypass graft, L >R atherosclerosis lower extremity superficial femoral arteries/infra popliteal arteries, inflammatory changes L groin small pocket of fluid and gas likely postsurgical, asymptomatic soft tissue swelling LLE with subcu edema, large macroscopic fat containing structure/process occupying most of the R peritoneal cavity of the abdomen resulting in significant mass effect with leftward displacement of the viscera (lipomatous hypertrophy/heterogenous lipoma, or liposarcoma). Please see Dr. Quinn's attestation for adjustments/additions to treatment plan. Allergies Allergy/AdvReac Type Severity Reaction Status Date / Time codeine AdvReac Intermediate Vomiting Verified 06/27/24 07:35 Home Medications Medication Instructions Recorded Confirmed Type aspirin 81 mg tablet,delayed 81 mg PO QAM #1 tab 09/01/19 07/01/24 Rx release acetaminophen 325 mg capsule 650 mg PO Q4H PRN Pain 09/14/19 07/01/24 History Flutter Valve #1 ea 08/13/20 07/01/24 Rx albuterol sulfate 2.5 mg/3 mL 2.5 mg (3 mL) inhalation QID PRN 03/03/22 07/01/24 Rx (0.083 %) solution for nebulization shortness of breath or wheezing #180 mL sertraline 100 mg tablet 150 mg (1.5 x 100 mg) PO QAM #135 07/19/23 07/01/24 Rx tabs bupropion HCl 75 mg tablet 75 mg PO HS 01/28/24 07/01/24 History rosuvastatin 40 mg tablet (Crestor) 40 mg PO HS 01/28/24 07/01/24 History fluticasone fur. 100 mcg-umeclid 1 inh inhalation HS #60 ea 02/11/24 07/01/24 Rx 62.5 mcg-vilant 25 mcg inhalat.powder (Trelegy Ellipta) apixaban 2.5 mg tablet (Eliquis) 2.5 mg PO BID #60 tabs 02/18/24 07/01/24 Rx lisinopril 10 mg tablet 10 mg PO QAM #90 tabs 06/05/24 07/01/24 Rx albuterol sulfate 90 mcg/actuation 2 - 4 puff inhalation Q6 PRN 07/01/24 07/01/24 History aerosol inhaler Shortness Of Breath Or Wheezing oxycodone 5 mg tablet 5 mg PO Q6H PRN pain #30 tabs 07/01/24 07/01/24 Rx Past Med/Surg History Problem List Abdominal mass Weakness (Acute) Cachexia Postoperative anemia S/P femoral-femoral bypass surgery Ander Ahn leg Acute postoperative anemia due to expected blood loss S/P vascular surgery Hyperlipidemia Depression Hypertension Mass of right axilla COPD with emphysema Vision loss, right eye Vitamin D deficiency (Chronic) Medical History Multiple pulmonary nodules Per records Chronic respiratory failure with hypoxia 3-4L O2 NC ICAO (internal carotid artery occlusion) Vascular visit 11/04/23: "Her carotid ultrasound performed prior ot today's appointment demonstrates a known right carotid occlusion, and about 50% stenosis of her left ICA which is similar to previousl imaging." Recommend 1 year carotid ultrasound follow-up Osteoporosis Per records Arthritis History of stroke Age 64 > left hand "does not work" Taking ASA Diverticular disease Chronic obstructive pulmonary disease Surgical History History of tooth extraction History of tonsillectomy History of cataract surgery right History of bronchoscopy Hx of foot surgery right History of section x1 Hx of hemorrhoidectomy History of colonoscopy Family History Other No family history of adverse response to anesthesia Denies family history of Ovarian cancer Prostate cancer Myocardial infarction Breast cancer Colorectal cancer Social History Smoking Status: Never smoker Tobacco Type: Cigarettes Age Started Using Tobacco: 18; Age Quit Using Tobacco: 65; packs per day: 1; Cigarettes Per Day: Occasional cigarette use, quit daily smoking at age 64; Second Hand Exposure: No; Do You Dip or Chew Tobacco: No; Hx Alcohol Use: No Hx Substance Use: No Preferred Language: Ukrainian Communication Ability: Effective Visual Impairment: Limited Hearing Ability: Normal 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 Beliefs That Will Affect Care: None marital status: Current Living Situation: Family Current Living Situation Comment: " is there sometimes, kind of seperated" current occupational status: disabled How many Children do You have: 2 Feels Safe at Home: Yes Childhood Exposure to Second-Hand Smoke: Yes Diet: regular caffeine: Yes (coffee) during the past year weight has: remained stable Dental Care, Regularly: No Physical Activity Frequency: Daily Seatbelt Use: never Sunscreen Use: No Assistive Devices: Oxygen - Continuous and Walker Review of Systems Review of Systems: All systems reviewed & are unremarkable except as noted in Subjective Physical Exam Physical Exam: General: No acute distress, thin Skin: Warm and dry; L sided surgical site appears well healing, no pus or blood, no edema Head: Normocephalic, atraumatic Eyes: PERRL, conjunctivae clear, sclera non-icteric ENT: External ear and ear canal without swelling; nose atraumatic; good dentition, tongue normal appearance, pharynx normal Neck: Supple, no LAD Cardio: RRR, no M/G/R, S1 and S2 normal Resp: No respiratory distress, wheezing on expiration; wearing O2 via NC (baseline) Abdomen: Soft, symmetric, nontender; No masses or hepatosplenomegaly; Bowel sounds normoactive MSK: No deformities; pulses palpable and equal; no edema. LUE with ecchymosis on medial aspect, forearm wrapped from injury, hand in usual posture Neuro: Awake, alert; Sensation intact bilaterally; CN grossly intact Psych: Appropriate mood and affect; good judgement and insight. 3 family members present in room at time of visit. Results & Data Results & Data Vital Signs (Past 12 Hours) Vital Signs Temp Pulse Pulse Resp BP BP Pulse Ox 07/01/24 21:45 81 07/01/24 21:30 83 18 158/79 H 97 07/01/24 21:15 82 18 159/71 H 97 07/01/24 21:00 80 18 155/82 H 98 07/01/24 20:45 81 18 136/63 97 07/01/24 20:30 85 18 149/77 H 92 07/01/24 20:15 79 18 119/72 98 07/01/24 20:00 71 18 148/62 H 100 07/01/24 19:45 71 18 151/59 H 98 07/01/24 19:30 79 18 122/84 97 07/01/24 19:15 78 18 155/74 H 98 07/01/24 19:00 73 18 152/66 H 100 07/01/24 18:45 79 18 154/67 H 91 07/01/24 18:10 80 16 134/61 100 07/01/24 17:55 75 20 143/66 H 100 07/01/24 17:53 73 07/01/24 17:40 74 22 149/53 H 100 07/01/24 17:40 100 07/01/24 17:08 36.5 C 83 18 119/67 91 07/01/24 17:00 75 18 136/62 100 07/01/24 17:00 100 O2 Del Method O2 Flow Rate 07/01/24 21:45 07/01/24 21:30 07/01/24 21:15 07/01/24 21:00 07/01/24 20:45 07/01/24 20:30 07/01/24 20:15 07/01/24 20:00 07/01/24 19:45 Nasal Cannula 3 07/01/24 19:30 Nasal Cannula 3 07/01/24 19:15 07/01/24 19:00 07/01/24 18:45 Nasal Cannula 3 07/01/24 18:10 Nasal Cannula 3 07/01/24 17:55 Nasal Cannula 3 07/01/24 17:53 07/01/24 17:40 Nasal Cannula 3 07/01/24 17:40 Room Air 07/01/24 17:08 Nasal Cannula 3 07/01/24 17:00 Nasal Cannula 3 07/01/24 17:00 Nasal Cannula 3 Laboratory Results 07/01/24 19:01 Urine Culture - Pending Urine,Clean Catch 07/01/24 17:44 Aerobic Blood Culture - Pending Blood Anaerobic Blood Culture - Pending 07/01/24 17:44 Aerobic Blood Culture - Pending Blood Anaerobic Blood Culture - Pending 07/01/24 07/01/24 07/01/24 19:01 18:04 17:59 WBC RBC Hgb POC Hgb Hct POC Hct MCV MCH MCHC RDW Std Deviation RDW Coeff of Rosanna Plt Count MPV Immature Gran % (Auto) Neut % (Auto) Lymph % (Auto) [place] % (Auto) Eos % (Auto) Baso % (Auto) Neut # (Auto) Lymph # (Auto) [place] # (Auto) Eos # (Auto) Baso # (Auto) Immature Gran # (Auto) PT INR APTT PTT Ratio VBG pH 7.39 VBG pCO2 54 H VBG pO2 31 VBG HCO3 33 VBG O2 Saturation 60.5 VBG Base Excess 6.2 POC Sodium Sodium POC Potassium Potassium POC Chloride Chloride Carbon Dioxide POC Total CO2 Anion Gap POC Anion Gap POC BUN BUN Creatinine POC Creatinine Est Cr Clr Drug Dosing eGFR BUN/Creatinine Ratio Glucose POC Glucose (other) Lactate Calcium POC Ioniz Calcium Yanci Magnesium Total Bilirubin Direct Bilirubin AST ALT Alkaline Phosphatase Troponin I High Sens Total Protein Albumin Procalcitonin Urine Color Yellow Urine Appearance Clear Urine pH 5.5 Ur Specific [place] > 1.045 H Urine Protein 1+ H Urine Glucose (UA) Negative Urine Ketones Trace H Urine Blood 2+ H Urine Nitrite Negative Urine Bilirubin Negative Urine Urobilinogen Negative Ur Leukocyte Esterase Trace H Urine WBC (Auto) 0-5 Urine RBC (Auto) 11-20 H U Hyaline Cast (Auto) 6-10 H U Epithel Cells (Auto) 0-2 Urine Bacteria (Auto) 1+ H Hyaline Casts Present A Blood Type O Positive Antibody Screen NEGATIVE 07/01/24 07/01/24 17:56 17:44 WBC 10.22 RBC 3.05 L Hgb 9.0 L POC Hgb 8.8 L Hct 27.6 L POC Hct 26 L MCV 90.5 MCH 29.5 MCHC 32.6 RDW Std Deviation 51.8 H RDW Coeff of Rosanna 15.5 H Plt Count 145 D MPV 11.5 Immature Gran % (Auto) 0.2 Neut % (Auto) 92.1 Lymph % (Auto) 2.9 [place] % (Auto) 4.7 Eos % (Auto) 0.0 Baso % (Auto) 0.1 Neut # (Auto) 9.41 H Lymph # (Auto) 0.30 L [place] # (Auto) 0.48 Eos # (Auto) 0.00 Baso # (Auto) 0.01 Immature Gran # (Auto) 0.02 PT 10.3 INR 0.9 APTT 28 PTT Ratio 1.0 VBG pH VBG pCO2 VBG pO2 VBG HCO3 VBG O2 Saturation VBG Base Excess POC Sodium 143 Sodium 143 POC Potassium 3.7 Potassium 3.8 POC Chloride 98 L Chloride 104 Carbon Dioxide 37 H POC Total CO2 30 Anion Gap 2 L POC Anion Gap 19.0 POC BUN 20 H BUN 20 Creatinine 0.91 D POC Creatinine 1.0 Est Cr Clr Drug Dosing 34.0 eGFR 67.87 BUN/Creatinine Ratio 22.0 H Glucose 142 H POC Glucose (other) 142 H Lactate 1.7 Calcium 8.5 L POC Ioniz Calcium Yanci 1.14 Magnesium 2.0 Total Bilirubin 0.4 Direct Bilirubin 0.1 AST 23 ALT 10 Alkaline Phosphatase 47 Troponin I High Sens 15.1 H Total Protein 6.2 Albumin 3.6 Procalcitonin 0.15 Urine Color Urine Appearance Urine pH Ur Specific [place] Urine Protein Urine Glucose (UA) Urine Ketones Urine Blood Urine Nitrite Urine Bilirubin Urine Urobilinogen Ur Leukocyte Esterase Urine WBC (Auto) Urine RBC (Auto) U Hyaline Cast (Auto) U Epithel Cells (Auto) Urine Bacteria (Auto) Hyaline Casts Blood Type Antibody Screen Diagnostic Findings Aorta w/Runoff CTA 07/01/24 17:40 CT ANGIOGRAM of the ABDOMEN/PELVIS AORTOGRAM with BILATERAL LOWER EXTREMITY RUNOFF: Indication: Lower extremity pain IV CONTRAST: 100 mL of OMNIPAQUE 300 COMPARISON: None FINDINGS: Limited images through the lower thorax: Cardiomegaly. Extensive emphysema and bronchiolitis. Bibasilar atelectasis and scarring. The visualized upper abdominal visceral structures: Unremarkable Kidneys: There appears to be symmetric nephrograms of the kidneys. Gallbladder and biliary tree, pancreas and adrenal glands: Unremarkable. Scattered lymph nodes. Bowel loops: No evidence of obstruction. Normal appendix. The bowel loops are displaced to the left. Skeletal: No acute process identified. PERITONEUM: There is a very large masslike fat containing structure occupying most of the right sided peritoneum resulting in significant mass effect as manifested by left word shifting/displacement of the visceral and hollow viscus. There are some heterogeneity to this with nonfat densities noted scattered throughout, for example as seen on series 12, image 176. ANGIOGRAM FINDINGS: CTA RUNOFF of BILATERAL Lower Extremities: The MIP images, sagittal and coronal reformats were created. The 3D MIP image reformations were then rotated around the multiple planes. Additional MIP slab reformats were also performed. Source axial images are also available for interpretation. ABOMEN CTA: Extensive atherosclerosis with stenoses of the celiac trunk, the SMA, the renal arteries and the LIVIA. There is a stent in the distal abdominal aorta extending into the left common iliac and external leg arteries which is patent. Severe atherosclerosis with near occlusive narrowing of the left internal iliac artery, the right external and internal iliac arteries. There is a femoral to femoral bypass graft with stenosis at its origin off of the left femoral artery (series 12, image 363). BILATERAL CTA RUNOFF: LEFT: Extensive atherosclerosis resulting in multifocal moderate narrowing of the right superficial femoral artery. Atherosclerosis involving the infrapopliteal arteries. Two-vessel runoff is seen via the posterior tibial artery and the peroneal artery. The anterior tibial artery may be occluded at the level of the ankle mortise. RIGHT: Moderate narrowing in the distal superficial femoral artery secondary to atherosclerosis. Three-vessel runoff. Inflammatory changes in the left groin with small pockets of fluid and gas likely representing postsurgical changes following recent surgery. There is asymmetric soft tissue swelling of the left lower extremity with subcutaneous edema. The included venous system on the delayed imaging demonstrates patency of the deep venous systems. IMPRESSION: Postsurgical changes of femoral to femoral artery bypass graft. There is a suggested stenosis at the origin off of the bypass arising from the left femoral artery as above. Left greater than right atherosclerosis of the lower extremity superficial femoral arteries and infrapopliteal arteries resulting in moderate stenoses as above. Inflammatory changes in the left groin with small pockets of fluid and gas likely representing postsurgical changes following recent surgery. There is asymmetric soft tissue swelling of the left lower extremity with subcutaneous edema. The included venous system on the delayed imaging demonstrates patency of the deep venous systems. Large macroscopic fat-containing structure/process occupying most of the right peritoneal cavity of the abdomen resulting in significant mass effect as manifested by leftward displacement of the bowel structures and viscera. Some heterogeneity is suggested to this structure. Please correlate with medical workup up to this point. Considerations may include lipomatous hypertrophy/heterogeneous lipoma. Liposarcoma may be a consideration as well. Electronically signed by Yeison Workman 07-01-2024 8:28 PM Chest X-Ray 07/01/24 17:40 EXAM: Portable AP chest radiograph TECHNIQUE: AP portable radiograph of the chest was obtained. INDICATION: Shortness of breath Comparison: None FINDINGS: LINES and TUBES: None CARDIOVASCULAR: Cardiac silhouette is enlarged in size. LUNGS/PLEURA: No focal consolidation identified. Peribronchial cuffing suggesting bronchiolitis. Extensive emphysema. No significant pleural fluid. No discernible pneumothorax. OSSEOUS/OTHER: No displaced acute osseous process identified. IMPRESSION: Extensive emphysema. Peribronchial cuffing suggesting bronchiolitis. No focal consolidation detected. Cardiomegaly. Electronically signed by Yeison Workman 07-01-2024 8:[address] 07/01/24 17:42 Clinical history: Weakness and falls Technique: Axial computed tomography images were obtained of the cervical spine without intravenous contrast. Sagittal and coronal reconstructions were obtained Findings: No fracture is identified. No listhesis is seen. No focal osseous lesion is evident. There is atlantoaxial osteoarthritis. At C2-3, no disc herniation is identified. There is no spinal stenosis. The neural foramen are patent At C3-4, no disc herniation is identified. There is no spinal stenosis. The neural foramen are patent At C4-5, no disc herniation is identified. There is no spinal stenosis. The neural foramen are patent At C5-6, there is mild spinal stenosis due to a disc bulge. There is left greater than right neural foramen narrowing that may affect the left C6 nerve root At C6-7, there is mild spinal stenosis due to a disc bulge. There is left greater than right neural foramen narrowing that may affect the left C7 nerve root At C7-T1, no disc herniation is identified. There is no spinal stenosis. The neural foramen are patent There is emphysema. There is apparent partially calcified pleural parenchymal scarring in the right lung apex. The visualized soft tissues of the neck appear unremarkable. No foreign body is seen Impression: 1. No definite cervical spine fracture 2. Mild spinal stenosis at C5-6 and C6-7 3. Left C5-6 and C6-7 neural foramen narrowing that may affect the exiting nerve roots ACT 112: Positive. There are findings on this exam that require communication between the performing entity and the patient following Patient Test Result Information Act ([place] ACT 112) guidelines. Electronically signed by Akira Purdy 07-01-2024 6:54 PM Chest CTA 07/01/24 17:42 EXAM: CT angio chest PE protocol CLINICAL HISTORY: fall ro pe TECHNIQUE: CT angiography of the chest was performed with and without intravenous contrast with the following protocol: axial images with, reconstructed coronal and sagittal images. Non-contrast images were initially acquired, followed by contrast-enhanced images in arterial and venous phases. Intravenous contrast was administered using automated injection techniques. Bolus tracking was employed to optimize arterial phase imaging. One of these 3D techniques was utilized: Maximum Intensity Pixel (MIP), 3D Reconstructed Images, Volume Rendered Images, Surface Shaded Rendering. One of the following dose reduction techniques was utilized for this exam: Automated exposure control, adjustment of the mA and/or kV according to patient size, and use of iterative reconstruction. COMPARISON: 02/01/2024. FINDINGS: Aorta and Great Vessels: Ascending Aorta: Normal in caliber, no aneurysm, dissection, or significant atherosclerosis. Aortic Arch: Normal in caliber, no aneurysm, or dissection. Atheromatous calcifications are noted. Descending Aorta: Normal in caliber, no aneurysm, or dissection. Atheromatous calcifications are noted. Pulmonary Arteries: The main pulmonary artery and its branches are patent. No evidence of pulmonary embolism or significant stenosis. Heart: Cardiac Chambers: Normal in size. No evidence of cardiomegaly. Pericardium: No pericardial effusion or thickening. Lungs and Pleura: Marked pulmonary emphysematous changes. Right apical pulmonary thick reticular infiltration with faint calcific foci likely granulomatous. Calcified subpleural pulmonary nodule at the left upper lung lobe measuring 3 mm. Bilateral basal pulmonary atelectatic bands. Left basal pleural thickening/reaction. Mediastinum: No mediastinal mass or abnormal lymphadenopathy. Normal appearance of the trachea and central bronchi. Hilar Structures: Hilar structures are normal without enlargement. Chest Wall: No mass lesions or abnormalities in the chest wall. Vascular Structures: Superior Vena Cava: Patent without evidence of stenosis or thrombus. Inferior Vena Cava: Patent without evidence of stenosis or thrombus. Bones and Soft Tissues: No fractures, lytic, or blastic lesions of the visualized bony structures. Soft tissues are unremarkable. IMPRESSION: 1. No evidence of pulmonary embolism. 2. Marked pulmonary emphysematous changes. stable. 3. Right apical pulmonary thick reticular infiltration with faint calcific foci likely granulomatous. 4. Calcified subpleural pulmonary nodule at the left upper lung lobe measuring 3 mm. (granulomatous). 5. Bilateral basal pulmonary atelectatic bands. 6. Left basal pleural thickening/reaction. Electronically signed by Edward Dan 07-01-2024 8:[address] 07/01/24 17:42 Clinical History: Weakness and falls Technique: Axial computed tomography images were obtained of the brain without intravenous contrast. Findings: There is diffuse cerebral atrophy, within expected limits for the patient's age. Areas of decreased attenuation are seen within the periventricular white matter, likely representing chronic small vessel ischemic disease. There is an apparent old right frontal lobe infarct. There is also a suspected small old infarct of the central emily. There is no definite sign of acute infarction. No intracranial hemorrhage is evident. No definite mass lesion is seen on this noncontrast examination. There is no midline shift or other form of herniation. No hydrocephalus is seen. No fracture is identified. The orbits and the visualized paranasal sinuses appear unremarkable. The mastoid air cells appear clear. Impression: 1. Cerebral atrophy , old infarcts, and chronic small vessel ischemic disease 2. No definite acute pathology Electronically signed by Akira Purdy 07-01-2024 6:49 PM ECG Additional Comments: NSR, nonspecific ST/T wave abnormality, prolonged QT 73 bpm, CO 142, QRS 70, QT/QTc 460/506, PRT 78/69/87 Code Status & VTE Plan Code Status DNR/DNI Discussed in detail what "DNR/DNI" entails; patient and family understood fully. All questions asked and answered. Patient wishes to proceed with DNR/DNI status. VTE Prophylaxis Plan VTE Prophylaxis will be ordered: Yes Supervising Physician Co-Signing Physician Notes Patient seen and examined, chart reviewed, case discussed with EMILEE Boyer and I agree with the assessment and plan as above. In brief, patient is a 69yo female presenting with weakness. On 06/27/24 patient had a left iliac angiogram with angioplasty and stenting of the left iliac artery, left femoral embolectomy with bovine patch. She returned to the OR on 06/30/24 for groin exploration and control of bleeding. Patient returned home earlier today and felt very weak, ambulatory dysfunction and sustained a fall which is what brings her back to the ER today. No additional complaints. Re: patient's abdominal mass. She reports she brought up some abdominal fullness and feeling "a marble" around her umbilicus to her PCP several months ago. Does not appear to have had any abdominal imaging in the past. She did have a lumbar spine x-ray on 08/04/22 which appears to have absence of bowel gas on the right side of the abdomen. Possible that abdominal mass present at that time? On exam she is afebrile, HD stable, NAD, thin, frail appearing woman Skin - extensive bruising on LUE HEENT - MMM, Neck supple, slightly dry MM Heart- +S1/S2, regular Lungs - CTA anteriorly Abdomen - some firmness on right abdomen, non-tender, no ascites Ext - warm, well perfused Labs and images reviewed Assessment/Plan -Gentle hydration -Monitor CBC - transfuse for Hgb < 8 -General Surgery consultation appreciated regarding workup of abdominal mass -Remainder as above PG Care Time/CCT Total # of Minutes Spent Total Time Spent with Patient: Total time spent is greater than 50% in coordination of care (as documented) at patient's floor/unit and/or counseling patient: Coding Level of Care Code 08818 INT INP/OBS CARE 3/75MIN Diagnoses Weakness R53.1 Abdominal mass R19.00 S/P femoral-femoral bypass surgery Z95.828 Pulmonary emphysema, unspecified emphysema type J43.9 Emphysema type: unspecified Elevated troponin R79.89 (4) COPD with emphysema Emphysema type: unspecified Qualified Code(s): J43.9 - Emphysema, unspecified
--- NOTE | 2024-07-01 22:55 | Surgery Consultation ---
Date of Consultation July 01, 2024 Assessment & Plan (1) Abdominal mass: General surgery was consulted for CT findings of large macroscopic fat- containing structure in the right peritoneal cavity of the abdomen with significant mass effect with leftward displacement of the bowel structures and viscera which could be lipomatous hypertrophy/heterogeneous lipoma vs liposarcoma. The patient's case was discussed with attending surgeon, Dr. Burns, and recommend the following: -Patient asymptomatic at this time, she currently has no abdominal pain, nausea, or vomiting. From a surgical standpoint she can have a diet -No acute emergent surgical intervention warranted at this time. Could consider potential IR biopsy vs outpatient follow up with surgical oncology for concerns of liposarcoma. (2) Weakness: (3) S/P femoral-femoral bypass surgery: History of Present Illness Reason for Consultation: Abdominal mass History of Present Illness The patient is a 69-year-old female who was just underwent Left femoropopliteal bypass on 06/27 and exploratory of left groin on 06/30 for arterial iliac occlusive disorder by Dr. Long. The patient was discharged earlier today and unfortunately came back to the emergency department this evening with complaints of weakness and had multiple falls today at home. Due to ongoing weakness the patient's family members brought her back for evaluation. The patient underwent shirley-scanning and imaging of CTA demonstrated some post-operative changes of the left groin along with a large macroscopic fat containing structure/process occupying most of the right peritoneal cavity of the abdomen resulting in significant mass effect with leftward displacement of the viscera (lipomatous hypertrophy/heterogenous lipoma, or liposarcoma). Due to imaging findings surgical team was consulted for evaluation. At time of evaluation the patient has no abdominal complaints. The patient states at times she does experience stomach upset however nothing too significant that she has ever been seen for. A patient's family member at bedside stated that she did mention she did have a "small abdominal mass" but is unsure exactly when she was informed about this. The patient states her only abdominal surgical history was 1 in the past. The patient otherwise states she currently has no abdominal pain, nausea or vomiting. Allergies Allergy/AdvReac Type Severity Reaction Status Date / Time codeine AdvReac Intermediate Vomiting Verified 06/27/24 07:35 Home Medications Medication Instructions Recorded Confirmed Type aspirin 81 mg tablet,delayed 81 mg PO QAM #1 tab 09/01/19 07/01/24 Rx release acetaminophen 325 mg capsule 650 mg PO Q4H PRN Pain 09/14/19 07/01/24 History Flutter Valve #1 ea 08/13/20 07/01/24 Rx albuterol sulfate 2.5 mg/3 mL 2.5 mg (3 mL) inhalation QID PRN 03/03/22 07/01/24 Rx (0.083 %) solution for nebulization shortness of breath or wheezing #180 mL sertraline 100 mg tablet 150 mg (1.5 x 100 mg) PO QAM #135 07/19/23 07/01/24 Rx tabs bupropion HCl 75 mg tablet 75 mg PO HS 01/28/24 07/01/24 History rosuvastatin 40 mg tablet (Crestor) 40 mg PO HS 01/28/24 07/01/24 History fluticasone fur. 100 mcg-umeclid 1 inh inhalation HS #60 ea 02/11/24 07/01/24 Rx 62.5 mcg-vilant 25 mcg inhalat.powder (Trelegy Ellipta) apixaban 2.5 mg tablet (Eliquis) 2.5 mg PO BID #60 tabs 02/18/24 07/01/24 Rx lisinopril 10 mg tablet 10 mg PO QAM #90 tabs 06/05/24 07/01/24 Rx albuterol sulfate 90 mcg/actuation 2 - 4 puff inhalation Q6 PRN 07/01/24 07/01/24 History aerosol inhaler Shortness Of Breath Or Wheezing oxycodone 5 mg tablet 5 mg PO Q6H PRN pain #30 tabs 07/01/24 07/01/24 Rx Patient History Medical History Multiple pulmonary nodules Per records Chronic respiratory failure with hypoxia 3-4L O2 NC ICAO (internal carotid artery occlusion) Vascular visit 11/04/23: "Her carotid ultrasound performed prior ot today's appointment demonstrates a known right carotid occlusion, and about 50% stenosis of her left ICA which is similar to previousl imaging." Recommend 1 year carotid ultrasound follow-up Osteoporosis Per records Arthritis History of stroke Age 64 > left hand "does not work" Taking ASA Diverticular disease Chronic obstructive pulmonary disease Surgical History History of tooth extraction History of tonsillectomy History of cataract surgery right History of bronchoscopy Hx of foot surgery right History of section x1 Hx of hemorrhoidectomy History of colonoscopy Family History Other No family history of adverse response to anesthesia Denies family history of Ovarian cancer Prostate cancer Myocardial infarction Breast cancer Colorectal cancer Social History Smoking Status: Never smoker Tobacco Type: Cigarettes Age Started Using Tobacco: 18; Age Quit Using Tobacco: 65; packs per day: 1; Cigarettes Per Day: Occasional cigarette use, quit daily smoking at age 64; Second Hand Exposure: No; Do You Dip or Chew Tobacco: No; Hx Alcohol Use: No Hx Substance Use: No Preferred Language: [place] Communication Ability: Effective Visual Impairment: Limited Hearing Ability: Normal Transition Program Manager Required: No Beliefs That Will Affect Care: None marital status: Current Living Situation: Family Current Living Situation Comment: " is there sometimes, kind of seperated" current occupational status: disabled How many Children do You have: 2 Feels Safe at Home: Yes Childhood Exposure to Second-Hand Smoke: Yes Diet: regular caffeine: Yes (coffee) during the past year weight has: remained stable Dental Care, Regularly: No Physical Activity Frequency: Daily Seatbelt Use: never Sunscreen Use: No Assistive Devices: Oxygen - Continuous and Walker Review of Systems Review of Systems: All systems reviewed & are unremarkable except as noted in HPI & below Gastrointestinal: + abdominal pain; no bloating, no nausea , no change in stools and no constipation Physical Exam Constitutional: + thin and comfortable; no acute distres s Respiratory: normal respiratory effort; no respiratory distress and no labored breathing Cardiovascular: Rate/Rhythm: regular rate Gastrointestinal (Abdomen): Abdomen soft, nondistended, minimal TTP over umbilical region with deep palpation however no rebound, guarding or signs of peritonitis. Skin: no rashes, warm and dry Results & Data Vital Signs (Past 12 Hours) Vital Signs Temp Pulse Pulse Resp BP BP Pulse Ox 07/01/24 21:45 81 07/01/24 21:30 83 18 158/79 H 97 07/01/24 21:15 82 18 159/71 H 97 07/01/24 21:00 80 18 155/82 H 98 07/01/24 20:45 81 18 136/63 97 07/01/24 20:30 85 18 149/77 H 92 07/01/24 20:15 79 18 119/72 98 07/01/24 20:00 71 18 148/62 H 100 07/01/24 19:45 71 18 151/59 H 98 07/01/24 19:30 79 18 122/84 97 07/01/24 19:15 78 18 155/74 H 98 07/01/24 19:00 73 18 152/66 H 100 07/01/24 18:45 79 18 154/67 H 91 07/01/24 18:10 80 16 134/61 100 07/01/24 17:55 75 20 143/66 H 100 07/01/24 17:53 73 07/01/24 17:40 74 22 149/53 H 100 07/01/24 17:40 100 07/01/24 17:08 36.5 C 83 18 119/67 91 07/01/24 17:00 75 18 136/62 100 07/01/24 17:00 100 O2 Del Method O2 Flow Rate 07/01/24 21:45 07/01/24 21:30 07/01/24 21:15 07/01/24 21:00 07/01/24 20:45 07/01/24 20:30 07/01/24 20:15 07/01/24 20:00 07/01/24 19:45 Nasal Cannula 3 07/01/24 19:30 Nasal Cannula 3 07/01/24 19:15 07/01/24 19:00 07/01/24 18:45 Nasal Cannula 3 07/01/24 18:10 Nasal Cannula 3 07/01/24 17:55 Nasal Cannula 3 07/01/24 17:53 07/01/24 17:40 Nasal Cannula 3 07/01/24 17:40 Room Air 07/01/24 17:08 Nasal Cannula 3 07/01/24 17:00 Nasal Cannula 3 07/01/24 17:00 Nasal Cannula [address] ANGIOGRAM of the ABDOMEN/PELVIS AORTOGRAM with BILATERAL LOWER EXTREMITY RUNOFF: Indication: Lower extremity pain IV CONTRAST: 100 mL of OMNIPAQUE 300 COMPARISON: None FINDINGS: Limited images through the lower thorax: Cardiomegaly. Extensive emphysema and bronchiolitis. Bibasilar atelectasis and scarring. The visualized upper abdominal visceral structures: Unremarkable Kidneys: There appears to be symmetric nephrograms of the kidneys. Gallbladder and biliary tree, pancreas and adrenal glands: Unremarkable. Scattered lymph nodes. Bowel loops: No evidence of obstruction. Normal appendix. The bowel loops are displaced to the left. Skeletal: No acute process identified. PERITONEUM: There is a very large masslike fat containing structure occupying most of the right sided peritoneum resulting in significant mass effect as manifested by left word shifting/displacement of the visceral and hollow viscus. There are some heterogeneity to this with nonfat densities noted scattered throughout, for example as seen on series 12, image 176. ANGIOGRAM FINDINGS: CTA RUNOFF of BILATERAL Lower Extremities: The MIP images, sagittal and coronal reformats were created. The 3D MIP image reformations were then rotated around the multiple planes. Additional MIP slab reformats were also performed. Source axial images are also available for interpretation. ABOMEN CTA: Extensive atherosclerosis with stenoses of the celiac trunk, the SMA, the renal arteries and the LIVIA. There is a stent in the distal abdominal aorta extending into the left common iliac and external leg arteries which is patent. Severe atherosclerosis with near occlusive narrowing of the left internal iliac artery, the right external and internal iliac arteries. There is a femoral to femoral bypass graft with stenosis at its origin off of the left femoral artery (series 12, image 363). BILATERAL CTA RUNOFF: LEFT: Extensive atherosclerosis resulting in multifocal moderate narrowing of the right superficial femoral artery. Atherosclerosis involving the infrapopliteal arteries. Two-vessel runoff is seen via the posterior tibial artery and the peroneal artery. The anterior tibial artery may be occluded at the level of the ankle mortise. RIGHT: Moderate narrowing in the distal superficial femoral artery secondary to atherosclerosis. Three-vessel runoff. Inflammatory changes in the left groin with small pockets of fluid and gas likely representing postsurgical changes following recent surgery. There is asymmetric soft tissue swelling of the left lower extremity with subcutaneous edema. The included venous system on the delayed imaging demonstrates patency of the deep venous systems. IMPRESSION: Postsurgical changes of femoral to femoral artery bypass graft. There is a suggested stenosis at the origin off of the bypass arising from the left femoral artery as above. Left greater than right atherosclerosis of the lower extremity superficial femoral arteries and infrapopliteal arteries resulting in moderate stenoses as above. Inflammatory changes in the left groin with small pockets of fluid and gas likely representing postsurgical changes following recent surgery. There is asymmetric soft tissue swelling of the left lower extremity with subcutaneous edema. The included venous system on the delayed imaging demonstrates patency of the deep venous systems. Large macroscopic fat-containing structure/process occupying most of the right peritoneal cavity of the abdomen resulting in significant mass effect as manifested by leftward displacement of the bowel structures and viscera. Some heterogeneity is suggested to this structure. Please correlate with medical workup up to this point. Considerations may include lipomatous hypertrophy/heterogeneous lipoma. Liposarcoma may be a consideration as well. PG Care Time/CCT Total # of Minutes Spent Total Time Spent with Patient: Total time spent is greater than 50% in coordination of care (as documented) at patient's floor/unit and/or counseling patient: [place] [address] INT INP/OBS CARE 1/40MIN Patient Type New History Problem Focused Exam Problem Focused Medical Decision Making Straight Forward Diagnoses Abdominal mass R19.00 Weakness R53.1 S/P femoral-femoral bypass surgery Z95.828
[2024-07-01] MEDS: LACTATED RINGER'S 1,000 ML IV SCH (23:16)
[2024-07-01] MEDS: ALBUT/IPRATROP 3MG/0.5MG NEB 3 ML VIAL NEB STA (23:17)
[2024-07-02] MEDS ORDERED: ONDANSETRON INJ 2 MG/ML 2 ML VIAL IV PRN (00:30)
[2024-07-02] MEDS ORDERED: MELATONIN 3 MG TAB PO PRN (00:30)
[2024-07-02] MEDS ORDERED: POLYETHYLENE (MIRALAX) 17 GM PACK PO PRN (00:30)
[2024-07-02] MEDS ORDERED: MAGNESIUM HYDROXIDE SUSP 30 ML UDC PO PRN (00:30)
[2024-07-02] MEDS ORDERED: ALBUTEROL 0.083% NEBU SOLN 3 ML VIAL INH PRN (00:30)
[2024-07-02] MEDS ORDERED: oxyCODONE HCL IR 5 MG TAB (IMMEDIATE RELEASE) PO PRN (00:30)
[2024-07-02] MEDS ORDERED: ALBUTEROL HFA 8 GM INHALER INH PRN (00:30)
[2024-07-02] MEDS: ACETAMINOPHEN 325 MG TAB PO PRN (05:44)
[2024-07-02 07:08] LABS: Hematocrit (blood only) 23.8 % (37.0-47.0); Hemoglobin 7.8 g/dl (12.0-16.0); Mean Corpuscular Hemoglobin 29.9 pg (25.0-34.0); Mean Corpuscular Hgb Conc 32.8 g/dL (32.0-36.0); Mean Corpuscular Volume 91.2 fL (80.0-100.0); Mean Platelet Volume 11.4 fL (9.4-12.4); Platelet Count 126 K/uL (130-400); RDW Coefficient of Variation 15.3 % (11.5-14.5); RDW Standard Deviation 51.2 fL (36.4-46.3); Red Blood Count 2.61 M/uL (4.20-5.40); White Blood Count 7.24 K/ul (4.8-10.8)
[2024-07-02 07:24] LABS: Creatinine Clr Calc Pharmacy 45.5 ml/min; Potassium 3.5 mmol/L (3.5-5.1)
[2024-07-02] MEDS: lisinopril 10 MG TAB PO SCH (08:08)
[2024-07-02] MEDS: APIXABAN 2.5 MG TAB PO SCH (08:08)
[2024-07-02] MEDS: SERTRALINE HCL 50 MG TABLET PO SCH (08:08)
[2024-07-02] MEDS: ASPIRIN 81 MG ECTAB PO SCH (08:08)
[2024-07-02] MEDS ORDERED: SODIUM CHLORIDE 0.9% 100 ML IV PRN ×2 (09:51→14:32)
[2024-07-02 10:33] LABS: Thyroid Stimulating Hormone 2.26 uIu/ml (0.300-4.500)
[2024-07-02 10:38] LABS: Ferritin 77.9 ng/ml (8-388)
[2024-07-02 10:41] LABS: Folate (Folic Acid),Ser orPlas 18.01 ng/ml (>5.38)
[2024-07-02] MEDS: cefTRIAXone SODIUM 1,000 MG/50 ML BAG IV SCH (11:12)
--- NOTE | 2024-07-02 11:45 | Surgery Progress Note ---
Date of Service July 02, 2024 Assessment & Plan (1) Abdominal mass: Plan: Her CT images and results were personally viewed and interpreted by myself She does have what appears to be a fatty mass in her right abdomen without signs of bowel obstruction No plans for any surgical intervention as this certainly could be a malignancy, liposarcoma Can touch base with IR to see if they would be willing to percutaneously biopsy this tomorrow Admission and Anticipated Discharge Date Admission Date: July 01, 2024 Subjective Patient seen and examined. Denies any abdominal pain. Denies any nausea or vomiting. Had normal bowel movement yesterday. Review of Systems Constitutional: no fever and no chills Respiratory: no cough and no dyspnea Cardiovascular: no chest pain and no dyspnea on exertion Gastrointestinal: no abdominal pain, no nausea and no vomiting Genitourinary: no dysuria and no urinary urgency Neurologic: no gait abnormality and no headache(s) Psychiatric: no behavioral changes and no depression Hematologic / Lymphatic: no easy bleeding and no easy bruising Physical Exam Constitutional: WD/WN, vitals as above Respiratory: normal respiratory effort, lungs clear to auscultation Cardiovascular: RRR, no murmur, no edema Gastrointestinal (Abdomen): Inspection/Auscultation: abdomen normal to inspection; abdomen not distended Percussion/Palpation: abdomen soft; abdomen nontender and no guarding Skin: no rashes, warm and dry Neurologic: PERRL, EOMI, accommodation nl, no face palsy, no dysarthria Results & Data Vital Signs (Past 12 Hours) Vital Signs Temp Pulse Pulse Resp BP BP Pulse Ox 07/02/24 11:17 36.8 C 76 20 159/68 H 95 07/02/24 08:08 07/02/24 08:06 36.7 C 85 24 156/73 H 96 07/02/24 06:45 85 07/02/24 03:25 36.9 C 86 16 157/61 H 98 07/02/24 00:44 07/02/24 00:44 36.8 C 83 18 146/67 H 97 07/02/24 00:23 85 07/02/24 00:09 86 20 139/57 L 97 O2 Del Method O2 Flow Rate 07/02/24 11:17 Nasal Cannula 07/02/24 08:08 Nasal Cannula 3 07/02/24 08:06 Nasal Cannula 07/02/24 06:45 07/02/24 03:25 Nasal Cannula 3 07/02/24 00:44 Nasal Cannula 3 07/02/24 00:44 Nasal Cannula 3 07/02/24 00:23 07/02/24 00:09 PG Care Time/CCT Total # of Minutes Spent Total Time Spent with Patient: Total time spent is greater than 50% in coordination of care (as documented) at patient's floor/unit and/or counseling patient: Coding Level of Care Code 04098 SUB INP/OBS CARE 04/01MIN Diagnoses Abdominal mass R19.00
--- NOTE | 2024-07-02 13:12 | Electrocardiogram Report ---
Test Reason : Blood Pressure : */* mmHG Vent. Rate : 73 BPM Atrial Rate : 73 BPM P-R Int : 142 ms QRS Dur : 70 ms QT Int : 420 ms P-R-T Axes : 78 69 87 degrees QTcB Int : 463 ms Normal sinus rhythm Nonspecific ST and T wave abnormality Abnormal ECG When compared with ECG of 01-Feb-2024 14:12, Nonspecific T wave abnormality no longer evident in Inferior leads Nonspecific T wave abnormality, worse in Anterolateral leads Confirmed by Car Noguera ([id number]) on 07/02/2024 1:12:26 PM Referred By: REFERRED SELF Confirmed By: Car Noguera
--- NOTE | 2024-07-02 13:21 | Hospitalist Progress Note ---
Date of Service July 02, 2024 Assessment & Plan (1) Weakness: (2) Abdominal mass: (3) S/P femoral-femoral bypass surgery: (4) COPD with emphysema: (5) Elevated troponin: (6) Chronic respiratory failure with hypoxia: (7) History of stroke: (8) Iron deficiency anemia: (9) B12 deficiency: (10) UTI (urinary tract infection): (11) Underweight: Plan 69yo female with recent vascular surgery -- s/p Left Iliac Angioplasty and Stenting, Left Femoral Embolectomy, Left Femoral Endarterectomy with Bovine Patch Angioplasty by Dr Long on 06/27/24. She subsequently underwent exploratory L groin procedure (06/30/2024, due to concern for bleeding). In addition has h/o COPD, chronic hypoxic resp failure on continuous O2 3 L, stroke 2019, HTN, and depression. She was discharged to home with her son on 07/01/2024. Presented with weakness and increased falls since discharge earlier in the day. She had numerous studies due to the fall including CTA aorta with runoff. This showed postsurgical changes of femoral-femoral artery bypass graft, L >R atherosclerosis lower extremity superficial femoral arteries/infra popliteal arteries, inflammatory changes L groin with small pocket of fluid and gas likely postsurgical, and a large macroscopic fat containing structure/process occupying most of the RIGHT retroperitoneal cavity of the abdomen resulting in significant mass effect with leftward displacement of the viscera (lipomatous hypertrophy/heterogenous lipoma, or liposarcoma favored). #Weakness - -did have PT/OT ordered during recent hospital stay however records show that each time the therapists tried to work with her she was on bedrest due to bleeding, going to the OR, etc. -deconditioning, Fe def / B12 def / recent acute blood loss anemia, possible UTI, other comorbidities to blame for the weakness -she can only walk to the bathroom and back; by then she has severe fatigue -hemoglobin was 13 in fall 2023; Hb today <8; given symptomatic anemia will Tx 1 unit PRBCs; give lasix 20mg x 1 post-Tx -PT/OT evals requested #Abdominal mass - -retroperitoneal -very large, occupying much of the retroperitoneal cavity with leftward shift of intra-abdominal contents -lipoma vs liposarcoma vs other -in order to safely obtain IR-guided biopsy (if patient desires) will need to be off Eliquis for at least 2-3 days -need to discuss with Dr Long if she can safely come off Eliquis given her recent fem-pop bypass -I cannot find any prior abdominal imaging in her chart thus it is impossible to say how long she has had this -appreciate gen surg input; agree with their recommendations #possible UTI - -u/a suggestive of possible UTI -start rocephin 1 gm daily; await culture -she did have a jones last week which is risk factor for UTI #iron deficiency - -blood loss, potentially inadequate consumption of Fe-rich foods, absorption issues, etc all could be contributing -would benefit from IV iron while here -Tx 1 unit PRBCs today due to symptomatic anemia #B12 deficiency - -B12 1000mcg daily x 4-6 months # PAD - -s/p Left Iliac Angioplasty and Stenting, Left Femoral Embolectomy, Left Femoral Endarterectomy with Bovine Patch Angioplasty by Dr Long on 06/27/24. -s/p Exploratory L groin due to concern for bleeding by Dr Long on 06/30/2024 -discharged on Eliquis 2.5mg BID + ASA -Aorta with runoff CTA on 07/01 with postsurgical changes of femoral-femoral artery bypass graft, L >R atherosclerosis lower extremity superficial femoral arteries/infra popliteal arteries, inflammatory changes L groin small pocket of fluid and gas likely postsurgical, asymptomatic soft tissue swelling LLE with subcu edema -change oxycodone to norco - former tends to cause more confusion, sedation, and other side effects than hydrocodone #Elevated troponin - -troponin 15.1, repeat 17.1 -this likely represents myocardial demand ischemia in setting of recent surgery, etc. #COPD - -stable, no exacerbation -cont home inhalers -albuterol prn #chronic hypoxic resp failure - -stable on home O2 (3 L continuously) #Depression - Sertraline, Bupropion #HLD - Rosuvastatin #HTN - Lisinopril #History of CVA - Frontal + parietal lobe infarct 2019, residual L arm/hand weakness and LLE weakness -CT head 07/01 without any acute findings -cont asa for secondary prevention #Underweight status - -per the chart she has been at a weight in the mid 30's kg for several years -[id number] she has cachexia, etc -if the retroperitoneal mass is cancer this would explain some of her failure to thrive, etc. pt's sons updated at bedside discussed blood consent, showed them CT finding of large retroperitoneal mass, discussed biopsy, discussed needing to get permission to hold Eliquis from Dr Long, etc. Admission and Anticipated Discharge Date Admission Date: July 01, 2024 Subjective patient lying in bed during the visit 2 sons at bedside tele overnight with NSR she confirms she is on 3 L NC O2 continuously denies any abd pain, R flank pain or right sided back pain does admit to issues with constipation she and her sons are not aware of any outside CT scan of the A/P over the last few years patient reports that at home yesterday following hospital discharge she was weak & fell appetite recently fair no weight loss has always been thin for decades we discussed blood transfusion and also discussed the mass seen on the right side on the CT scan when asked if she wants blood transfusion she said "I don't know" when asked if she wants biopsy of the mass she also said "I don't know" Review of Systems Review of Systems: gen - fatigue, weak; sons report that when she walked to bathroom earlier she was very tired/weak by the time she got out of the bathroom cv - no cp, no orthopnea pulm - no dyspnea at rest GI - no N/V Physical Exam Physical Exam: gen - very thin, cachectic, does not offer much spontaneous talk neck - no JVD mouth - MMM, no lesions heart - RRR, s1 s2 lungs - CTA b/l, no rales abd - modest asymmetry between the R abdomen and the L abdomen; no hernia any location; modest firmness of right side of abdomen; tayler L groin intact, no drainage, no bleeding ext - no edema, pulses b/l feet 1+ neuro - contracture & atrophy of L hand muscles Results & Data Results & Data Vital Signs (Past 12 Hours) Vital Signs Temp Pulse Pulse Resp BP Pulse Ox O2 Del Method 07/02/24 11:17 36.8 C 76 20 159/68 H 95 Nasal Cannula 07/02/24 08:08 Nasal Cannula 07/02/24 08:06 36.7 C 85 24 156/73 H 96 Nasal Cannula 07/02/24 06:45 85 07/02/24 03:25 36.9 C 86 16 157/61 H 98 Nasal Cannula O2 Flow Rate 07/02/24 11:17 07/02/24 08:08 3 07/02/24 08:06 07/02/24 06:45 07/02/24 03:25 3 Laboratory Results Laboratory Results - last 24 hr 07/01/24 07/01/24 07/01/24 17:44 17:56 17:59 WBC 10.22 RBC 3.05 L Hgb 9.0 L POC Hgb 8.8 L Hct 27.6 L POC Hct 26 L MCV 90.5 MCH 29.5 MCHC 32.6 RDW Std Deviation 51.8 H RDW Coeff of Rosanna 15.5 H Plt Count 145 D MPV 11.5 Immature Gran % (Auto) 0.2 Neut % (Auto) 92.1 Lymph % (Auto) 2.9 [place] % (Auto) 4.7 Eos % (Auto) 0.0 Baso % (Auto) 0.1 Neut # (Auto) 9.41 H Lymph # (Auto) 0.30 L [place] # (Auto) 0.48 Eos # (Auto) 0.00 Baso # (Auto) 0.01 Immature Gran # (Auto) 0.02 PT 10.3 INR 0.9 APTT 28 PTT Ratio 1.0 VBG pH VBG pCO2 VBG pO2 VBG HCO3 VBG O2 Saturation VBG Base Excess POC Sodium 143 Sodium 143 POC Potassium 3.7 Potassium 3.8 POC Chloride 98 L Chloride 104 Carbon Dioxide 37 H POC Total CO2 30 Anion Gap 2 L POC Anion Gap 19.0 POC BUN 20 H BUN 20 Creatinine 0.91 D POC Creatinine 1.0 Est Cr Clr Drug Dosing 34.0 eGFR 67.87 BUN/Creatinine Ratio 22.0 H Glucose 142 H POC Glucose (other) 142 H Lactate 1.7 Calcium 8.5 L POC Ioniz Calcium Yanci 1.14 Magnesium 2.0 Iron TIBC Transferrin Transferrin % Sat Ferritin Total Bilirubin 0.4 Direct Bilirubin 0.1 AST 23 ALT 10 Alkaline Phosphatase 47 Troponin I High Sens 15.1 H Total Protein 6.2 Albumin 3.6 Vitamin B12 Folate Procalcitonin 0.15 TSH Urine Color Urine Appearance Urine pH Ur Specific Blanchard Urine Protein Urine Glucose (UA) Urine Ketones Urine Blood Urine Nitrite Urine Bilirubin Urine Urobilinogen Ur Leukocyte Esterase Urine WBC (Auto) Urine RBC (Auto) U Hyaline Cast (Auto) U Epithel Cells (Auto) Urine Bacteria (Auto) Hyaline Casts Blood Type O Positive Antibody Screen NEGATIVE Crossmatch See Detail 07/01/24 07/01/24 07/02/24 18:04 19:01 00:42 WBC RBC Hgb POC Hgb Hct POC Hct MCV MCH MCHC RDW Std Deviation RDW Coeff of Rosanna Plt Count MPV Immature Gran % (Auto) Neut % (Auto) Lymph % (Auto) [place] % (Auto) Eos % (Auto) Baso % (Auto) Neut # (Auto) Lymph # (Auto) [place] # (Auto) Eos # (Auto) Baso # (Auto) Immature Gran # (Auto) PT INR APTT PTT Ratio VBG pH 7.39 VBG pCO2 54 H VBG pO2 31 VBG HCO3 33 VBG O2 Saturation 60.5 VBG Base Excess 6.2 POC Sodium Sodium POC Potassium Potassium POC Chloride Chloride Carbon Dioxide POC Total CO2 Anion Gap POC Anion Gap POC BUN BUN Creatinine POC Creatinine Est Cr Clr Drug Dosing eGFR BUN/Creatinine Ratio Glucose POC Glucose (other) Lactate Calcium POC Ioniz Calcium Yanci Magnesium Iron TIBC Transferrin Transferrin % Sat Ferritin Total Bilirubin Direct Bilirubin AST ALT Alkaline Phosphatase Troponin I High Sens 17.1 H Total Protein Albumin Vitamin B12 Folate Procalcitonin TSH Urine Color Yellow Urine Appearance Clear Urine pH 5.5 Ur Specific Blanchard > 1.045 H Urine Protein 1+ H Urine Glucose (UA) Negative Urine Ketones Trace H Urine Blood 2+ H Urine Nitrite Negative Urine Bilirubin Negative Urine Urobilinogen Negative Ur Leukocyte Esterase Trace H Urine WBC (Auto) 0-5 Urine RBC (Auto) 11-20 H U Hyaline Cast (Auto) 6-10 H U Epithel Cells (Auto) 0-2 Urine Bacteria (Auto) 1+ H Hyaline Casts Present A Blood Type Antibody Screen Crossmatch 07/02/24 06:33 WBC 7.24 RBC 2.61 L Hgb 7.8 L POC Hgb Hct 23.8 L POC Hct MCV 91.2 MCH 29.9 MCHC 32.8 RDW Std Deviation 51.2 H RDW Coeff of Rosanna 15.3 H Plt Count 126 L MPV 11.4 Immature Gran % (Auto) Neut % (Auto) Lymph % (Auto) [place] % (Auto) Eos % (Auto) Baso % (Auto) Neut # (Auto) Lymph # (Auto) [place] # (Auto) Eos # (Auto) Baso # (Auto) Immature Gran # (Auto) PT INR APTT PTT Ratio VBG pH VBG pCO2 VBG pO2 VBG HCO3 VBG O2 Saturation VBG Base Excess POC Sodium Sodium 142 POC Potassium Potassium 3.5 POC Chloride Chloride 105 Carbon Dioxide 35 H POC Total CO2 Anion Gap 2 L POC Anion Gap POC BUN BUN 17 Creatinine 0.68 POC Creatinine Est Cr Clr Drug Dosing 45.5 eGFR 93.63 BUN/Creatinine Ratio 25.0 H Glucose 100 H POC Glucose (other) Lactate Calcium 8.0 L POC Ioniz Calcium Yanci Magnesium Iron 16 L TIBC 223 L Transferrin 159 L Transferrin % Sat 7 L Ferritin 77.9 Total Bilirubin Direct Bilirubin AST ALT Alkaline Phosphatase Troponin I High Sens Total Protein Albumin Vitamin B12 215 Folate 18.01 Procalcitonin TSH 2.260 Urine Color Urine Appearance Urine pH Ur Specific Bl[place]ard Urine Protein Urine Glucose (UA) Urine Ketones Urine Blood Urine Nitrite Urine Bilirubin Urine Urobilinogen Ur Leukocyte Esterase Urine WBC (Auto) Urine RBC (Auto) U Hyaline Cast (Auto) U Epithel Cells (Auto) Urine Bacteria (Auto) Hyaline Casts Blood Type Antibody Screen Crossmatch Diagnostic Findings Microbiology 07/01/24 19:01 Urine,Clean Catch Urine Culture - Preliminary Pin-point growth present, reincubating. PG Care Time/CCT Total # of Minutes Spent Total Time Spent with Patient: Total time spent is greater than 50% in coordination of care (as documented) at patient's floor/unit and/or counseling patient: Coding Level of Care Code 26136 SUB INP/OBS CARE 3/50MIN Diagnoses Weakness R53.1 Abdominal mass R19.00 S/P femoral-femoral bypass surgery Z95.828 Pulmonary emphysema, unspecified emphysema type J43.9 Emphysema type: unspecified Elevated troponin R79.89 Chronic respiratory failure with hypoxia J96.11 History of stroke Z86.73 Iron deficiency anemia D50.9 B12 deficiency E53.8 UTI (urinary tract infection) N39.0 Underweight R63.6 (4) COPD with emphysema Emphysema type: unspecified Qualified Code(s): J43.9 - Emphysema, unspecified
[2024-07-02] MEDS: CYANOCOBALAMIN (B-12) 500 MCG TABLET PO SCH (13:59)
[2024-07-02] MEDS: ACETAMINOPHEN 500 MG TAB PO ONE (14:58)
[2024-07-02] MEDS: POTASSIUM CHLORIDE 10 MEQ TABCR PO ONE (14:58)
[2024-07-02] MEDS: FUROSEMIDE 20 MG TAB PO ONE (18:26)
[2024-07-02] MEDS: ROSUVASTATIN CALCIUM 20 MG TAB PO SCH (20:53)
[2024-07-02] MEDS: buPROPion HCl 75 MG TABLET PO SCH (20:53)
[2024-07-02] MEDS: UMECLIDINIUM/VILANTEROL 62.5/25MCG 7 PUFFS/INHALER INH SCH (20:55)
[2024-07-02] MEDS: FLUTICASONE FUROATE 100MCG 14 PUFFS/INHALER INH SCH (20:56)
[2024-07-03 07:03] LABS: Hematocrit (blood only) 28.9 % (37.0-47.0); Hemoglobin 9.7 g/dl (12.0-16.0); Mean Corpuscular Hemoglobin 30.6 pg (25.0-34.0); Mean Corpuscular Hgb Conc 33.6 g/dL (32.0-36.0); Mean Corpuscular Volume 91.2 fL (80.0-100.0); Mean Platelet Volume 11.1 fL (9.4-12.4); Platelet Count 146 K/uL (130-400); RDW Coefficient of Variation 14.4 % (11.5-14.5); RDW Standard Deviation 48.6 fL (36.4-46.3); Red Blood Count 3.17 M/uL (4.20-5.40); White Blood Count 7.53 K/ul (4.8-10.8)
[2024-07-03 07:40] LABS: BUN Creatinine Ratio 22.4 (10-20); Calcium 8.2 mg/dl (8.6-10.3); Creatinine Clr Calc Pharmacy 50.4 ml/min; Potassium 3.8 mmol/L (3.5-5.1)
[2024-07-03] MEDS: HYDROCODONE/ACETAMOPHEN 5/325MG TAB PO PRN (08:57)
--- NOTE | 2024-07-03 09:17 | Surgery Progress Note ---
Date of Service July 03, 2024 Assessment & Plan (1) Abdominal mass: Plan: She remains without signs of obstruction due to this abdominal mass Again would reach out to IR to see if a percutaneous biopsy is feasible If no biopsy is planned, outpatient follow-up with surgical oncology would be my recommendation Surgery will sign off at this time, please call back with any questions or concerns Admission and Anticipated Discharge Date Admission Date: July 01, 2024 Subjective Patient seen and examined. Denies abdominal pain. Denies nausea and vomiting. Has been tolerating a regular diet. Review of Systems Constitutional: no fever and no chills Respiratory: no cough and no dyspnea Cardiovascular: no chest pain and no dyspnea on exertion Gastrointestinal: no abdominal pain, no nausea and no vomiting Genitourinary: no dysuria and no urinary urgency Neurologic: no gait abnormality and no headache(s) Psychiatric: no behavioral changes and no depression Hematologic / Lymphatic: no easy bleeding and no easy bruising Physical Exam Constitutional: WD/WN, vitals as above Respiratory: normal respiratory effort, lungs clear to auscultation Cardiovascular: RRR, no murmur, no edema Gastrointestinal (Abdomen): Inspection/Auscultation: abdomen normal to inspection; abdomen not distended Percussion/Palpation: abdomen soft; abdomen nontender and no guarding Skin: no rashes, warm and dry Neurologic: PERRL, EOMI, accommodation nl, no face palsy, no dysarthria Results & Data Vital Signs (Past 12 Hours) Vital Signs Temp Pulse Pulse Pulse Resp BP Pulse Ox 07/03/24 07:49 36.8 C 84 16 198/90 H 97 07/03/24 07:22 78 07/03/24 03:08 36.6 C 70 12 176/70 H 97 07/02/24 23:17 71 07/02/24 23:13 36.7 C 79 16 157/66 H 97 O2 Del Method O2 Flow Rate 07/03/24 07:49 Nasal Cannula 07/03/24 07:22 07/03/24 03:08 Nasal Cannula 3 07/02/24 23:17 07/02/24 23:13 Nasal Cannula 3 PG Care Time/CCT Total # of Minutes Spent Total Time Spent with Patient: Total time spent is greater than 50% in coordination of care (as documented) at patient's floor/unit and/or counseling patient: Coding Level of Care Code 54915 SUB INP/OBS CARE 04/01MIN Diagnoses Abdominal mass R19.00
[2024-07-03] MEDS: amLODIPine BESYLATE 5 MG TAB PO ONE (14:10)
--- NOTE | 2024-07-03 14:47 | Hospitalist Progress Note ---
Date of Service July 03, 2024 Assessment & Plan (1) Weakness: (2) Abdominal mass: (3) S/P femoral-femoral bypass surgery: (4) COPD with emphysema: (5) Elevated troponin: (6) Chronic respiratory failure with hypoxia: (7) History of stroke: (8) Iron deficiency anemia: (9) B12 deficiency: (10) UTI (urinary tract infection): (11) Underweight: Plan 69yo female with recent vascular surgery -- s/p Left Iliac Angioplasty and Stenting, Left Femoral Embolectomy, Left Femoral Endarterectomy with Bovine Patch Angioplasty by Dr Long on 06/27/24. She subsequently underwent exploratory L groin procedure (06/30/2024, due to concern for bleeding). In addition has h/o COPD, chronic hypoxic resp failure on continuous O2 3 L, stroke 2019, HTN, and depression. She was discharged to home with her grandson on 07/01/2024. Unfortunately when she got home she was quite weak and had falls prompting her to return to [facility]. She had numerous studies due to the fall including CTA aorta with runoff. This showed postsurgical changes of femoral-femoral artery bypass graft, L >R a therosclerosis lower extremity superficial femoral arteries/infra popliteal arteries, inflammatory changes L groin with small pocket of fluid and gas likely postsurgical, and a large macroscopic fat containing structure/process occupying most of the RIGHT retroperitoneal cavity of the abdomen resulting in significant mass effect with leftward displacement of the viscera (lipomatous hypertrophy/heterogenous lipoma vs liposarcoma). #Weakness - -did have PT/OT ordered during recent hospital stay however records show that each time the therapists tried to work with her she was on bedrest due to bleeding, going to the OR, etc. -deconditioning, Fe def / B12 def / recent acute blood loss anemia, possible UTI, other comorbidities to blame for the weakness -hemoglobin was 13 in fall 2023; Hb was <8 on 07/02; given symptomatic anemia Tx 1 unit PRBCs on 07/02 -PT/OT evals today -- both advised rehab -uncertain if she will want to go to rehab #Abdominal mass - -retroperitoneal, right side -very large, occupying much of the retroperitoneal cavity with leftward shift of intra-abdominal contents -lipoma vs liposarcoma vs other -in order to safely obtain IR-guided biopsy she would need both her Eliquis and aspirin held -further, I spoke with IR today and it is felt that biopsy may simply yield adipose tissue and won't help with diagnostic purposes -discussed this with Dr Long - would not be altamirano to hold both agents concurrently in light of her vascular surgery that occurred just 1 week ago -thus, will NOT perform IR biopsy at this time -I cannot find any prior abdominal imaging in her chart thus it is impossible to say how long she has had this mass -appreciate gen surg input; agree with their recommendations to refer her to tertiary care center ([facility], [facility] [place], etc) if patient desires additional work-up/Rx #possible UTI - -urine cx did not grow a specific pathogen -s/p 2 days of IV rocephin -will stop rocephin; change to PO keflex x 3 days then stop all abx #iron deficiency - -blood loss, potentially inadequate consumption of Fe-rich foods, absorption issues, etc all could be contributing -would benefit from IV iron while here -s/p 1 unit PRBCs on 07/02/24 -will give 1 run of IV venofer 100mg x 1 today #B12 deficiency - -B12 1000mcg daily x 4-6 months # PAD - -s/p Left Iliac Angioplasty and Stenting, Left Femoral Embolectomy, Left Femoral Endarterectomy with Bovine Patch Angioplasty by Dr Long on 06/27/24. -s/p Exploratory L groin due to concern for bleeding by Dr Long on 06/30/2024 -discharged on Eliquis 2.5mg BID + ASA -Aorta with runoff CTA on 07/01 with postsurgical changes of femoral-femoral artery bypass graft, L >R atherosclerosis lower extremity superficial femoral arteries/infra popliteal arteries, inflammatory changes L groin small pocket of fluid and gas likely postsurgical, asymptomatic soft tissue swelling LLE with subcu edema -cont norco prn pain #Elevated troponin - -troponin 15.1, repeat 17.1 -this likely represents myocardial demand ischemia in setting of recent surgery, etc. #COPD - -stable, no exacerbation -cont home inhalers -albuterol prn #chronic hypoxic resp failure - -stable on home O2 (3 L continuously) #Depression - Sertraline, Bupropion #HLD - Rosuvastatin #HTN - Lisinopril; uncontrolled - add amlodipine 2.5mg x 1 now #History of CVA - Frontal + parietal lobe infarct 2019, residual L arm/hand weakness and LLE weakness -CT head 07/01 without any acute findings -cont asa for secondary prevention #Underweight status - -per the chart she has been at a weight in the mid 30's kg for several years -[id number] she has cachexia, etc -if the retroperitoneal mass is cancer this would explain some of her failure to thrive, etc. -supplement B12 & Fe -add MVI daily as well pt's family updated at bedside PT/OT primo appreciated needs rehab Admission and Anticipated Discharge Date Admission Date: July 01, 2024 Subjective no events overnight tolerated PRBCs and she reports copious voiding with the PO lasix following the transfusion wants to go home to "see her dogs" son, grandson, and [id number] present at bedside we discussed that after IR, radiology, and gen surg all looked at the retroperitoneal mass it was felt that attempting IR biopsy likely was low-yield she would be best served by going to tertiary care center to have evaluation by surg-onc patient still uncertain about wanting to pursue such denies any dyspnea worked with PT/OT today - she felt she "did good" Review of Systems Review of Systems: CV - no chest pain, no orthopnea, no peripheral edema pulm - no dyspnea GI - no abd pain or N/V; last stool? Physical Exam Physical Exam: gen - very thin, cachectic, overall looks better today neck - no JVD mouth - MMM, no lesions heart - RRR, s1 s2, no murmur; heart tones are distant lungs - CTA b/l but airation is poor-fair at best; no rales; no wheezing; coughs alot while trying to take deep breaths abd - modest asymmetry between the R lower abdomen and the L lower abdomen; no hernia any location; slight firmness of right side of abdomen; tayler L groin intact, no drainage, no bleeding ext - no edema, pulses b/l feet 1+ neuro - contracture & atrophy of L hand muscles Results & Data Results & Data Vital Signs (Past 12 Hours) Vital Signs Temp Pulse Pulse Pulse Resp BP Pulse Ox 07/03/24 12:06 36.7 C 75 12 186/79 H 98 07/03/24 08:00 07/03/24 07:49 36.8 C 84 16 198/90 H 97 07/03/24 07:22 78 07/03/24 03:08 36.6 C 70 12 176/70 H 97 O2 Del Method O2 Flow Rate 07/03/24 12:06 Nasal Cannula 07/03/24 08:00 Nasal Cannula 3 07/03/24 07:49 Nasal Cannula 07/03/24 07:22 07/03/24 03:08 Nasal Cannula 3 Laboratory Results Laboratory Results - last 24 hr 07/01/24 07/03/24 17:59 06:00 WBC 7.53 RBC 3.17 L Hgb 9.7 L Hct 28.9 L MCV 91.2 MCH 30.6 MCHC 33.6 RDW Std Deviation 48.6 H RDW Coeff of Rosanna 14.4 Plt Count 146 MPV 11.1 Sodium 143 Potassium 3.8 Chloride 103 Carbon Dioxide 34 H Anion Gap 6 BUN 15 Creatinine 0.67 Est Cr Clr Drug Dosing 50.4 eGFR 93.97 BUN/Creatinine Ratio 22.4 H Glucose 95 Calcium 8.2 L Blood Type O Positive Antibody Screen NEGATIVE Crossmatch See Detail Diagnostic Findings Microbiology 07/01/24 19:01 Urine,Clean Catch Urine Culture - Final Three types of organisms present, all low counts probable skin demetra. No further identifications or sensitivities to follow. 07/01/24 17:44 Blood Aerobic Blood Culture - Preliminary No growth in Aerobic bottle after 24 hours. 07/01/24 17:44 Blood Anaerobic Blood Culture - Preliminary No growth in Anaerobic bottle after 24 hours. 07/01/24 17:44 Blood Aerobic Blood Culture - Preliminary No growth in Aerobic bottle after 24 hours. 07/01/24 17:44 Blood Anaerobic Blood Culture - Preliminary No growth in Anaerobic bottle after 24 hours. PG Care Time/CCT Total # of Minutes Spent Total Time Spent with Patient: Total time spent is greater than 50% in coordination of care (as documented) at patient's floor/unit and/or counseling patient: Coding Level of Care Code 37175 SUB INP/OBS CARE 3/50MIN Diagnoses Weakness R53.1 Abdominal mass R19.00 S/P femoral-femoral bypass surgery Z95.828 Pulmonary emphysema, unspecified emphysema type J43.9 Emphysema type: unspecified Elevated troponin R79.89 Chronic respiratory failure with hypoxia J96.11 History of stroke Z86.73 Iron deficiency anemia D50.9 B12 deficiency E53.8 UTI (urinary tract infection) N39.0 Underweight R63.6 (4) COPD with emphysema Emphysema type: unspecified Qualified Code(s): J43.9 - Emphysema, unspecified
[2024-07-03 15:15] VITALS: RESP 20
[2024-07-03] MEDS: IRON SUCROSE 100 MG in SODIUM CHLORIDE 0.9% 100 ML IV ONE (17:59)
[2024-07-03] MEDS: POLYETHYLENE (MIRALAX) 17 GM PACK PO SCH (18:00)
[2024-07-03] MEDS: SENNA 8.6 MG TAB PO SCH (18:06)
--- NOTE | 2024-07-04 07:09 | Hospitalist Progress Note ---
Date of Service July 04, 2024 Assessment & Plan (1) Weakness: (2) Abdominal mass: (3) S/P femoral-femoral bypass surgery: (4) COPD with emphysema: (5) Elevated troponin: (6) Chronic respiratory failure with hypoxia: (7) History of stroke: (8) Iron deficiency anemia: (9) B12 deficiency: (10) UTI (urinary tract infection): (11) Underweight: Plan 69yo female with recent vascular surgery -- s/p Left Iliac Angioplasty and Stenting, Left Femoral Embolectomy, Left Femoral Endarterectomy with Bovine Patch Angioplasty by Dr Long on 06/27/24. She subsequently underwent exploratory L groin procedure (06/30/2024, due to concern for bleeding). In addition has h/o COPD, chronic hypoxic resp failure on continuous O2 3 L, stroke 2019, HTN, and depression. She was discharged to home with her grandson on 07/01/2024. Unfortunately when she got home she was quite weak and had falls prompting her to return to [facility]. She had numerous studies due to the fall including CTA aorta with runoff. This showed postsurgical changes of femoral-femoral artery bypass graft, L >R a therosclerosis lower extremity superficial femoral arteries/infra popliteal arteries, inflammatory changes L groin with small pocket of fluid and gas likely postsurgical, and a large macroscopic fat containing structure/process occupying most of the RIGHT retroperitoneal cavity of the abdomen resulting in significant mass effect with leftward displacement of the viscera (lipomatous hypertrophy/heterogenous lipoma vs liposarcoma). #Weakness - -did have PT/OT ordered during recent hospital stay however records show that each time the therapists tried to work with her she was on bedrest due to bleeding, going to the OR, etc. -deconditioning, Fe def / B12 def / recent acute blood loss anemia, possible UTI, other comorbidities to blame for the weakness -hemoglobin was 13 in fall 2023; Hb was <8 on 07/02; given symptomatic anemia Tx 1 unit PRBCs on 07/02 -PT/OT evals today -- both advised rehab -uncertain if she will want to go to rehab #Abdominal mass - -retroperitoneal, right side -very large, occupying much of the retroperitoneal cavity with leftward shift of intra-abdominal contents -lipoma vs liposarcoma vs other -in order to safely obtain IR-guided biopsy she would need both her Eliquis and aspirin held -further, I spoke with IR today and it is felt that biopsy may simply yield adipose tissue and won't help with diagnostic purposes Discussed this with Dr Long - would not be altamirano to hold both agents concurrently in light of her vascular surgery that occurred just 1 week ago -thus, will NOT perform IR biopsy at this time -I cannot find any prior abdominal imaging in her chart thus it is impossible to say how long she has had this mass -appreciate gen surg input; agree with their recommendations to refer her to tertiary care center ([facility], [facility] [place], etc) if patient desires additional work-up/Rx #possible UTI - -urine cx did not grow a specific pathogen -s/p 2 days of IV rocephin -will stop rocephin; change to PO keflex x 3 days then stop all abx #iron deficiency - -blood loss, potentially inadequate consumption of Fe-rich foods, absorption issues, etc all could be contributing -would benefit from IV iron while here -s/p 1 unit PRBCs on 07/02/24 -will give 1 run of IV venofer 100mg x 1 today #B12 deficiency - -B12 1000mcg daily x 4-6 months # PAD - -s/p Left Iliac Angioplasty and Stenting, Left Femoral Embolectomy, Left Femoral Endarterectomy with Bovine Patch Angioplasty by Dr Long on 06/27/24. -s/p Exploratory L groin due to concern for bleeding by Dr Long on 06/30/2024 -discharged on Eliquis 2.5mg BID + ASA -Aorta with runoff CTA on 07/01 with postsurgical changes of femoral-femoral artery bypass graft, L >R atherosclerosis lower extremity superficial femoral arteries/infra popliteal arteries, inflammatory changes L groin small pocket of fluid and gas likely postsurgical, asymptomatic soft tissue swelling LLE with subcu edema -cont norco prn pain #Elevated troponin - -troponin 15.1, repeat 17.1 -this likely represents myocardial demand ischemia in setting of recent surgery, etc. #COPD, chronic hypoxic resp failure -stable on home O2 (3 L continuously), no exacerbation. continues on home inha lers -albuterol prn #Depression - Sertraline, Bupropion #HLD - Rosuvastatin #HTN - Lisinopril; uncontrolled - add amlodipine 2.5mg x 1 now . BP this morning 169/79 and will order daily #History of CVA - Frontal + parietal lobe infarct 2019, residual L arm/hand weakness and LLE weakness -CT head 07/01 without any acute findings -cont asa for secondary prevention #Underweight status - -per the chart she has been at a weight in the mid 30's kg for several years. [id number] she has cachexia, etc -if the retroperitoneal mass is cancer this would explain some of her failure to thrive, etc. -supplement B12 & Fe -add MVI daily as well pt's family updated at bedside PT/OT evals appreciated needs rehab (if agreeable) Admission and Anticipated Discharge Date Admission Date: July 01, 2024 Results & Data Results & Data Vital Signs (Past 12 Hours) Vital Signs Temp Pulse Pulse Resp BP Pulse Ox O2 Del Method 07/04/24 03:40 36.6 C 80 20 169/79 H 93 Oxymask 07/04/24 00:17 Oxymask 07/04/24 00:10 37.0 C 78 20 171/76 H 92 Oxymask 07/04/24 00:00 07/03/24 21:50 78 07/03/24 19:57 37.1 C 82 20 176/92 H 93 Oxymask O2 Del Method O2 Flow Rate O2 Flow Rate 07/04/24 03:40 3 07/04/24 00:17 3 07/04/24 00:10 3 07/04/24 00:00 Oxymask 3 07/03/24 21:50 07/03/24 19:57 3 PG Care Time/CCT Total # of Minutes Spent Total Time Spent with Patient: Total time spent is greater than 50% in coordination of care (as documented) at patient's floor/unit and/or counseling patient: Coding Diagnoses Weakness R53.1 Abdominal mass R19.00 S/P femoral-femoral bypass surgery Z95.828 Pulmonary emphysema, unspecified emphysema type J43.9 Emphysema type: unspecified Elevated troponin R79.89 Chronic respiratory failure with hypoxia J96.11 History of stroke Z86.73 Iron deficiency anemia D50.9 B12 deficiency E53.8 UTI (urinary tract infection) N39.0 Underweight R63.6 (4) COPD with emphysema Emphysema type: unspecified Qualified Code(s): J43.9 - Emphysema, unspecified
[2024-07-04 09:14] LABS: Hematocrit (blood only) 33.8 % (37.0-47.0); Hemoglobin 11.3 g/dl (12.0-16.0); Mean Corpuscular Hemoglobin 30.3 pg (25.0-34.0); Mean Corpuscular Hgb Conc 33.4 g/dL (32.0-36.0); Mean Corpuscular Volume 90.6 fL (80.0-100.0); Mean Platelet Volume 10.7 fL (9.4-12.4); Platelet Count 201 K/uL (130-400); RDW Coefficient of Variation 14.4 % (11.5-14.5); RDW Standard Deviation 47.8 fL (36.4-46.3); Red Blood Count 3.73 M/uL (4.20-5.40); White Blood Count 8.24 K/ul (4.8-10.8)
[2024-07-04] MEDS: cephALEXin 500 MG CAP PO SCH (09:16)
[2024-07-04] MEDS: CEROVITE ADV FORMULA TAB PO SCH (09:16)
[2024-07-04] MEDS: amLODIPine BESYLATE 5 MG TAB PO SCH (09:22)
[2024-07-04 09:36] LABS: Calcium 8.8 mg/dl (8.6-10.3); Magnesium 1.8 mg/dl (1.7-2.4); Potassium 4.2 mmol/L (3.5-5.1)
[2024-07-04 09:41] LABS: Creatinine Clr Calc Pharmacy 51.2 ml/min
--- NOTE | 2024-07-04 11:13 | Discharge Summary ---
Discharge Summary Date of Service July 04, 2024 Principal Dx & Hospital Course #1 = Principal Diagnosis (1) Weakness: (2) Abdominal mass: (3) S/P femoral-femoral bypass surgery: (4) COPD with emphysema: (5) Elevated troponin: (6) Chronic respiratory failure with hypoxia: (7) History of stroke: (8) Iron deficiency anemia: (9) B12 deficiency: (10) UTI (urinary tract infection): (11) Underweight: Plan 69yo female with recent vascular surgery -- s/p Left Iliac Angioplasty and Stenting, Left Femoral Embolectomy, Left Femoral Endarterectomy with Bovine Patch Angioplasty by Dr Long on 06/27/24. She subsequently underwent exploratory L groin procedure (06/30/2024, due to concern for bleeding). In addition has h/o COPD, chronic hypoxic resp failure on continuous O2 3 L, stroke 2019, HTN, and depression. She was discharged to home with her grandson on 07/01/2024. Unfortunately when she got home she was quite weak and had falls prompting her to return to [facility] ER. She had numerous studies due to the fall including CTA aorta with runoff. This showed postsurgical changes of femoral-femoral artery bypass graft, L >R atherosclerosis lower extremity superficial femoral arteries/infra popliteal arteries, inflammatory changes L groin with small pocket of fluid and gas likely postsurgical, and a large macroscopic fat containing structure/process occupying most of the RIGHT retroperitoneal cavity of the abdomen resulting in significant mass effect with leftward displacement of the viscera (lipomatous hypertrophy/heterogenous lipoma vs liposarcoma). #Weakness - -did have PT/OT ordered during recent hospital stay however records show that each time the therapists tried to work with her she was on bedrest due to bleeding, going to the OR, etc. Suspected deconditoining, iron deficiency, B12 deficiency, recent acute blood loss anemia and possible UTI as cause for blame for weakness Hgb was 13 in fall, <8 on 07/02 and given symptomatic anemia was given 1u PRBC on 07/02, 100mg IV Venofer on 07/03 and hgb 11.3 and stable prior to discharge UA +, however urine cx did not grow specific pathogen and was provided Rocephin IV x 2 days and converted to Keflex and to continue for another 2 days after today at discharge PT/OT recommend rehab however patient DECLINED this and wanted home health services which was arranged. Was also given rx for platform walker to prevent falls. See below regarding abdominal mass and outpatient follow up with PCP for ongoing discussion and referral tertiary care ([facility], [facility]) if desires additional work up/Rx #Abdominal mass - noted R sided, very large, occupying much of retroperitoneal cavity with leftward shift of intra-abdominal contents Ddx lipoma vs liposarcoma vs other Discussed w/ general surgery and IR earlier in the stay and in order for IR to safely obtain biopsy would need both Eliquis and Aspirin held which was discussed w/ vascular (Dr Long) given recent vascular surgery ~1wk ago and did NOT feel altamirano to hold both agents concurrently in light of her vascular surgery and thus IR biopsy was NOT performed while inpatient. No prior imaging in chart for comparison and unclear how long has had. Suspect could have been contributing to JOSE JUAN and discussed w/ patient prior to dc and she preferred to discuss options about referral with PCP in follow up. #possible UTI - -urine cx did not grow a specific pathogen, however s/p Rocephin x 2 days and converted to Keflex to complete another 3 days for course #iron deficiency - -blood loss, potentially inadequate consumption of Fe-rich foods, absorption issues, etc all could be contributing, iron studies LOW, was given 1u PRBC as above for hgb <8 -would benefit from IV iron while here with improvement to 9.7 and additional Venofer IV provided and was 11.3 prior to dc with continued ASA/eliquis use and stable renal function. Outpt f/u and consideration for ongoing Venofer if needed. Would avoid PO to prevent constipation w/ above #B12 deficiency - noted. started B12 1000mcg daily, rec for 4-6 months (sent 1 month at dc, PCP to rx ongoing therapy) # PAD - s/p Left Iliac Angioplasty and Stenting, Left Femoral Embolectomy, Left Femoral Endarterectomy with Bovine Patch Angioplasty by Dr Long on 06/27/24. -s/p Exploratory L groin due to concern for bleeding by Dr Long on 06/30/2024, discharged on Eliquis 2.5mg + ASA Aorta with runoff CTA on 07/01 with postsurgical changes of femoral-femoral artery bypass graft, L >R atherosclerosis lower extremity superficial femoral arteries/infra popliteal arteries, inflammatory changes L groin small pocket of fluid and gas likely postsurgical, asymptomatic soft tissue swelling LLE with subcu edema -cont norco prn pain , outpt meds at dc #Elevated troponin - -troponin 15.1, repeat 17.1, likely represents myocardial demand ischemia in setting of recent surgery, etc. No CP reported, on baseline 3L Or #COPD, chronic hypoxic resp failure Stable on home O2 (3 L continuously), no exacerbation. continues on home inhalers and albuterol available prn, 97% on 3L prior to dc #Depression - Sertraline, Bupropion. Support provided #HLD - Rosuvastatin continued #HTN - Lisinopril; uncontrolled - added amlodipine 2.5mg x 1 for 07/03 with good results and was elevated to 169/69 day of dc and decision to continue 2.5mg daily at dc. Outpt f/u for ongoing monitoring #History of CVA - Frontal + parietal lobe infarct 2019, residual L arm/hand weakness and LLE weakness. CT head 07/01 without any acute findings . Remained on ASA for 2nd prevention as above #Underweight status - -per the chart she has been at a weight in the mid 30's kg for several years. [id number] she has cachexia, etc -if the retroperitoneal mass is cancer this would explain some of her failure to thrive, etc. -supplement B12 & Fe -add MVI daily as well F/u pcp regarding above Notes For Next Care Provider Consdier ref to tertiary surgery for biopsy/resection abdominal mass if patient decides to pursue this (wanted to discuss options in follow up). Not able to perform w/ IR as outlined and recent vascular procedure and recs by vascular to avoid holding dual therapy at this time w/ recent intervention but could be considered outpatient Consideration for outpatient Venofer infusions if JOSE JUAN related to such Consideration for escalation to inpatient rehab if fails HH services as desired by patient and did NOT want rehab at this time Medication Changes From Visit Keflex 500mg BID x 2 more days to complete course for +UTI Amlodipine 2.5mg daily for HTN B12 1000mcg PO daily Multivitamin Admission HPI Per Admitting Provider 69-year-old female PMHx s/p L sided femoropopliteal bypass (06/27/2024)with exploratory L groin procedure (06/30/2024) for arterial iliac occlusive disorder he was discharged the day of arrival (07/01/2024) who is presenting for weakness and increased falls since discharge on the day of arrival. Did have 1 episode of vomiting. Patient also has a history of COPD, HTN, depression, HLD, and prior CVA. Patient was discharged 07/01/2024 after surgical intervention by Dr. Long. Approximately 4 hours after discharge to home, patient became weak and had a fall. She is on Eliquis. Patient states that she was using her walker when she fell up against the door because she felt too weak. Family member helped her get back to her bearings but she still continued to feel weak. She then had a second fall in her bedroom and landed on her left arm which did produce some bleeding, but no current pain. States that she did not have any symptoms prior to the event to include chest pain, shortness of breath, weakness, or numbness/tingling. States that she did not lose consciousness. Is having no symptoms right now. Did have 1 episode of vomiting, no current nausea or vomiting. Adamantly states "I do not want to stay here." Overall denying chest pain, shortness of breath, palpitations, abdominal pain, N/D/C, LUTS, URI symptoms, fever/chills, or syncope. Has not had this happen before. Overall feels that her surgical site is healing well. ED evaluation reveals no leukocytosis, H&H 9.0/27.6 (near patient's baseline); PT/INR WNL; VBG's GQT398; CMP CO2 37, AG 2, BUN/creatinine ratio 22, glucose 142, calcium 8.5; lactate 1.7; troponin 15.1, pending repeat; procalcitonin 0.15; UA with some trace findings as well as 2+ blood and 11-20 RBCs as well as hyaline cast; CXR with extensive emphysema, peribronchial cuffing suggestive of bronchiolitis, but no focal consolidation; chest CTA no PE, pulmonary emphysematous changes found, right apical pulmonary thick reticular infiltrate likely granulomatous, calcified subpleural pulmonary nodule LLL (3 mm), bilateral basal pulmonary atelectatic bands, left basal pleural thickening/reaction; head CT cerebral atrophy, old infarct, chronic small vessel ischemic disease, probably chronic but age-indeterminate small infarcts in the left paramedian emily and in the right cerebellum, no acute findings; cervical spine CT no definite fracture, mild spinal stenosis C5-6 and C6-7, L C5-6 and C6-7 neural foramen narrowing; aorta with runoff CTA postsurgical changes of femoral-femoral artery bypass graft, L >R atherosclerosis lower extremity superficial femoral arteries/infra popliteal arteries, inflammatory changes L groin small pocket of fluid and gas likely postsurgical, asymptomatic soft tissue swelling LLE with subcu edema, large macroscopic fat containing structure/process occupying most of the R peritoneal cavity of the abdomen resulting in significant mass effect with leftward displacement of the viscera (lipomatous hypertrophy/heterogenous lipoma, or liposarcoma). Please see Dr. Quinn's attestation for adjustments/additions to treatment plan. Admission Exam Per Admitting Provider General: No acute distress, thin Skin: Warm and dry; L sided surgical site appears well healing, no pus or blood, no edema Head: Normocephalic, atraumatic Eyes: PERRL, conjunctivae clear, sclera non-icteric ENT: External ear and ear canal without swelling; nose atraumatic; good dentition, tongue normal appearance, pharynx normal Neck: Supple, no LAD Cardio: RRR, no M/G/R, S1 and S2 normal Resp: No respiratory distress, wheezing on expiration; wearing O2 via NC (baseline) Abdomen: Soft, symmetric, nontender; No masses or hepatosplenomegaly; Bowel sounds normoactive MSK: No deformities; pulses palpable and equal; no edema. LUE with ecchymosis on medial aspect, forearm wrapped from injury, hand in usual posture Neuro: Awake, alert; Sensation intact bilaterally; CN grossly intact Psych: Appropriate mood and affect; good judgement and insight. 3 family members present in room at time of visit. Discharge Exam General: 69yo female, thin, cachectic appearing but reports feeling better, just mild fatigue Heent: head atraumatic, mmm, trachea midline Resp: on baseline O2, 3L, able to speak in complete sentences, cough w/ deep breathing but no overt wheezing/rales, is diminished/decreased air entry bilaterally but on baseline 3L NC CV: NSR on telemetry, occ PAC, no significant m/r/g, no pitting edema GI: +BS, +asymmetry between R lower abdomen and L lower abd, no hernia, slight firmness to R side of abdomen, tayler intact, no bleeding, pulses 1+ bilaterally Psych: AOx3, cooperative with exam Neuro - contracture & atrophy of L hand muscles Discharge Plan Discharge Items Patient Disposition: Home - Home Health Services Reason For Visit: FALL, ABDOMINAL MASS Discharge Diagnosis: Fall, UTI, Anemia, Abdominal Mass Goals: You have been hospitalized for an acute medical problem. During your stay at [facility], we have made an effort to correct the problem that brought you to the hospital while keeping you as comfortable as possible. Medications were used to bring your condition under control and your discharge instructions will include directions for any medications you should take after leaving the hospital. Please make sure you see your Primary Care Provider as part of your follow up plan. Activity: As commented below Non-emergency contact: Primary Care Provider and Specialist Call non-emergency contact if: you have any medication questions, your symptoms worsen, your pain is not controlled, your pain is worsening and your pain is unusual for you Follow-up/Referrals: Coretta Mai CRNP [Primary Care Provider] - 07/11/24 10:00 am Krishna Long MD [Physician] - Diet: Heart Healthy Addtl Attending Provider Instructions: You have been hospitalized for weakness and fall. Noted an abdominal mass but given recent procedure for vascular and unlikely to yield anything but fatty tissue at this time can discuss with primary care about referral to tertiary as outpatient for biopsy if desired. You were also found to have anemia , possible from the mass but also from recent procedure. We gave you IV iron and a unit of blood and your hemoglobin has improved and remained stable. You were also found to have evidence for a UTI. We have given you IV antibiotics and are sending you on KEFLEX 500mg twice daily for another 2 days to complete the course. Your blood pressure was also on the high side and we added LOW dose amlodipine and will continue 2.5mg daily. Therapy evaluations were undertaken and recommend rehab, but you have decided to go home with home health services. Please follow up with primary care in the next 7-10 days after discharge to monitor your progress. Please return to the ER with any fever/chills, worsening weakness, chest pain, shortness of breath, or for any other symptoms concerning for you. It has been a pleasure being a part of the medical team providing for you while you have been in the hospital. Take care! Pending Studies at Discharge: Yes Studies:: blood cultures-- no growth to date Stand-Alone Forms: My [facility] [employer], Smoking Cessation Medications and DC Order Prescriptions: New cephalexin 500 mg Capsule 500 mg PO BID 2 Days Qty: 4 0RF cyanocobalamin (vitamin B-12) 500 mcg Tablet 1,000 mcg PO QAM Qty: 30 0RF Cerovite Senior 0.4 mg-300 mcg- 250 mcg Tablet 1 tab PO QAM Qty: 30 0RF amlodipine 2.5 mg tablet 2.5 mg PO DAILY Qty: 30 0RF Continued sertraline 100 mg tablet 150 mg PO QAM Qty: 135 3RF Trelegy Ellipta 100-62.5-25 mcg blister with device 1 inh inhalation HS Qty: 60 4RF lisinopril 10 mg tablet 10 mg PO QAM Qty: 90 3RF acetaminophen 325 mg capsule 650 mg PO Q4H PRN (Reason: Pain) Hold Instructions: Hold while taking oxycodone/acetaminophen for pain. albuterol sulfate 2.5 mg /3 mL (0.083 %) solution for nebulization 2.5 mg inhalation QID PRN (Reason: shortness of breath or wheezing) Qty: 180 4RF aspirin 81 mg Tablet,Delayed Release (Dr/Ec) 81 mg PO QAM Qty: 1 0RF oxycodone 5 mg tablet 5 mg PO Q6H PRN (Reason: pain) Qty: 30 0RF albuterol sulfate 90 mcg/actuation HFA aerosol inhaler 2 - 4 puff inhalation Q6 PRN (Reason: Shortness Of Breath Or Wheezing) bupropion HCl 75 mg tablet 75 mg PO HS Rx Instructions: take with lower dose sertraline rosuvastatin [Crestor] 40 mg tablet 40 mg PO HS Eliquis 2.5 mg Tablet 2.5 mg PO BID Qty: 60 11RF No Action (DME) Flutter Valve Device See Rx Instructions .ROUTE .MEDSUPPLY Qty: 1 0RF Rx Instructions: Use it every 6 hours when awake. Discharge Orders: Discharge Order (Routine); Ordered 07/04/24 Ordered By: Marie Cruz Admission Data Admit Date/Time: 07/01/24 22:18 Attending Provider: Junior Chi Admit Provider: Elena Quinn Primary Care Provider: Coretta Mai. Other Providers: Elena Quinn; Ryan Burns Hospital Stay Data Consultations 07/01/24 20:59 ED Decision to Admit Stat 07/02/24 00:30 Consult General Surgery Routine 07/03/24 16:28 Burn CD for patient Routine Diagnostic Imagining Performed Aorta w/Runoff CTA 07/01/24 17:40 CT ANGIOGRAM of the ABDOMEN/PELVIS AORTOGRAM with BILATERAL LOWER EXTREMITY RUNOFF: Indication: Lower extremity pain IV CONTRAST: 100 mL of OMNIPAQUE 300 COMPARISON: None FINDINGS: Limited images through the lower thorax: Cardiomegaly. Extensive emphysema and bronchiolitis. Bibasilar atelectasis and scarring. The visualized upper abdominal visceral structures: Unremarkable Kidneys: There appears to be symmetric nephrograms of the kidneys. Gallbladder and biliary tree, pancreas and adrenal glands: Unremarkable. Scattered lymph nodes. Bowel loops: No evidence of obstruction. Normal appendix. The bowel loops are displaced to the left. Skeletal: No acute process identified. PERITONEUM: There is a very large masslike fat containing structure occupying most of the right sided peritoneum resulting in significant mass effect as manifested by left word shifting/displacement of the visceral and hollow viscus. There are some heterogeneity to this with nonfat densities noted scattered throughout, for example as seen on series 12, image 176. ANGIOGRAM FINDINGS: CTA RUNOFF of BILATERAL Lower Extremities: The MIP images, sagittal and coronal reformats were created. The 3D MIP image reformations were then rotated around the multiple planes. Additional MIP slab reformats were also performed. Source axial images are also available for interpretation. ABOMEN CTA: Extensive atherosclerosis with stenoses of the celiac trunk, the SMA, the renal arteries and the LIVIA. There is a stent in the distal abdominal aorta extending into the left common iliac and external leg arteries which is patent. Severe atherosclerosis with near occlusive narrowing of the left internal iliac artery, the right external and internal iliac arteries. There is a femoral to femoral bypass graft with stenosis at its origin off of the left femoral artery (series 12, image 363). BILATERAL CTA RUNOFF: LEFT: Extensive atherosclerosis resulting in multifocal moderate narrowing of the right superficial femoral artery. Atherosclerosis involving the infrapopliteal arteries. Two-vessel runoff is seen via the posterior tibial artery and the peroneal artery. The anterior tibial artery may be occluded at the level of the ankle mortise. RIGHT: Moderate narrowing in the distal superficial femoral artery secondary to atherosclerosis. Three-vessel runoff. Inflammatory changes in the left groin with small pockets of fluid and gas likely representing postsurgical changes following recent surgery. There is asymmetric soft tissue swelling of the left lower extremity with subcutaneous edema. The included venous system on the delayed imaging demonstrates patency of the deep venous systems. IMPRESSION: Postsurgical changes of femoral to femoral artery bypass graft. There is a suggested stenosis at the origin off of the bypass arising from the left femoral artery as above. Left greater than right atherosclerosis of the lower extremity superficial femoral arteries and infrapopliteal arteries resulting in moderate stenoses as above. Inflammatory changes in the left groin with small pockets of fluid and gas likely representing postsurgical changes following recent surgery. There is asymmetric soft tissue swelling of the left lower extremity with subcutaneous edema. The included venous system on the delayed imaging demonstrates patency of the deep venous systems. Large macroscopic fat-containing structure/process occupying most of the right peritoneal cavity of the abdomen resulting in significant mass effect as manifested by leftward displacement of the bowel structures and viscera. Some heterogeneity is suggested to this structure. Please correlate with medical workup up to this point. Considerations may include lipomatous hypertrophy/heterogeneous lipoma. Liposarcoma may be a consideration as well. Electronically signed by Yeison Workman 07-01-2024 8:28 PM Chest X-Ray 07/01/24 17:40 EXAM: Portable AP chest radiograph TECHNIQUE: AP portable radiograph of the chest was obtained. INDICATION: Shortness of breath Comparison: None FINDINGS: LINES and TUBES: None CARDIOVASCULAR: Cardiac silhouette is enlarged in size. LUNGS/PLEURA: No focal consolidation identified. Peribronchial cuffing suggesting bronchiolitis. Extensive emphysema. No significant pleural fluid. No discernible pneumothorax. OSSEOUS/OTHER: No displaced acute osseous process identified. IMPRESSION: Extensive emphysema. Peribronchial cuffing suggesting bronchiolitis. No focal consolidation detected. Cardiomegaly. Electronically signed by Yeison Workman 07-01-2024 8:[address] 07/01/24 17:42 Clinical history: Weakness and falls Technique: Axial computed tomography images were obtained of the cervical spine without intravenous contrast. Sagittal and coronal reconstructions were obtained Findings: No fracture is identified. No listhesis is seen. No focal osseous lesion is evident. There is atlantoaxial osteoarthritis. At C2-3, no disc herniation is identified. There is no spinal stenosis. The neural foramen are patent At C3-4, no disc herniation is identified. There is no spinal stenosis. The neural foramen are patent At C4-5, no disc herniation is identified. There is no spinal stenosis. The neural foramen are patent At C5-6, there is mild spinal stenosis due to a disc bulge. There is left greater than right neural foramen narrowing that may affect the left C6 nerve root At C6-7, there is mild spinal stenosis due to a disc bulge. There is left greater than right neural foramen narrowing that may affect the left C7 nerve root At C7-T1, no disc herniation is identified. There is no spinal stenosis. The neural foramen are patent There is emphysema. There is apparent partially calcified pleural parenchymal scarring in the right lung apex. The visualized soft tissues of the neck appear unremarkable. No foreign body is seen Impression: 1. No definite cervical spine fracture 2. Mild spinal stenosis at C5-6 and C6-7 3. Left C5-6 and C6-7 neural foramen narrowing that may affect the exiting nerve roots ACT 112: Positive. There are findings on this exam that require communication between the performing entity and the patient following Patient Test Result Information Act ([place] ACT 112) guidelines. Electronically signed by Akira Purdy 07-01-2024 6:54 PM Chest CTA 07/01/24 17:42 EXAM: CT angio chest PE protocol CLINICAL HISTORY: fall ro pe TECHNIQUE: CT angiography of the chest was performed with and without intravenous contrast with the following protocol: axial images with, reconstructed coronal and sagittal images. Non-contrast images were initially acquired, followed by contrast-enhanced images in arterial and venous phases. Intravenous contrast was administered using automated injection techniques. Bolus tracking was employed to optimize arterial phase imaging. One of these 3D techniques was utilized: Maximum Intensity Pixel (MIP), 3D Reconstructed Images, Volume Rendered Images, Surface Shaded Rendering. One of the following dose reduction techniques was utilized for this exam: Automated exposure control, adjustment of the mA and/or kV according to patient size, and use of iterative reconstruction. COMPARISON: 02/01/2024. FINDINGS: Aorta and Great Vessels: Ascending Aorta: Normal in caliber, no aneurysm, dissection, or significant atherosclerosis. Aortic Arch: Normal in caliber, no aneurysm, or dissection. Atheromatous calcifications are noted. Descending Aorta: Normal in caliber, no aneurysm, or dissection. Atheromatous calcifications are noted. Pulmonary Arteries: The main pulmonary artery and its branches are patent. No evidence of pulmonary embolism or significant stenosis. Heart: Cardiac Chambers: Normal in size. No evidence of cardiomegaly. Pericardium: No pericardial effusion or thickening. Lungs and Pleura: Marked pulmonary emphysematous changes. Right apical pulmonary thick reticular infiltration with faint calcific foci likely granulomatous. Calcified subpleural pulmonary nodule at the left upper lung lobe measuring 3 mm. Bilateral basal pulmonary atelectatic bands. Left basal pleural thickening/reaction. Mediastinum: No mediastinal mass or abnormal lymphadenopathy. Normal appearance of the trachea and central bronchi. Hilar Structures: Hilar structures are normal without enlargement. Chest Wall: No mass lesions or abnormalities in the chest wall. Vascular Structures: Superior Vena Cava: Patent without evidence of stenosis or thrombus. Inferior Vena Cava: Patent without evidence of stenosis or thrombus. Bones and Soft Tissues: No fractures, lytic, or blastic lesions of the visualized bony structures. Soft tissues are unremarkable. IMPRESSION: 1. No evidence of pulmonary embolism. 2. Marked pulmonary emphysematous changes. stable. 3. Right apical pulmonary thick reticular infiltration with faint calcific foci likely granulomatous. 4. Calcified subpleural pulmonary nodule at the left upper lung lobe measuring 3 mm. (granulomatous). 5. Bilateral basal pulmonary atelectatic bands. 6. Left basal pleural thickening/reaction. Electronically signed by Edward Dan 07-01-2024 8:[address] 07/01/24 17:42 Clinical History: Weakness and falls Technique: Axial computed tomography images were obtained of the brain without intravenous contrast. Findings: There is diffuse cerebral atrophy, within expected limits for the patient's age. Areas of decreased attenuation are seen within the periventricular white matter, likely representing chronic small vessel ischemic disease. There is an apparent old right frontal lobe infarct. There is also a suspected small old infarct of the central emily. There is no definite sign of acute infarction. No intracranial hemorrhage is evident. No definite mass lesion is seen on this noncontrast examination. There is no midline shift or other form of herniation. No hydrocephalus is seen. No fracture is identified. The orbits and the visualized paranasal sinuses appear unremarkable. The mastoid air cells appear clear. Impression: 1. Cerebral atrophy , old infarcts, and chronic small vessel ischemic disease 2. No definite acute pathology Electronically signed by Akira Purdy 07-01-2024 6:49 PM Discharge Instructions Given to Patient (Per Discharging Provider) You have been hospitalized for weakness and fall. Noted an abdominal mass but given recent procedure for vascular and unlikely to yield anything but fatty tissue at this time can discuss with primary care about referral to tertiary as outpatient for biopsy if desired. You were also found to have anemia , possible from the mass but also from recent procedure. We gave you IV iron and a unit of blood and your hemoglobin has impr cesar and remained stable. You were also found to have evidence for a UTI. We have given you IV antibiotics and are sending you on KEFLEX 500mg twice daily for another 2 days to complete the course. Your blood pressure was also on the high side and we added LOW dose amlodipine and will continue 2.5mg daily. Therapy evaluations were undertaken and recommend rehab, but you have decided to go home with home health services. Please follow up with primary care in the next 7-10 days after discharge to monitor your progress. Please return to the ER with any fever/chills, worsening weakness, chest pain, shortness of breath, or for any other symptoms concerning for you. It has been a pleasure being a part of the medical team providing for you while you have been in the hospital. Take care! Supervising Physician Co-Signing Physician Notes The patient was not seen by me. The chart was reviewed. Case discussed with TARI Tellez. Agree with assessment and plan Total Time Total Time Spent Total Time Spent (In Minutes): 45 Coding Level of Care Code 12959 INP/OBS DISCH >30 MIN Diagnoses Weakness R53.1 Abdominal mass R19.00 S/P femoral-femoral bypass surgery Z95.828 Pulmonary emphysema, unspecified emphysema type J43.9 Emphysema type: unspecified Elevated troponin R79.89 Chronic respiratory failure with hypoxia J96.11 History of stroke Z86.73 Iron deficiency anemia D50.9 B12 deficiency E53.8 UTI (urinary tract infection) N39.0 Underweight R63.6
[2024-07-04 11:24] VITALS: BP 130/77; TEMP 98.1; O2SAT 97
[2024-07-04 15:14] VITALS: PULSE 70
== END 2024-07-04 16:11 | disposition home health service (06) | DRG 811 ==
LOC: ED 16:59 → 2N 22:18 → SUATTDRO 22:18 → INTOOBSV 22:18 → 2N 07-02 00:10

== ENCOUNTER 2024-10-30 06:04 | Observation (INO) ==
--- NOTE | 2024-10-26 10:12 | Anesthesiology Consultation ---
Date of Service October 26, 2024 Assessment & Plan (1) Encounter for pre-operative examination: - Infectious disease screening: Per assessment on 10/26/24- No known recent infectious disease contacts or current infectious disease symptoms. - Eliquis/ASA instructions per surgeon/prescriber - Recent surgery/anesthesia hx: * Groin exploration (06/30/24): Grade 1 view, Glidescope#3, ETT 7.0 at [facility]. No issues noted per post-op anesthesia progress note. * Left femoral embolectomy (06/27/24): Grade view 1, MAC #3, ETT 7.0, DL x1, atraumatic * Fem-fem bypass (02/15/24): MAC#3, ETT 6.0 - PCP visit (09/04/24): "labs today.. Willing to have case management help with form to receive Trelegy from pharm co, samples given.. Do updated 6 min walk test while hear today.. when you see Dr Long in Oct ask about when, if ever, could hold eliquis to have bx of mass in stomach.. CT of abd- recheck the abd mass, I suspect that has grown because patient is now symptomatic with some abdominal pain, constipation issues and intermittent nausea issues along with weight loss. Patient really does not like the protein shakes will drink those, try to encourage her to eat small frequent meals and protein throughout the day. Will need to monitor her closely. Follow-up in 3 months" - Acceptable risk for given surgery pending evaluation DOS. Chart Review Chart Review: Patient NOT seen in Pre Admission Testing History Surgery Operation Date: 10/30/24 08:00 Proposed Procedures p Left Brachial Artery Pseudoaneurysm Repair - Krishna Long MD Height/Weight Height: 5 ft Weight: 31.298 kg Allergies Allergy/AdvReac Type Severity Reaction Status Date / Time codeine AdvReac Intermediate Vomiting Verified 10/26/24 07:34 Medications Home Medications Medication Instructions Recorded Confirmed Last Taken aspirin 81 mg tablet,delayed 81 mg PO QAM #1 tab 09/01/19 10/26/24 06/27/24 05:30 release acetaminophen 325 mg capsule 650 mg PO Q4H PRN Pain 09/14/19 10/26/24 Unknown Flutter Valve #1 ea 08/13/20 09/04/24 Unknown albuterol sulfate 2.5 mg/3 mL 2.5 mg (3 mL) inhalation QID PRN 03/03/22 10/26/24 Unknown (0.083 %) solution for nebulization shortness of breath or wheezing #180 mL bupropion HCl 75 mg tablet 75 mg PO HS 01/28/24 10/26/24 06/26/24 apixaban 2.5 mg tablet (Eliquis) 2.5 mg PO BID #60 tabs 02/18/24 10/26/24 06/27/24 05:30 lisinopril 10 mg tablet 10 mg PO QAM #90 tabs 06/05/24 10/26/24 06/27/24 05:30 albuterol sulfate 90 mcg/actuation 2 - 4 puff inhalation Q6 PRN 07/01/24 10/26/24 Unknown aerosol inhaler Shortness Of Breath Or Wheezing oxycodone 5 mg tablet 5 mg PO Q6H PRN pain #30 tabs 07/01/24 10/26/24 Unknown amlodipine 2.5 mg tablet 2.5 mg PO DAILY #30 tabs 07/04/24 10/26/24 Unknown cyanocobalamin (vitamin B-12) 500 1,000 mcg (2 x 500 mcg) PO QAM #30 07/04/24 10/26/24 Unknown mcg tablet tabs gdfkpurn-qxp-kfiwj acid 0.4 1 tab PO QAM #30 tabs 07/04/24 10/26/24 Unknown mg-lycopene 300 mcg-lutein 250 mcg tablet (Cerovite Senior) buspirone 7.5 mg tablet 7.5 mg PO BID #60 tabs 07/11/24 10/26/24 Unknown fluticasone fur. 100 mcg-umeclid 1 inh inhalation HS #60 ea 07/24/24 10/26/24 Unknown 62.5 mcg-vilant 25 mcg inhalat.powder (Trelegy Ellipta) sertraline 100 mg tablet 200 mg (2 x 100 mg) PO QAM #180 07/24/24 10/26/24 Unknown tabs rosuvastatin 40 mg tablet (Crestor) 40 mg PO HS #90 tabs 09/12/24 10/26/24 Unknown Past Medical History Medical History Abdominal mass Future biopsy planned Arthritis Chronic obstructive pulmonary disease Chronic respiratory failure with hypoxia 3-4L O2 NC continuous Depression Diverticular disease History of stroke Age 64, left hand "does not work" Taking ASA HLD (hyperlipidemia) HTN (hypertension) ICAO (internal carotid artery occlusion) Vascular monitoring Vascular visit 11/04/23: "Her carotid ultrasound performed prior to today's appointment demonstrates a known right carotid occlusion, and about 50% stenosis of her left ICA which is similar to previous imaging." Iron deficiency anemia Mass of right axilla "Swollen lymph node" Pt unsure if still present Multiple pulmonary nodules Per records Osteoporosis Per records PAD (peripheral artery disease) Hx hx fem-fem bypass 02/2024, left femoral embolectomy 06/2024 Taking Eliquis Underweight Vision loss, right eye Past Family History Family History Other No family history of adverse response to anesthesia Denies family history of Ovarian cancer Prostate cancer Myocardial infarction Breast cancer Colorectal cancer Past Surgical History Surgical History History of bronchoscopy History of cataract surgery right History of section x1 History of colonoscopy History of tonsillectomy History of tooth extraction Hx of foot surgery right Hx of hemorrhoidectomy S/P femoral-femoral bypass surgery 02/2024 [facility] S/P vascular surgery 06/27/24 [place] Social History Smoking Status: Current some day smoker tobacco type: cigarettes Smoking cigarettes per day: 2-3 per day on average - advised Do You Dip or Chew Tobacco: No Hx Alcohol Use: No Hx Substance Use: No substance use type: does not use Lab Results Anesthesia Preop Results Results Anesthesia Widget: WBC 6.30 K/ul (4.8-10.8) 09/04/24 Hgb 13.6 g/dl (12.0-16.0) 09/04/24 Hct 43.3 % (37.0-47.0) 09/04/24 Plt 196 K/uL (130-400) 09/04/24 Na 142 mmol/L (136-145) 09/04/24 K 4.1 mmol/L (3.5-5.1) 09/04/24 Cl 103 mmol/L (98-107) 09/04/24 CO2 33 mmol/L (21-32) H 09/04/24 BUN 25 mg/dl (6-23) H 09/04/24 Creat 0.86 mg/dl (0.6-1.2) 09/04/24 Glucose Level 92 mg/dl (70-99(Fasting)) 09/04/24 Testing Electrocardiogram Date: 07/01/24 NSR at 73bpm. NS ST/TWA. Chest X-Ray Date: 07/01/24 IMPRESSION: Extensive emphysema. Peribronchial cuffing suggesting bronchiolitis. No focal consolidation detected. Chest CTA Date: 07/01/24 IMPRESSION: 1. No evidence of pulmonary embolism. 2. Marked pulmonary emphysematous changes. stable. 3. Right apical pulmonary thick reticular infiltration with faint calcific foci likely granulomatous. 4. Calcified subpleural pulmonary nodule at the left upper lung lobe measuring 3 mm. (granulomatous). 5. Bilateral basal pulmonary atelectatic bands. 6. Left basal pleural thickening/reaction. Echocardiogram Date: 08/28/19 EF 55-60%. No RWMA. No significant valvular disease. Other Testing Head CT Date: 07/01/24 Impression: 1. Cerebral atrophy, old infarcts, and chronic small vessel ischemic disease 2. No definite acute pathology Six Minute walk test Date: 09/04/24 At rest on RA 96%, with exercise on RA 86%. With exercise on oxygen, improvement of saturation levels to 96%. Cervical spine CT Date: 07/01/24 Addendum IMPRESSION: No acute traumatic fracture of the cervical spine. Multilevel degenerative changes.. CTA Abdomen/Pelvis Aortogram with b/l LE runoff Date: 07/01/24 IMPRESSION: Postsurgical changes of femoral to femoral artery bypass graft. There is a suggested stenosis at the origin off of the bypass arising from the left femoral artery as above. Left greater than right atherosclerosis of the lower extremity superficial femoral arteries and infrapopliteal arteries resulting in moderate stenoses as above. Inflammatory changes in the left groin with small pockets of fluid and gas likely representing postsurgical changes following recent surgery. There is asymmetric soft tissue swelling of the left lower extremity with subcutaneous edema. The included venous system on the delayed imaging demonstrates patency of the deep venous systems. Large macroscopic fat-containing structure/process occupying most of the right peritoneal cavity of the abdomen resulting in significant mass effect as manifested by leftward displacement of the bowel structures and viscera. Some heterogeneity is suggested to this structure. Please correlate with medical workup up to this point. Considerations may include lipomatous hypertrophy/heterogeneous lipoma. Liposarcoma may be a consideration as well.
[2024-10-30] MEDS: SODIUM CHLORIDE 0.9% 1,000 ML IV SCH (06:55)
[2024-10-30 07:01] LABS: Anion Gap 6.0 (3-11); Blood Urea Nitrogen 21.0 mg/dl (6-23); Calcium 9.5 mg/dl (8.6-10.3); Carbon Dioxide 32.0 mmol/L (21-32); Chloride 104.0 mmol/L (98-107); Creatinine Clr Calc Pharmacy 27.8 ml/min; Glucose 126.0 mg/dl (70-99(Fasting)); Potassium 3.4 mmol/L (3.5-5.1); Sodium 142.0 mmol/L (136-145)
[2024-10-30] MEDS ORDERED: ONDANSETRON INJ 2 MG/ML 2 ML VIAL ONE (07:14)
[2024-10-30] MEDS ORDERED: PROPOFOL IV EMULSION 10 MG/ML 20 ML VIAL IV ONE (07:14)
[2024-10-30] MEDS ORDERED: MIDAZOLAM HCL 1 MG/ML 2ML VIAL ONE (07:14)
[2024-10-30] MEDS ORDERED: LIDOCAINE 2% 2 ML VIAL/AMP(20MG/ML) INFIL ONE (07:14)
[2024-10-30] MEDS ORDERED: DEXAMETHASONE SOD INJ 4 MG/ML VIAL ONE (07:14)
[2024-10-30] MEDS ORDERED: ROCURONIUM BROMIDE 10 MG/ML 5 ML VIAL IV ONE (07:14)
[2024-10-30] MEDS ORDERED: ATROPINE SULFATE 0.1 MG/ML 10ML SYR IV PRN (07:22)
[2024-10-30] MEDS ORDERED: ONDANSETRON INJ 2 MG/ML 2 ML VIAL IV PRN ×2 (07:22→10:51)
[2024-10-30 07:23] LABS: INR 0.9 (0.9-1.1); Partial Thromboplastin Time 27 Seconds (21-31); Prothrombin Time 10.3 Seconds (9.0-12.0)
[2024-10-30] MEDS ORDERED: HEPARIN SOD (PORCINE) 1000 UNIT/ML ONE (07:23)
--- NOTE | 2024-10-30 07:29 | History & Physical Bridge Note ---
Date of Service October 30, 2024 History & Physical Bridge Note I have examined the patient, reviewed the History & Physical and in the interval since the performance of the History & Physical I have noted the following changes of clinical significance: no changes noted
--- NOTE | 2024-10-30 07:29 | History & Physical Report ---
Date of Service October 30, 2024 History of Present Illness Primary Care Provider: SWATI Sher Name: JEFFREY SUAZO Patient Number: [id number] : 1955 Date of Service: 10/24/2024 Chief Complaint: _Follow-up for aortoiliac disease and carotid disease HPI: _Ms. Suazo is a middle-aged female who presents to Dr. Long's vascular surgery clinic today for a 3-month follow-up visit regarding her history of aortoiliac disease. As you may remember, patient is status post left to right femoral to femoral artery bypass in February 2024 due to right iliac artery occlusion. She subsequently required a left iliac artery angiogram with ASSOCIATE ARTISTIC DIRECTOR and stenting via brachial approach in June 2024, which fortunately had the perioperative complication of thrombosis of her femoral artery, necessitating an open embolectomy of her femoral artery and WATER SKI ASSEMBLER endarterectomy with bovine patch on the same day. Patient presents today stating that she has generalized weakness and that she cannot walk very far due to this. She denies severe pain in her lower extremities when she is ambulating, but feels that she gets fatigued very easily including her legs. She remains on oxygen via nasal cannula. She is concerned about the swelling at her left antecubital area that she has had ever since her procedure in June. She has been having some tingling and discomfort in her left arm and hand. Her aortoiliac ultrasound performed prior to today's appointment demonstrates widely patent left iliac artery stents and improved flow through her femorofemoral bypass. Current Home Meds: (Last Updated 10/24 13:30) albuterol (albuterol CFC free 90 mcg/inh MDI) 2 puff inhaled qid PRN: as needed for wheezing apixaban (Eliquis 2.5 mg oral tablet) 2.5 mg PO bid aspirin (aspirin 81 mg oral delayed release tablet) 81 mg PO Daily atorvastatin (atorvastatin 80 mg oral tablet) 80 mg PO Daily fluticasone/umeclidinium/vilanterol (Trelegy Ellipta inhalation powder) 1 puff inhaled Daily lisinopril (lisinopril 10 mg oral tablet) 10 mg PO Daily rosuvastatin (rosuvastatin 40 mg oral tablet) TAKE 1 TABLET BY MOUTH ONCE DAILY sertraline (sertraline 100 mg oral tablet) 150 mg PO Daily Allergies and Sensitivities: NKA Past Medical History: Problems: S/P vascular surgery S/P femoral-femoral bypass surgery Aortoiliac occlusive disease Tobacco user Right wrist fracture Closed fracture of radius with malunion Ulnar neuropathy of right upper extremity Carotid stenosis Acute fracture RIGHT RADIAL ULNA Cachexia Vitamin D deficiency Osteoporosis Oxygen dependent Right sided cerebral hemisphere cerebrovascular accident (CVA) HLD (hyperlipidemia) Depression Leg edema Soft tissue mass Right leg pain COPD with asthma OBJECTIVE Vitals: Last Updated 10/24/24 13:34 Date Temp BP Location Pulse RR SpO2 Pain 10/24/24 0 10/24/24 126/70 Left Arm 75 98 07/24/24 132/70 Right Arm 82 18 97 0 Vital Signs are the last 3 documented. No Orthostatic Data Available Height and Weight: Last Updated 09/27/19 15:29 Date BMI Wt(kg) Wt(lb) Method Ht(cm) (ft-in) Method 09/27/19 15.58 36 79 Standing Scale 152 5-0 Heights and Weights are the last 3 documented. Physical Exam Constitutional: In general patient is a thin frail cachectic middle-aged female in no distress. She appears chronically ill. Her bilateral femoral pulses are +3. Her lower extremity distal pulses are +1. Her toes demonstrate brisk capillary refill and no sign of ischemia. Lungs are clear. Heart has a RRR. Abdominal exam is benign. Her left antecubital area demonstrates a pulsatile mass measuring 4 to 5 cm in diameter, about the size of a walnut. This area is mildly tender, there is no erythema or fluctuance. There is no ecchymosis. Radial pulses +2, ulnar pulses +2. She has a brisk capillary refill to the fingertips and no sign of ischemia. 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 The remainder of her arteries in the left arm are widely patent. Due to the size of this aneurysm as well as the fact that it has likely been present since her procedure in June, would recommend that she undergo surgical repair of this. The risks of the procedure including but not limited to bleeding, infection, blood clots, vessel trauma, loss of part of the arm or hand, , heart attack, or discussed with the patient by myself at Dr. Long's request. Patient is agreeable to open surgical repair of her left brachial artery pseudoaneurysm. Will discuss further with Dr. Long to determine timing of this surgery. 2 ) _aortoiliac occlusive disease, history of femorofemoral bypass Patient's new left iliac artery stents are widely patent and she has no new concerning symptoms, although does continue to suffer from chronic fatigue which may also be related to a myriad of other chronic problems. Her pulses are palpable and her ultrasound demonstrates no concerning findings as well as demonstrates improved flow through her femorofemoral bypass. We will reevaluate this at a later date, along with her carotid disease which is due for an annual ultrasound. We will follow-up on her aortoiliac disease and her carotid disease after definitive care of her pseudoaneurysm. Patient did ask whether she would be allowed to stop her apixaban in order to undergo a biopsy of her abdominal mass. We advised her that she should stop it for the minimal necessary period of time to undergo the procedure, but that she may do so whenever her primary care physician is able to get that scheduled. 3 ) _carotid stenosis See above Thank you for letting us participate in the care of this patient. I have personally [id number]___ minutes performing dpbd-gt-lztz and gvk-ynul-hj-face activities on this date of service.Time does not include separately reported services. Activities Include: x__ review of the medical record _x_ obtaining a history _x_ physical exam/evaluation __ review labs x__ review radiology reports x__ counseling/educating patient/family/caregiver __ discussion/referral to other healthcare professional x__ documenting care in the medical record __ independent interpretation of results x__ communication of results to patient/family/caregiver x__ coordination of care Signature Line Electronic Signature on File CC: SWATI Johnson [id number] [facility] [id number] * Electronically Reviewed/Signed by: Kaya Reece PA-C Author Signature Dt/Tm:10/24/2024 03:38 PM [facility] [place], [address] [place] [id number] LM Result Type: HVI Outpt Note Date of Service: October 24, 2024 15:28 EDT Authorization Status: Final Author or Import Date: EMILEE Reece Lynn on October 24, 2024 15:38 EDT Verified By: EMILEE Reece Lynn on October 24, 2024 15:38 EDT Encounter info: [id number], [place] [address], Clinic, 10/24/2024 - 10/24/2024 Allergies Allergy/AdvReac Type Severity Reaction Status Date / Time codeine AdvReac Intermediate Vomiting Verified 10/30/24 06:41 Home Medications Medication Instructions Recorded Confirmed Type aspirin 81 mg tablet,delayed 81 mg PO QAM #1 tab 09/01/19 10/30/24 Rx release acetaminophen 325 mg capsule 650 mg PO Q4H PRN Pain 09/14/19 10/30/24 History Flutter Valve #1 ea 08/13/20 10/30/24 Rx albuterol sulfate 2.5 mg/3 mL 2.5 mg (3 mL) inhalation QID PRN 03/03/22 10/30/24 Rx (0.083 %) solution for nebulization shortness of breath or wheezing #180 mL bupropion HCl 75 mg tablet 75 mg PO HS 01/28/24 10/30/24 History apixaban 2.5 mg tablet (Eliquis) 2.5 mg PO BID #60 tabs 02/18/24 10/30/24 Rx lisinopril 10 mg tablet 10 mg PO QAM #90 tabs 06/05/24 10/30/24 Rx albuterol sulfate 90 mcg/actuation 2 - 4 puff inhalation Q6 PRN 07/01/24 10/30/24 History aerosol inhaler Shortness Of Breath Or Wheezing oxycodone 5 mg tablet 5 mg PO Q6H PRN pain #30 tabs 07/01/24 10/30/24 Rx amlodipine 2.5 mg tablet 2.5 mg PO DAILY #30 tabs 07/04/24 10/30/24 Rx cyanocobalamin (vitamin B-12) 500 1,000 mcg (2 x 500 mcg) PO QAM #30 07/04/24 10/30/24 Rx mcg tablet tabs fdrzsgsr-xcl-tchxe acid 0.4 1 tab PO QAM #30 tabs 07/04/24 10/30/24 Rx mg-lycopene 300 mcg-lutein 250 mcg tablet (Cerovite Senior) buspirone 7.5 mg tablet 7.5 mg PO BID #60 tabs 07/11/24 10/30/24 Rx fluticasone fur. 100 mcg-umeclid 1 inh inhalation HS #60 ea 07/24/24 10/30/24 Rx 62.5 mcg-vilant 25 mcg inhalat.powder (Trelegy Ellipta) sertraline 100 mg tablet 200 mg (2 x 100 mg) PO QAM #180 07/24/24 10/30/24 Rx tabs rosuvastatin 40 mg tablet (Crestor) 40 mg PO HS #90 tabs 09/12/24 10/30/24 Rx Past Med/Surg History Problem List Encounter for pre-operative examination Grief Underweight B12 deficiency Iron deficiency anemia Abdominal mass Weakness (Acute) Cachexia Hypertension Mass of right axilla COPD with emphysema Depression Hyperlipidemia Vision loss, right eye Vitamin D deficiency (Chronic) Medical History Abdominal mass Future biopsy planned Arthritis Chronic obstructive pulmonary disease Chronic respiratory failure with hypoxia 3-4L O2 NC continuous Depression Diverticular disease History of stroke Age 64, left hand "does not work" Taking ASA HLD (hyperlipidemia) HTN (hypertension) ICAO (internal carotid artery occlusion) Vascular monitoring Vascular visit 11/04/23: "Her carotid ultrasound performed prior to today's appointment demonstrates a known right carotid occlusion, and about 50% stenosis of her left ICA which is similar to previous imaging." Iron deficiency anemia Mass of right axilla "Swollen lymph node" Pt unsure if still present Multiple pulmonary nodules Per records Osteoporosis Per records PAD (peripheral artery disease) Hx hx fem-fem bypass 02/2024, left femoral embolectomy 06/2024 Taking Eliquis Underweight Vision loss, right eye Surgical History History of bronchoscopy History of cataract surgery right History of section x1 History of colonoscopy History of tonsillectomy History of tooth extraction Hx of foot surgery right Hx of hemorrhoidectomy S/P femoral-femoral bypass surgery 02/2024 [facility] S/P vascular surgery 06/27/24 [place] Family History Other No family history of adverse response to anesthesia Denies family history of Ovarian cancer Prostate cancer Myocardial infarction Breast cancer Colorectal cancer Social History Smoking Status: Current some day smoker Tobacco Type: Cigarettes Age Started Using Tobacco: 18; Age Quit Using Tobacco: 65; packs per day: 1; Cigarettes Per Day: 2-3 per day on average - advised; Second Hand Exposure: No; Do You Dip or Chew Tobacco: No; Tobacco Cessation Education Requested by Patient: No Hx Alcohol Use: No Hx Substance Use: No Preferred Language: Thai Communication Ability: Effective Visual Impairment: Limited Hearing Ability: Normal Marble Installation Helper Required: No Beliefs That Will Affect Care: None marital status: Current Living Situation: Family current occupational status: disabled How many Children do You have: 2 Other Information That Helps Us Care for You: No Feels Safe at Home: Yes Safety Concerns: Feels Safe At This Time Childhood Exposure to Second-Hand Smoke: Yes Diet: regular caffeine: Yes (coffee) during the past year weight has: remained stable Dental Care, Regularly: No Physical Activity Frequency: Daily Seatbelt Use: never Sunscreen Use: No Assistive Devices: Denture - Upper, Glasses, Nebulizer, Oxygen - Continuous and Walker Results & Data Vital Signs (Past 12 Hours) Vital Signs Temp Pulse Resp BP Pulse Ox O2 Del Method O2 Flow Rate 10/30/24 07:01 36.8 C 66 24 155/71 H 100 Nasal Cannula 3 10/30/24 06:37 Nasal Cannula 3
[2024-10-30] MEDS: CEFAZOLIN 2,000 MG/15 ML SYR IV SCH (08:03)
[2024-10-30] MEDS ORDERED: ESMOLOL HCL INJ 10 MG/ML 10ML VIAL IV ONE (08:16)
[2024-10-30] MEDS ORDERED: PHENYLEPHRINE 100MCG/ML 5ML SYR ONE ×2 (08:30→10:38)
[2024-10-30] MEDS: THROMBIN FOR SOLN 20000 UNIT KIT ONE (10:10)
[2024-10-30] MEDS: SURGICEL ABSORB HEMOSTAT 2IN X 14IN TOP ONE (10:10)
[2024-10-30] MEDS: GELATIN SPONGE 12-7MM ONE (10:10)
[2024-10-30] MEDS ORDERED: SUGAMMADEX SODIUM 200 MG/2 ML VIAL IV ONE (10:41)
[2024-10-30] MEDS ORDERED: MoRPHine SULFATE 4 MG/ML 1 ML CARP\\VIAL IV PRN (10:51)
[2024-10-30] MEDS ORDERED: ALBUTEROL HFA 8 GM INHALER INH PRN (10:55)
[2024-10-30] MEDS ORDERED: ALBUTEROL 0.083% NEBU SOLN 3 ML VIAL INH PRN (10:55)
[2024-10-30] MEDS ORDERED: NON-FORMULARY MEDICATION (Flutter Valve device) SCH (11:00)
--- NOTE | 2024-10-30 11:00 | Post Operative Brief Note ---
Immediate Post Op Note Date of Surgery October 30, 2024 Pre & Post Diagnosis Operation Date: 10/30/24 08:00 Pre-Op Diagnosis: Left Arm Pseudoaneurysm Post-Op Diagnosis: Left Arm Pseudoaneurysm I identified the patient and participated in the time-out.: Yes Procedure Operation Date: 10/30/24 08:00 Actual Procedures p Left Brachial Artery Pseudoaneurysm Repair with Interposition Gortex Graft(Left) - Krishna Long MD Surgeon Krishna Long MD Fence Erector Supervisor MD Sadie Dc,PAC Estimated Blood Loss 80 Findings Consistent with Post-Op Diagnosis Anesthesia Type General Complications none Disposition Accompanied Patient To Recovery: No Disposition: Recovery Room
[2024-10-30] MEDS: ARISTA ABSORBABLE HEMOSTAT 3GM TOP ONE (11:01)
[2024-10-30] MEDS: ceFAZolin 330 MG/ML 1 GM VIAL ONE (11:10)
[2024-10-30] MEDS: HEPARIN (PORCINE) 1000 UNIT/ML 10 ML (CATH LAB USE ONLY) ONE (11:10)
[2024-10-30] MEDS: BUPIVACAINE/EPINEPHRINE 0.5% MPF 1:200,000 30 ML VIAL ONE (11:29)
[2024-10-30] MEDS: LIDOCAINE 1% LOCAL 20 ML VIAL ONE (11:29)
--- NOTE | 2024-10-30 11:40 | Operative Report ---
Post Operative Report Pre & Post Diagnosis Operation Date: 10/30/24 08:00 Pre-Op Diagnosis: Left brachial artery symptomatic pseudoaneurysm Post-Op Diagnosis: Left brachial artery symptomatic pseudoaneurysm I identified the patient and participated in the time-out.: Yes Procedure Operation Date: 10/30/24 08:00 Actual Procedures p Left Brachial Artery Pseudoaneurysm Repair with Interposition Gortex Graft(Left) - Krishna Long MD Surgeon Krishna Long MD Front Desk Monitor MD Sadie Gomes,PAC Estimated Blood Loss 80 Findings See Below Patient had a large pseudoaneurysm of the left brachial artery with significant scar tissue surrounding the capsule. The brachial artery around this area was also very friable. After pseudoaneurysm excision and bypass repair, patient had a palpable pulse on the bypass and on the artery distal to the repair. Patient had palpable left radial and ulnar arteries at conclusion of the case. Specimens None Anesthesia Type General Complications None Indications 69 year old female patient with history of endovascular procedure via left brachial artery approach about 4 months ago who presented to clinic for follow up evaluation and at that time complained of swelling over the antecubital fossa. She stated she also had some intermittent tingling of the left upper extremity. A Duplex was performed and she was found to have a 4.3cm pseudoaneurysm of the left brachial artery. Given the presence of this pseudoaneurysm, we offered her a surgical repair which could be primary repair, patch or bypass, with any other indicated procedures. After discussion of risks and benefits, patient provided informed consent to repair. Patient had known motor deficits of the left upper extremity at baseline from a prior stroke. Description of Procedure The patient was brought to the operating room and placed on the operating table in supine position. Patient was given anesthesia and intubated by the anesthesia team. The left arm was was prepped and draped in the usual sterile fashion. A 6cm S shaped incision was made over the antecubital fossa, medial to the biceps muscle in the mid portion of the upper arm and extending towards the radial artery on the forearm. The incision was carried down the soft tissue with a combination of electrocautery in the superficial aspect and then sharp dissection to the level of the pseudoaneurysm and brachial artery, specifically taking care to find and protect the median nerve. We took care to obtain proximal and distal brachial artery control before continuing dissection around the pseudoaneurysm sac. Once the brachial artery was encountered, we performed careful dissection around it and encircled it with vessel loops for proximal and distal control. We then opened the pseudoaneurysm sac with an 11 blade and extended this with Andre scissors. There was a significant amount of thrombus inside the sac. We removed the bulk of the pseudoaneurysm sac that was not adhered to the vessels, taking care not to injure the median nerve. There was a small defect on the lateral aspect of the artery that had active bleeding into the sac. There was significant scar tissue and adhesions around the pseudoaneurysm sac and the brachial artery was small and friable. The brachial artery measured about 3mm throughout its length. We attempted to remove the pseudoaneurysm sac from the lateral portion of the arterial wall but on the distal aspect, the artery was too small and the sac was adhered to it. This resulted in a longitudinal defect on the distal brachial artery. Given this part of the artery did not appear healthy, we obtained more distal control and used a bulldog clamp to control it. We transected the distal brachial artery and refreshed the edge of the vessel with Andre scissors once we had obtained more distal control. At this point, there was excellent backbleeding. Proximally, we also dissected until we found healthy brachial artery. There was excellent inflow. We then used bulldog clamps to obtain proximal control of the brachial artery. The patient received 2,000 units of IV heparin. Given the size of the artery, we decided to use a 4-7mm PTFE graft with the 4mm end towards the distal brachial artery. We performed this anastomosis first using interrupted 6-0 Prolene sutures in an end to end fashion. Once finished, we released our distal clamp and confirmed there was excellent backbleeding through the bypass graft and the anastomosis was hemostatic. We placed Surgicel over the distal anastomosis line. We then turned our attention to the proximal brachial artery. An 11 blade was used to make a longitudinal arteriotomy. This was extended with Andre scissors. We performed an end to side anastomosis using a running 6-0 Prolene with the trujillo over the longitudinal arteriotomy, to ensure there was no size mismatch. Before completion of the anastomosis, we backbled the distal brachial artery as well as released the proximal brachial artery to evaluate the inflow. There was still good inflow and outflow. We ensured there were no air bubbles and completed our anastomosis. We then removed the Surgicel from the distal anastomosis and placed thrombin soaked gelfoam on both anastomoses. We then used a Doppler to listen to the bypass and there was a strong, triphasic signal present. There was also a strong multiphasic signal present at the level of the wrist and palmar arch. Antibiotic irrigation was used to copiously irrigate the incision. Electrocautery was used to control any raw surface areas of bleeding. The area appeared hemostatic. Paula hemostatic agent was placed over the wound bed. Interrupted 6-0 prolene was used to control a bleeding vein. A single 6-0 Prolene stitch was also used in two areas of the artery to control superficial adventitial bleeding. Two branches of the brachial artery distally were ligated with 2-0 Silk suture. The tissue overlying the brachial artery was reapproximated with a combination of 2-0 Vicryl and 3-0 Vicryl suture in multiple layers up to the level of the deep dermis. The skin edges were reapproximated with a 4-0 Monocryl and Dermabond was used as sterile dressing. This was covered by a sterile dry dressing. The patient had an easily palpable radial and ulnar pulse on the left upper extremity at the end of the case. The patient also had a palmar arch signal present on Doppler. This concluded the case and the patient was taken to recovery in stable condition. Dr. Long was present for all critical aspects of the case. I attest to the content of the Intraoperative Record and any orders documented therein. Any exceptions are noted below.
--- NOTE | 2024-10-30 12:27 | Anesthesiology Progress Note ---
Date of Service October 30, 2024 Anesthesia Post Procedure Vital Signs Vital Signs: Temp Pulse Pulse Resp BP Pulse Ox O2 Del Method 10/30/24 12:20 69 22 100/50 L 99 Nasal Cannula 10/30/24 12:10 71 16 105/44 L 98 Oxymask 10/30/24 12:00 82 29 H 109/48 L 97 Oxymask 10/30/24 11:50 85 25 H 121/55 L 95 Oxymask 10/30/24 11:42 36.3 C L 91 H 20 138/75 88 L Oxymask 10/30/24 07:01 36.8 C 66 24 155/71 H 100 Nasal Cannula 10/30/24 06:37 Nasal Cannula O2 Flow Rate 10/30/24 12:20 2 10/30/24 12:10 4 10/30/24 12:00 8 10/30/24 11:50 10 10/30/24 11:42 10 10/30/24 07:01 3 10/30/24 06:37 3 Transfer of Care Handoff Completed per policy Notes Mental Status: alert / awake / arousable Patient Amnestic to Procedure: Yes Nausea / Vomiting: adequately controlled Pain: adequately controlled Airway Patency, RR, SpO2: stable & adequate BP & HR: stable & adequate Hydration State: stable & adequate Anesthetic Complications: no major complications apparent
[2024-10-30 12:35] LABS: Hematocrit (blood only) 37.0 % (37.0-47.0); Hemoglobin 12.0 g/dl (12.0-16.0); Immature Granulocytes # (auto) 0.05 K/uL (0.01-0.20); Immature Granulocytes % (auto) 0.7 %; Mean Corpuscular Hemoglobin 29.6 pg (25.0-34.0); Mean Corpuscular Volume 91.1 fL (80.0-100.0); Platelet Count 175 K/uL (130-400); RDW Standard Deviation 49.6 fL (36.4-46.3); Red Blood Count 4.06 M/uL (4.20-5.40); White Blood Count 7.11 K/ul (4.8-10.8)
[2024-10-30] MEDS: LACTATED RINGER'S 1,000 ML IV SCH (16:47)
[2024-10-30] MEDS: ROSUVASTATIN CALCIUM 20 MG TAB PO SCH (20:38)
[2024-10-30] MEDS: UMECLIDINIUM/VILANTEROL 62.5/25MCG 7 PUFFS/INHALER INH SCH (20:42)
[2024-10-30] MEDS: FLUTICASONE FUROATE 100MCG 14 PUFFS/INHALER INH SCH (20:42)
[2024-10-30] MEDS ORDERED: NON-FORMULARY MEDICATION (Fluticasone-Umeclidin-Vilanter [Trelegy Ellipta] 100-62.5-25 mcg INH SCH (21:00)
[2024-10-31 07:10] VITALS: BP 133/67; PULSE 97; RESP 15; TEMP 99.1; O2SAT 99
[2024-10-31] MEDS: ASPIRIN 81 MG ECTAB PO SCH (08:34)
[2024-10-31] MEDS: CYANOCOBALAMIN (B-12) 500 MCG TABLET PO SCH (08:34)
[2024-10-31] MEDS: CEROVITE ADV FORMULA TAB PO SCH (08:34)
[2024-10-31] MEDS: APIXABAN 5 MG TABLET PO SCH (08:35)
[2024-10-31] MEDS: SERTRALINE HCL 100 MG TABLET PO SCH (08:36)
--- NOTE | 2024-10-31 09:08 | Surgery Progress Note ---
Date of Service October 31, 2024 Assessment & Plan (1) Pseudoaneurysm of brachial artery: Plan: Pt now POD #1 after repair with PTFE interposition graft. Doing well post op, pt is at baseline. Discussed with Dr Long. JOAN for d/c home today. Admission and Anticipated Discharge Date Admission Date: October 30, 2024 Subjective 69 yo f POD #1 after L brachial art pseudoaneurysm repair with PTFE interposition graft, seen in f/u today. Pt admits surgical pain and swelling of LUE, but states no new problems with her hand or fingers. Has chronic L hand/finger contractures, weakness, numbness d/t prior CVA. No dizziness, chest pain, SOB, abd pain, N/V, other concerns. Review of Systems Review of Systems: All systems reviewed & are unremarkable except as noted in HPI & below Physical Exam Constitutional: well developed, + frail appearing, cooperative, comfortable, + malnourished and + underweight; not in distress Respiratory: normal respiratory effort, lungs clear to auscultation Auscultation: + diminished lung sounds (pt on chronic oxygen) Cardiovascular: Rate/Rhythm: regular rate and regular rhythm Vessels: femoral pulses present, posterior tibial pulses present, dorsalis pedis pulses present and radial pulses present (L radial +3, ulnar +2); + abnormal peripheral pulses Extremities: normal capillary refill Gastrointestinal (Abdomen): Inspection/Auscultation: abdomen normal to inspection and normal bowel sounds Percussion/Palpation: abdomen soft; abdomen nontender Musculoskeletal: L hand strength at baseline, finger contractures noted. Skin: no rashes, warm and dry + incision (L AC with tenderness, moderate edema, mild ecchymosis) Neurologic: moves all extremities, + focal motor deficit (L hand/finger weakness.) and awake; not confused Psychiatric: Orientation: alert and oriented x 3 Affect: + flat affect Results & Data Vital Signs (Past 12 Hours) Vital Signs Temp Pulse Resp BP Pulse Ox O2 Del Method O2 Flow Rate 10/31/24 08:07 Nasal Cannula 3 10/31/24 07:06 37.3 C 97 H 15 133/67 99 Nasal Cannula 3 10/31/24 03:24 36.9 C 90 16 159/51 H 98 Nasal Cannula 3 10/31/24 00:10 37.9 C H 82 16 134/71 98 Nasal Cannula 3
--- NOTE | 2024-10-31 12:47 | Discharge Summary ---
Date of Service October 31, 2024 Admission HPI Per Admitting Provider Name: JEFFREY SUAZO Patient Number: [id number] : 1955 Date of Service: 10/24/2024 Chief Complaint: _Follow-up for aortoiliac disease and carotid disease HPI: _Ms. Suazo is a middle-aged female who presents to Dr. Long's vascular surgery clinic today for a 3-month follow-up visit regarding her history of aortoiliac disease. As you may remember, patient is status post left to right femoral to femoral artery bypass in February 2024 due to right iliac artery occlusion. She subsequently required a left iliac artery angiogram with CERTIFIED OPHTHALMIC ASSISTANT and stenting via brachial approach in June 2024, which fortunately had the perioperative complication of thrombosis of her femoral artery, necessitating an open embolectomy of her femoral artery and PROOFER endarterectomy with bovine patch on the same day. Patient presents today stating that she has generalized weakness and that she cannot walk very far due to this. She denies severe pain in her lower extremities when she is ambulating, but feels that she gets fatigued very easily including her legs. She remains on oxygen via nasal cannula. She is concerned about the swelling at her left antecubital area that she has had ever since her procedure in June. She has been having some tingling and discomfort in her left arm and hand. Her aortoiliac ultrasound performed prior to today's appointment demonstrates widely patent left iliac artery stents and improved flow through her femorofemoral bypass. Current Home Meds: (Last Updated 10/24 13:30) albuterol (albuterol CFC free 90 mcg/inh MDI) 2 puff inhaled qid PRN: as needed for wheezing apixaban (Eliquis 2.5 mg oral tablet) 2.5 mg PO bid aspirin (aspirin 81 mg oral delayed release tablet) 81 mg PO Daily atorvastatin (atorvastatin 80 mg oral tablet) 80 mg PO Daily fluticasone/umeclidinium/vilanterol (Trelegy Ellipta inhalation powder) 1 puff inhaled Daily lisinopril (lisinopril 10 mg oral tablet) 10 mg PO Daily rosuvastatin (rosuvastatin 40 mg oral tablet) TAKE 1 TABLET BY MOUTH ONCE DAILY sertraline (sertraline 100 mg oral tablet) 150 mg PO Daily Allergies and Sensitivities: NKA Past Medical History: Problems: S/P vascular surgery S/P femoral-femoral bypass surgery Aortoiliac occlusive disease Tobacco user Right wrist fracture Closed fracture of radius with malunion Ulnar neuropathy of right upper extremity Carotid stenosis Acute fracture RIGHT RADIAL ULNA Cachexia Vitamin D deficiency Osteoporosis Oxygen dependent Right sided cerebral hemisphere cerebrovascular accident (CVA) HLD (hyperlipidemia) Depression Leg edema Soft tissue mass Right leg pain COPD with asthma OBJECTIVE Vitals: Last Updated 10/24/24 13:34 Date Temp BP Location Pulse RR SpO2 Pain 10/24/24 0 10/24/24 126/70 Left Arm 75 98 07/24/24 132/70 Right Arm 82 18 97 0 Vital Signs are the last 3 documented. No Orthostatic Data Available Height and Weight: Last Updated 09/27/19 15:29 Date BMI Wt(kg) Wt(lb) Method Ht(cm) (ft-in) Method 09/27/19 15.58 36 79 Standing Scale 152 5-0 Heights and Weights are the last 3 documented. Physical Exam Constitutional: In general patient is a thin frail cachectic middle-aged female in no distress. She appears chronically ill. Her bilateral femoral pulses are +3. Her lower extremity distal pulses are +1. Her toes demonstrate brisk capillary refill and no sign of ischemia. Lungs are clear. Heart has a RRR. Abdominal exam is benign. Her left antecubital area demonstrates a pulsatile mass measuring 4 to 5 cm in diameter, about the size of a walnut. This area is mildly tender, there is no erythema or fluctuance. There is no ecchymosis. Radial pulses +2, ulnar pulses +2. She has a brisk capillary refill to the fingertips and no sign of ischemia. 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 The remainder of her arteries in the left arm are widely patent. Due to the size of this aneurysm as well as the fact that it has likely been present since her procedure in June, would recommend that she undergo surgical repair of this. The risks of the procedure including but not limited to bleeding, infection, blood clots, vessel trauma, loss of part of the arm or h and, , heart attack, or discussed with the patient by myself at Dr. Long's request. Patient is agreeable to open surgical repair of her left brachial artery pseudoaneurysm. Will discuss further with Dr. Long to determine timing of this surgery. 2 ) _aortoiliac occlusive disease, history of femorofemoral bypass Patient's new left iliac artery stents are widely patent and she has no new concerning symptoms, although does continue to suffer from chronic fatigue which may also be related to a myriad of other chronic problems. Her pulses are palpable and her ultrasound demonstrates no concerning findings as well as demonstrates improved flow through her femorofemoral bypass. We will reevaluate this at a later date, along with her carotid disease which is due for an annual ultrasound. We will follow-up on her aortoiliac disease and her carotid disease after definitive care of her pseudoaneurysm. Patient did ask whether she would be allowed to stop her apixaban in order to undergo a biopsy of her abdominal mass. We advised her that she should stop it for the minimal necessary period of time to undergo the procedure, but that she may do so whenever her primary care physician is able to get that scheduled. 3 ) _carotid stenosis See above Thank you for letting us participate in the care of this patient. I have personally [id number]___ minutes performing [id number] and [id number] activities on this date of service.Time does not include separately reported services. Activities Include: x__ review of the medical record _x_ obtaining a history _x_ physical exam/evaluation __ review labs x__ review radiology reports x__ counseling/educating patient/family/caregiver __ discussion/referral to other healthcare professional x__ documenting care in the medical record __ independent interpretation of results x__ communication of results to patient/family/caregiver x__ coordination of care Signature Line Electronic Signature on File CC: SWATI Johnson [id number] [facility] [id number] * Electronically Reviewed/Signed by: Kaya Reece PA-C Author Signature Dt/Tm:10/24/2024 03:38 PM [facility] [place], [address] [place] [address] Result Type: HVI Outpt Note Date of Service: October 24, 2024 15:28 EDT Authorization Status: Final Author or Import Date: EMILEE Reece Kaya on October 24, 2024 15:38 EDT Verified By: EMILEE Reece Lynn on October 24, 2024 15:38 EDT Encounter info: [id number], [place] [address], Clinic, 10/24/2024 - 10/24/2024 Admission Exam Per Admitting Provider Constitutional: In general patient is a thin frail cachectic middle-aged female in no distress. She appears chronically ill. Her bilateral femoral pulses are +3. Her lower extremity distal pulses are +1. Her toes demonstrate brisk capillary refill and no sign of ischemia. Lungs are clear. Heart has a RRR. Abdominal exam is benign. Her left antecubital area demonstrates a pulsatile mass measuring 4 to 5 cm in diameter, about the size of a walnut. This area is mildly tender, there is no erythema or fluctuance. There is no ecchymosis. Radial pulses +2, ulnar pulses +2. She has a brisk capillary refill to the fingertips and no sign of ischemia. Principal Diagnosis 1. s/p L brachial artery pseudoaneurysm repair with PTFE interposition graft 2. L brachial artery pseudoaneurysm Discharge Exam Constitutional well developed, + frail appearing, cooperative, comfortable, + malnourished and + underweight; not in distress Respiratory normal respiratory effort, lungs clear to auscultation Auscultation: + diminished lung sounds (pt on chronic oxygen) Cardiovascular Rate/Rhythm: regular rate and regular rhythm Vessels: femoral pulses present, posterior tibial pulses present, dorsalis pedis pulses present and radial pulses present (L radial +3, ulnar +2); + abnormal peripheral pulses Extremities: normal capillary refill Gastrointestinal (Abdomen) Inspection/Auscultation: abdomen normal to inspection and normal bowel sounds Percussion/Palpation: abdomen soft; abdomen nontender Skin no rashes, warm and dry + incision (L AC with tenderness, moderate edema, mild ecchymosis) Neurologic moves all extremities, + focal motor deficit (L hand/finger weakness.) and awake; not confused Psychiatric Orientation: alert and oriented x 3 Affect: + flat affect Discharge Data Allergies Allergy/AdvReac Type Severity Reaction Status Date / Time codeine AdvReac Intermediate Vomiting Verified 10/30/24 06:41 Procedures Performed Operation Date: 10/30/24 08:00 Actual Procedures p Left Brachial Artery Pseudoaneurysm Repair with Interposition Gortex Graft(Left) - Krishna Long MD Hospital Course (1) Pseudoaneurysm of brachial artery: Pt now POD #1 after repair with PTFE interposition graft. Doing well post op, pt is at baseline. Discussed with Dr Long. OK for d/c home today. Total Time Total Time Spent Total Time Spent (In Minutes): 0 Discharge Plan Discharge Items Patient Disposition: Home - Self-Care Reason For Visit: Left Arm Pseudoaneurysm Discharge Diagnosis: 1. s/p L brachial art pseudoaneurysm repair with PTFE pseudoaneurysm repair 2. L brachial artery pseudoaneurysm Activity: Per Instructions section Non-emergency contact: Primary Care Provider and Surgeon Call non-emergency contact if: you have any medication questions, your symptoms worsen, your pain is not controlled, your pain is concerning for you, you have a fever, your wound has increased redness, your wound has increased drainage and your wound pain has increased Follow-up/Referrals: Coretta Mai CRNP [Primary Care Provider] - 11/03/24 10:30 am (Follow up with your PCP within 2 weeks Primary care hospital follow up scheduled on 11/03/24 at 10:30 with Coretta LONGORIA) Krishna Long MD [Physician] - (Follow up with Dr Long or Kaya Reece PA-C, in 2 weeks) Diet: Regular and Heart Healthy Addtl Attending Provider Instructions: ACTIVITY RECOMMENDATIONS: 1. No lifting more than 5 lbs with Left arm for 6 weeks. 2. NO BLOOD PRESSURES, BLOOD DRAWS, OR IV'S IN LEFT ARM. SPECIAL CARE INSTRUCTIONS: Call your doctor if: * Temperature above 101 degrees * Pain not relieved by pain medicine ordered * There is increased drainage or redness from any incision * You have any unanswered questions or concerns. Pending Studies at Discharge: No Stand-Alone Forms: My JDLab, Smoking Cessation Medications and DC Order Prescriptions: New oxycodone-acetaminophen [Percocet] 5-325 mg Tablet 1 tab PO Q6H PRN (Reason: pain) Qty: 30 0RF Continued lisinopril 10 mg tablet 10 mg PO QAM Qty: 90 3RF Trelegy Ellipta 100-62.5-25 mcg blister with device 1 inh inhalation HS Qty: 60 5RF sertraline 100 mg tablet 200 mg PO QAM Qty: 180 3RF rosuvastatin [Crestor] 40 mg tablet 40 mg PO HS Qty: 90 3RF (DME) Flutter Valve Device See Rx Instructions .ROUTE .MEDSUPPLY Qty: 1 0RF Rx Instructions: Use it every 6 hours when awake. acetaminophen 325 mg capsule 650 mg PO Q4H PRN (Reason: Pain) Hold Instructions: Hold while taking oxycodone/acetaminophen for pain. albuterol sulfate 2.5 mg /3 mL (0.083 %) solution for nebulization 2.5 mg inhalation QID PRN (Reason: shortness of breath or wheezing) Qty: 180 4RF buspirone 7.5 mg tablet 7.5 mg PO BID Qty: 60 3RF Rx Instructions: 1 in am and take 1 an hour before bed aspirin 81 mg Tablet,Delayed Release (Dr/Ec) 81 mg PO QAM Qty: 1 0RF albuterol sulfate 90 mcg/actuation HFA aerosol inhaler 2 - 4 puff inhalation Q6 PRN (Reason: Shortness Of Breath Or Wheezing) cyanocobalamin (vitamin B-12) 500 mcg Tablet 1,000 mcg PO QAM Qty: 30 0RF Patient Comments: not taking Cerovite Senior 0.4 mg-300 mcg- 250 mcg Tablet 1 tab PO QAM Qty: 30 0RF amlodipine 2.5 mg tablet 2.5 mg PO DAILY Qty: 30 0RF Patient Comments: qam bupropion HCl 75 mg tablet 75 mg PO HS Rx Instructions: take with lower dose sertraline Eliquis 2.5 mg Tablet 2.5 mg PO BID Qty: 60 11RF Discontinued oxycodone 5 mg tablet 5 mg PO Q6H PRN (Reason: pain) Qty: 30 0RF Patient Comments: does not take Discharge Orders: Discharge Order (Routine); Ordered 10/31/24 Ordered By: Kaya Ayala/Other Patient Handouts: Risk Factors for Stroke, Arm Care After a Stroke, ED Peripheral Artery Disease (PAD) Admission Data Admit Date/Time: 10/30/24 10:59 Attending Provider: Krishna Long Admit Provider: Krishna Long Primary Care Provider: Coretta Mai Other Interventions: Discharge Summary Assessment (RN) Last Done: 10/31/24 10:01
== END 2024-10-31 10:29 | disposition home or self-care (01) ==
LOC: 3N 06:04 → ASU 06:04

== ENCOUNTER 2024-11-03 16:30 | Observation (INO) ==
--- NOTE | 2024-11-03 17:16 | Emergency Department Note ---
Impression & Plan Left upper extremity swelling, Cellulitis, Elevated troponin ED Provider Note HISTORY OF PRESENT ILLNESS: Patient is a 69-year-old female presenting with left arm swelling and pain. Patient was seen for a follow-up today postoperatively after having a vascular surgery procedure done 5 days ago. She states she was doing well postoperatively until 2 days ago when she started noticed increasing pain and swelling to her left arm. Currently locates the pain to the anterior cubital fossa of the left arm and has stated that her lower arm and left hand have swelled up significantly. She denies any fevers or chills. Denies any nausea or vomiting. She reports she feels like she cannot use her left hand secondary to how swollen it is. ROS: as above PHYSICAL EXAM: Constitutional: Patient appears in no acute distress. HENT: Head: Normocephalic and atraumatic. Eyes: EOMI, PERRL Mouth/Throat: Mucous membranes moist. Neck: Trachea midline. Neck supple. Cardiovascular: RRR, No murmurs, rubs or gallops. Intact distal pulses. Pulmonary/Chest: No respiratory distress. Breath sounds clear and equal bilaterally. No wheezes or rales. Abdominal: Abdomen soft, no tenderness, rebound or guarding. Musculoskeletal: - LUE: Surgical incision in the left antecubital fossa is clean/dry/intact. Sutures in place. The incision appears slightly dusky and discolored with some surrounding erythema extending from the incision. No palpable crepitus. No drainage from the incision when palpated. Patient has notable nonpitting edema to the left lower forearm and left hand. She is able to wiggle her fingers but states that is painful to do so secondary to swelling. Palpable radial pulse. Sensation intact to light touch at the nerve distributions of the hand. Skin: Warm and dry. No rash, erythema, pallor or cyanosis Psychiatric: Appropriate mood and affect for situation. Neurological: Alert and keenly responsive. CN II-XII grossly intact, moving all extremities equally and fully. MDM: - Vitals signs showed hypertension and tachycardia. - History obtained via patient. History as above. - Chronic conditions affecting care: HLD; PAD; depression; COPD - Differential diagnoses include, but are not limited to: DVT; arterial injury; dependent edema; cellulitis - Order placed for continuous cardiac monitoring. At this time, monitor showed rate of 73 bpm with normal sinus rhythm, per my interpretation. - External medical records reviewed. Surgery progress note dated 10/31/2024 was reviewed. 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 - EKG image interpreted by myself showed normal sinus rhythm. Rate 72 bpm. QT 438. No acute ischemic changes. - Laboratory workup interpreted by myself showed normal WBC; anemia (Hgb 9.5 - decreased from 12.0); normal lactate; normal procalcitonin; stable electrolytes; elevated troponin (32.3) - Blood cultures obtained - Discussed patient's case with vascular surgeon, Dr. Long, at 20:25. He agreed with IV antibiotic treatment. He will follow as a consult. He does report that the patient lost "a good bit of blood during the procedure." - US LUE venous and arterial studies were ordered. - Patient initially given 2 g of IV Ancef. - Discussion was had with wrapper caser about patient's case and need for admission - Discussed case with hospitalist, Dr. Chacon. He recommended broadening the patient's antibiotic coverage to IV vancomycin and cefepime which was ordered. Patient given 1 g IV Tylenol for pain management. Received a test was also ordered. - Patient admitted to [facility] for further evaluation and management. ASSESSMENT AND PLAN: Diagnosis: Left upper arm swelling; cellulitis; elevated troponin Plan: Admit Past Med/Surg History Problem List (Updated 11/03/24 @ 21:25 by Jocelyn Hernandez PA-C) Hypokalemia Post op infection Elevated troponin (Acute) Cellulitis (Acute) Left upper extremity swelling (Acute) Pseudoaneurysm of brachial artery Encounter for pre-operative examination Grief Underweight B12 deficiency Iron deficiency anemia Abdominal mass Weakness (Acute) Cachexia Hypertension Mass of right axilla COPD with emphysema Depression Hyperlipidemia Vision loss, right eye Vitamin D deficiency (Chronic) Medical History PAD (peripheral artery disease) Vision loss, right eye HLD (hyperlipidemia) Depression Mass of right axilla HTN (hypertension) Iron deficiency anemia Underweight Abdominal mass Multiple pulmonary nodules Chronic respiratory failure with hypoxia ICAO (internal carotid artery occlusion) Osteoporosis Arthritis History of stroke Diverticular disease Chronic obstructive pulmonary disease Surgical History S/P vascular surgery S/P femoral-femoral bypass surgery History of tooth extraction History of tonsillectomy History of cataract surgery History of bronchoscopy Hx of foot surgery History of section Hx of hemorrhoidectomy History of colonoscopy Family History Other No family history of adverse response to anesthesia Denies family history of Ovarian cancer Prostate cancer Myocardial infarction Breast cancer Colorectal cancer Social History Smoking Status: Former smoker Tobacco Type: Cigarettes Age Started Using Tobacco: 18; Age Quit Using Tobacco: 65; packs per day: 1; Cigarettes Per Day: 2-3 per day on average - advised; Second Hand Exposure: No; Do You Dip or Chew Tobacco: No; Hx Alcohol Use: No Hx Substance Use: No Preferred Language: Portuguese Communication Ability: Effective Visual Impairment: Limited Hearing Ability: Normal Seo Associate Required: No Beliefs That Will Affect Care: None marital status: Current Living Situation: Family current occupational status: disabled How many Children do You have: 2 Feels Safe at Home: Yes Childhood Exposure to Second-Hand Smoke: Yes Diet: regular caffeine: Yes (coffee) during the past year weight has: remained stable Dental Care, Regularly: No Physical Activity Frequency: Daily Seatbelt Use: never Sunscreen Use: No Assistive Devices: Denture - Upper, Glasses, Nebulizer, Oxygen - Continuous and Walker Allergies Allergies Allergy/AdvReac Type Severity Reaction Status Date / Time codeine AdvReac Intermediate Vomiting Verified 11/03/24 10:16 Home Meds Home Medications Medication Instructions Recorded Confirmed acetaminophen 325 mg capsule 650 mg PO Q4H PRN Pain 09/14/19 11/03/24 bupropion HCl 75 mg tablet 75 mg PO HS 01/28/24 11/03/24 albuterol sulfate 90 mcg/actuation 2 - 4 puff inhalation Q6 PRN 07/01/24 11/03/24 aerosol inhaler Shortness Of Breath Or Wheezing Previous Rx's Medication Instructions Recorded aspirin 81 mg tablet,delayed 81 mg PO QAM #1 tab 09/01/19 release Flutter Valve #1 ea 08/13/20 albuterol sulfate 2.5 mg/3 mL 2.5 mg (3 mL) inhalation QID PRN 03/03/22 (0.083 %) solution for nebulization shortness of breath or wheezing #180 mL apixaban 2.5 mg tablet (Eliquis) 2.5 mg PO BID #60 tabs 02/18/24 lisinopril 10 mg tablet 10 mg PO QAM #90 tabs 06/05/24 amlodipine 2.5 mg tablet 2.5 mg PO DAILY #30 tabs 07/04/24 cyanocobalamin (vitamin B-12) 500 1,000 mcg (2 x 500 mcg) PO QAM #30 07/04/24 mcg tablet tabs [id number] acid 0.4 1 tab PO QAM #30 tabs 07/04/24 mg-lycopene 300 mcg-lutein 250 mcg tablet (Cerovite Senior) buspirone 7.5 mg tablet 7.5 mg PO BID #60 tabs 07/11/24 fluticasone fur. 100 mcg-umeclid 1 inh inhalation HS #60 ea 07/24/24 62.5 mcg-vilant 25 mcg inhalat.powder (Trelegy Ellipta) sertraline 100 mg tablet 200 mg (2 x 100 mg) PO QAM #180 07/24/24 tabs rosuvastatin 40 mg tablet (Crestor) 40 mg PO HS #90 tabs 09/12/24 oxycodone-acetaminophen 5 mg-325 1 tab PO Q6H PRN pain #30 tabs 10/31/24 mg tablet (Percocet) Results & Data (ED) Vital Signs Vital Signs - 24 hr 11/03/24 16:37 11/03/24 17:50 11/03/24 17:50 Temperature 37.1 C Temperature Source Oral Pulse Rate 95 H 73 Pulse Rate [Apical] 73 Pulse Rhythm Regular Pulse Rhythm [Apical] Regular Pulse Strength [Apical] Normal Respiratory Rate 22 20 20 Respiratory Effort / Characteristics Non-Labored Spontaneous Non-Labored Spontaneous Respiratory Depth Normal Normal Respiratory Pattern Regular Blood Pressure 146/72 H Blood Pressure [Right Arm] 165/78 H Blood Pressure Mean 96 Blood Pressure Mean [Right Arm] 107 Pulse Oximetry 96 99 99 Oxygen Delivery Method Room Air Nasal Cannula Nasal Cannula Oxygen Flow Rate 3 3 Sepsis Recent Fever Within 48 Hours No Sepsis New/Unexplained Change in Mental Status No Sepsis Action Taken by Nursing No Action Required 11/03/24 18:04 11/03/24 19:00 Temperature Temperature Source Pulse Rate 76 Pulse Rate [Apical] 73 Pulse Rhythm Pulse Rhythm [Apical] Regular Pulse Strength [Apical] Normal Respiratory Rate 20 Respiratory Effort / Characteristics Non-Labored Spontaneous Respiratory Depth Normal Respiratory Pattern Regular Blood Pressure Blood Pressure [Right Arm] 184/72 H Blood Pressure Mean Blood Pressure Mean [Right Arm] 109 Pulse Oximetry 100 Oxygen Delivery Method Nasal Cannula Oxygen Flow Rate 3 Sepsis Recent Fever Within 48 Hours Sepsis New/Unexplained Change in Mental Status Sepsis Action Taken by Nursing Laboratory Data 11/03/24 18:28 11/03/24 18:28 Lab Results 11/03/24 11/03/24 11/03/24 Range/Units 18:28 18:50 20:29 WBC 6.55 (4.8-10.8) K/ul RBC 3.33 L (4.20-5.40) M/uL Hgb 9.5 L (12.0-16.0) g/dl Hct 30.0 L (37.0-47.0) % MCV 90.1 (80.0-100.0) fL MCH 28.5 (25.0-34.0) pg MCHC 31.7 L (32.0-36.0) g/dL RDW Std Deviation 50.5 H (36.4-46.3) fL RDW Coeff of Rosanna 15.2 H (11.5-14.5) % Plt Count 167 (130-400) K/uL MPV 11.1 (9.4-12.4) fL Immature Gran % (Auto) 0.3 % Neut % (Auto) 77.4 % Lymph % (Auto) 11.5 % [place] % (Auto) 9.6 % Eos % (Auto) 0.9 % Baso % (Auto) 0.3 % Neut # (Auto) 5.07 (1.40-6.50) K/uL Lymph # (Auto) 0.75 L (1.20-3.40) K/uL [place] # (Auto) 0.63 H (0.11-0.59) K/uL Eos # (Auto) 0.06 (0.00-0.50) K/uL Baso # (Auto) 0.02 (0.00-0.20) K/uL Immature Gran # (Auto) 0.02 (0.01-0.20) K/uL Sodium 143 (136-145) mmol/L Potassium 3.2 L (3.5-5.1) mmol/L Chloride 104 (98-107) mmol/L Carbon Dioxide 33 H (21-32) mmol/L Anion Gap 6 (3-11) BUN 19 (6-23) mg/dl Creatinine 0.75 (0.6-1.2) mg/dl Est Cr Clr Drug Dosing 41.8 ml/min eGFR 85.59 BUN/Creatinine Ratio 25.3 H (10-20) Glucose 96 (70-99(Fasting)) mg/dl Lactate 0.8 (0.4-2.0) mmol/L Calcium 8.9 (8.6-10.3) mg/dl Magnesium 2.0 (1.7-2.4) mg/dl Total Bilirubin 0.4 (0.2-1.0) mg/dl Direct Bilirubin 0.1 (0-0.2) mg/dl AST 19 (13-39) U/L ALT 6 L (7-52) U/L Alkaline Phosphatase 56 (34-104) U/L Troponin I High Sens 32.3 H 31.1 H (0-14) pg/ml C-Reactive Protein 8.81 H (0-0.5) mg/dl Total Protein 6.3 (6.0-8.3) gm/dl Albumin 3.5 (3.4-5.0) gm/dl Procalcitonin 0.27 (0-0.5) ng/ml Administered Medications Lactated Ringer's (Lr) 1,000 mls @ 80 mls/hr IV .[id number] MARYCARMEN Stop: 11/04/24 09:29 Last Admin: 11/03/24 22:00 Dose: 80 mls/hr Documented By: [facility] Potassium Chloride (K Daniel / Wtr) 10 meq in 100 mls @ 100 mls/hr IV Q1H MARYCARMEN Stop: 11/04/24 00:59 Last Admin: 11/03/24 22:46 Dose: 100 mls/hr Documented By: [facility] Infusion: 11/03/24 22:46 Dose: Infused Documented By: [facility] Admin: 11/03/24 22:00 Dose: 100 mls/hr Documented By: YAMILE Vancomycin HCl 1,000 mg/ (Sodium Chloride) 520 mls @ 200 mls/hr IV NOW ONE Stop: 11/04/24 00:35 Last Admin: 11/03/24 22:47 Dose: 200 mls/hr Documented By: YAMILE Discontinued Medications Cefazolin Sodium (Ancef 2000mg) 2,000 mg in 15 mls @ 3.75 mls/min IV NOW STA Stop: 11/03/24 18:50 Last Admin: 11/03/24 19:56 Dose: 3.75 mls/min Documented By: DWAYNE Cefepime HCl (Maxipime 2000mg) 2,000 mg in 20 mls @ 5 mls/min IV NOW STA; Protocol Stop: 11/03/24 20:36 Last Admin: 11/03/24 22:00 Dose: 5 mls/min Documented By: YAMILE Acetaminophen (Ofirmev) 1,000 mg in 100 mls @ 400 mls/hr IV NOW STA Stop: 11/03/24 20:49 Last Infusion: 11/03/24 22:16 Dose: Infused Documented By: Admin: 11/03/24 22:00 Dose: 400 mls/hr Documented By: LORENA Discharge Plan Visit Data Chief Complaint: Arm Pain Stated Complaint: SWELLING ARM/HAND, PAIN ED Provider: Marie Lo Discharge Problem: Left upper extremity swelling, Cellulitis, Elevated troponin Condition: Fair Discharge Instructions Interventions: ED Discharge Assessment Last Done: 11/03/24 23:13
[2024-11-03 18:52] LABS: Hematocrit (blood only) 30.0 % (37.0-47.0); Hemoglobin 9.5 g/dl (12.0-16.0); Immature Granulocytes # (auto) 0.02 K/uL (0.01-0.20); Immature Granulocytes % (auto) 0.3 %; Mean Corpuscular Hemoglobin 28.5 pg (25.0-34.0); Mean Corpuscular Volume 90.1 fL (80.0-100.0); Platelet Count 167 K/uL (130-400); RDW Standard Deviation 50.5 fL (36.4-46.3); Red Blood Count 3.33 M/uL (4.20-5.40); White Blood Count 6.55 K/ul (4.8-10.8)
[2024-11-03 19:10] LABS: Alanine Aminotransferase 6.0 U/L (7-52); Albumin Level 3.5 gm/dl (3.4-5.0); Alkaline Phosphatase 56.0 U/L (34-104); Anion Gap 6.0 (3-11); Bilirubin,Total 0.4 mg/dl (0.2-1.0); Blood Urea Nitrogen 19.0 mg/dl (6-23); Calcium 8.9 mg/dl (8.6-10.3); Carbon Dioxide 33.0 mmol/L (21-32); Chloride 104.0 mmol/L (98-107); Creatinine Clr Calc Pharmacy 41.8 ml/min; Glucose 96.0 mg/dl (70-99(Fasting)); Magnesium 2.0 mg/dl (1.7-2.4); Potassium 3.2 mmol/L (3.5-5.1); Sodium 143.0 mmol/L (136-145); Total Protein 6.3 gm/dl (6.0-8.3)
[2024-11-03] MEDS ORDERED: VANCOMYCIN CONSULT ACTIVE PRN ×2 (20:33→23:12)
[2024-11-03] MEDS ORDERED: VANCOMYCIN HCL 750 MG in SODIUM CHLORIDE 0.9% 500 ML IV ONE (20:33)
--- NOTE | 2024-11-03 20:48 | History & Physical Report ---
Date of Service November 03, 2024 Assessment & Plan (1) Cellulitis: (2) Left upper extremity swelling: (3) Post op infection: (4) Hypokalemia: (5) Elevated troponin: Plan Patient is a 69-year-old female with past medical history of COPD on chronic 3L O2 nasal cannula, HTN, depression, HLD, previous CVA, vertebral artery stenosis, carotid stenosis, aortoiliac disease. Patient has followed with vascular surgery and is s/p left right femoral artery bypass February 2024 due to right iliac artery occlusion and s/p left iliac artery angiogram with SPA ATTENDANT and stent June 2024 complicated intraoperatively. Patient is s/p left brachial artery pseudoaneurysm repair with graft 10/[address] Long now presents with left arm swelling, erythema, and pain since Wednesday. Given this is a postoperative hospital-acquired infection she is being admitted for IV antibiotics. #Postop hospital-acquired infection/LUE cellulitis/LUE edema s/p left brachial artery artery pseudoaneurysm repair with graft 10/30 with vascular surgery. Nonseptic at time of admission no leukocytosis, VSS, afebrile, procalcitonin 0.27. Hgb did drop from 12.5 - 9.5 since procedure - trend CBC CRP pending ED ordered venous and arterial ultrasounds of left upper extremity, pending Started on vancomycin plus cefepime in the ED; transition to vancomycin and Rocephin - Trend renal panel with vancomycin use Follow blood cultures Consult vascular surgery Pain control with Tylenol as needed, oxycodone 5/10 mg as needed for breakthrough pain #Hypokalemia K+ 3.2, mag 2.0, renal function stable. Likely 2/2 GI losses with recent vomiting and poor p.o. intake. LR at 80 mL/hour x 1 L with 4 bags K riders ordered Trend BMP and magnesium #Elevated troponin troponin 32.2 -> 31.1 Likely 2/2 demand ischemia with acute infection above. Patient denies any chest pain. EKG ordered Trend troponin every 6 hours EKG with chest pain as needed Monitor on telemetry #aortoiliac disease follows with vascular surgery. S/p left right femoral artery bypass February 2024 due to right iliac artery occlusion and s/p left iliac artery angiogram with SPA ATTENDANT and stent June 2024 complicated intraoperatively. Continue Eliquis 2.5 Mg twice daily, baby aspirin, statin #COPD/chronic hypoxic respiratory failure uses 3L NC O2 at baseline. Has poor follow-up with pulmonology in outpatient setting. Continue home oxygen Continue home inhalers #HTN continue lisinopril and amlodipine #Mental health continue bupropion, buspirone, and sertraline #History of CVA frontal and parietal lobe infarct in 2019 with residual left arm and hand weakness with some intermittent left leg weakness. Uses a walker at baseline. Continue baby aspirin and statin VTE ppx: continue home Eliquis Dispo: med/tele Admission and Anticipated Discharge Date Admission Date: 11/03/24 History of Present Illness Chief Complaint: arm pain Primary Care Provider: SWATI Sher Patient is a 69-year-old female with past medical history of COPD on chronic 3L O2 nasal cannula, HTN, depression, HLD, previous CVA, vertebral artery stenosis, carotid stenosis, aortoiliac disease. Patient has followed with vascular surgery and is s/p left right femoral artery bypass February 2024 due to right iliac artery occlusion and s/p left iliac artery angiogram with SPA ATTENDANT and stent June 2024 complicated intraoperatively. Patient is s/p left brachial artery pseudoaneurysm repair with graft 10/[address] Long now presents with left arm swelling, erythema, and pain since Wednesday. Given this is a postoperative hospital-acquired infection she is being admitted for IV antibiotics. Patient seen at bedside with her son present. She saw her PCP who referred her into the ED today. She stated she had her procedure on Wednesday in which she was nauseous and vomiting after and has had poor appetite since, likely resulting in her electrolyte abnormalities. She then started to develop some redness and swelling on Wednesday that has persisted and worsened through today. She denies any fevers, chills, chest pain, shortness of breath, recent diarrhea. Pain is currently well-controlled after IV Tylenol in the ED. She endorses nicotine use off-and-on, declines need for nicotine patch at this time. She is on oxygen chronically at 3L NC Since reportedly 2007. PCP notes that patient declines any follow-up with pulmonology given they do not help her. She wishes to be DNR/DNI. Patient would like to go home however discussed importance of admission with IV antibiotics and vascular surgery evaluation. Allergies Allergy/AdvReac Type Severity Reaction Status Date / Time codeine AdvReac Intermediate Vomiting Verified 11/03/24 10:16 Home Medications Medication Instructions Recorded Confirmed Type aspirin 81 mg tablet,delayed 81 mg PO QAM #1 tab 09/01/19 11/03/24 Rx release acetaminophen 325 mg capsule 650 mg PO Q4H PRN Pain 09/14/19 11/03/24 History Flutter Valve #1 ea 08/13/20 11/03/24 Rx albuterol sulfate 2.5 mg/3 mL 2.5 mg (3 mL) inhalation QID PRN 03/03/22 11/03/24 Rx (0.083 %) solution for nebulization shortness of breath or wheezing #180 mL bupropion HCl 75 mg tablet 75 mg PO HS 01/28/24 11/03/24 History apixaban 2.5 mg tablet (Eliquis) 2.5 mg PO BID #60 tabs 02/18/24 11/03/24 Rx lisinopril 10 mg tablet 10 mg PO QAM #90 tabs 06/05/24 11/03/24 Rx albuterol sulfate 90 mcg/actuation 2 - 4 puff inhalation Q6 PRN 07/01/2411/03 History aerosol inhaler Shortness Of Breath Or Wheezing amlodipine 2.5 mg tablet 2.5 mg PO DAILY #30 tabs 07/04/24 11/03/24 Rx cyanocobalamin (vitamin B-12) 500 1,000 mcg (2 x 500 mcg) PO QAM #30 07/04/24 11/03/24 Rx mcg tablet tabs shaurjlo-wka-sgnwo acid 0.4 1 tab PO QAM #30 tabs 07/04/24 11/03/24 Rx mg-lycopene 300 mcg-lutein 250 mcg tablet (Cerovite Senior) buspirone 7.5 mg tablet 7.5 mg PO BID #60 tabs 07/11/24 11/03/24 Rx fluticasone fur. 100 mcg-umeclid 1 inh inhalation HS #60 ea 07/24/24 11/03/24 Rx 62.5 mcg-vilant 25 mcg inhalat.powder (Trelegy Ellipta) sertraline 100 mg tablet 200 mg (2 x 100 mg) PO QAM #180 07/24/24 11/03/24 Rx tabs rosuvastatin 40 mg tablet (Crestor) 40 mg PO HS #90 tabs 09/12/24 11/03/24 Rx oxycodone-acetaminophen 5 mg-325 1 tab PO Q6H PRN pain #30 tabs 10/31/24 11/03/24 Rx mg tablet (Percocet) Past Med/Surg History Problem List (Updated 11/03/24 @ 21:25 by Jocelyn Hernandez PA-C) Hypokalemia Post op infection Elevated troponin (Acute) Cellulitis (Acute) Left upper extremity swelling (Acute) Pseudoaneurysm of brachial artery Encounter for pre-operative examination Grief Underweight B12 deficiency Iron deficiency anemia Abdominal mass Weakness (Acute) Cachexia Hypertension Mass of right axilla COPD with emphysema Depression Hyperlipidemia Vision loss, right eye Vitamin D deficiency (Chronic) Medical History PAD (peripheral artery disease) Vision loss, right eye HLD (hyperlipidemia) Depression Mass of right axilla HTN (hypertension) Iron deficiency anemia Underweight Abdominal mass Multiple pulmonary nodules Chronic respiratory failure with hypoxia ICAO (internal carotid artery occlusion) Osteoporosis Arthritis History of stroke Diverticular disease Chronic obstructive pulmonary disease Surgical History S/P vascular surgery S/P femoral-femoral bypass surgery History of tooth extraction History of tonsillectomy History of cataract surgery History of bronchoscopy Hx of foot surgery History of section Hx of hemorrhoidectomy History of colonoscopy Family History Other No family history of adverse response to anesthesia Denies family history of Ovarian cancer Prostate cancer Myocardial infarction Breast cancer Colorectal cancer Social History Smoking Status: Former smoker Tobacco Type: Cigarettes Age Started Using Tobacco: 18; Age Quit Using Tobacco: 65; packs per day: 1; Cigarettes Per Day: 2-3 per day on average - advised; Second Hand Exposure: No; Do You Dip or Chew Tobacco: No; Hx Alcohol Use: No Hx Substance Use: No Preferred Language: Slovenian Communication Ability: Effective Visual Impairment: Limited Hearing Ability: Normal Curtain Worker Required: No Beliefs That Will Affect Care: None marital status: Current Living Situation: Family current occupational status: disabled How many Children do You have: 2 Feels Safe at Home: Yes Childhood Exposure to Second-Hand Smoke: Yes Diet: regular caffeine: Yes (coffee) during the past year weight has: remained stable Dental Care, Regularly: No Physical Activity Frequency: Daily Seatbelt Use: never Sunscreen Use: No Assistive Devices: Denture - Upper, Glasses, Nebulizer, Oxygen - Continuous and Walker Review of Systems Review of Systems: see HPI Physical Exam Physical Exam: The patient is awake, alert and oriented 3, well developed and well nourished, normocephalic and atraumatic, in no acute distress. Non-toxic appearing. HEENT- EOMI, mucous membranes dry. Hearing grossly intact. Heart-normal S1 and S2. No murmurs, rubs or gallops. Lungs-clear bilaterally, no respiratory distress, no accessory muscle use. Abdomen-normal bowel sounds and soft. No ascites noted. Non-tender. Extremities- no clubbing, cyanosis. Left upper extremity with surgical wound to medial antecubital area; noted to have surrounding erythema, edema, warmth, and pain extending to hand. Psychiatric-normal affect. Results & Data Results & Data Vital Signs (Past 12 Hours) Vital Signs Temp Pulse Pulse Resp BP BP Pulse Ox 11/03/24 19:00 73 20 184/72 H 100 11/03/24 18:04 76 11/03/24 17:50 73 20 99 11/03/24 17:50 73 20 165/78 H 99 11/03/24 16:37 37.1 C 95 H 22 146/72 H 96 O2 Del Method O2 Flow Rate 11/03/24 19:00 Nasal Cannula 3 11/03/24 18:04 11/03/24 17:50 Nasal Cannula 3 11/03/24 17:50 Nasal Cannula 3 11/03/24 16:37 Room Air Laboratory Results Lab Results 11/03/24 11/03/24 Range/Units 18:28 18:50 WBC 6.55 (4.8-10.8) K/ul RBC 3.33 L (4.20-5.40) M/uL Hgb 9.5 L (12.0-16.0) g/dl Hct 30.0 L (37.0-47.0) % MCV 90.1 (80.0-100.0) fL MCH 28.5 (25.0-34.0) pg MCHC 31.7 L (32.0-36.0) g/dL RDW Std Deviation 50.5 H (36.4-46.3) fL RDW Coeff of Rosanna 15.2 H (11.5-14.5) % Plt Count 167 (130-400) K/uL MPV 11.1 (9.4-12.4) fL Immature Gran % (Auto) 0.3 % Neut % (Auto) 77.4 % Lymph % (Auto) 11.5 % [place] % (Auto) 9.6 % Eos % (Auto) 0.9 % Baso % (Auto) 0.3 % Neut # (Auto) 5.07 (1.40-6.50) K/uL Lymph # (Auto) 0.75 L (1.20-3.40) K/uL [place] # (Auto) 0.63 H (0.11-0.59) K/uL Eos # (Auto) 0.06 (0.00-0.50) K/uL Baso # (Auto) 0.02 (0.00-0.20) K/uL Immature Gran # (Auto) 0.02 (0.01-0.20) K/uL Sodium 143 (136-145) mmol/L Potassium 3.2 L (3.5-5.1) mmol/L Chloride 104 (98-107) mmol/L Carbon Dioxide 33 H (21-32) mmol/L Anion Gap 6 (3-11) BUN 19 (6-23) mg/dl Creatinine 0.75 (0.6-1.2) mg/dl Est Cr Clr Drug Dosing 41.8 ml/min eGFR 85.59 BUN/Creatinine Ratio 25.3 H (10-20) Glucose 96 (70-99(Fasting)) mg/dl Lactate 0.8 (0.4-2.0) mmol/L Calcium 8.9 (8.6-10.3) mg/dl Magnesium 2.0 (1.7-2.4) mg/dl Total Bilirubin 0.4 (0.2-1.0) mg/dl Direct Bilirubin 0.1 (0-0.2) mg/dl AST 19 (13-39) U/L ALT 6 L (7-52) U/L Alkaline Phosphatase 56 (34-104) U/L Troponin I High Sens 32.3 H (0-14) pg/ml Total Protein 6.3 (6.0-8.3) gm/dl Albumin 3.5 (3.4-5.0) gm/dl Procalcitonin 0.27 (0-0.5) ng/ml Diagnostic Findings none Medications Administered ED - vancomycin and cefepime 2G IV, Tylenol 1G IV admission - LR @ 80 ml/hr and 4 bags IV k rider ECG Additional Comments: ordered Code Status & VTE Plan Code Status dnr/dni VTE Prophylaxis Plan VTE Prophylaxis will be ordered: Yes Supervising Physician Co-Signing Physician Notes Attending addendum: I have physically seen this patient, have supervised the CORONA's activities, and agree with the H&P unless as otherwise noted. Assessment and Plan: The patient is a 69-year-old female with a past medical history including COPD with chronic 3 L O2 requirement, hypertension, depression, hyperlipidemia, previous CVA, vertebral artery stenosis, carotid artery stenosis, aortoiliac disease. She is status post left brachial artery pseudoaneurysm repair with graft on 10/30, and presents to the ED this evening with left arm swelling, erythema and pain since 3 days ago, 1 day after surgery. [facility] for postoperative hospital-acquired left upper extremity cellulitis. Postop hospital-acquired infection/left foot Cellulitis/left lower extremity edema- Status post left brachial artery pseudoaneurysm repair with graft 10/30 by vascular surgery Received vancomycin IV and cefepime IV in the ED Continue vancomycin and ceftriaxone IV Follow blood culture and sensitivities Consult vascular surgery Acetaminophen 650 mg by mouth every 6 hours as needed for mild pain or fever Oxycodone as noted for breakthrough pain Ultrasound studies ordered and pending Anemia- Hemoglobin decreased from 12.5-9.5 postprocedure Blood pressure and heart rate acceptable Follow serially Hypokalemia- Potassium 3.2 on admission with magnesium 2.0 K riders as noted LR at 80 mL/h x 1 L Check a BMP and magnesium level in a.m. Elevated troponin- Initial troponin 32.2 with follow-up 31.1 Likely demand ischemia Follow serially Follow on telemetry Aortoiliac disease- Continue Eliquis 2.5 mg twice daily, baby aspirin Hyperlipidemia- Continue rosuvastatin Hypertension- Continue lisinopril and amlodipine Hydralazine 10 mg IV every 4 hours as needed systolic blood pressure greater than 160 Remaining orders and notations as noted PG Care Time/CCT Total # of Minutes Spent Total Time Spent with Patient: Total time spent is greater than 50% in coordination of care (as documented) at patient's floor/unit and/or counseling patient: Coding Level of Care Code 18242 INT INP/OBS CARE 3/75MIN Diagnoses Cellulitis L03.90 Left upper extremity swelling M79.89 Post op infection T81.40XA Hypokalemia E87.6 Elevated troponin R79.89
[2024-11-03] MEDS: ACETAMINOPHEN 1,000 MG/100 ML VIAL IV STA (22:00)
[2024-11-03] MEDS: POTASSIUM CHLORIDE / WTR 10 MEQ/100 ML PLCT IV SCH (22:00)
[2024-11-03] MEDS: LACTATED RINGER'S 1,000 ML IV SCH (22:00)
[2024-11-03] MEDS: CEFEPIME 2000MG 2,000 MG/20 ML SYR IV STA (22:00)
[2024-11-03] MEDS: VANCOMYCIN HCL 1,000 MG in SODIUM CHLORIDE 0.9% 500 ML IV ONE (22:47)
[2024-11-03] MEDS ORDERED: ACETAMINOPHEN 325 MG TAB PO PRN (23:12)
[2024-11-03] MEDS ORDERED: ONDANSETRON INJ 2 MG/ML 2 ML VIAL IV PRN (23:12)
[2024-11-03] MEDS ORDERED: DOCUSATE SODIUM 100 MG CAP PO PRN (23:12)
[2024-11-03] MEDS ORDERED: NON-FORMULARY MEDICATION (Fluticasone-Umeclidin-Vilanter [Trelegy Ellipta] 100-62.5-25 mcg INH SCH (23:12)
[2024-11-03] MEDS ORDERED: ALBUTEROL 0.083% NEBU SOLN 3 ML VIAL INH PRN (23:12)
--- NOTE | 2024-11-03 23:53 | Ultrasound Report ---
Exam(s): US VENOUS LEFT UPPER EXTREMITY EXAM: US Duplex Left Upper Extremity Veins CLINICAL HISTORY: LUE swelling. TECHNIQUE: Real-time duplex ultrasound scan of the left upper extremity veins integrating B-mode two-dimensional vascular structure, Doppler spectral analysis, color flow Doppler imaging and compression. COMPARISON: No relevant prior studies available. FINDINGS: Deep veins: No DVT in the internal jugular, subclavian, axillary, or segments of the brachial vein. Evaluation of the brachial vein is somewhat limited by reported postoperative swelling. The veins demonstrate normal color flow, are normally compressible, with normal phasic flow and/or augmentation response. Superficial veins: Unremarkable. No thrombus in the visualized basilic and cephalic veins. Soft tissues: Subcutaneous edema. No loculated hematoma or fluid collection. IMPRESSION: Accounting for limitations related to postoperative status, no evidence for deep vein thrombosis involving the left upper extremity. Electronically signed by: Kevin Miguel MD 11/03/24 23:52 PM
--- NOTE | 2024-11-04 00:20 | Ultrasound Report ---
Exam(s): US ARTERIAL LEFT UPPER EXTREMITY EXAM: US Duplex Left Upper Extremity Arteries CLINICAL HISTORY: LUE swelling; recent vascular surgery. TECHNIQUE: Real-time duplex ultrasound scan of the left upper extremity arteries integrating B-mode two-dimensional vascular structure, Doppler spectral analysis and color flow Doppler imaging. COMPARISON: No relevant prior studies available. FINDINGS: Left subclavian artery: Peak systolic velocity in the left subclavian artery is 120 cm/s. Multiphasic waveform. Left axillary artery: Peak systolic velocity in the left axillary artery is 88 cm/s. Multiphasic waveform. Left brachial artery: The left brachial artery is patent with peak systolic velocities measuring 137 cm/sec approximately, 213 cm/sec at the mid segment and 170 cm/sec distally. The graft is intact with peak systolic velocities noted between 124 in 144 cm/sec throughout. Monophasic waveforms noted. The distal anastomosis is patent with peak systolic velocities at 102 cm/sec. Left radial artery: The radial artery is patent with peak systolic velocities of 80 cm/sec. Left ulnar artery: The ulnar artery is patent with peak systolic velocity is 70 5 cm/sec. Other arteries: Atherosclerotic disease involving the left common carotid artery. Peak systolic velocities of 78 cm/sec. The left vertebral artery is patent with antegrade flow. Peak systolic velocity of 105 cm/sec. Soft tissues: Surrounding subcutaneous hematoma measuring 1.1 x 3.3 cm. No internal vascular flow. IMPRESSION: The brachial artery graft is patent. No significant duplex velocity measurements identified. Surrounding hematoma. No extravasation. Electronically signed by: Kevin Miguel MD 11/04/24 00:19 AM
[2024-11-04] MEDS: ROSUVASTATIN CALCIUM 20 MG TAB PO SCH (00:52)
[2024-11-04] MEDS: APIXABAN 2.5 MG TAB PO SCH (00:53)
[2024-11-04] MEDS: FLUTICASONE FUROATE 100MCG 14 PUFFS/INHALER INH SCH (00:56)
[2024-11-04] MEDS: UMECLIDINIUM/VILANTEROL 62.5/25MCG 7 PUFFS/INHALER INH SCH (00:58)
[2024-11-04 03:18] LABS: Hematocrit (blood only) 26.7 % (37.0-47.0); Hemoglobin 8.4 g/dl (12.0-16.0); Immature Granulocytes # (auto) 0.02 K/uL (0.01-0.20); Immature Granulocytes % (auto) 0.4 %; Mean Corpuscular Hemoglobin 28.4 pg (25.0-34.0); Mean Corpuscular Volume 90.2 fL (80.0-100.0); Platelet Count 141 K/uL (130-400); RDW Standard Deviation 49.7 fL (36.4-46.3); Red Blood Count 2.96 M/uL (4.20-5.40); White Blood Count 5.35 K/ul (4.8-10.8)
[2024-11-04 03:36] LABS: Anion Gap 5.0 (3-11); Blood Urea Nitrogen 16.0 mg/dl (6-23); Calcium 8.0 mg/dl (8.6-10.3); Carbon Dioxide 28.0 mmol/L (21-32); Chloride 107.0 mmol/L (98-107); Creatinine Clr Calc Pharmacy 41.4 ml/min; Glucose 91.0 mg/dl (70-99(Fasting)); Magnesium 1.8 mg/dl (1.7-2.4); Potassium 4.3 mmol/L (3.5-5.1); Sodium 140.0 mmol/L (136-145)
[2024-11-04] MEDS: cefTRIAXone SODIUM 1,000 MG/50 ML BAG IV SCH (05:50)
[2024-11-04] MEDS: VANCOMYCIN HCL 750 MG in SODIUM CHLORIDE 0.9% 250 ML IV SCH (05:50)
--- NOTE | 2024-11-04 08:53 | Consultation ---
Date of Consultation November 04, 2024 Assessment & Plan (1) Left upper extremity swelling: On exam her arm swelling is not unexpected with the amount of surgery performed in the antecubital fossa. I do not think there is any infection present in the arm. Recommend continue elevation of the arm. Would continue a 5 day course of prophylactic antibiotics due to the amount of swelling and the underlying prosthetic graft. We will see her in the office in one week after discharge. Thank you very much for letting us participate in the care of this patient. History of Present Illness Reason for Consultation: Left arm swelling Attending Physician: Dagoberto Vazquez MD History of Present Illness This is a 69yo female who earlier this week had a repair of a left brachial artery pseudoaneurysm repair with an interposition prosthetic graft. She came to the ED with complaints of left distal arm swelling and redness. She denies any finger or hand pain. She denies coldness of her hand. 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 Allergies Allergy/AdvReac Type Severity Reaction Status Date / Time codeine AdvReac Intermediate Vomiting Verified 11/03/24 10:16 Home Medications Medication Instructions Recorded Confirmed Type aspirin 81 mg tablet,delayed 81 mg PO QAM #1 tab 09/01/19 11/03/24 Rx release acetaminophen 325 mg capsule 650 mg PO Q4H PRN Pain 09/14/19 11/03/24 History Flutter Valve #1 ea 08/13/20 11/03/24 Rx albuterol sulfate 2.5 mg/3 mL 2.5 mg (3 mL) inhalation QID PRN 03/03/22 11/03/24 Rx (0.083 %) solution for nebulization shortness of breath or wheezing #180 mL bupropion HCl 75 mg tablet 75 mg PO HS 01/28/24 11/03/24 History apixaban 2.5 mg tablet (Eliquis) 2.5 mg PO BID #60 tabs 02/18/24 11/03/24 Rx lisinopril 10 mg tablet 10 mg PO QAM #90 tabs 06/05/24 11/03/24 Rx albuterol sulfate 90 mcg/actuation 2 - 4 puff inhalation Q6 PRN 07/01/24 11/03/24 History aerosol inhaler Shortness Of Breath Or Wheezing amlodipine 2.5 mg tablet 2.5 mg PO DAILY #30 tabs 07/04/24 11/03/24 Rx cyanocobalamin (vitamin B-12) 500 1,000 mcg (2 x 500 mcg) PO QAM #30 07/04/24 11/03/24 Rx mcg tablet tabs ilqetqef-fjc-qtqmo acid 0.4 1 tab PO QAM #30 tabs 07/04/24 11/03/24 Rx mg-lycopene 300 mcg-lutein 250 mcg tablet (Cerovite Senior) buspirone 7.5 mg tablet 7.5 mg PO BID #60 tabs 07/11/24 11/03/24 Rx fluticasone fur. 100 mcg-umeclid 1 inh inhalation HS #60 ea 07/24/24 11/03/24 Rx 62.5 mcg-vilant 25 mcg inhalat.powder (Trelegy Ellipta) sertraline 100 mg tablet 200 mg (2 x 100 mg) PO QAM #180 07/24/24 11/03/24 Rx tabs rosuvastatin 40 mg tablet (Crestor) 40 mg PO HS #90 tabs 09/12/24 11/03/24 Rx oxycodone-acetaminophen 5 mg-325 1 tab PO Q6H PRN pain #30 tabs 10/31/24 11/03/24 Rx mg tablet (Percocet) Patient History Medical History PAD (peripheral artery disease) Vision loss, right eye HLD (hyperlipidemia) Depression Mass of right axilla HTN (hypertension) Iron deficiency anemia Underweight Abdominal mass Multiple pulmonary nodules Chronic respiratory failure with hypoxia ICAO (internal carotid artery occlusion) Osteoporosis Arthritis History of stroke Diverticular disease Chronic obstructive pulmonary disease Surgical History S/P vascular surgery S/P femoral-femoral bypass surgery History of tooth extraction History of tonsillectomy History of cataract surgery History of bronchoscopy Hx of foot surgery History of section Hx of hemorrhoidectomy History of colonoscopy Family History Other No family history of adverse response to anesthesia Denies family history of Ovarian cancer Prostate cancer Myocardial infarction Breast cancer Colorectal cancer Social History Smoking Status: Current some day smoker Tobacco Type: Cigarettes Age Started Using Tobacco: 18; Age Quit Using Tobacco: 65; packs per day: 1; Cigarettes Per Day: every other day; Second Hand Exposure: No; Do You Dip or Chew Tobacco: No; Hx Alcohol Use: No Hx Substance Use: No Preferred Language: Chinese Communication Ability: Effective Visual Impairment: Limited Hearing Ability: Normal Electronic Warfare Technical Required: No Beliefs That Will Affect Care: None marital status: Current Living Situation: Alone current occupational status: disabled How many Children do You have: 2 Other Information That Helps Us Care for You: No Feels Safe at Home: Yes Safety Concerns: Feels Safe At This Time Childhood Exposure to Second-Hand Smoke: Yes Diet: regular caffeine: Yes (coffee) during the past year weight has: remained stable Dental Care, Regularly: No Physical Activity Frequency: Daily Seatbelt Use: never Sunscreen Use: No Assistive Devices: Denture - Upper, Denture - Lower, Glasses and Oxygen - Continuous Review of Systems Review of Systems: All systems reviewed & are unremarkable except as noted in HPI & below Physical Exam Constitutional: WD/WN, vitals as above Respiratory: normal respiratory effort; no respiratory distress Cardiovascular: Rate/Rhythm: regular rate and regular rhythm Vessels: radial pulses present and ulnar pulses present Extremities: normal capillary refill Skin: + incision (dry and clesn) There is edema of the distal left arm. No significant erythema appreciated. Neurologic: CN's II-XI intact bilaterally and moves all extremities Results & Data Vital Signs (Past 12 Hours) Vital Signs Temp Pulse Pulse Pulse Resp BP Pulse Ox 11/04/24 07:50 56 L 11/04/24 07:44 37.1 C 72 18 145/63 H 100 11/04/24 03:25 11/04/24 02:47 37.3 C 75 16 156/70 H 99 11/04/24 02:37 72 11/04/24 01:00 11/04/24 01:00 36.3 C L 78 18 185/72 H 96 11/03/24 22:16 81 16 173/75 H 100 11/03/24 21:47 73 Pulse Ox O2 Del Method O2 Del Method O2 Flow Rate O2 Flow Rate 11/04/24 07:50 11/04/24 07:44 Nasal Cannula 3 11/04/24 03:25 96 Nasal Cannula 3 11/04/24 02:47 Nasal Cannula 3 11/04/24 02:37 11/04/24 01:00 Nasal Cannula 3 11/04/24 01:00 Nasal Cannula 3 11/03/24 22:16 Nasal Cannula 3 11/03/24 21:47
--- NOTE | 2024-11-04 09:50 | Pharmacy Report ---
Pharmacy PK ABX Note - Date of Service November 04, 2024 - Assessment and Plan Assessment 69 year old F receiving vancomycin and ceftriaxone for treatment of cellulitis. S/p left brachial artery pseudoaneurysm repair with graft 10/30. Blood cultures pending. Renal function stable. Day #2 of antimicrobial therapy. Plan Vancomycin * Loading dose: 1000 mg IV x 1 * Maintenance dose: 750 mg IV every 18 hours * Regimen is predicted to achieve target AUC/SUDARSHAN of 400-600 mg/L.hr * Will obtain a random level tomorrow if vancomycin continued Pharmacy will continue to follow and will adjust dose/frequency as necessary. Thank you. Pharmacy has transitioned to AUC monitoring for vancomycin. AUC/SUDARSHAN is the preferred PK/PD target and is associated with decreased risk of nephrotoxicity compared to traditional trough targets.
[2024-11-04] MEDS: ASPIRIN 81 MG ECTAB PO SCH (09:52)
[2024-11-04] MEDS: SERTRALINE HCL 100 MG TABLET PO SCH (09:52)
--- NOTE | 2024-11-04 20:05 | Hospitalist Progress Note ---
Date of Service November 04, 2024 Assessment & Plan (1) Cellulitis: (2) Left upper extremity swelling: (3) Hypokalemia: (4) Elevated troponin: (5) Pseudoaneurysm of brachial artery: (6) Underweight: (7) Abdominal mass: (8) COPD with emphysema: (9) PAD (peripheral artery disease): (10) Acute blood loss anemia: Plan 69yo female with chronic hypoxic resp failure 2nd to COPD on home o2 - 3L, HTN, depression, previous CVA, PAD (vertebral artery stenosis, carotid stenosis, aortoiliac disease). Patient has followed with vascular surgery and is s/p left right femoral artery bypass February 2024 due to right iliac artery occlusion, and s/p left iliac artery angiogram with [employer] and stent June 2024. Patient is s/p left brachial artery pseudoaneurysm repair with graft 10/[address] Long. Presented with left arm swelling, erythema, and pain since Wednesday. #?LUE cellulitis/LUE edema - s/p left brachial artery artery pseudoaneurysm repair with graft 10/[address] - venous and arterial dopplers of LUE - both negative Started on vancomycin plus cefepime in the ED due to concern for cellulitis - transitioned to vancomycin and Rocephin - Dr Long consulted today; does not feel there is actual cellulitis; feels most of the edema/erythema/etc is expected post-op findings blood cx's thus far negative pain control - elevated arm #acute blood loss anemia - - Hgb decreased from 12 on 10/30 to 9 on 11/03 - today - 8.4 - check Fe studies in am - check B12 in am - check CBC in am for stability #Hypokalemia - replaced/resolved #Elevated troponin - troponin 32.2 -> 31.1 Likely myocardial demand ischemia in setting of recent surgery rather than ACS #aortoiliac disease - S/p left right femoral artery bypass February 2024 due to right iliac artery occlusion - s/p left iliac artery angiogram via brachial approached on left, with [employer]IST and stent of left iliac artery June 2024 - s/p left femoral embolectomy and left femoral endarterectomy with bovine patch angioplasty - also June 2024 - June 2024 stay complicated by bleeding/hematoma requiring repeat surgery to locate source of bleeding which turns out was due to superficial source . Continue Eliquis 2.5 Mg twice daily, baby aspirin, statin #COPD/chronic hypoxic respiratory failure uses 3L NC O2 at baseline. Continue home inhalers - no flare at this time #HTN continue lisinopril and amlodipine #Mental health continue bupropion, buspirone, and sertraline #History of CVA right frontal and parietal lobe infarct in 2019 with residual left arm and hand weakness with some intermittent left leg weakness. Uses a walker at baseline. Continue baby aspirin and statin - left hand function worse since 06/2024? #Underweight - BMI 14.9 - change diet to regular; stop AHA VTE ppx: Kareem son updated at bedside home tomorrow if blood cx's negative and left arm issues stable Admission and Anticipated Discharge Date Admission Date: November 03, 2024 Subjective patient states "I want to go home" asks several times why she can't go home c/o edema and mild pain in left arm but the redness that was present yesterday has improved significantly since June 2024 vascular surgery she has had weakness of her 1st/2nd fingers on the left hand previous stroke rendered her other fingers very weak denies any abd pain Review of Systems Review of Systems: cv - no cp pulm - no dyspnea GI - no abd pain or N/V Physical Exam Physical Exam: gen - very thin/underweight, frail in appearance, NAD neck - no JVD heart - RRR, s1 s2 lungs - wheezing b/l, no rales abd - soft ND NT BS+ ext - no edema of either leg, pulses b/l legs 1+ vascular - left arm - generalized edema from the proximal arm down to the left hand; incision near the left antecubital region clean; no erythema any location neuro - handgrip on left 2/5, no wrist drop Results & Data Results & Data Vital Signs (Past 12 Hours) Vital Signs Temp Pulse Pulse Resp BP Pulse Ox O2 Del Method 11/04/24 19:24 36.8 C 72 16 158/70 H 99 Nasal Cannula 11/04/24 18:02 73 11/04/24 15:23 37.0 C 69 18 155/62 H 98 Nasal Cannula 11/04/24 11:37 37.4 C 69 18 147/75 H 100 Nasal Cannula O2 Flow Rate 11/04/24 19:24 3 11/04/24 18:02 11/04/24 15:23 3 11/04/24 11:37 3 Laboratory Results Laboratory Results - last 24 hr 11/03/24 11/03/24 11/03/24 18:28 20:29 Unknown WBC RBC Hgb Hct MCV MCH MCHC RDW Std Deviation RDW Coeff of Rosanna Plt Count MPV Immature Gran % (Auto) Neut % (Auto) Lymph % (Auto) Osborne % (Auto) Eos % (Auto) Baso % (Auto) Neut # (Auto) Lymph # (Auto) Osborne # (Auto) Eos # (Auto) Baso # (Auto) Immature Gran # (Auto) Sodium Potassium Chloride Carbon Dioxide Anion Gap BUN Creatinine Est Cr Clr Drug Dosing eGFR BUN/Creatinine Ratio Glucose Calcium Magnesium Troponin I High Sens 31.1 H C-Reactive Protein 8.81 H Nasal Screen MRSA (PCR) Negative 11/04/24 11/04/24 11/04/24 03:04 03:05 08:55 WBC 5.35 RBC 2.96 L Hgb 8.4 L Hct 26.7 L MCV 90.2 MCH 28.4 MCHC 31.5 L RDW Std Deviation 49.7 H RDW Coeff of Rosanna 15.2 H Plt Count 141 MPV 10.4 Immature Gran % (Auto) 0.4 Neut % (Auto) 74.0 Lymph % (Auto) 15.1 Osborne % (Auto) 9.0 Eos % (Auto) 1.1 Baso % (Auto) 0.4 Neut # (Auto) 3.96 Lymph # (Auto) 0.81 L Osborne # (Auto) 0.48 Eos # (Auto) 0.06 Baso # (Auto) 0.02 Immature Gran # (Auto) 0.02 Sodium 140 Potassium 4.3 D Chloride 107 Carbon Dioxide 28 Anion Gap 5 BUN 16 Creatinine 0.69 Est Cr Clr Drug Dosing 41.4 eGFR 93.30 BUN/Creatinine Ratio 23.2 H Glucose 91 Calcium 8.0 L Magnesium 1.8 Troponin I High Sens 29.7 H 24.7 H C-Reactive Protein Nasal Screen MRSA (PCR) 11/04/24 14:50 WBC RBC Hgb Hct MCV MCH MCHC RDW Std Deviation RDW Coeff of Rosanna Plt Count MPV Immature Gran % (Auto) Neut % (Auto) Lymph % (Auto) Osborne % (Auto) Eos % (Auto) Baso % (Auto) Neut # (Auto) Lymph # (Auto) Osborne # (Auto) Eos # (Auto) Baso # (Auto) Immature Gran # (Auto) Sodium Potassium Chloride Carbon Dioxide Anion Gap BUN Creatinine Est Cr Clr Drug Dosing eGFR BUN/Creatinine Ratio Glucose Calcium Magnesium Troponin I High Sens 18.5 H D C-Reactive Protein Nasal Screen MRSA (PCR) Diagnostic Findings Duplex Scan Upper Extremity Artery 11/03/24 20:23 Exam(s): US ARTERIAL LEFT UPPER EXTREMITY EXAM: US Duplex Left Upper Extremity Arteries CLINICAL HISTORY: LUE swelling; recent vascular surgery. TECHNIQUE: Real-time duplex ultrasound scan of the left upper extremity arteries integrating B-mode two-dimensional vascular structure, Doppler spectral analysis and color flow Doppler imaging. COMPARISON: No relevant prior studies available. FINDINGS: Left subclavian artery: Peak systolic velocity in the left subclavian artery is 120 cm/s. Multiphasic waveform. Left axillary artery: Peak systolic velocity in the left axillary artery is 88 cm/s. Multiphasic waveform. Left brachial artery: The left brachial artery is patent with peak systolic velocities measuring 137 cm/sec approximately, 213 cm/sec at the mid segment and 170 cm/sec distally. The graft is intact with peak systolic velocities noted between 124 in 144 cm/sec throughout. Monophasic waveforms noted. The distal anastomosis is patent with peak systolic velocities at 102 cm/sec. Left radial artery: The radial artery is patent with peak systolic velocities of 80 cm/sec. Left ulnar artery: The ulnar artery is patent with peak systolic velocity is 70 5 cm/sec. Other arteries: Atherosclerotic disease involving the left common carotid artery. Peak systolic velocities of 78 cm/sec. The left vertebral artery is patent with antegrade flow. Peak systolic velocity of 105 cm/sec. Soft tissues: Surrounding subcutaneous hematoma measuring 1.1 x 3.3 cm. No internal vascular flow. IMPRESSION: The brachial artery graft is patent. No significant duplex velocity measurements identified. Surrounding hematoma. No extravasation. Electronically signed by: Kevin Miguel MD 11/04/24 00:19 AM Extremity Venous Study 11/03/24 20:23 Exam(s): US VENOUS LEFT UPPER EXTREMITY EXAM: US Duplex Left Upper Extremity Veins CLINICAL HISTORY: LUE swelling. TECHNIQUE: Real-time duplex ultrasound scan of the left upper extremity veins integrating B-mode two-dimensional vascular structure, Doppler spectral analysis, color flow Doppler imaging and compression. COMPARISON: No relevant prior studies available. FINDINGS: Deep veins: No DVT in the internal jugular, subclavian, axillary, or segments of the brachial vein. Evaluation of the brachial vein is somewhat limited by reported postoperative swelling. The veins demonstrate normal color flow, are normally compressible, with normal phasic flow and/or augmentation response. Superficial veins: Unremarkable. No thrombus in the visualized basilic and cephalic veins. Soft tissues: Subcutaneous edema. No loculated hematoma or fluid collection. IMPRESSION: Accounting for limitations related to postoperative status, no evidence for deep vein thrombosis involving the left upper extremity. Electronically signed by: Kevin Miguel MD 11/03/24 23:52 PM PG Care Time/CCT Total # of Minutes Spent Total Time Spent with Patient: Total time spent is greater than 50% in coordination of care (as documented) at patient's floor/unit and/or counseling patient: Coding Level of Care Code 17668 SUB INP/OBS CARE 2/35MIN Diagnoses Cellulitis L03.90 Left upper extremity swelling M79.89 Hypokalemia E87.6 Elevated troponin R79.89 Pseudoaneurysm of brachial artery I72.1 Underweight R63.6 Right lower quadrant abdominal mass R19.03 Abdominal location: right lower quadrant Pulmonary emphysema, unspecified emphysema type J43.9 Emphysema type: unspecified PAD (peripheral artery disease) I73.9 Acute blood loss anemia D62 (7) Abdominal mass Abdominal location: right lower quadrant Qualified Code(s): R19.03 - Right lower quadrant abdominal swelling, mass and lump (8) COPD with emphysema Emphysema type: unspecified Qualified Code(s): J43.9 - Emphysema, unspecified
[2024-11-04] MEDS: MELATONIN 3 MG TAB PO PRN (20:57)
[2024-11-04 21:20] LABS: Appearance Urine Clear (Clear); Glucose Urine UA Negative (Negative)
[2024-11-05 02:27] VITALS: O2SAT 100
[2024-11-05 06:45] LABS: Hematocrit (blood only) 25.8 % (37.0-47.0); Hemoglobin 8.3 g/dl (12.0-16.0); Mean Corpuscular Hemoglobin 28.9 pg (25.0-34.0); Mean Corpuscular Volume 89.9 fL (80.0-100.0); Platelet Count 155 K/uL (130-400); RDW Standard Deviation 48.5 fL (36.4-46.3); Red Blood Count 2.87 M/uL (4.20-5.40); White Blood Count 4.70 K/ul (4.8-10.8)
[2024-11-05 07:19] LABS: Creatinine Clr Calc Pharmacy 44.1 ml/min; Iron 28.0 mcg/dl (35-150); Total Iron Binding Cap Calc 230.0 mcg/dl (250-450); Transferrin 164.0 mg/dl (200-360); Transferrin (FE) Percent Satur 12.0 % (15-50)
--- NOTE | 2024-11-05 07:28 | Electrocardiogram Report ---
Test Reason : Blood Pressure : */* mmHG Vent. Rate : 72 BPM Atrial Rate : 72 BPM P-R Int : 144 ms QRS Dur : 68 ms QT Int : 438 ms P-R-T Axes : 60 60 70 degrees QTcB Int : 479 ms Normal sinus rhythm Nonspecific T wave abnormality Abnormal ECG When compared with ECG of 01-Jul-2024 17:31, Nonspecific T wave abnormality now evident in Inferior leads Nonspecific T wave abnormality no longer evident in Anterior leads Confirmed by Bob Kurtz ([id number] on 11/05/2024 7:27:39 AM Referred By: REFERRED SELF Confirmed By: Bob Kurtz
[2024-11-05 07:39] LABS: Ferritin 29.3 ng/ml (8-388)
[2024-11-05 07:54] VITALS: RESP 18
[2024-11-05] MEDS: CYANOCOBALAMIN (B-12) 500 MCG TABLET PO SCH (08:49)
[2024-11-05] MEDS: IRON SUCROSE 200 MG in SODIUM CHLORIDE 0.9% 100 ML IV ONE (10:30)
--- NOTE | 2024-11-05 11:23 | Pharmacy Report ---
Pharmacy PK ABX Note - Date of Service November 05, 2024 - Assessment and Plan Assessment 11/05: Day # 3 vancomycin + ceftriaxone. Blood cultures NGTD. Renal function stable. Random vancomycin level this AM, 13.7mcg/mL. 11/04: 69 year old F receiving vancomycin and ceftriaxone for treatment of cellulitis. S/p left brachial artery pseudoaneurysm repair with graft 10/30. Blood cultures pending. Renal function stable. Day #2 of antimicrobial therapy. Plan Vancomycin * Current regimen: vancomycin 750mg IV q18h * Random level 13.7mcg/mL(~9h level) predicted to achieve ssAUC 421mg/L.hr - therapeutic. * Continue current regimen * Repeat level in 48h if vancomycin continued Pharmacy will continue to follow and will adjust dose/frequency as necessary. Thank you. Pharmacy has transitioned to AUC monitoring for vancomycin. AUC/SUDARSHAN is the preferred PK/PD target and is associated with decreased risk of nephrotoxicity compared to traditional trough targets.
[2024-11-05 11:42] VITALS: BP 159/68; TEMP 99.3
--- NOTE | 2024-11-05 13:00 | Discharge Summary ---
Discharge Summary Date of Service date of admission - November 03, 2024 date of discharge - November 05, 2024 Principal Dx & Hospital Course #1 = Principal Diagnosis (1) Cellulitis: (2) Left upper extremity swelling: (3) Hypokalemia: (4) Elevated troponin: (5) Pseudoaneurysm of brachial artery: (6) Underweight: (7) Abdominal mass: (8) COPD with emphysema: (9) PAD (peripheral artery disease): (10) Acute blood loss anemia: Plan 69yo female with chronic hypoxic resp failure 2nd to COPD on home o2 - 3L, HTN, depression, previous CVA, PAD (vertebral artery stenosis, carotid stenosis, aortoiliac disease). Patient has followed with vascular surgery and is s/p left right femoral artery bypass February 2024 due to right iliac artery occlusion, and s/p left iliac artery angiogram with SEATING UPHOLSTERER and stent June 2024. Patient is s/p left brachial artery pseudoaneurysm repair with graft on 10/30/[address] Long. Ms Suazo presented with left arm swelling, erythema, and pain since 10/31/24. #?LUE cellulitis/LUE edema - s/p left brachial artery artery pseudoaneurysm repair with graft 10/[address] Long - patient came to the hospital due to the left arm symptoms - venous and arterial dopplers of LUE - both negative - at time of admission started on IV vancomycin plus cefepime in the ED due to concern for cellulitis -then transitioned to vancomycin and rocephin - Dr Bradley Long from vascular surgery was consulted -he did not feel there was actual cellulitis; he felt most of the edema/erythema/etc was expected post-op findings - blood cx's were negative while here - by time of discharge the left arm swelling was improved; any pre-existing erythema was gone; she had minimal to no discomfort - as a precautionary measure Dr Long advised a 5-day course of oral Keflex u jhon return home - patient should f/u with Dr Long in the [facility] office for recheck #acute blood loss anemia - - Hgb decreased from 12 on 10/30 to 9 on 11/03 - hemoglobin was 8.3 on day of discharge - checked Fe studies -- ferritin was 29, transferrin sat was 12% - checked B12 level -- 256 - gave dose of IV venofer while here - advised taking OTC vitamin B12 1000mcg daily x 6 months - she should have a repeat CBC within a week of discharge to ensure stability #Hypokalemia - replaced/resolved #Elevated troponin - troponin 32.2 -> 31.1 Likely myocardial demand ischemia in setting of recent surgery rather than ACS #aortoiliac disease - S/p Femoral to Femoral Bypass Left to Right - February 2024 due to right iliac artery occlusion - s/p left iliac artery angiogram via brachial approached on left, with SEATING UPHOLSTERER and stent of left iliac artery June 2024 - s/p left femoral embolectomy and left femoral endarterectomy with bovine patch angioplasty - also June 2024 - June 2024 stay complicated by bleeding/hematoma requiring repeat surgery to locate source of bleeding which turns out was due to superficial source - continue Eliquis 2.5 Mg twice daily, baby aspirin, rosuvastatin #COPD/chronic hypoxic respiratory failure uses 3L NC O2 at baseline. - continue home inhalers - no flare while hospitalized #HTN continue lisinopril and amlodipine #Mental health continue bupropion, buspirone, and sertraline #History of CVA right frontal and parietal lobe infarct in 2019 with residual left arm and hand weakness with some intermittent left leg weakness. Uses a walker at baseline. - continue baby aspirin and statin - left hand function worse since 06/2024? #Underweight - BMI 14.9 #abdominal mass - - patient has not had biopsy of such - would need to have this done at a tertiary care center, if desired by patient - initially seen on CT abdomen 06/2024; after discovery, pt & her family made aware of this finding CT report: Large macroscopic fat-containing structure/process occupying most of the right peritoneal cavity of the abdomen resulting in significant mass effect as manifested by leftward displacement of the bowel structures and viscera. Some heterogeneity is suggested to this structure. Please correlate with medical workup up to this point. Considerations may include lipomatous hypertrophy/heterogeneous lipoma. Liposarcoma may be a consideration as well. - f/u with PCP for this Notes For Next Care Provider elevated left arm for a few more days at home to help w/ swelling consider outpatient IV venofer Medication Changes From Visit keflex 500mg TID x 5 days vitamin B12 1000mcg daily x 6 months Admission HPI Per Admitting Provider Patient is a 69-year-old female with past medical history of COPD on chronic 3L O2 nasal cannula, HTN, depression, HLD, previous CVA, vertebral artery stenosis, carotid stenosis, aortoiliac disease. Patient has followed with vascular surgery and is s/p left right femoral artery bypass February 2024 due to right iliac artery occlusion and s/p left iliac artery angiogram with SEATING UPHOLSTERER and stent June 2024 complicated intraoperatively. Patient is s/p left brachial artery pseudoaneurysm repair with graft 10/[address] Long now presents with left arm swelling, erythema, and pain since Wednesday. Given this is a postoperative hospital-acquired infection she is being admitted for IV antibiotics. Patient seen at bedside with her son present. She saw her PCP who referred her into the ED today. She stated she had her procedure on Wednesday in which she was nauseous and vomiting after and has had poor appetite since, likely resulting in her electrolyte abnormalities. She then started to develop some redness and swelling on Wednesday that has persisted and worsened through today. She denies any fevers, chills, chest pain, shortness of breath, recent diarrhea. Pain is currently well-controlled after IV Tylenol in the ED. She endorses nicotine use off-and-on, declines need for nicotine patch at this time. She is on oxygen chronically at 3L NC Since reportedly 2007. PCP notes that patient declines any follow-up with pulmonology given they do not help her. She wishes to be DNR/DNI. Patient would like to go home however discussed importance of admission with IV antibiotics and vascular surgery evaluation. Discharge Exam gen - very thin/underweight, frail in appearance, NAD neck - no JVD heart - RRR, s1 s2, no murmur lungs - wheezing b/l, no rales abd - soft ND NT BS+ ext - no edema of either leg, pulses b/l legs 1+ vascular - left arm - generalized edema from the proximal arm down to the left hand - imporoving; incision near the left antecubital region clean; no erythema any location; no drainage neuro - handgrip on left 1-2/5, no wrist drop, contracture deformity of left hand Discharge Plan Discharge Items Patient Disposition: Home - Self-Care Reason For Visit: Left arm swelling & redness Discharge Diagnosis: 1. left arm swelling & redness --> possible skin infection - IMPROVED 2. iron deficiency anemia --> discharge hemoglobin level 8.3 3. vitamin B12 deficiency 4. recent repair of left arm arterial aneurysm by Dr Long 5. COPD on home oxygen 6. known, large abdominal mass Activity: As commented below Activity Comment: follow activity instructions given by Dr Long after your recent surgery Non-emergency contact: Primary Care Provider and Surgeon Call non-emergency contact if: you have any medication questions, your symptoms worsen, your pain is not controlled, your pain is worsening, your pain is unusual for you, your pain is concerning for you, you have a fever, your wound has increased redness, your wound has increased drainage and your wound pain has increased Follow-up/Referrals: Coretta Mai CRNP [Primary Care Provider] - 11/13/24 10:30 am (within 1 week ) Krishna Long MD [Physician] - (see Dr Long in 1 week) Diet: Regular Addtl Attending Provider Instructions: Mrs Suazo, Dell were hospitalized due to left arm swelling and redness. There was concern for infection when you came to the emergency room. Antibiotics were started. Within 24 hours your left arm looked much better. Dr Long came and evaluated your arm. He felt that there was probably NOT infection in the arm, but that it was reasonable to do a short course of oral antibiotics to be cautious. By day of discharge your arm swelling was significantly improved and nearly all of the redness was gone. The incision on the left arm is satisfactory at this time. Due to your recent surgery your chronic anemia is worse. Anemia means that your red cells are low. Blood loss from surgery, iron deficiency, B12 deficiency, and a host of other problems contribute to anemia. Your iron levels are still quite low, and your B12 level is still low as well. We gave you a dose of IV iron while here. We started you back on oral B12 supplement. Recommendations - 1. follow any previous instructions given by Dr Long after your recent left arm surgery 2. you can continue to elevate your left arm on pillows for a few more days; this helps with swelling 3. antibiotics - -cephalexin 500mg three times daily x 5 days, start tomorrow morning -- 11/06/24 -most common side effect - diarrhea/loose stool 4. take a B12 supplement for 6 months; I [facility] a prescription [facility] you; take the B12 daily 5. please talk to Ms Mai about getting another 1 or 2 IV iron infusions as an outpatient to help with your anemia -since we gave you intravenous iron you don't have to take oral iron at home 6. have Ms Mai repeat your blood counts within a week 7. continue your oxygen as previous Return to [facility] if - -you have fever over 100 degrees -you have worsening redness, swelling, pain, drainage, etc from the left arm -you develop severe diarrhea (3 or more liquid stools over a 24-hour period) -you have worsening shortness of breath -any other concerns It was our pleasure to care for you! Pending Studies at Discharge: Yes Studies:: blood cultures - thus far negative (no blood infection) Stand-Alone Forms: My [facility], Smoking Cessation Medications and DC Order Prescriptions: Continued lisinopril 10 mg tablet 10 mg PO QAM Qty: 90 3RF Trelegy Ellipta 100-62.5-25 mcg blister with device 1 inh inhalation HS Qty: 60 5RF sertraline 100 mg tablet 200 mg PO QAM Qty: 180 3RF rosuvastatin [Crestor] 40 mg tablet 40 mg PO HS Qty: 90 3RF (DME) Flutter Valve Device See Rx Instructions .ROUTE .MEDSUPPLY Qty: 1 0RF Rx Instructions: Use it every 6 hours when awake. acetaminophen 325 mg capsule 650 mg PO Q4H PRN (Reason: Pain) Hold Instructions: Hold while taking oxycodone/acetaminophen for pain. albuterol sulfate 2.5 mg /3 mL (0.083 %) solution for nebulization 2.5 mg inhalation QID PRN (Reason: shortness of breath or wheezing) Qty: 180 4RF buspirone 7.5 mg tablet 7.5 mg PO BID Qty: 60 3RF Rx Instructions: 1 in am and take 1 an hour before bed aspirin 81 mg Tablet,Delayed Release (Dr/Ec) 81 mg PO QAM Qty: 1 0RF albuterol sulfate 90 mcg/actuation HFA aerosol inhaler 2 - 4 puff inhalation Q6 PRN (Reason: Shortness Of Breath Or Wheezing) Cerovite Senior 0.4 mg-300 mcg- 250 mcg Tablet 1 tab PO QAM Qty: 30 0RF amlodipine 2.5 mg tablet 2.5 mg PO DAILY Qty: 30 0RF Patient Comments: qam oxycodone-acetaminophen [Percocet] 5-325 mg Tablet 1 tab PO Q6H PRN (Reason: pain) Qty: 30 0RF bupropion HCl 75 mg tablet 75 mg PO HS Rx Instructions: take with lower dose sertraline Eliquis 2.5 mg Tablet 2.5 mg PO BID Qty: 60 11RF Changed cyanocobalamin (vitamin B-12) 1,000 mcg tablet 1,000 mcg PO DAILY Qty: 90 1RF Discharge Orders: Discharge Order (Routine); Ordered 11/05/24 Ordered By: Dagoberto Vazquez Admission Data Admit Date/Time: 11/03/24 21:04 Attending Provider: Dagoberto Vazquez Admit Provider: Brandon Chacon Primary Care Provider: Coretta Mai Other Providers: Krishna Long Other Interventions: Discharge Summary Assessment (RN) Last Done: 11/05/24 13:09 Hospital Stay Data Consultations Vascular Surgery Physical Therapy Diagnostic Imagining Performed Duplex Scan Upper Extremity Artery 11/03/24 20:23 Exam(s): US ARTERIAL LEFT UPPER EXTREMITY EXAM: US Duplex Left Upper Extremity Arteries CLINICAL HISTORY: LUE swelling; recent vascular surgery. TECHNIQUE: Real-time duplex ultrasound scan of the left upper extremity arteries integrating B-mode two-dimensional vascular structure, Doppler spectral analysis and color flow Doppler imaging. COMPARISON: No relevant prior studies available. FINDINGS: Left subclavian artery: Peak systolic velocity in the left subclavian artery is 120 cm/s. Multiphasic waveform. Left axillary artery: Peak systolic velocity in the left axillary artery is 88 cm/s. Multiphasic waveform. Left brachial artery: The left brachial artery is patent with peak systolic velocities measuring 137 cm/sec approximately, 213 cm/sec at the mid segment and 170 cm/sec distally. The graft is intact with peak systolic velocities noted between 124 in 144 cm/sec throughout. Monophasic waveforms noted. The distal anastomosis is patent with peak systolic velocities at 102 cm/sec. Left radial artery: The radial artery is patent with peak systolic velocities of 80 cm/sec. Left ulnar artery: The ulnar artery is patent with peak systolic velocity is 70 5 cm/sec. Other arteries: Atherosclerotic disease involving the left common carotid artery. Peak systolic velocities of 78 cm/sec. The left vertebral artery is patent with antegrade flow. Peak systolic velocity of 105 cm/sec. Soft tissues: Surrounding subcutaneous hematoma measuring 1.1 x 3.3 cm. No internal vascular flow. IMPRESSION: The brachial artery graft is patent. No significant duplex velocity measurements identified. Surrounding hematoma. No extravasation. Electronically signed by: Kevin Miguel MD 11/04/24 00:19 AM Extremity Venous Study 11/03/24 20:23 Exam(s): US VENOUS LEFT UPPER EXTREMITY EXAM: US Duplex Left Upper Extremity Veins CLINICAL HISTORY: LUE swelling. TECHNIQUE: Real-time duplex ultrasound scan of the left upper extremity veins integrating B-mode two-dimensional vascular structure, Doppler spectral analysis, color flow Doppler imaging and compression. COMPARISON: No relevant prior studies available. FINDINGS: Deep veins: No DVT in the internal jugular, subclavian, axillary, or segments of the brachial vein. Evaluation of the brachial vein is somewhat limited by reported postoperative swelling. The veins demonstrate normal color flow, are normally compressible, with normal phasic flow and/or augmentation response. Superficial veins: Unremarkable. No thrombus in the visualized basilic and cephalic veins. Soft tissues: Subcutaneous edema. No loculated hematoma or fluid collection. IMPRESSION: Accounting for limitations related to postoperative status, no evidence for deep vein thrombosis involving the left upper extremity. Electronically signed by: Kevin Miguel MD 11/03/24 23:52 PM Pending Results Patient Have Any Pending Studies at Discharge: Yes Discharge Instructions Given to Patient (Per Discharging Provider) Mrs Suazo, Dell were hospitalized due to left arm swelling and redness. There was concern for infection when you came to the emergency room. Antibiotics were started. Within 24 hours your left arm looked much better. Dr Long came and evaluated your arm. He felt that there was probably NOT infection in the arm, but that it was reasonable to do a short course of oral antibiotics to be cautious. By day of discharge your arm swelling was significantly improved and nearly all of the redness was gone. The incision on the left arm is satisfactory at this time. Due to your recent surgery your chronic anemia is worse. Anemia means that your red cells are low. Blood loss from surgery, iron deficiency, B12 deficiency, and a host of other problems contribute to anemia. Your iron levels are still quite low, and your B12 level is still low as well. We gave you a dose of IV iron while here. We started you back on oral B12 supplement. Recommendations - 1. follow any previous instructions given by Dr Long after your recent left arm surgery 2. you can continue to elevate your left arm on pillows for a few more days; this helps with swelling 3. antibiotics - -cephalexin 500mg three times daily x 5 days, start tomorrow morning -- 11/06/24 -most common side effect - diarrhea/loose stool 4. take a B12 supplement for 6 months; I sent a prescription to the [facility] for you; take the B12 daily 5. please talk to Ms Mai about getting another 1 or 2 IV iron infusions as an outpatient to help with your anemia -since we gave you intravenous iron you don't have to take oral iron at home 6. have Ms Mai repeat your blood counts within a week 7. continue your oxygen as previous Return to [facility] if - -you have fever over 100 degrees -you have worsening redness, swelling, pain, drainage, etc from the left arm -you develop severe diarrhea (3 or more liquid stools over a 24-hour period) -you have worsening shortness of breath -any other concerns It was our pleasure to care for you! Total Time Total Time Spent Total Time Spent (In Minutes): 45 Coding Level of Care Code 55993 INP/OBS DISCH >30 MIN Diagnoses Cellulitis L03.90 Left upper extremity swelling M79.89 Hypokalemia E87.6 Elevated troponin R79.89 Pseudoaneurysm of brachial artery I72.1 Underweight R63.6 Right lower quadrant abdominal mass R19.03 Abdominal location: right lower quadrant Pulmonary emphysema, unspecified emphysema type J43.9 Emphysema type: unspecified PAD (peripheral artery disease) I73.9 Acute blood loss anemia D62
[2024-11-05 13:15] VITALS: PULSE 78
== END 2024-11-05 14:39 | disposition home or self-care (01) | DRG 863 ==
LOC: ED 16:30 → EDINP 21:04 → SUATTDRO 21:04 → INTOOBSV 21:04 → 2N 23:32

== ENCOUNTER 2024-11-22 10:18 | Observation (INO) ==
[2024-11-22 10:27] VITALS: TEMP 97.7
--- NOTE | 2024-11-22 10:36 | Emergency Department Note ---
Impression & Plan Abdominal pain, Colitis, Diarrhea, Urinary tract infection ED Provider Note CHIEF COMPLAINT: Abdominal pain HISTORY OF PRESENTING ILLNESS: Patient is a pleasant 69-year-old female who arrives to the emergency department with family member for evaluation of abdominal pain, with persistent diarrhea. Patient was recently admitted for cellulitis post vascular procedure on 11/03. She was provided IV Ancef, vancomycin, and cefepime. Patient was discharged home on cephalexin. Patient states she developed diarrhea, which has persisted. She reports diffuse lower abdominal pain. She denies fever, nausea, or vomiting. Patient wears 3 L nasal cannula chronically for COPD. REVIEW OF SYSTEMS: See HPI for pertinent positives and pertinent negatives. ALLERGIES: See below MEDICATIONS: See below PAST MEDICAL HISTORY: See below PHYSICAL EXAM: VITALS: Vitals are noted on the nurse's note and reviewed by myself. Vital signs stable. GENERAL: 69-year-old female, in no acute distress, nondiaphoretic, well- developed well-nourished. SKIN: Skin is ashen, no ecchymosis, or edema. HEAD: Normocephalic atraumatic. HEART: Regular rate and rhythm without murmurs gallops or rubs. LUNGS: Clear to auscultation bilaterally without wheezes, rales or rhonchi. No retractions or accessory muscle use. ABDOMEN: Positive bowel sounds x 4. Soft, diffusely tender to palpation lower abdomen. No rebound tenderness or guarding. MUSCULOSKELETAL: No muscle atrophy, erythema, or edema noted. Normal gait. Strength 5/5 throughout. NEURO: Patient was alert and oriented to person place and time. No focal neurological deficits. DIFFERENTIAL DIAGNOSIS: Appendicitis, infections, diverticulitis, UTI, obstruction, mesenteric ischemia, aortic pathology, inflammatory bowel disease, renal colic, PUD, pancreatitis, biliary pathology, hernia, volvulus, constipation, antibiotic associated diarrhea, colitis, as well as other pathologies. ED COURSE AND MEDICAL DECISION MAKING: MEDICATIONS GIVEN: 500 cc NSS bolus INTERPRETATION OF LABS: I interpreted the labs with full lab results as below in the lab section of this note. Pertinent lab results discussed in the MDM section below. INTERPRETATION OF IMAGING: Imaging studies were interpreted by myself and read by radiology as per the imaging section of this note. MDM SUMMARY: The patient is a pleasant, 69-year-old female who arrives to the emergency department for evaluation of the above-stated complaint. Saline lock was established, lab work was obtained. CBC shows slight leukocytosis 10.81, with a stable anemia. CMP shows all of her anion gap, no other concerning findings, negative lipase. Urinalysis consistent with infection, positive leukocyte esterase, WBCs, and bacteria. CT imaging of the abdomen and pelvis with IV contrast shows acute diffuse colitis without bowel obstruction or perforation. 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 Patient is currently being worked up for this, on an outpatient basis and has biopsy scheduled, however she is on anticoagulation. Patient's diarrhea is concerning for C. difficile due to IV antibiotics while admitted. C. difficile culture pending currently. Antibiotics deferred for urinalysis until C. difficile cultures resulted. Patient will require admission to the hospital for IV antibiotics. Patient was provided 500 cc IV fluids, for tachycardia upon arrival. [facility], agreed to accept the patient under his care for admission. Please refer to his documentation for further patient workup and care. DIAGNOSIS: Abdominal pain, colitis, diarrhea, urinary tract infection The patient's case was discussed with her Feese, who agreed with my evaluation and treatment plan. The chart was completed utilizing [employer] Speech voice recognition software. Grammatical errors, random word insertions, pronoun errors, and incomplete sentences are an occasional consequence of this system due to software limitations, ambient noise, and hardware issues. Any formal questions or concerns about the content, text, or information contained within the body of this dictation should be directly addressed to the provider for clarification. Past Med/Surg History Problem List (Updated 11/22/24 @ 16:42 by SWATI Finney) Urinary tract infection (Acute) Diarrhea (Acute) Colitis (Acute) Abdominal pain (Acute) Acute blood loss anemia Hypokalemia Post op infection Elevated troponin (Acute) Cellulitis (Acute) Left upper extremity swelling (Acute) Pseudoaneurysm of brachial artery Encounter for pre-operative examination Grief Underweight B12 deficiency Iron deficiency anemia Abdominal mass Weakness (Acute) Cachexia Hypertension Mass of right axilla COPD with emphysema Depression Hyperlipidemia Vision loss, right eye Vitamin D deficiency (Chronic) Medical History PAD (peripheral artery disease) Hx hx fem-fem bypass 02/2024, left femoral embolectomy 06/2024 Taking Eliquis Vision loss, right eye HLD (hyperlipidemia) Depression Mass of right axilla "Swollen lymph node" Pt unsure if still present HTN (hypertension) Iron deficiency anemia Underweight Abdominal mass Future biopsy planned Multiple pulmonary nodules Per records Chronic respiratory failure with hypoxia 3-4L O2 NC continuous ICAO (internal carotid artery occlusion) Vascular monitoring Vascular visit 11/04/23: "Her carotid ultrasound performed prior to today's appointment demonstrates a known right carotid occlusion, and about 50% stenosis of her left ICA which is similar to previous imaging." Osteoporosis Per records Arthritis History of stroke Age 64, left hand "does not work" Taking ASA Diverticular disease Chronic obstructive pulmonary disease Surgical History S/P vascular surgery 06/27/24 [place] S/[place] femoral-femoral bypass surgery 02/2024 [facility] History of tooth extraction History of tonsillectomy History of cataract surgery right History of bronchoscopy Hx of foot surgery right History of section x1 Hx of hemorrhoidectomy History of colonoscopy Family History Other No family history of adverse response to anesthesia Denies family history of Ovarian cancer Prostate cancer Myocardial infarction Breast cancer Colorectal cancer Social History Smoking Status: Current every day smoker Tobacco Type: Cigarettes Age Started Using Tobacco: 18; Age Quit Using Tobacco: 65; packs per day: 1; Cigarettes Per Day: every other day; Second Hand Exposure: No; Do You Dip or Chew Tobacco: No; Hx Alcohol Use: No Hx Substance Use: No Preferred Language: Luxembourger Communication Ability: Effective Visual Impairment: Limited Hearing Ability: Normal Home Health Cna Required: No Beliefs That Will Affect Care: None marital status: Current Living Situation: Alone current occupational status: disabled How many Children do You have: 2 Feels Safe at Home: Yes Childhood Exposure to Second-Hand Smoke: Yes Diet: regular caffeine: Yes (coffee) during the past year weight has: remained stable Dental Care, Regularly: No Physical Activity Frequency: Daily Seatbelt Use: never Sunscreen Use: No Assistive Devices: Denture - Upper, Denture - Lower, Glasses and Oxygen - Continuous Allergies Allergies Allergy/AdvReac Type Severity Reaction Status Date / Time codeine AdvReac Intermediate Vomiting Verified 11/22/24 16:21 Home Meds Home Medications Medication Instructions Recorded Confirmed acetaminophen 325 mg capsule 650 mg PO Q4H PRN Pain 09/14/19 11/22/24 albuterol sulfate 90 mcg/actuation 2 - 4 puff inhalation Q6 PRN 07/01/24 11/22/24 aerosol inhaler Shortness Of Breath Or Wheezing Previous Rx's Medication Instructions Recorded aspirin 81 mg tablet,delayed 81 mg PO QAM #1 tab 09/01/19 release Flutter Valve #1 ea 08/13/20 albuterol sulfate 2.5 mg/3 mL 2.5 mg (3 mL) inhalation QID PRN 03/03/22 (0.083 %) solution for nebulization shortness of breath or wheezing #180 mL apixaban 2.5 mg tablet (Eliquis) 2.5 mg PO BID #60 tabs 02/18/24 lisinopril 10 mg tablet 10 mg PO QAM #90 tabs 06/05/24 afbfaqck-waw-gdvik acid 0.4 1 tab PO QAM #30 tabs 07/04/24 mg-lycopene 300 mcg-lutein 250 mcg tablet (Cerovite Senior) fluticasone fur. 100 mcg-umeclid 1 inh inhalation HS #60 ea 07/24/24 62.5 mcg-vilant 25 mcg inhalat.powder (Trelegy Ellipta) sertraline 100 mg tablet 200 mg (2 x 100 mg) PO QAM #180 07/24/24 tabs oxycodone-acetaminophen 5 mg-325 1 tab PO Q6H PRN pain #30 tabs 10/31/24 mg tablet (Percocet) cyanocobalamin (vitamin B-12) 1,000 mcg PO DAILY #90 tabs 11/05/24 1,000 mcg tablet iron sucrose 200 mg iron/10 mL 200 mg (10 mL) IV .COMPLEX 2 doses 11/13/24 intravenous solution (Venofer) Results & Data (ED) Vital Signs Vital Signs - 24 hr 11/22/24 10:21 11/22/24 11:33 11/22/24 12:12 Temperature 36.5 C Temperature Source Temporal Artery Scan Pulse Rate 90 69 73 Pulse Rate [Apical] Pulse Rate from SpO2 Sensor Respiratory Rate 18 17 15 Respiratory Effort / Characteristics Non-Labored Spontaneous Respiratory Depth Normal Blood Pressure 97/57 L 159/74 H Blood Pressure [Right Arm] Blood Pressure Mean 70 102 Blood Pressure Mean [Right Arm] Blood Pressure Position Sitting Pulse Oximetry 97 100 100 Oxygen Delivery Method Nasal Cannula Nasal Cannula Nasal Cannula Oxygen Flow Rate 3 3 3 Sepsis Recent Fever Within 48 Hours No Sepsis New/Unexplained Change in Mental Status No Sepsis Action Taken by Nursing No Action Required 11/22/24 12:21 11/22/24 12:30 11/22/24 12:30 Temperature Temperature Source Pulse Rate 75 77 Pulse Rate [Apical] Pulse Rate from SpO2 Sensor 75 Respiratory Rate 15 Respiratory Effort / Characteristics Respiratory Depth Blood Pressure 174/71 H Blood Pressure [Right Arm] Blood Pressure Mean 128 Blood Pressure Mean [Right Arm] Blood Pressure Position Pulse Oximetry 100 Oxygen Delivery Method Nasal Cannula Oxygen Flow Rate 3 Sepsis Recent Fever Within 48 Hours Sepsis New/Unexplained Change in Mental Status Sepsis Action Taken by Nursing 11/22/24 12:54 11/22/24 13:06 11/22/24 13:36 Temperature Temperature Source Pulse Rate 77 79 76 Pulse Rate [Apical] Pulse Rate from SpO2 Sensor 77 79 Respiratory Rate 24 18 13 Respiratory Effort / Characteristics Respiratory Depth Blood Pressure 175/81 H Blood Pressure [Right Arm] Blood Pressure Mean 112 Blood Pressure Mean [Right Arm] Blood Pressure Position Pulse Oximetry 100 100 Oxygen Delivery Method Nasal Cannula Nasal Cannula Oxygen Flow Rate 3 3 Sepsis Recent Fever Within 48 Hours Sepsis New/Unexplained Change in Mental Status Sepsis Action Taken by Nursing 11/22/24 14:00 11/22/24 15:00 Temperature Temperature Source Pulse Rate 70 Pulse Rate [Apical] 72 Pulse Rate from SpO2 Sensor Respiratory Rate 13 18 Respiratory Effort / Characteristics Respiratory Depth Blood Pressure 158/71 H Blood Pressure [Right Arm] 142/78 H Blood Pressure Mean 100 Blood Pressure Mean [Right Arm] 99 Blood Pressure Position Pulse Oximetry Oxygen Delivery Method Oxygen Flow Rate Sepsis Recent Fever Within 48 Hours Sepsis New/Unexplained Change in Mental Status Sepsis Action Taken by [facility] Medications Current Medication List: was personally reviewed by me Laboratory Data Attestation: I reviewed the patient's lab results. 11/22/24 11:01 11/22/24 11:01 Lab Results 11/22/24 11/22/24 Range/Units 11:01 14:41 WBC 10.81 H (4.8-10.8) K/ul RBC 3.87 L (4.20-5.40) M/uL Hgb 11.2 L (12.0-16.0) g/dl Hct 35.3 L (37.0-47.0) % MCV 91.2 (80.0-100.0) fL MCH 28.9 (25.0-34.0) pg MCHC 31.7 L (32.0-36.0) g/dL RDW Std Deviation 58.1 H (36.4-46.3) fL RDW Coeff of Rosanna 17.3 H (11.5-14.5) % Plt Count 188 (130-400) K/uL MPV 10.8 (9.4-12.4) fL Immature Gran % (Auto) 0.4 % Neut % (Auto) 89.2 % Lymph % (Auto) 3.0 % [place] % (Auto) 6.9 % Eos % (Auto) 0.2 % Baso % (Auto) 0.3 % Neut # (Auto) 9.65 H (1.40-6.50) K/uL Lymph # (Auto) 0.32 L (1.20-3.40) K/uL [place] # (Auto) 0.75 H (0.11-0.59) K/uL Eos # (Auto) 0.02 (0.00-0.50) K/uL Baso # (Auto) 0.03 (0.00-0.20) K/uL Immature Gran # (Auto) 0.04 (0.01-0.20) K/uL Sodium 139 (136-145) mmol/L Potassium 3.9 (3.5-5.1) mmol/L Chloride 99 (98-107) mmol/L Carbon Dioxide 25 (21-32) mmol/L Anion Gap 15 H (3-11) BUN 22 (6-23) mg/dl Creatinine 1.04 (0.6-1.2) mg/dl Est Cr Clr Drug Dosing Not Reportable eGFR 57.82 BUN/Creatinine Ratio 21.2 H (10-20) Glucose 80 (70-99(Fasting)) mg/dl Calcium 9.0 (8.6-10.3) mg/dl Total Bilirubin 0.4 (0.2-1.0) mg/dl AST 13 (13-39) U/L ALT 8 (7-52) U/L Alkaline Phosphatase 55 (34-104) U/L Total Protein 6.2 (6.0-8.3) gm/dl Albumin 3.6 (3.4-5.0) gm/dl Globulin 2.6 (2.5-4.0) gm/dl Albumin/Globulin Ratio 1.4 (0.9-2) Lipase 19 (11-82) U/L Urine Color Yellow Urine Appearance Cloudy A (Clear) Urine pH 5.5 (4.5-7.5) Ur Specific [place] > 1.045 H (1.000-1.030) Urine Protein 1+ H (Negative) Urine Glucose (UA) Negative (Negative) Urine Ketones 2+ H (Negative) Urine Blood 2+ H (Negative) Urine Nitrite Negative (Negative) Urine Bilirubin Negative (Negative) Urine Urobilinogen Negative (Negative) Ur Leukocyte Esterase 2+ H (Negative) Urine WBC (Auto) >50 H (0-5) /hpf Urine RBC (Auto) 6-10 H (0-2) /hpf U Hyaline Cast (Auto) >20 H (0-2) /lpf U Epithel Cells (Auto) 0-2 (0-2) /hpf Urine Bacteria (Auto) 2+ H (None Seen) Urine Comment Administered Medications Discontinued Medications Sodium Chloride (Nss) 500 mls @ 999 mls/hr IV .Q31M ONE Stop: 11/22/24 11:22 Last Infusion: 11/22/24 12:11 Dose: Infused Documented By: Admin: 11/22/24 11:03 Dose: 999 mls/hr Documented By: MMF Ioversol (Optiray 320 100ml) 94 ml IV ONCE ONE Stop: 11/22/24 12:02 Last Admin: 11/22/24 12:02 Dose: 94 ml Documented By: DES Imaging Data Attestation: I personally reviewed and interpreted this imaging study as follows: Radiologist's Impression: Abdomen/Pelvis CT 11/22/24 10:[address] WITH IV CONTRAST CT DOSE: 268.65 mGy.cm HISTORY: abd pain TECHNIQUE: Multiaxial CT images of the abdomen and pelvis were performed following the IV administration of 90 cc of Optiray, A dose lowering technique was utilized adhering to the principles of ALARA. COMPARISON STUDY: 07/01/2024 FINDINGS: Lung bases demonstrate severe emphysema. ABDOMEN: Stable tiny splenic cyst. Liver, gallbladder, spleen, pancreas, and adrenal glands are otherwise unremarkable. There are scattered atherosclerotic calcifications. No abdominal aortic aneurysm. Pelvis: Stable graft from the distal aorta to the left common femoral artery. Stable femoral to femoral bypass graft. Urinary bladder is mildly distended. Uterus is grossly unremarkable. No adnexal mass seen. There is mild diffuse wall thickening and inflammation at the colon consistent with diffuse colitis. There is sigmoid diverticulosis. No acute diverticulitis seen. No other bowel inflammation or obstruction. No free fluid or free air. Large predominantly fatty mass with scattered reticular and patchy areas of soft tissue density is grossly stable measuring 12 cm AP by 13 cm transverse by 23 cm craniocaudad. This causes mass effect and shift of the bowel to the left abdomen. No acute osseous findings. IMPRESSION: 1. Acute diffuse colitis without bowel obstruction or perforation. 2. Stable large mostly fat density mass occupying the entire right abdomen and pelvis. Differential diagnosis includes liposarcoma and complex lipoma. ACT 112: Negative or not required by law. The above report was generated using voice recognition software. It may contain grammatical, syntax or spelling errors. Electronically signed by: Westley Brooks M.D. 11/22/2024 12:26 PM Discharge Plan Visit Data Chief Complaint: Abdominal Pain Stated Complaint: LETHARGIC, WEAK, NOT EATING/DRINING, ANEMIC ED Provider: Cristian Sandoval ED Midlevel Provider: Barbara Tripathi Discharge Problem: Abdominal pain, Colitis, Diarrhea, Urinary tract infection Patient Disposition: Admitted As Inpatient Condition: Fair Forms Stand Alone Forms: [facility] Prescriptions Prescriptions: No Action lisinopril 10 mg tablet 10 mg PO QAM Qty: 90 3RF Trelegy Ellipta 100-62.5-25 mcg blister with device 1 inh inhalation HS Qty: 60 5RF sertraline 100 mg tablet 200 mg PO QAM Qty: 180 3RF iron sucrose [Venofer] 200 mg iron/10 mL solution 200 mg IV .COMPLEX Rx Instructions: 200 mg intravenously x2, 1 week apart; administer over 30 mins (DME) Flutter Valve Device See Rx Instructions .ROUTE .MEDSUPPLY Qty: 1 0RF Rx Instructions: Use it every 6 hours when awake. acetaminophen 325 mg capsule 650 mg PO Q4H PRN (Reason: Pain) Hold Instructions: Hold while taking oxycodone/acetaminophen for pain. albuterol sulfate 2.5 mg /3 mL (0.083 %) solution for nebulization 2.5 mg inhalation QID PRN (Reason: shortness of breath or wheezing) Qty: 180 4RF aspirin 81 mg Tablet,Delayed Release (Dr/Ec) 81 mg PO QAM Qty: 1 0RF albuterol sulfate 90 mcg/actuation HFA aerosol inhaler 2 - 4 puff inhalation Q6 PRN (Reason: Shortness Of Breath Or Wheezing) Cerovite Senior 0.4 mg-300 mcg- 250 mcg Tablet 1 tab PO QAM Qty: 30 0RF oxycodone-acetaminophen [Percocet] 5-325 mg Tablet 1 tab PO Q6H PRN (Reason: pain) Qty: 30 0RF Eliquis 2.5 mg Tablet 2.5 mg PO BID Qty: 60 11RF cyanocobalamin (vitamin B-12) 1,000 mcg tablet 1,000 mcg PO DAILY Qty: 90 1RF Referrals Referrals: Coretta Mai CRNP [Primary Care Provider] -
[2024-11-22] MEDS: SODIUM CHLORIDE 0.9% 500 ML IV ONE (11:03)
[2024-11-22 11:17] LABS: Hematocrit (blood only) 35.3 % (37.0-47.0); Hemoglobin 11.2 g/dl (12.0-16.0); Mean Corpuscular Hemoglobin 28.9 pg (25.0-34.0); Mean Corpuscular Volume 91.2 fL (80.0-100.0); Platelet Count 188 K/uL (130-400); RDW Standard Deviation 58.1 fL (36.4-46.3); Red Blood Count 3.87 M/uL (4.20-5.40); White Blood Count 10.81 K/ul (4.8-10.8)
[2024-11-22 11:36] LABS: Alanine Aminotransferase 8 U/L (7-52); Albumin Globulin Ratio 1.4 (0.9-2); Albumin Level 3.6 gm/dl (3.4-5.0); Alkaline Phosphatase 55 U/L (34-104); Anion Gap 15 (3-11); Bilirubin,Total 0.4 mg/dl (0.2-1.0); Blood Urea Nitrogen 22 mg/dl (6-23); Calcium 9.0 mg/dl (8.6-10.3); Carbon Dioxide 25 mmol/L (21-32); Chloride 99 mmol/L (98-107); Globulin 2.6 gm/dl (2.5-4.0); Glucose 80 mg/dl (70-99(Fasting)); Lipase 19 U/L (11-82); Potassium 3.9 mmol/L (3.5-5.1); Sodium 139 mmol/L (136-145); Total Protein 6.2 gm/dl (6.0-8.3)
[2024-11-22] MEDS: OPTIRAY 320 100ml IV ONE (12:02)
[2024-11-22 12:15] LABS: Immature Granulocytes # (auto) 0.04 K/uL (0.01-0.20); Immature Granulocytes % (auto) 0.4 %
--- NOTE | 2024-11-22 12:28 | CT Scan Report ---
ABDOMEN AND PELVIS CT WITH IV CONTRAST CT DOSE: 268.65 mGy.cm HISTORY: abd pain TECHNIQUE: Multiaxial CT images of the abdomen and pelvis were performed following the IV administrat ion of 90 cc of Optiray, A dose lowering technique was utilized adhering to the principles of ALARA. COMPARISON STUDY: 07/01/2024 FINDINGS: Lung bases demonstrate severe emphysema. ABDOMEN: Stable tiny splenic cyst. Liver, gallbladder, spleen, pancreas, and adrenal glands are other [place] unremarkable. There are scattered atherosclerotic calcifications. No abdominal aortic aneurysm. Pelvis: Stable graft from the distal aorta to the left common femoral artery. Stable femoral to femor al bypass graft. Urinary bladder is mildly distended. Uterus is grossly unremarkable. No adnexal mass seen. There is mild diffuse wall thickening and inflammation at the colon consistent with diffuse colitis. There is sigmoid diverticulosis. No acute diverticulitis seen. No other bowel inflammation or obstruc tion. No free fluid or free air. Large predominantly fatty mass with scattered reticular and patchy areas of soft tissue density is gr ossly stable measuring 12 cm AP by 13 cm transverse by 23 cm craniocaudad. This causes mass effect an d shift of the bowel to the left abdomen. No acute osseous findings. IMPRESSION: 1. Acute diffuse colitis without bowel obstruction or perforation. 2. Stable large mostly fat density mass occupying the entire right abdomen and pelvis. Differential d iagnosis includes liposarcoma and complex lipoma. ACT 112: Negative or not required by law. The above report was generated using voice recognition software. It may contain grammatical, syntax o r spelling errors. Electronically signed by: Westley Brooks M.D. 11/22/2024 12:26 PM
--- NOTE | 2024-11-22 14:34 | Emergency Department Note ---
ED Visit Note I was consulted by the Advanced Practice Provider. I personally made/approved the management plan and take responsibility for the patient management. I performed a substantive portion of the visit. This includes the aspects of: Patient presents with abdominal pain. She was found to have a diffuse colitis as well as a UTI. She had a leukocytosis. Stool testing was pending. With her findings, hospitalization was felt warranted. The on-call hospitalist was consulted. .
[2024-11-22 15:38] LABS: Appearance Urine Cloudy (Clear); Bacteria Urine Automated 2+ (None Seen); Cast Urine Automated >20 /lpf (0-2); Epithelial Cell Urine Auto 0-2 /hpf (0-2); Glucose Urine UA Negative (Negative); WBC Urine Automated >50 /hpf (0-5)
[2024-11-22 16:23] LABS: Adenovirus F 40/41 PCR Not Detected (NotDetected); Campylobacter PCR Not Detected (NotDetected); Enteroaggregative E.coli(EAEC) Not Detected (NotDetected); Shiga-like Toxin E.coli (STEC) Not Detected (NotDetected); Vibrio species PCR Not Detected (NotDetected)
--- NOTE | 2024-11-22 17:07 | History & Physical Report ---
Date of Service November 22, 2024 Assessment & Plan (1) Colitis: (2) Iron deficiency anemia: (3) Malnutrition: (4) COPD with emphysema: (5) Chronic respiratory failure with hypoxia: Plan #Diarrhea/C. difficile colitisdiscussed with micro labconfirmatory testing pending, but with preliminary testing positive for C. difficile, and her clinical picture absolutely consistent with C. difficilestarting vancomycin. (Discussed vancomycin versus fidaxomicin, and patient/family in agreement that starting with Vanco is quite reasonable given potential cost considerations versus marginal possible better efficacy). Given her overall frailty, and the fact that she has good blood pressure and pulse rate, holding off on IV fluids, and less her p.o. intake truly is poor (follow basic metabolic panel). Discussed that typically what I see is it will usually take 2-3 days for the diarrhea to start to improve, and then generally speaking people do well until after they are off of the antibiotic for about a week. Then, we discussed the 20% recurrence rate and that should the C. difficile recur, jumping right back on antibiotics like vancomycin to reign it in while building the next step would keep her out of the hospital. #melenawill Hemoccult. She is hemodynamically stable and her hemoglobin is higher than it was previously. I doubt there is an acute GI hemorrhage. #Iron and B12 deficiency anemiahemoglobin higher than previous. It appears she has already been started on iron and B12 supplementation #cachexia with what appears to be severe calorie and probably at least moderate protein malnutritionencourage p.o. intake. Obviously need to improve the d iarrhea first. Consider dietitian consult #COPD with chronic hypoxic respiratory failure on 3 L nasal cannula at baselineno respiratory symptoms. Continue her Trelegy and as needed albuterol #severe peripheral vascular diseasestatus post recent procedures. Fortunately no acute symptoms. Continue Eliquis and aspirin. Consider high intensity statin #pelvic massappears to have first been discovered in June incidentally. Fortunately appears stable per radiology reading. Exact etiology uncertain. Biopsy would probably be the best way to determinebut with her frailty and chronic hypoxic respiratory failure, obviously would want to only go about this once she is as optimized as possible, and only after discussion of risk/benefit of what she may or may not want done if it was a malignancy. Stability, however, is reassuring that it probably is not #DVT prophylaxisEliquis History of Present Illness Chief Complaint: diarrhea Primary Care Provider: SWATI Sher patient is a very pleasant 69-year-old female who has had severe diarrhea since Wednesday. Fairly abrupt onset. All times day and night. Hard to put a number on itbut whenever asked her if 20 times a day seems reasonable, she implies at least that many. No fevers chills or sweats. Not weak or lightheaded. Able to drink but really does not have much of an appetite. Belly hurts a bit, seems to be mostly lower. Most recent diarrhea today is black. No urinary symptomsno dysuria/frequency/urgency. Recently on antibiotics. Allergies Allergy/AdvReac Type Severity Reaction Status Date / Time codeine AdvReac Intermediate Vomiting Verified 11/22/24 16:21 Home Medications Medication Instructions Recorded Confirmed Type aspirin 81 mg tablet,delayed 81 mg PO QAM #1 tab 09/01/19 11/22/24 Rx release acetaminophen 325 mg capsule 650 mg PO Q4H PRN Pain 09/14/19 11/22/24 History Flutter Valve #1 ea 08/13/20 11/13/24 Rx albuterol sulfate 2.5 mg/3 mL 2.5 mg (3 mL) inhalation QID PRN 03/03/22 11/22/24 Rx (0.083 %) solution for nebulization shortness of breath or wheezing #180 mL apixaban 2.5 mg tablet (Eliquis) 2.5 mg PO BID #60 tabs 02/18/24 11/22/24 Rx lisinopril 10 mg tablet 10 mg PO QAM #90 tabs 06/05/24 11/22/24 Rx albuterol sulfate 90 mcg/actuation 2 - 4 puff inhalation Q6 PRN 07/01/24 11/22/24 History aerosol inhaler Shortness Of Breath Or Wheezing skhghore-jje-vbmyq acid 0.4 1 tab PO QAM #30 tabs 07/04/24 11/22/24 Rx mg-lycopene 300 mcg-lutein 250 mcg tablet (Cerovite Senior) fluticasone fur. 100 mcg-umeclid 1 inh inhalation HS #60 ea 07/24/24 11/22/24 Rx 62.5 mcg-vilant 25 mcg inhalat.powder (Trelegy Ellipta) sertraline 100 mg tablet 200 mg (2 x 100 mg) PO QAM #180 07/24/24 11/22/24 Rx tabs oxycodone-acetaminophen 5 mg-325 1 tab PO Q6H PRN pain #30 tabs 10/31/24 11/22/24 Rx mg tablet (Percocet) cyanocobalamin (vitamin B-12) 1,000 mcg PO DAILY #90 tabs 11/05/24 11/22/24 Rx 1,000 mcg tablet iron sucrose 200 mg iron/10 mL 200 mg (10 mL) IV .COMPLEX 2 doses 11/13/24 11/22/24 Rx intravenous solution (Venofer) Past Med/Surg History Problem List (Updated 11/22/24 @ 17:19 by Casey Hathaway DO) Malnutrition Urinary tract infection (Acute) Diarrhea (Acute) Colitis (Acute) Abdominal pain (Acute) Acute blood loss anemia Hypokalemia Post op infection Elevated troponin (Acute) Cellulitis (Acute) Left upper extremity swelling (Acute) Pseudoaneurysm of brachial artery Encounter for pre-operative examination Grief Underweight B12 deficiency Iron deficiency anemia Abdominal mass Weakness (Acute) Cachexia Hypertension Mass of right axilla COPD with emphysema Depression Hyperlipidemia Vision loss, right eye Vitamin D deficiency (Chronic) Medical History PAD (peripheral artery disease) Hx hx fem-fem bypass 02/2024, left femoral embolectomy 06/2024 Taking Eliquis Vision loss, right eye HLD (hyperlipidemia) Depression Mass of right axilla "Swollen lymph node" Pt unsure if still present HTN (hypertension) Iron deficiency anemia Underweight Abdominal mass Future biopsy planned Multiple pulmonary nodules Per records Chronic respiratory failure with hypoxia 3-4L O2 NC continuous ICAO (internal carotid artery occlusion) Vascular monitoring Vascular visit 11/04/23: "Her carotid ultrasound performed prior to today's appointment demonstrates a known right carotid occlusion, and about 50% stenosis of her left ICA which is similar to previous imaging." Osteoporosis Per records Arthritis History of stroke Age 64, left hand "does not work" Taking ASA Diverticular disease Chronic obstructive pulmonary disease Surgical History S/P vascular surgery 06/27/24 [place] S/P femoral-femoral bypass surgery 02/2024 [facility] History of tooth extraction History of tonsillectomy History of cataract surgery right History of bronchoscopy Hx of foot surgery right History of section x1 Hx of hemorrhoidectomy History of colonoscopy Family History Other No family history of adverse response to anesthesia Denies family history of Ovarian cancer Prostate cancer Myocardial infarction Breast cancer Colorectal cancer Social History Smoking Status: Current every day smoker Tobacco Type: Cigarettes Age Started Using Tobacco: 18; Age Quit Using Tobacco: 65; packs per day: 1; Cigarettes Per Day: every other day; Second Hand Exposure: No; Do You Dip or Chew Tobacco: No; Hx Alcohol Use: No Hx Substance Use: No Preferred Language: Barbadian Communication Ability: Effective Visual Impairment: Limited Hearing Ability: Normal Bullet Slugs Inspector Required: No Beliefs That Will Affect Care: None marital status: Current Living Situation: Alone current occupational status: disabled How many Children do You have: 2 Feels Safe at Home: Yes Childhood Exposure to Second-Hand Smoke: Yes Diet: regular caffeine: Yes (coffee) during the past year weight has: remained stable Dental Care, Regularly: No Physical Activity Frequency: Daily Seatbelt Use: never Sunscreen Use: No Assistive Devices: Denture - Upper, Denture - Lower, Glasses and Oxygen - Continuous Review of Systems Review of Systems: All systems reviewed & are unremarkable except as noted in HPI & below Physical Exam Physical Exam: In general she is very frail and thin appearing somewhat cachectic with a degree of muscle wasting. Fortunately no acute distress. Whenever I first go to see her she is in the bathroom, and unfortunately whenever she comes out of the bathroom she is had a bit of soiling of her hospital gown with fecesher family is kind enough to help her change. HEENT normocephalic atraumatic mucous membranes moist. Cardio is regular rate. Breathing unlabored no accessory muscle use, on her chronic nasal cannula oxygen (although she did not wear it into or out of the bathroom). Abdomen is soft nondistended, mild to moderate lower abdominal tenderness predominantly on the left some fullness on the right no guarding rebound or rigidity. Skin is dry, no pallor or icterus. Neuro shows cranial nerves II through XII to be grossly intact gross motor and sensory intact, gait is grossly normal. Labs and diagnostics noted. Results & Data Results & Data Vital Signs (Past 12 Hours) Vital Signs Temp Pulse Pulse Resp BP BP Pulse Ox 11/22/24 15:00 72 18 142/78 H 11/22/24 14:00 70 13 158/71 H 11/22/24 13:36 76 13 11/22/24 13:06 79 18 175/81 H 100 11/22/24 12:54 77 24 100 11/22/24 12:30 174/71 H 11/22/24 12:30 77 11/22/24 12:21 75 15 100 11/22/24 12:12 73 15 100 11/22/24 11:33 69 17 159/74 H 100 11/22/24 10:21 97.7 F 90 18 97/57 L 97 O2 Del Method O2 Flow Rate 11/22/24 15:00 11/22/24 14:00 11/22/24 13:36 11/22/24 13:06 Nasal Cannula 3 11/22/24 12:54 Nasal Cannula 3 11/22/24 12:30 11/22/24 12:30 11/22/24 12:21 Nasal Cannula 3 11/22/24 12:12 Nasal Cannula 3 11/22/24 11:33 Nasal Cannula 3 11/22/24 10:21 Nasal Cannula 3 Code Status & VTE Plan VTE Prophylaxis Plan VTE Prophylaxis will be ordered: Yes PG Care Time/CCT Total # of Minutes Spent Total Time Spent with Patient: Total time spent is greater than 50% in coordination of care (as documented) at patient's floor/unit and/or counseling patient: Coding Level of Care Code 22477 INT INP/OBS CARE 75MIN Diagnoses Colitis K52.9 Iron deficiency anemia, unspecified iron deficiency anemia type D50.9 Iron deficiency anemia type: unspecified iron deficiency Malnutrition E46 Pulmonary emphysema, unspecified emphysema type J43.9 Emphysema type: unspecified Chronic respiratory failure with hypoxia J96.11 (2) Iron deficiency anemia Iron deficiency anemia type: unspecified iron deficiency Qualified Code(s): D50.9 - Iron deficiency anemia, unspecified (4) COPD with emphysema Emphysema type: unspecified Qualified Code(s): J43.9 - Emphysema, unspecified
[2024-11-22 17:32] LABS: Cdiff Toxin B Gene (2yr or >) Positive Cdiff Gene (Neg)
[2024-11-22 17:33] LABS: Cdiff Toxin A+B Negative Cdiff Toxin (Negative)
[2024-11-22] MEDS: VANCOMYCIN HCL 250 MG/5 ML SOLN PO STA (17:51)
[2024-11-22] MEDS: CHERRY SYRUP 5 ML UDP PO STA (17:51)
[2024-11-22] MEDS ORDERED: MAGNESIUM HYDROXIDE SUSP 30 ML UDC PO PRN (19:47)
[2024-11-22] MEDS ORDERED: ALUMINUM/MAGNESIUM SUSP 30 ML UDC PO PRN (19:47)
[2024-11-22] MEDS ORDERED: ONDANSETRON INJ 2 MG/ML 2 ML VIAL IV PRN (19:47)
[2024-11-22] MEDS ORDERED: ALBUTEROL 0.083% NEBU SOLN 3 ML VIAL INH PRN (19:47)
[2024-11-22] MEDS ORDERED: MELATONIN 3 MG TAB PO PRN (19:47)
[2024-11-22] MEDS ORDERED: ACETAMINOPHEN 325 MG TAB PO PRN (19:47)
[2024-11-22] MEDS ORDERED: NON-FORMULARY MEDICATION (Acetaminophen 325 mg capsule) PO PRN (19:47)
[2024-11-22] MEDS ORDERED: ALBUTEROL HFA 8 GM INHALER INH PRN (19:47)
[2024-11-22] MEDS: CHERRY SYRUP 5 ML UDP PO SCH (20:09)
[2024-11-22] MEDS: VANCOMYCIN HCL 125 MG/2.5ML SOLN PO SCH (20:09)
[2024-11-22] MEDS ORDERED: NON-FORMULARY MEDICATION (Fluticasone-Umeclidin-Vilanter [Trelegy Ellipta] 100-62.5-25 mcg INH SCH (21:00)
[2024-11-22] MEDS: APIXABAN 2.5 MG TAB PO SCH (22:26)
[2024-11-23] MEDS: VANCOMYCIN HCL 125 MG/2.5ML SOLN PO SCH (00:43)
[2024-11-23] MEDS: CHERRY SYRUP 5 ML UDP PO SCH (00:43)
[2024-11-23 04:17] VITALS: O2SAT 98
[2024-11-23 04:49] LABS: Hematocrit (blood only) 30.9 % (37.0-47.0); Hemoglobin 10.1 g/dl (12.0-16.0); Immature Granulocytes # (auto) 0.02 K/uL (0.01-0.20); Immature Granulocytes % (auto) 0.2 %; Mean Corpuscular Hemoglobin 29.4 pg (25.0-34.0); Mean Corpuscular Volume 90.1 fL (80.0-100.0); Platelet Count 172 K/uL (130-400); RDW Standard Deviation 55.6 fL (36.4-46.3); Red Blood Count 3.43 M/uL (4.20-5.40); White Blood Count 8.65 K/ul (4.8-10.8)
[2024-11-23 05:04] LABS: Anion Gap 11.0 (3-11); Blood Urea Nitrogen 16.0 mg/dl (6-23); Calcium 8.1 mg/dl (8.6-10.3); Carbon Dioxide 25.0 mmol/L (21-32); Chloride 102.0 mmol/L (98-107); Creatinine Clr Calc Pharmacy 43.2 ml/min; Glucose 81.0 mg/dl (70-99(Fasting)); Potassium 3.2 mmol/L (3.5-5.1); Sodium 138.0 mmol/L (136-145)
[2024-11-23 06:20] VITALS: BP 177/73; RESP 17
[2024-11-23] MEDS: ASPIRIN 81 MG ECTAB PO SCH (08:41)
[2024-11-23] MEDS: CEROVITE ADV FORMULA TAB PO SCH (08:41)
[2024-11-23] MEDS: SERTRALINE HCL 100 MG TABLET PO SCH (08:41)
[2024-11-23] MEDS: CYANOCOBALAMIN (B-12) 500 MCG TABLET PO SCH (08:41)
[2024-11-23] MEDS: FLUTICASONE FUROATE 100MCG 14 PUFFS/INHALER INH SCH (08:45)
[2024-11-23] MEDS: POTASSIUM CHLORIDE / WTR 10 MEQ/100 ML PLCT IV SCH (08:46)
[2024-11-23] MEDS: UMECLIDINIUM/VILANTEROL 62.5/25MCG 7 PUFFS/INHALER INH SCH (08:46)
--- NOTE | 2024-11-23 10:03 | Discharge Summary ---
Discharge Summary Date of Service November 23, 2024 Principal Dx & Hospital Course #1 = Principal Diagnosis (1) Colitis: Pt's symptoms resolving, she would like to go home Only 2 BM overnight Will d/c on PO vancomycin (2) Iron deficiency anemia: (3) Malnutrition: (4) COPD with emphysema: (5) Chronic respiratory failure with hypoxia: Plan #Diarrhea/C. difficile colitisdiscussed with micro labconfirmatory testing pending, but with preliminary testing positive for C. difficile, and her clinical picture absolutely consistent with C. difficilestarting vancomycin. (Discussed vancomycin versus fidaxomicin, and patient/family in agreement that starting with Vanco is quite reasonable given potential cost considerations versus marginal possible better efficacy). Given her overall frailty, and the fact that she has good blood pressure and pulse rate, holding off on IV fluids, and less her p.o. intake truly is poor (follow basic metabolic panel). Discussed that typically what I see is it will usually take 2-3 days for the diarrhea to start to improve, and then generally speaking people do well until after they are off of the antibiotic for about a week. Then, we discussed the 20% recurrence rate and that should the C. difficile recur, jumping right back on antibiotics like vancomycin to reign it in while building the next step would keep her out of the hospital. #melenawill Hemoccult. She is hemodynamically stable and her hemoglobin is higher than it was previously. I doubt there is an acute GI hemorrhage. #Iron and B12 deficiency anemiahemoglobin higher than previous. It appears she has already been started on iron and B12 supplementation #cachexia with what appears to be severe calorie and probably at least moderate protein malnutritionencourage p.o. intake. Obviously need to improve the diarrhea first. Consider dietitian consult #COPD with chronic hypoxic respiratory failure on 3 L nasal cannula at baselineno respiratory symptoms. Continue her Trelegy and as needed albuterol #severe peripheral vascular diseasestatus post recent procedures. Fortunately no acute symptoms. Continue Eliquis and aspirin. Consider high intensity statin #pelvic massappears to have first been discovered in June incidentally. Fortunately appears stable per radiology reading. Exact etiology uncertain. Biopsy would probably be the best way to determinebut with her frailty and chronic hypoxic respiratory failure, obviously would want to only go about this once she is as optimized as possible, and only after discussion of risk/benefit of what she may or may not want done if it was a malignancy. Stability, however, is reassuring that it probably is not #DVT prophylaxisEliquis Admission HPI Per Admitting Provider patient is a very pleasant 69-year-old female who has had severe diarrhea since Wednesday. Fairly abrupt onset. All times day and night. Hard to put a number on itbut whenever asked her if 20 times a day seems reasonable, she implies at least that many. No fevers chills or sweats. Not weak or lightheaded. Able to drink but really does not have much of an appetite. Belly hurts a bit, seems to be mostly lower. Most recent diarrhea today is black. No urinary symptomsno dysuria/frequency/urgency. Recently on antibiotics. Discharge Exam GENERAL APPEARANCE NAD, activity normal for age, well developed/ well nourished, no cyanosis, pallor, or diaphoresis. EYES lids/conjunctiva normal. EARS/NOSE/THROAT Mucous membranes moist, nares normal, lips/teeth normal uvula midline without oral pharyngeal erythema, exudate or swelling TMs normal bilaterally. No lymphangitis/lymphedema. HEAD/NECK normocephalic atraumatic, no facial trauma, neck is supple. RESPIRATORY respiratory effort normal, speaks in full sentences, no tripod position, no accessory muscle use. Lungs clear to auscultation without rhonchi, wheezes, rales CARDIAC Regular rate and rhythm, no edema. ABDOMINAL Soft, ND/NT. No evidence of fluid wave. No pulsatile masses on exam, rebound tenderness, Kasper sign or pain over Mcburney's point. MUSCLES/EXTREMITIES No abnormal range of motion, no swelling. SKIN Warm, pink and dry. No rashes, dermatoses, petechiae or lesions. NEUROLOGICAL Speech is clear and appropriate. Normal level of consciousness. Gait and coordination are normal. 5/5 strength in all extremities. PSYCH Normal mood and affect. Judgement/competence is appropriate Discharge Plan Discharge Items Patient Disposition: Home - Self-Care Reason For Visit: COLITIS W INTRACTABLE DIARRHEA Discharge Diagnosis: c.diff colitis Condition on Discharge: Fair Activity: Resume your previous activity Non-emergency contact: Primary Care Provider Call non-emergency contact if: you have any medication questions Follow-up/Referrals: Coretta Mai CRNP [Primary Care Provider] - Diet: Regular Addtl Attending Provider Instructions: Follow up with PMD in 1 week Pending Studies at Discharge: No Stand-Alone Forms: [facility], Smoking Cessation Medications and DC Order Prescriptions: New vancomycin 125 mg capsule 125 mg PO QID 14 Days Qty: 56 0RF Continued lisinopril 10 mg tablet 10 mg PO QAM Qty: 90 3RF Trelegy Ellipta 100-62.5-25 mcg blister with device 1 inh inhalation HS Qty: 60 5RF sertraline 100 mg tablet 200 mg PO QAM Qty: 180 3RF iron sucrose [Venofer] 200 mg iron/10 mL solution 200 mg IV .COMPLEX Rx Instructions: 200 mg intravenously x2, 1 week apart; administer over 30 mins (DME) Flutter Valve Device See Rx Instructions .ROUTE .MEDSUPPLY Qty: 1 0RF Rx Instructions: Use it every 6 hours when awake. acetaminophen 325 mg capsule 650 mg PO Q4H PRN (Reason: Pain) Hold Instructions: Hold while taking oxycodone/acetaminophen for pain. albuterol sulfate 2.5 mg /3 mL (0.083 %) solution for nebulization 2.5 mg inhalation QID PRN (Reason: shortness of breath or wheezing) Qty: 180 4RF aspirin 81 mg Tablet,Delayed Release (Dr/Ec) 81 mg PO QAM Qty: 1 0RF albuterol sulfate 90 mcg/actuation HFA aerosol inhaler 2 - 4 puff inhalation Q6 PRN (Reason: Shortness Of Breath Or Wheezing) Cerovite Senior 0.4 mg-300 mcg- 250 mcg Tablet 1 tab PO QAM Qty: 30 0RF oxycodone-acetaminophen [Percocet] 5-325 mg Tablet 1 tab PO Q6H PRN (Reason: pain) Qty: 30 0RF Eliquis 2.5 mg Tablet 2.5 mg PO BID Qty: 60 11RF cyanocobalamin (vitamin B-12) 1,000 mcg tablet 1,000 mcg PO DAILY Qty: 90 1RF Discharge Orders: Discharge Order (Routine); Ordered 11/23/24 Ordered By: Francisco Mccoy Admission Data Admit Date/Time: 11/22/24 17:01 Attending Provider: Francisco Mccoy Admit Provider: Casey Hathaway Primary Care Provider: Coretta Mai Other Providers: Casey Hathaway Hospital Stay Data Consultations 11/22/24 16:20 ED Decision to Admit Stat Diagnostic Imagining Performed 11/22/24 10:52 CT Abd and Pelvis [CT abd pelvis IV con only] Stat Pending Results Patient Have Any Pending Studies at Discharge: No Discharge Instructions Given to Patient (Per Discharging Provider) Follow up with PMD in 1 week Total Time Total Time Spent Total Time Spent (In Minutes): 50 Coding Level of Care Code 63712 INP/OBS DISCH >30 MIN Diagnoses Colitis K52.9 Iron deficiency anemia, unspecified iron deficiency anemia type D50.9 Iron deficiency anemia type: unspecified iron deficiency Malnutrition E46 Pulmonary emphysema, unspecified emphysema type J43.9 Emphysema type: unspecified Chronic respiratory failure with hypoxia J96.11
[2024-11-23 11:40] VITALS: PULSE 75
== END 2024-11-23 11:37 | disposition home or self-care (01) ==
LOC: ED 10:18 → EDINP 10:18 → SUATTDRO 17:01

== ENCOUNTER 2024-12-08 09:52 | Inpatient (IN) ==
--- NOTE | 2024-12-08 10:17 | Emergency Department Note ---
Impression & Plan Acute dyspnea, Elevated troponin, Acute exacerbation of chronic obstructive pulmonary disease, Elevated brain natriuretic peptide (BNP) level, Hypoxia ED Provider Note HISTORY OF PRESENT ILLNESS: Patient is a 69-year-old female presenting with shortness of breath. Patient reports that she was short of breath all throughout the night. She normally wears 3 L nasal cannula. She denies any chest pain. She is currently on oral vancomycin for history of C. difficile. Denies any other antibiotic or steroid use. She denies any DVT or PE history. Denies any recent fevers or chills. She has been having a nonproductive cough. States that she feels like she cannot catch her breath. She is on Eliquis. ROS: as above PHYSICAL EXAM: Constitutional: Patient appears in no acute distress. HENT: Head: Normocephalic and atraumatic. Eyes: EOMI, PERRL Mouth/Throat: Mucous membranes moist. Neck: Trachea midline. Neck supple. Cardiovascular: RRR, No murmurs, rubs or gallops. Intact distal pulses. Pulmonary/Chest: No respiratory distress. Breath sounds clear and equal bilaterally. Conversationally dyspneic. Patient has expiratory wheezes bilaterally with coarse breath sounds. Abdominal: Abdomen soft, no tenderness, rebound or guarding. Musculoskeletal: No edema, tenderness or deformity noted. Skin: Warm and dry. No rash, erythema, pallor or cyanosis Psychiatric: Appropriate mood and affect for situation. Neurological: Alert and keenly responsive. CN II-XII grossly intact, moving all extremities equally and fully. MDM: - Vitals signs showed hypoxia - History obtained via patient. History as above. - Chronic conditions affecting care: COPD; HLD; HTN - Differential diagnoses include, but are not limited to: Congestive heart failure; acute coronary syndrome; COPD/asthma exacerbation; pulmonary edema; pulmonary embolism; pneumonia; pneumothorax; viral syndrome - Order placed for continuous cardiac monitoring. At this time, monitor showed rate of 73 bpm with normal sinus rhythm, per my interpretation. - External medical records reviewed. Discharge summary dated 11/23/2024 was reviewed. Patient was admitted at that time secondary to diarrhea and C. difficile colitis. She is on an outpatient course of oral vancomycin. - EKG image interpreted by myself showed normal sinus rhythm. Rate 86 bpm. QT 414. No acute ischemic changes. - Laboratory workup interpreted by myself showed slight leukocytosis (WBC 11.82); chronic anemia; normal PT/INR; stable electrolytes; elevated troponin (60.1); elevated BNP (271) - VBG shows aspiratory acidosis (pH 7.28; PCO2 70 mmHg) - CXR image reviewed and interpreted myself is noted for pneumonia however my interpretation. - COVID/flu/RSV negative - Patient given duoneb in ER. Given 60 mg IV solumedrol, 500 mg PO azithromycin and 2g IV rocephin - Discussion was had with case management assistant about patient's case and need for admission - Hospitalist consulted for admission - Patient admitted to [facility] for further evaluation and management. ASSESSMENT AND PLAN: Diagnosis: Acute dyspnea; acute COPD exacerbation; hypoxia; elevated troponin; elevated BNP Plan: Admit Past Med/Surg History Problem List (Updated 12/08/24 @ 13:02 by Marie Lo MD) Hypoxia (Acute) Elevated brain natriuretic peptide (BNP) level (Acute) Acute exacerbation of chronic obstructive pulmonary disease (Acute) Elevated troponin (Acute) Acute dyspnea (Acute) Malnutrition Urinary tract infection (Acute) Diarrhea (Acute) Colitis (Acute) Abdominal pain (Acute) Acute blood loss anemia Hypokalemia Post op infection Elevated troponin (Acute) Cellulitis (Acute) Left upper extremity swelling (Acute) Pseudoaneurysm of brachial artery Grief Underweight B12 deficiency Iron deficiency anemia Abdominal mass Weakness (Acute) Cachexia Hypertension Mass of right axilla COPD with emphysema Depression Hyperlipidemia Vision loss, right eye Vitamin D deficiency (Chronic) Medical History PAD (peripheral artery disease) Vision loss, right eye HLD (hyperlipidemia) Depression Mass of right axilla HTN (hypertension) Iron deficiency anemia Underweight Abdominal mass Multiple pulmonary nodules Chronic respiratory failure with hypoxia ICAO (internal carotid artery occlusion) Osteoporosis Arthritis History of stroke Diverticular disease Chronic obstructive pulmonary disease Surgical History S/P vascular surgery S/P femoral-femoral bypass surgery History of tooth extraction History of tonsillectomy History of cataract surgery History of bronchoscopy Hx of foot surgery History of section Hx of hemorrhoidectomy History of colonoscopy Family History Other No family history of adverse response to anesthesia Denies family history of Ovarian cancer Prostate cancer Myocardial infarction Breast cancer Colorectal cancer Social History Smoking Status: Former smoker Tobacco Type: Cigarettes Age Started Using Tobacco: 18; Age Quit Using Tobacco: 65; packs per day: 1; Cigarettes Per Day: every other day; Second Hand Exposure: No; Do You Dip or Chew Tobacco: No; Hx Alcohol Use: No Hx Substance Use: No Preferred Language: Armenian Communication Ability: Effective Visual Impairment: Limited Hearing Ability: Normal Electrical Subcontractor Required: No Beliefs That Will Affect Care: None marital status: / Current Living Situation: Alone current occupational status: disabled How many Children do You have: 2 Feels Safe at Home: Yes Childhood Exposure to Second-Hand Smoke: Yes Diet: regular caffeine: Yes (coffee) during the past year weight has: remained stable Dental Care, Regularly: No Physical Activity Frequency: Daily Seatbelt Use: never Sunscreen Use: No Assistive Devices: Denture - Upper, Denture - Lower, Glasses and Oxygen - Continuous Allergies Allergies Allergy/AdvReac Type Severity Reaction Status Date / Time codeine AdvReac Intermediate Vomiting Verified 11/28/24 10:27 Home Meds Home Medications Medication Instructions Recorded Confirmed acetaminophen 325 mg capsule 650 mg PO Q4H PRN Pain 09/14/19 12/08/24 albuterol sulfate 90 mcg/actuation 2 - 4 puff inhalation Q6 PRN 07/01/24 12/08/24 aerosol inhaler Shortness Of Breath Or Wheezing Previous Rx's Medication Instructions Recorded aspirin 81 mg tablet,delayed 81 mg PO QAM #1 tab 09/01/19 release Flutter Valve #1 ea 08/13/20 apixaban 2.5 mg tablet (Eliquis) 2.5 mg PO BID #60 tabs 02/18/24 lisinopril 10 mg tablet 10 mg PO QAM #90 tabs 06/05/24 imzixygs-hfr-kikji acid 0.4 1 tab PO QAM #30 tabs 07/04/24 mg-lycopene 300 mcg-lutein 250 mcg tablet (Cerovite Senior) fluticasone fur. 100 mcg-umeclid 1 inh inhalation HS #60 ea 07/24/24 62.5 mcg-vilant 25 mcg inhalat.powder (Trelegy Ellipta) sertraline 100 mg tablet 200 mg (2 x 100 mg) PO QAM #180 07/24/24 tabs oxycodone-acetaminophen 5 mg-325 1 tab PO Q6H PRN pain #30 tabs 10/31/24 mg tablet (Percocet) cyanocobalamin (vitamin B-12) 1,000 mcg PO DAILY #90 tabs 11/05/24 1,000 mcg tablet Results & Data (ED) Vital Signs Vital Signs - 24 hr 12/08/24 10:00 12/08/24 10:12/08/24 10: Temperature 36.6 C Temperature Source Temporal Artery Scan Pulse Rate 86 Pulse Rate [Apical] Respiratory Rate 24 Respiratory Effort / Characteristics Short of Breath Respiratory Depth Shallow Respiratory Pattern Blood Pressure 130/66 Blood Pressure [Right Arm] Blood Pressure Mean 87 Blood Pressure Mean [Right Arm] Pulse Oximetry 86 L 100 Oxygen Delivery Method Nasal Cannula Nasal Cannula Oxygen Flow Rate 3 5 Sepsis Recent Fever Within 48 Hours No Sepsis New/Unexplained Change in Mental Status N/A Sepsis Action Taken by Nursing No Action Required 12/08/24 10:25 12/08/24 11:30 12/08/24 12:20 Temperature Temperature Source Pulse Rate 87 78 Pulse Rate [Apical] 77 Respiratory Rate 24 20 Respiratory Effort / Characteristics Non-Labored Spontaneous Respiratory Depth Normal Respiratory Pattern Regular Blood Pressure Blood Pressure [Right Arm] 170/83 H Blood Pressure Mean Blood Pressure Mean [Right Arm] 112 Pulse Oximetry 100 100 Oxygen Delivery Method Nasal Cannula Nasal Cannula Oxygen Flow Rate 5 3 Sepsis Recent Fever Within 48 Hours Sepsis New/Unexplained Change in Mental Status Sepsis Action Taken by Nursing 12/08/24 12:49 Temperature Temperature Source Pulse Rate Pulse Rate [Apical] 73 Respiratory Rate 24 Respiratory Effort / Characteristics Respiratory Depth Respiratory Pattern Blood Pressure Blood Pressure [Right Arm] 125/88 Blood Pressure Mean Blood Pressure Mean [Right Arm] 100 Pulse Oximetry 100 Oxygen Delivery Method Nasal Cannula Oxygen Flow Rate 3 Sepsis Recent Fever Within 48 Hours Sepsis New/Unexplained Change in Mental Status Sepsis Action Taken by Nursing Laboratory Data 12/08/24 10:32 12/08/24 10:32 Lab Results 12/08/24 Range/Units 10:32 WBC 11.82 H (4.8-10.8) K/ul RBC 3.71 L (4.20-5.40) M/uL Hgb 10.9 L (12.0-16.0) g/dl Hct 35.2 L (37.0-47.0) % MCV 94.9 (80.0-100.0) fL MCH 29.4 (25.0-34.0) pg MCHC 31.0 L (32.0-36.0) g/dL RDW Std Deviation 60.5 H (36.4-46.3) fL RDW Coeff of Rosanna 17.2 H (11.5-14.5) % Plt Count 250 (130-400) K/uL MPV 11.0 (9.4-12.4) fL Immature Gran % (Auto) 0.3 % Neut % (Auto) 91.3 % Lymph % (Auto) 3.8 % Webb % (Auto) 4.1 % Eos % (Auto) 0.1 % Baso % (Auto) 0.4 % Neut # (Auto) 10.78 H (1.40-6.50) K/uL Lymph # (Auto) 0.45 L (1.20-3.40) K/uL Webb # (Auto) 0.49 (0.11-0.59) K/uL Eos # (Auto) 0.01 (0.00-0.50) K/uL Baso # (Auto) 0.05 (0.00-0.20) K/uL Immature Gran # (Auto) 0.04 (0.01-0.20) K/uL PT 10.7 (9.0-12.0) Seconds INR 1.0 (0.9-1.1) VBG pH 7.28 L (7.36-7.41) VBG pCO2 70 H (38-50) mmHg VBG pO2 34 mmHg VBG HCO3 33 mmol/L VBG O2 Saturation < 60.0 % VBG Base Excess 3.9 mEq/L Sodium 142 (136-145) mmol/L Potassium 3.7 (3.5-5.1) mmol/L Chloride 104 (98-107) mmol/L Carbon Dioxide 32 (21-32) mmol/L Anion Gap 6 (3-11) BUN 10 (6-23) mg/dl Creatinine 0.73 (0.6-1.2) mg/dl Est Cr Clr Drug Dosing Not Reportable eGFR 88.42 BUN/Creatinine Ratio 13.7 (10-20) Glucose 112 H (70-99(Fasting)) mg/dl Calcium 8.9 (8.6-10.3) mg/dl Magnesium 2.0 (1.7-2.4) mg/dl Total Bilirubin 0.3 (0.2-1.0) mg/dl AST 27 (13-39) U/L ALT 18 (7-52) U/L Alkaline Phosphatase 53 (34-104) U/L Troponin I High Sens 60.1 H* (0-14) pg/ml B-Natriuretic Peptide 271 H (0-100) pg/ml Total Protein 6.6 (6.0-8.3) gm/dl Albumin 3.9 (3.4-5.0) gm/dl Globulin 2.7 (2.5-4.0) gm/dl Albumin/Globulin Ratio 1.4 (0.9-2) SARS-CoV-2 (PCR) NEGATIVE (Negative) Influenza Type A (PCR) Negative (Neg) Influenza Type B (PCR) Negative (Neg) RSV (RT-PCR) Negative (Neg) Administered Medications Discontinued Medications Albuterol (Albut/Ipratrop 3mg/0.5mg Neb 3 Ml Vial) 3 ml NEB NOW STA; Protocol Stop: 12/08/24 10:15 Last Admin: 12/08/24 10:35 Dose: 3 ml Documented By: PEDRO LUIS Azithromycin (Azithromycin 250 Mg Tab) 500 mg PO NOW ONE Stop: 12/08/24 12:15 Last Admin: 12/08/24 12:41 Dose: 500 mg Documented By: BONNIE Ceftriaxone Sodium (Rocephin) 2,000 mg in 50 mls @ 100 mls/hr IV NOW STA Stop: 12/08/24 12:43 Last Admin: 12/08/24 12:45 Dose: 100 mls/hr Documented By: BONNIE Methylprednisolone (Methylprednisolone 125 Mg/2 Ml Vial) 60 mg IV NOW STA Stop: 12/08/24 12:15 Last Admin: 12/08/24 12:42 Dose: 60 mg Documented By: BONNIE Imaging Data Radiologist's Impression: Chest X-Ray 12/08/24 10:09 XR chest 1V portable CLINICAL HISTORY: Dyspnea COMPARISON STUDY: 07/01/2024 FINDINGS: Heart size and pulmonary vasculature are normal. Stable emphysema. There is a skinfold artifact. No consolidation or pleural effusion. No pneumothorax. IMPRESSION: Emphysema with no pneumonia seen. ACT 112: Negative or not required by law. Electronically signed by: Westley Brooks M.D. 12/08/2024 10:56 AM Discharge Plan Visit Data Chief Complaint: Shortness of Breath/Dyspnea Stated Complaint: DIFFICULTY BREATHING ED Provider: Marie Lo Discharge Problem: Acute dyspnea, Elevated troponin, Acute exacerbation of chronic obstructive pulmonary disease, Elevated brain natriuretic peptide (BNP) level, Hypoxia Condition: Fair Forms Stand Alone Forms: [facility] magnetic.io Prescriptions Prescriptions: No Action lisinopril 10 mg tablet 10 mg PO QAM Qty: 90 3RF Trelegy Ellipta 100-62.5-25 mcg blister with device 1 inh inhalation HS Qty: 60 5RF sertraline 100 mg tablet 200 mg PO QAM Qty: 180 3RF (DME) Flutter Valve Device See Rx Instructions .ROUTE .MEDSUPPLY Qty: 1 0RF Rx Instructions: Use it every 6 hours when awake. acetaminophen 325 mg capsule 650 mg PO Q4H PRN (Reason: Pain) Hold Instructions: Hold while taking oxycodone/acetaminophen for pain. aspirin 81 mg Tablet,Delayed Release (Dr/Ec) 81 mg PO QAM Qty: 1 0RF albuterol sulfate 90 mcg/actuation HFA aerosol inhaler 2 - 4 puff inhalation Q6 PRN (Reason: Shortness Of Breath Or Wheezing) Cerovite Senior 0.4 mg-300 mcg- 250 mcg Tablet 1 tab PO QAM Qty: 30 0RF oxycodone-acetaminophen [Percocet] 5-325 mg Tablet 1 tab PO Q6H PRN (Reason: pain) Qty: 30 0RF Eliquis 2.5 mg Tablet 2.5 mg PO BID Qty: 60 11RF cyanocobalamin (vitamin B-12) 1,000 mcg tablet 1,000 mcg PO DAILY Qty: 90 1RF Referrals Referrals: Coretta Mai CRNP [Primary Care Provider] -
[2024-12-08] MEDS: ALBUT/IPRATROP 3MG/0.5MG NEB 3 ML VIAL NEB STA (10:35)
[2024-12-08 10:45] LABS: Base Excess VBG 3.9 mEq/L; HCO3 VBG 33 mmol/L; Oxygen Saturation VBG < 60.0 %; PCO2 VBG 70 mmHg (38-50); PO2 VBG 34 mmHg; pH VBG 7.28 (7.36-7.41)
[2024-12-08 10:57] LABS: Hematocrit (blood only) 35.2 % (37.0-47.0); Hemoglobin 10.9 g/dl (12.0-16.0); Mean Corpuscular Hemoglobin 29.4 pg (25.0-34.0); Mean Corpuscular Volume 94.9 fL (80.0-100.0); Platelet Count 250 K/uL (130-400); RDW Standard Deviation 60.5 fL (36.4-46.3); Red Blood Count 3.71 M/uL (4.20-5.40); White Blood Count 11.82 K/ul (4.8-10.8)
--- NOTE | 2024-12-08 10:57 | XRay Report ---
XR chest 1V portable CLINICAL HISTORY: Dyspnea COMPARISON STUDY: 07/01/2024 FINDINGS: Heart size and pulmonary vasculature are normal. Stable emphysema. There is a skinfold joyce fact. No consolidation or pleural effusion. No pneumothorax. IMPRESSION: Emphysema with no pneumonia seen. ACT 112: Negative or not required by law. Electronically signed by: Westley Brooks M.D. 12/08/2024 10:56 AM
[2024-12-08 11:17] LABS: Alanine Aminotransferase 18 U/L (7-52); Albumin Globulin Ratio 1.4 (0.9-2); Albumin Level 3.9 gm/dl (3.4-5.0); Alkaline Phosphatase 53 U/L (34-104); Anion Gap 6 (3-11); Bilirubin,Total 0.3 mg/dl (0.2-1.0); Blood Urea Nitrogen 10 mg/dl (6-23); Calcium 8.9 mg/dl (8.6-10.3); Carbon Dioxide 32 mmol/L (21-32); Chloride 104 mmol/L (98-107); Globulin 2.7 gm/dl (2.5-4.0); Glucose 112 mg/dl (70-99(Fasting)); Magnesium 2.0 mg/dl (1.7-2.4); Potassium 3.7 mmol/L (3.5-5.1); Sodium 142 mmol/L (136-145); Total Protein 6.6 gm/dl (6.0-8.3)
[2024-12-08 11:21] LABS: Immature Granulocytes # (auto) 0.04 K/uL (0.01-0.20); Immature Granulocytes % (auto) 0.3 %
[2024-12-08 11:25] LABS: INR 1.0 (0.9-1.1); Prothrombin Time 10.7 Seconds (9.0-12.0)
[2024-12-08 11:29] LABS: Influenza A virus by PCR Negative (Neg); Influenza B virus by PCR Negative (Neg); SARS CoV2 RNA(COVID-19) Ceph NEGATIVE (Negative)
[2024-12-08] MEDS: AZITHROMYCIN 250 MG TAB PO ONE (12:41)
[2024-12-08] MEDS: cefTRIAXone SODIUM 2,000 MG/50 ML BAG IV STA (12:45)
[2024-12-08] MEDS ORDERED: ACETAMINOPHEN 325 MG TAB PO PRN (12:58)
[2024-12-08] MEDS ORDERED: ALUMINUM/MAGNESIUM SUSP 30 ML UDC PO PRN (12:58)
[2024-12-08] MEDS ORDERED: ONDANSETRON INJ 2 MG/ML 2 ML VIAL IV PRN (12:58)
[2024-12-08] MEDS ORDERED: MELATONIN 3 MG TAB PO PRN (12:58)
--- NOTE | 2024-12-08 12:58 | History & Physical Report ---
Date of Service December 08, 2024 Assessment & Plan (1) Hypoxia: (2) Elevated brain natriuretic peptide (BNP) level: (3) Elevated troponin: (4) Acute and chronic respiratory failure: (5) Acute exacerbation of chronic obstructive pulmonary disease: (6) Malnutrition: (7) Diarrhea: (8) Pseudoaneurysm of brachial artery: (9) Underweight: (10) Iron deficiency anemia: (11) B12 deficiency: (12) Weakness: (13) Hypertension: (14) Depression: (15) Vitamin D deficiency: (16) HLD (hyperlipidemia): (17) ICAO (internal carotid artery occlusion): (18) Osteoporosis: (19) PAD (peripheral artery disease): (20) Diverticular disease: Plan #acute on chronic respiratory failure #hypoxemia #COPD with acute exacerbation #oxygen dependent COPD - typically on 3 L nasal cannula up to 5L at the time of presentation the emergency department. Consistent with COPD and exacerbation likely triggered by seasonal allergies, environmental - admit telemetry given elevated troponin below, COPD bundle, continue controller medications from home, DuoNeb every 4 hours while awake, albuterol every 2 hours as needed - stress dose Solu-Medrol in the emergency department continue 40 mg 4 times daily for the interim because she has very tight on initial examination - continue Rocephin and azithromycin for the short-term, caution given to the fact she has recent C. difficile - RT consult - aggressive pulmonary toilet #elevated troponin #known PAD, CAD, history of stroke - continue aspirin, continue Eliquis, trend troponins. Baseline appears to be in the 15-30 range she is up to 60 today. No chest pain palpitations PND or orthopnea - admit telemetry as above, serial serial troponins - likely secondary to myocardial strain in the setting of hypoxemia, will continue to monitor for trend she is gone from 24-60 0.1-1 57 over the first 3 hours. Expect this to plateau shortly. She is devoid of symptoms at this time #C. difficile colitis - currently approximately 10 days into what would be a 2-week course of oral vancomycin. Will validate records - continue oral vancomycin - contact with caution #leukocytosis - add CRP and Pro-Kris I suspect this is secondary to ongoing C. difficile and mild colitis - exam is unremarkable at this time, we will monitor closely #severe protein calorie malnutrition - very low BMI, RD consult, encourage supplementation - acute on chronic weight loss with 10 pounds over the last month #depression anxiety - monitor closely no indication to change medications at this time - continue sertraline #hypertension - continue lisinopril #osteoporosis - continue supplementation no acute changes at this time #FEN - low maintenance fluids for now, resume cardiac diet - RD consult CODE STATUS - DNR/DNI per her wishes and she does not wish to have BiPAP or any artificial means for life-sustaining measures History of Present Illness Chief Complaint: Shortness of Breath Primary Care Provider: SWATI Sher Patient is a 69-year-old female with past medical history of COPD on chronic 3L O2 nasal cannula, HTN, depression, HLD, previous CVA, vertebral artery stenosis, carotid stenosis, aortoiliac disease. Patient has followed with vascular surgery and is s/p left right femoral artery bypass February 2024 due to right iliac artery occlusion and s/p left iliac artery angiogram with [employer] and stent June 2024 complicated intraoperatively Subsequently treated for infection with cefepime and vancomycin. Most recently has developed episode of C. difficile. She is currently 10 days into a 2-week course of oral vancomycin. Notes that her breathing has been relatively good yesterday but through the night progressively worse, audibly congested for family. Oxygen needs have increased. Secondary to that she came to the emergency department for evaluation. Workup there noted a modestly elevated troponin, no chest pain or changes to her EKG. Symptoms and signs consistent with a COPD exacerbation. She was given stress dose Solu-Medrol started on antibiotics referred for admission for respiratory support, pulmonary toilet and close respiratory monitroing. Allergies Allergy/AdvReac Type Severity Reaction Status Date / Time codeine AdvReac Intermediate Vomiting Verified 11/28/24 10:27 Home Medications Medication Instructions Recorded Confirmed Type aspirin 81 mg tablet,delayed 81 mg PO QAM #1 tab 09/01/19 12/08/24 Rx release acetaminophen 325 mg capsule 650 mg PO Q4H PRN Pain 09/14/19 12/08/24 History Flutter Valve #1 ea 08/13/20 11/28/24 Rx apixaban 2.5 mg tablet (Eliquis) 2.5 mg PO BID #60 tabs 02/18/24 12/08/24 Rx lisinopril 10 mg tablet 10 mg PO QAM #90 tabs 06/05/24 12/08/24 Rx albuterol sulfate 90 mcg/actuation 2 - 4 puff inhalation Q6 PRN 07/01/24 12/08/24 History aerosol inhaler Shortness Of Breath Or Wheezing yjuzhlux-see-gkcfj acid 0.4 1 tab PO QAM #30 tabs 07/04/24 12/08/24 Rx mg-lycopene 300 mcg-lutein 250 mcg tablet (Cerovite Senior) fluticasone fur. 100 mcg-umeclid 1 inh inhalation HS #60 ea 07/24/24 12/08/24 Rx 62.5 mcg-vilant 25 mcg inhalat.powder (Trelegy Ellipta) sertraline 100 mg tablet 200 mg (2 x 100 mg) PO QAM #180 07/24/24 12/08/24 Rx tabs oxycodone-acetaminophen 5 mg-325 1 tab PO Q6H PRN pain #30 tabs 10/31/24 12/08/24 Rx mg tablet (Percocet) cyanocobalamin (vitamin B-12) 1,000 mcg PO DAILY #90 tabs 11/05/24 12/08/24 Rx 1,000 mcg tablet Past Med/Surg History Problem List (Updated 12/08/24 @ 13:48 by Derrick Brown MD) Acute and chronic respiratory failure Hypoxia (Acute) Elevated brain natriuretic peptide (BNP) level (Acute) Acute exacerbation of chronic obstructive pulmonary disease (Acute) Elevated troponin (Acute) Acute dyspnea (Acute) Malnutrition Urinary tract infection (Acute) Diarrhea (Acute) Colitis (Acute) Abdominal pain (Acute) Acute blood loss anemia Hypokalemia Post op infection Elevated troponin (Acute) Cellulitis (Acute) Left upper extremity swelling (Acute) Pseudoaneurysm of brachial artery Grief Underweight B12 deficiency Iron deficiency anemia Abdominal mass Weakness (Acute) Cachexia Hypertension Mass of right axilla COPD with emphysema Depression Hyperlipidemia Vision loss, right eye Vitamin D deficiency (Chronic) Medical History PAD (peripheral artery disease) Vision loss, right eye HLD (hyperlipidemia) Depression Mass of right axilla HTN (hypertension) Iron deficiency anemia Underweight Abdominal mass Multiple pulmonary nodules Chronic respiratory failure with hypoxia ICAO (internal carotid artery occlusion) Osteoporosis Arthritis History of stroke Diverticular disease Chronic obstructive pulmonary disease Surgical History S/P vascular surgery S/P femoral-femoral bypass surgery History of tooth extraction History of tonsillectomy History of cataract surgery History of bronchoscopy Hx of foot surgery History of section Hx of hemorrhoidectomy History of colonoscopy Family History Other No family history of adverse response to anesthesia Denies family history of Ovarian cancer Prostate cancer Myocardial infarction Breast cancer Colorectal cancer Social History Smoking Status: Former smoker Tobacco Type: Cigarettes Age Started Using Tobacco: 18; Age Quit Using Tobacco: 65; packs per day: 1; Cigarettes Per Day: every other day; Second Hand Exposure: No; Do You Dip or Chew Tobacco: No; Hx Alcohol Use: No Hx Substance Use: No Preferred Language: Bulgarian Communication Ability: Effective Visual Impairment: Limited Hearing Ability: Normal 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 Beliefs That Will Affect Care: None marital status: / Current Living Situation: Alone current occupational status: disabled How many Children do You have: 2 Feels Safe at Home: Yes Childhood Exposure to Second-Hand Smoke: Yes Diet: regular caffeine: Yes (coffee) during the past year weight has: remained stable Dental Care, Regularly: No Physical Activity Frequency: Daily Seatbelt Use: never Sunscreen Use: No Assistive Devices: Denture - Upper, Denture - Lower, Glasses and Oxygen - Continuous Review of Systems Constitutional: no fevers chills, no significant acute weight changes Eyes: No vision changes Ear, Nose, Mouth, Throat: decreased but normal appetite Respiratory: See HPI Cardiovascular: Additional Comments: No chest pain, PND or Orthopnea Gastrointestinal: No N/V/ trace loose stools but no gentry liquidy diarrhea Musculoskeletal: no edema Integumentary: no rash or discoloration Physical Exam Constitutional: Cachectic, frail, pursing lips and tripoding Eyes: sclear clear Neck: no bruit Respiratory: Limited air movement throughout, inspiratory and expiratory wheezing noted, no focal decreases Cardiovascular: RRR, no MR Chest (Breasts): Additional Comments: accy muscle use Gastrointestinal (Abdomen): normal bowel sounds, nontender, no distention Musculoskeletal: no edema Skin: no rash, gisele appearance Results & Data Results & Data Vital Signs (Past 12 Hours) Vital Signs Temp Pulse Pulse Resp BP BP Pulse Ox 12/08/24 12:49 73 24 125/88 100 12/08/24 12:20 78 12/08/24 11:30 77 20 170/83 H 100 12/08/24 10:25 87 24 100 12/08/24 10:25 100 12/08/24 10:00 36.6 C 86 24 130/66 86 L O2 Del Method O2 Flow Rate 12/08/24 12:49 Nasal Cannula 3 12/08/24 12:20 12/08/24 11:30 Nasal Cannula 3 12/08/24 10:25 Nasal Cannula 5 12/08/24 10:25 Nasal Cannula 5 12/08/24 10:00 Nasal Cannula 3 Laboratory Results 12/08/24 12/08/24 12:37 10:32 WBC 11.82 H RBC 3.71 L Hgb 10.9 L Hct 35.2 L MCV 94.9 MCH 29.4 MCHC 31.0 L RDW Std Deviation 60.5 H RDW Coeff of Rosanna 17.2 H Plt Count 250 MPV 11.0 Immature Gran % (Auto) 0.3 Neut % (Auto) 91.3 Lymph % (Auto) 3.8 [place] % (Auto) 4.1 Eos % (Auto) 0.1 Baso % (Auto) 0.4 Neut # (Auto) 10.78 H Lymph # (Auto) 0.45 L [place] # (Auto) 0.49 Eos # (Auto) 0.01 Baso # (Auto) 0.05 Immature Gran # (Auto) 0.04 PT 10.7 INR 1.0 VBG pH 7.28 L VBG pCO2 70 H VBG pO2 34 VBG HCO3 33 VBG O2 Saturation < 60.0 VBG Base Excess 3.9 Sodium 142 Potassium 3.7 Chloride 104 Carbon Dioxide 32 Anion Gap 6 BUN 10 Creatinine 0.73 Est Cr Clr Drug Dosing Not Reportable eGFR 88.42 BUN/Creatinine Ratio 13.7 Glucose 112 H Calcium 8.9 Magnesium 2.0 Total Bilirubin 0.3 AST 27 ALT 18 Alkaline Phosphatase 53 Troponin I High Sens 157.0 H* D 60.1 H* B-Natriuretic Peptide 271 H Total Protein 6.6 Albumin 3.9 Globulin 2.7 Albumin/Globulin Ratio 1.4 SARS-CoV-2 (PCR) NEGATIVE Influenza Type A (PCR) Negative Influenza Type B (PCR) Negative RSV (RT-PCR) Negative ECG Additional Comments: sinus rhythm, wandering baseline, sinus arrhythmia noted Code Status & VTE Plan Code Status DNR, DNI, No Bipap PG Care Time/CCT Total # of Minutes Spent Total Time Spent with Patient: Total time spent is greater than 50% in coordination of care (as documented) at patient's floor/unit and/or counseling patient: Coding Level of Care Code 84815 INT INP/OBS CARE 3/75MIN Diagnoses Hypoxia R09.02 Elevated brain natriuretic peptide (BNP) level R79.89 Elevated troponin R79.89 Acute and chronic respiratory failure J96.20 Acute exacerbation of chronic obstructive pulmonary disease J44.1 Malnutrition E46 Diarrhea of infectious origin A09 Diarrhea type: infectious Pseudoaneurysm of brachial artery I72.1 Underweight R63.6 Iron deficiency anemia, unspecified iron deficiency anemia type D50.9 Iron deficiency anemia type: unspecified iron deficiency B12 deficiency E53.8 Weakness R53.1 Primary hypertension I10 Hypertension type: primary hypertension Depression, unspecified depression type F32.A Depression Type: unspecified Vitamin D deficiency E55.9 HLD (hyperlipidemia) E78.5 ICAO (internal carotid artery occlusion) I65.29 Osteoporosis M81.0 PAD (peripheral artery disease) I73.9 Diverticular disease K57.90 (7) Diarrhea Diarrhea type: infectious Qualified Code(s): A09 - Infectious gastroenteritis and colitis, unspecified (10) Iron deficiency anemia Iron deficiency anemia type: unspecified iron deficiency Qualified Code(s): D50.9 - Iron deficiency anemia, unspecified (13) Hypertension Hypertension type: primary hypertension Qualified Code(s): I10 - Essential (primary) hypertension (14) Depression Depression Type: unspecified Qualified Code(s): F32.A - Depression, unspecified
[2024-12-08] MEDS: ALBUT/IPRATROP 3MG/0.5MG NEB 3 ML VIAL INH SCH (13:35)
[2024-12-08 13:57] LABS: Appearance Urine Turbid (Clear); Bacteria Urine Automated 4+ (None Seen); Epithelial Cell Urine Auto 0-2 /hpf (0-2); Glucose Urine UA Negative (Negative); RBC Urine Automated >20 /hpf (0-2); WBC Urine Automated >50 /hpf (0-5)
[2024-12-08] MEDS ORDERED: NON-FORMULARY MEDICATION (Flutter Valve device) SCH (16:21)
[2024-12-08] MEDS: VANCOMYCIN HCL 125 MG CAP PO SCH (17:47)
--- NOTE | 2024-12-08 18:49 | Electrocardiogram Report ---
Test Reason : Blood Pressure : */* mmHG Vent. Rate : 86 BPM Atrial Rate : 86 BPM P-R Int : 140 ms QRS Dur : 74 ms QT Int : 414 ms P-R-T Axes : 75 81 67 degrees QTcB Int : 495 ms Normal sinus rhythm Normal ECG When compared with ECG of 03-Nov-2024 23:11, Nonspecific T wave abnormality, improved in Inferior leads Confirmed by Bob Kurtz ([id number]) on 12/08/2024 6:49:39 PM Referred By: Confirmed By: Bob Kurtz
[2024-12-08] MEDS: UMECLIDINIUM/VILANTEROL 62.5/25MCG 7 PUFFS/INHALER INH SCH (20:29)
[2024-12-08] MEDS: FLUTICASONE FUROATE 100MCG 14 PUFFS/INHALER INH SCH (20:30)
[2024-12-08] MEDS: APIXABAN 2.5 MG TAB PO SCH (20:31)
[2024-12-08] MEDS: guaiFENesin 600 MG TABCR PO SCH (20:31)
[2024-12-08] MEDS ORDERED: NON-FORMULARY MEDICATION (Fluticasone-Umeclidin-Vilanter [Trelegy Ellipta] 100-62.5-25 mcg INH SCH (21:00)
[2024-12-09 04:08] LABS: Hematocrit (blood only) 31.0 % (37.0-47.0); Hemoglobin 9.8 g/dl (12.0-16.0); Mean Corpuscular Hemoglobin 29.6 pg (25.0-34.0); Mean Corpuscular Volume 93.7 fL (80.0-100.0); Platelet Count 191 K/uL (130-400); RDW Standard Deviation 58.6 fL (36.4-46.3); Red Blood Count 3.31 M/uL (4.20-5.40); White Blood Count 4.94 K/ul (4.8-10.8)
[2024-12-09 04:16] LABS: Alanine Aminotransferase 13.0 U/L (7-52); Albumin Globulin Ratio 1.6 (0.9-2); Albumin Level 3.6 gm/dl (3.4-5.0); Alkaline Phosphatase 48.0 U/L (34-104); Anion Gap 6.0 (3-11); Bilirubin,Total 0.3 mg/dl (0.2-1.0); Blood Urea Nitrogen 14.0 mg/dl (6-23); Calcium 8.7 mg/dl (8.6-10.3); Carbon Dioxide 30.0 mmol/L (21-32); Chloride 104.0 mmol/L (98-107); Creatinine Clr Calc Pharmacy 28.5 ml/min; Globulin 2.2 gm/dl (2.5-4.0); Glucose 149.0 mg/dl (70-99(Fasting)); Potassium 3.7 mmol/L (3.5-5.1); Sodium 140.0 mmol/L (136-145); Total Protein 5.8 gm/dl (6.0-8.3)
[2024-12-09 04:22] LABS: Immature Granulocytes # (auto) 0.01 K/uL (0.01-0.20); Immature Granulocytes % (auto) 0.2 %; RBC Morphology Unremarkable
[2024-12-09] MEDS: AZITHROMYCIN 250 MG TAB PO SCH (08:52)
[2024-12-09] MEDS: ASPIRIN 81 MG ECTAB PO SCH (08:52)
[2024-12-09] MEDS: SACCHAROMYCES BOULARDII 250 MG CAP PO SCH (08:53)
[2024-12-09] MEDS: CEROVITE ADV FORMULA TAB PO SCH (08:54)
[2024-12-09] MEDS: CYANOCOBALAMIN (B-12) 500 MCG TABLET PO SCH (08:54)
[2024-12-09] MEDS: SERTRALINE HCL 100 MG TABLET PO SCH (08:54)
--- NOTE | 2024-12-09 11:55 | Hospitalist Progress Note ---
Date of Service December 09, 2024 Assessment & Plan (1) Hypoxia: (2) Elevated brain natriuretic peptide (BNP) level: (3) Elevated troponin: (4) Acute and chronic respiratory failure: (5) Acute exacerbation of chronic obstructive pulmonary disease: (6) Malnutrition: (7) Diarrhea: (8) Pseudoaneurysm of brachial artery: (9) Underweight: (10) Iron deficiency anemia: (11) B12 deficiency: (12) Weakness: (13) Hypertension: (14) Depression: (15) Vitamin D deficiency: (16) HLD (hyperlipidemia): (17) ICAO (internal carotid artery occlusion): (18) Osteoporosis: (19) PAD (peripheral artery disease): (20) Diverticular disease: Plan #acute on chronic respiratory failure #hypoxemia #COPD with acute exacerbation #oxygen dependent COPD - typically on 3 L nasal cannula up to 5L at the time of presentation the emergency department. Consistent with COPD and exacerbation likely triggered by seasonal allergies, environmental - admit telemetry given elevated troponin below, COPD bundle, continue controller medications from home, DuoNeb every 4 hours while awake, albuterol every 2 hours as needed - stress dose Solu-Medrol in the emergency department continue 40 mg 4 times daily for the interim because she has very tight on initial examination - continue Rocephin and azithromycin for the short-term, caution given to the fact she has recent C. difficile - decrease Solu-Medrol to 40 mg twice daily - RT consult - aggressive pulmonary toilet - continue continuous pulse extremity #elevated troponin #known PAD, CAD, history of stroke - continue aspirin, continue Eliquis, trend troponins. Baseline appears to be in the 15-30 range she is up to 60 today. No chest pain palpitations PND or orthopnea - admit telemetry as above, serial serial troponins - troponin level has peaked at 189 now on the downtrend, she denies chest pain, nausea vomiting or anginal equivalent type - mild myocardial strain/injury secondary to hypoxemia in the setting of COPD exacerbation. After opponent plateaus or increases will obtain an echocardiogram. #C. difficile colitis - currently approximately 10 days into what would be a 2-week course of oral vancomycin. Will validate via, no change in symptoms overall - continue oral vancomycin - contact precautions #leukocytosis - demargination secondary to stresses and hypoxemia as above, CRP and procalcitonin unremarkable. - exam is unremarkable at this time, we will monitor closely #severe protein calorie malnutrition - very low BMI, RD consult, encourage supplementation, Ongoing, poorly - acute on chronic weight loss with 10 pounds over the last month #depression anxiety - monitor closely no indication to change medications at this time - continue sertraline #hypertension - continue lisinopril #osteoporosis - continue supplementation no acute changes at this time #FEN - low maintenance fluids for now, resume cardiac diet - RD consult CODE STATUS - DNR/DNI per her wishes and she does not wish to have BiPAP or any artificial means for life-sustaining measures #disposition - slowed overall response to steroids and antibiotics, given the severity and persistence likely to be 2-3 days for necessary respiratory support evaluation of her troponins and ongoing IV steroids Admission and Anticipated Discharge Date Admission Date: December 08, 2024 Subjective Doing pretty well this morning. No significant change in her breathing overall. Still requiring the increased amount of oxygen. No new chest pain palpitations lower extremity edema. No PND or orthostasis. Has a good appetite and interested in eating breakfast this morning although the tray was just delivered. No other acute concerns events per patient or nursing staff. We discussed her troponin the fact that it peaked and is now on the improvement. She recurrent no changes in her bowel function or loose stools. No change in frequency or severity Physical Exam Constitutional: Cachectic, frail, pursing lips and tripoding Eyes: sclear clear Neck: no bruit Respiratory: Limited air movement throughout, end inspiratory and expiratory wheezing persent, no focal decreases Cardiovascular: RRR, no MR Chest (Breasts): Additional Comments: accy muscle use Gastrointestinal (Abdomen): normal bowel sounds, nontender, no distention Musculoskeletal: no edema Skin: no rash, gisele appearance Results & Data Results & Data Vital Signs (Past 12 Hours) Vital Signs Temp Pulse Pulse Resp BP Pulse Ox O2 Del Method 12/09/24 11:18 37.1 C 83 23 138/76 91 Nasal Cannula 12/09/24 08:00 79 12/09/24 08:00 Nasal Cannula 12/09/24 07:25 37.1 C 23 148/80 H 100 Aerosol Mask 12/09/24 07:20 66 18 95 Room Air 12/09/24 02:51 37.2 C 73 18 145/70 H 100 Nasal Cannula 12/09/24 01:42 64 18 95 Nasal Cannula O2 Flow Rate 12/09/24 11:18 1 12/09/24 08:00 12/09/24 08:00 1 12/09/24 07:25 11 12/09/24 07:20 12/09/24 02:51 1 12/09/24 01:42 2 Laboratory Results 12/08/24 13:40 Urine Culture - Pending Urine,Clean Catch 12/09/24 12/09/24 12/08/24 09:43 03:33 21:25 WBC 4.94 D RBC 3.31 L Hgb 9.8 L Hct 31.0 L MCV 93.7 MCH 29.6 MCHC 31.6 L RDW Std Deviation 58.6 H RDW Coeff of Rosanna 17.0 H Plt Count 191 MPV 11.1 Immature Gran % (Auto) 0.2 Neut % (Auto) 95.2 Lymph % (Auto) 3.4 [place] % (Auto) 1.2 Eos % (Auto) 0.0 Baso % (Auto) 0.0 Neut # (Auto) 4.70 Lymph # (Auto) 0.17 L [place] # (Auto) 0.06 L Eos # (Auto) 0.00 Baso # (Auto) 0.00 Immature Gran # (Auto) 0.01 RBC Morphology Unremarkable Sodium 140 Potassium 3.7 Chloride 104 Carbon Dioxide 30 Anion Gap 6 BUN 14 Creatinine 0.85 Est Cr Clr Drug Dosing 28.5 eGFR 73.66 BUN/Creatinine Ratio 16.5 Glucose 149 H Calcium 8.7 Total Bilirubin 0.3 AST 18 ALT 13 Alkaline Phosphatase 48 Troponin I High Sens 159.1 H* 146.0 H* D 189.8 H* D C-Reactive Protein 2.76 H Total Protein 5.8 L Albumin 3.6 Globulin 2.2 L Albumin/Globulin Ratio 1.6 Procalcitonin Urine Color Urine Appearance Urine pH Ur Specific [place] Urine Protein Urine Glucose (UA) Urine Ketones Urine Blood Urine Nitrite Urine Bilirubin Urine Urobilinogen Ur Leukocyte Esterase Urine WBC (Auto) Urine RBC (Auto) U Hyaline Cast (Auto) U Epithel Cells (Auto) Urine Bacteria (Auto) Urine Comment 12/08/24 12/08/24 12/08/24 13:40 12:37 10:32 WBC RBC Hgb Hct MCV MCH MCHC RDW Std Deviation RDW Coeff of Rosanna Plt Count MPV Immature Gran % (Auto) Neut % (Auto) Lymph % (Auto) [place] % (Auto) Eos % (Auto) Baso % (Auto) Neut # (Auto) Lymph # (Auto) [place] # (Auto) Eos # (Auto) Baso # (Auto) Immature Gran # (Auto) RBC Morphology Sodium Potassium Chloride Carbon Dioxide Anion Gap BUN Creatinine Est Cr Clr Drug Dosing eGFR BUN/Creatinine Ratio Glucose Calcium Total Bilirubin AST ALT Alkaline Phosphatase Troponin I High Sens 157.0 H* D C-Reactive Protein 1.84 H Total Protein Albumin Globulin Albumin/Globulin Ratio Procalcitonin 0.05 Urine Color Dark Yellow Urine Appearance Turbid A Urine pH 5.5 Ur Specific [place] 1.020 Urine Protein 2+ H Urine Glucose (UA) Negative Urine Ketones Trace H Urine Blood 3+ H Urine Nitrite Positive A Urine Bilirubin Negative Urine Urobilinogen Negative Ur Leukocyte Esterase 2+ H Urine WBC (Auto) >50 H Urine RBC (Auto) >20 H U Hyaline Cast (Auto) 3-5 H U Epithel Cells (Auto) 0-2 Urine Bacteria (Auto) 4+ H Urine Comment PG Care Time/CCT Total # of Minutes Spent Total Time Spent with Patient: Total time spent is greater than 50% in coordination of care (as documented) at patient's floor/unit and/or counseling patient: Coding Level of Care Code 84505 SUB INP/OBS CARE 3/50MIN Diagnoses Hypoxia R09.02 Elevated brain natriuretic peptide (BNP) level R79.89 Elevated troponin R79.89 Acute and chronic respiratory failure J96.20 Acute exacerbation of chronic obstructive pulmonary disease J44.1 Malnutrition E46 Diarrhea of infectious origin A09 Diarrhea type: infectious Pseudoaneurysm of brachial artery I72.1 Underweight R63.6 Iron deficiency anemia, unspecified iron deficiency anemia type D50.9 Iron deficiency anemia type: unspecified iron deficiency B12 deficiency E53.8 Weakness R53.1 Primary hypertension I10 Hypertension type: primary hypertension Depression, unspecified depression type F32.A Depression Type: unspecified Vitamin D deficiency E55.9 HLD (hyperlipidemia) E78.5 ICAO (internal carotid artery occlusion) I65.29 Osteoporosis M81.0 PAD (peripheral artery disease) I73.9 Diverticular disease K57.90 (7) Diarrhea Diarrhea type: infectious Qualified Code(s): A09 - Infectious gastroenteritis and colitis, unspecified (10) Iron deficiency anemia Iron deficiency anemia type: unspecified iron deficiency Qualified Code(s): D50.9 - Iron deficiency anemia, unspecified (13) Hypertension Hypertension type: primary hypertension Qualified Code(s): I10 - Essential (primary) hypertension (14) Depression Depression Type: unspecified Qualified Code(s): F32.A - Depression, unspecified
[2024-12-09] MEDS: cefTRIAXone SODIUM 2,000 MG/50 ML BAG IV SCH (14:43)
[2024-12-09] MEDS: ALBUTEROL 0.5% NEB SOLN 2.5 MG/0.5 ML VIAL NEB PRN (20:41)
[2024-12-10 06:15] LABS: Hematocrit (blood only) 28.5 % (37.0-47.0); Hemoglobin 8.9 g/dl (12.0-16.0); Immature Granulocytes # (auto) 0.02 K/uL (0.01-0.20); Immature Granulocytes % (auto) 0.3 %; Mean Corpuscular Hemoglobin 29.4 pg (25.0-34.0); Mean Corpuscular Volume 94.1 fL (80.0-100.0); Platelet Count 163 K/uL (130-400); RDW Standard Deviation 58.9 fL (36.4-46.3); Red Blood Count 3.03 M/uL (4.20-5.40); White Blood Count 7.89 K/ul (4.8-10.8)
[2024-12-10 06:43] LABS: Anion Gap 3.0 (3-11); Blood Urea Nitrogen 21.0 mg/dl (6-23); Carbon Dioxide 34.0 mmol/L (21-32); Chloride 105.0 mmol/L (98-107); Creatinine Clr Calc Pharmacy 35.5 ml/min; Potassium 4.1 mmol/L (3.5-5.1); Sodium 142.0 mmol/L (136-145)
[2024-12-10 06:44] LABS: Calcium 8.7 mg/dl (8.6-10.3); Glucose 101.0 mg/dl (70-99(Fasting)); Magnesium 2.0 mg/dl (1.7-2.4)
--- NOTE | 2024-12-10 11:41 | Hospitalist Progress Note ---
Date of Service December 10, 2024 Assessment & Plan (1) Hypoxia: (2) Elevated brain natriuretic peptide (BNP) level: (3) Elevated troponin: (4) Acute and chronic respiratory failure: (5) Acute exacerbation of chronic obstructive pulmonary disease: (6) Malnutrition: (7) Diarrhea: (8) Pseudoaneurysm of brachial artery: (9) Underweight: (10) Iron deficiency anemia: (11) B12 deficiency: (12) Weakness: (13) Hypertension: (14) Depression: (15) Vitamin D deficiency: (16) HLD (hyperlipidemia): (17) ICAO (internal carotid artery occlusion): (18) Osteoporosis: (19) PAD (peripheral artery disease): (20) Diverticular disease: Plan #acute on chronic respiratory failure #hypoxemia #COPD with acute exacerbation #oxygen dependent COPD - typically on 3 L nasal cannula up to 5L at the time of presentation the emergency department. Consistent with COPD and exacerbation likely triggered by seasonal allergies, environmental - admit telemetry given elevated troponin below, COPD bundle, continue controller medications from home, DuoNeb every 4 hours while awake, albuterol every 2 hours as needed - stress dose Solu-Medrol in the emergency department continue 40 mg 4 times daily for the interim because she has very tight on initial examination - continue Rocephin and azithromycin for the short-term, caution given to the fact she has recent C. difficile - Day 3 of azithromycin/rocephin tomorrow, - Continue Solu-Medrol twice daily, she will discharge likely on a 2-week or longer taper with close follow-up in the primary clinic - RT consult - aggressive pulmonary toilet - continue continuous pulse extremity #elevated troponin #known PAD, CAD, history of stroke - continue aspirin, continue Eliquis, trend troponins. Baseline appears to be in the 15-30 range she is up to 60 today. No chest pain palpitations PND or orthopnea - admit telemetry as above, serial serial troponins - troponin level has peaked at 189 now on the downtrend, she denies chest pain, nausea vomiting or anginal equivalent type - mild myocardial strain/injury secondary to hypoxemia in the setting of COPD exacerbation. After opponent plateaus or increases will obtain an echocardiogram. #C. difficile colitis - currently approximately 10 days into what would be a 2-week course of oral vancomycin. Will validate via, no change in symptoms overall - continue oral vancomycin, will continue while she is on systemic abx - contact precautions #leukocytosis - demargination secondary to stresses and hypoxemia as above, CRP and procalcitonin unremarkable. - exam is unremarkable at this time, we will monitor closely #severe protein calorie malnutrition - very low BMI, RD consult, encourage supplementation, Ongoing, poorly - acute on chronic weight loss with 10 pounds over the last month - RD consult, supplement as tolerated #depression anxiety - monitor closely no indication to change medications at this time - continue sertraline #hypertension - continue lisinopril #osteoporosis - continue supplementation no acute changes at this time #FEN - low maintenance fluids for now, resume cardiac diet - RD consult CODE STATUS - DNR/DNI per her wishes and she does not wish to have BiPAP or any artificial means for life-sustaining measures #disposition - slowed overall response to steroids and antibiotics, given the severity and persistence likely to be 2-3 days for necessary respiratory support evaluation of her troponins and ongoing IV steroids Admission and Anticipated Discharge Date Admission Date: December 08, 2024 Subjective doing okay this morning. Slept okay. Feels her breathing is better but still not back to baseline with activity. Eating and drinking okay. No new or different symptoms no chest pain. No lower extremity edema Physical Exam Constitutional: Cachectic, frail, pursing lips and tripoding Eyes: sclear clear Neck: no bruit Respiratory: Limited air movement throughout, limited expiratory phase wheezing otherwise clear, no focal decreases Cardiovascular: RRR, no MR Chest (Breasts): Additional Comments: accy muscle use Gastrointestinal (Abdomen): normal bowel sounds, nontender, no distention Musculoskeletal: no edema Skin: no rash, gisele appearance Results & Data Results & Data Vital Signs (Past 12 Hours) Vital Signs Temp Pulse Pulse Resp BP Pulse Ox O2 Del Method 12/10/24 08:00 75 12/10/24 08:00 Nasal Cannula, Oxymask 12/10/24 07:13 36.5 C 93 H 24 120/67 95 Oxymask 12/10/24 07:08 70 18 95 Nasal Cannula 12/10/24 03:10 36.6 C 68 20 105/66 100 Nasal Cannula 12/10/24 00:07 71 17 94 Nasal Cannula O2 Flow Rate 12/10/24 08:00 12/10/24 08:00 3 12/10/24 07:13 2 12/10/24 07:08 2 12/10/24 03:10 1 12/10/24 00:07 3 Laboratory Results 12/08/24 13:40 Urine Culture - Final Urine,Clean Catch Escherichia coli 12/10/24 05:29 WBC 7.89 RBC 3.03 L Hgb 8.9 L Hct 28.5 L MCV 94.1 MCH 29.4 MCHC 31.2 L RDW Std Deviation 58.9 H RDW Coeff of Rosanna 17.1 H Plt Count 163 MPV 11.5 Immature Gran % (Auto) 0.3 Neut % (Auto) 89.4 Lymph % (Auto) 6.1 [place] % (Auto) 3.9 Eos % (Auto) 0.0 Baso % (Auto) 0.3 Neut # (Auto) 7.06 H Lymph # (Auto) 0.48 L [place] # (Auto) 0.31 Eos # (Auto) 0.00 Baso # (Auto) 0.02 Immature Gran # (Auto) 0.02 Sodium 142 Potassium 4.1 Chloride 105 Carbon Dioxide 34 H Anion Gap 3 BUN 21 Creatinine 0.69 Est Cr Clr Drug Dosing 35.5 eGFR 93.30 BUN/Creatinine Ratio 30.4 H Glucose 101 H Calcium 8.7 Magnesium 2.0 Troponin I High Sens 97.3 H* D C-Reactive Protein 1.44 H Procalcitonin 0.09 PG Care Time/CCT Total # of Minutes Spent Total Time Spent with Patient: Total time spent is greater than 50% in coordination of care (as documented) at patient's floor/unit and/or counseling patient: Coding Level of Care Code 61858 SUB INP/OBS CARE 2/35MIN Diagnoses Hypoxia R09.02 Elevated brain natriuretic peptide (BNP) level R79.89 Elevated troponin R79.89 Acute and chronic respiratory failure J96.20 Acute exacerbation of chronic obstructive pulmonary disease J44.1 Malnutrition E46 Diarrhea of infectious origin A09 Diarrhea type: infectious Pseudoaneurysm of brachial artery I72.1 Underweight R63.6 Iron deficiency anemia, unspecified iron deficiency anemia type D50.9 Iron deficiency anemia type: unspecified iron deficiency B12 deficiency E53.8 Weakness R53.1 Primary hypertension I10 Hypertension type: primary hypertension Depression, unspecified depression type F32.A Depression Type: unspecified Vitamin D deficiency E55.9 HLD (hyperlipidemia) E78.5 ICAO (internal carotid artery occlusion) I65.29 Osteoporosis M81.0 PAD (peripheral artery disease) I73.9 Diverticular disease K57.90 (7) Diarrhea Diarrhea type: infectious Qualified Code(s): A09 - Infectious gastroenteritis and colitis, unspecified (10) Iron deficiency anemia Iron deficiency anemia type: unspecified iron deficiency Qualified Code(s): D50.9 - Iron deficiency anemia, unspecified (13) Hypertension Hypertension type: primary hypertension Qualified Code(s): I10 - Essential (primary) hypertension (14) Depression Depression Type: unspecified Qualified Code(s): F32.A - Depression, unspecified
--- NOTE | 2024-12-11 16:04 | XCELERA ---
[id number] \\[id number]
--- NOTE | 2024-12-11 21:42 | Hospitalist Progress Note ---
Date of Service December 11, 2024 Assessment & Plan (1) Acute exacerbation of chronic obstructive pulmonary disease: (2) Acute and chronic respiratory failure: (3) Elevated troponin: (4) Iron deficiency anemia: (5) Urinary tract infection: Plan This patient is a 69-year-old female with a history of PAD and recent femorofemoral bypass with thrombectomy and brachial pseudoaneurysm, HTN, COPD, chronic respiratory failure with hypoxemia on 3L NC O2, B12 deficiency, HLD, cachexia who was admitted with a COPD exacerbation and elevated troponin level. #acute on chronic respiratory failure w/hypoxemia/COPD with acute exacerbation- typically on 3 L nasal cannula up to 5L at the time of presentation the emergency department. Consistent with COPD and exacerbation likely triggered by seasonal allergies, environmental. Improving, weaned to 3L NC O2 which is her chronic amount. Still with diffuse wheezing -continue controller medications from home, DuoNeb every 4 hours while awake, albuterol every 2 hours as needed -continue Solu-Medrol 40 mg IV bid and convert to prednisone on 12/12 - dc Rocephin as no evidence of PNA-continue azithromycin for 5-day course for COPD exacerbation - aggressive pulmonary toilet - continue continuous pulse oximetry #elevated troponin/PAD/CAD/history of stroke-troponin peaked at 189. She did not have any angina but did present with progressively worsening dyspnea. ECG without ischemic changes - continue aspirin, continue Eliquis for PAD, and resume home rosuvastatin which was not added to his medication list - Check echo #C. difficile colitis- currently approximately 10 days into what would be a 2- week course of oral vancomycin. - continue oral vancomycin, will continue while she is on systemic abx - contact precautions #Anemia-with Hgb 8.9, normocytic. Recent B12 level borderline low and folate was normal in 10/2024. Iron levels low at that time. Hemoglobin baseline around 10, no evidence of bleeding from anywhere. - Check iron studies in the a.m. - Continue B12 1000 mcg p.o. daily #UTI-urine culture growing pansensitive E. coli - Finished 3 days of ceftriaxone #severe protein calorie malnutrition - very low BMI, RD consult, encourage supplementation, Ongoing - acute on chronic weight loss with 10 pounds over the last month - RD consult, supplement as tolerated #depression/anxiety - monitor closely no indication to change medications at this time - continue sertraline #hypertension - continue lisinopril #osteoporosis - continue supplementation no acute changes at this time DVT prophylaxis-Eliquis Disposition-continued stay in PCU Admission and Anticipated Discharge Date Admission Date: December 08, 2024 Subjective Patient feeling ok, had one BM today. Still wheezing but overall feeing better Telemetry with normal sinus rhythm, PACs, PVCs, rates in the 60s to 80s Physical Exam Constitutional: + cachectic; no acute distress Respiratory: normal respiratory effort and + cough Auscultation: + wheezes (diffuse) and + abnormal I/E ratio Cardiovascular: RRR, no murmur, no edema Gastrointestinal (Abdomen): normal bowel sounds, soft, nontender, no hepatosplenomegaly Results & Data Results & Data Vital Signs (Past 12 Hours) Vital Signs Temp Pulse Pulse Resp BP Pulse Ox O2 Del Method 12/11/24 21:19 Nasal Cannula 12/11/24 20:13 36.7 C 60 17 121/65 98 Room Air 12/11/24 19:55 82 18 100 Nasal Cannula 12/11/24 16:37 36.7 C 71 18 125/64 100 Room Air 12/11/24 14:48 80 12/11/24 13:31 73 18 96 Nasal Cannula 12/11/24 12:38 72 12/11/24 12:38 Nasal Cannula 12/11/24 11:23 36.7 C 69 18 124/70 97 Nasal Cannula O2 Flow Rate 12/11/24 21:19 3 12/11/24 20:13 12/11/24 19:55 2 12/11/24 16:37 12/11/24 14:48 12/11/24 13:31 2 12/11/24 12:38 12/11/24 12:38 12/11/24 11:23 2 PG Care Time/CCT Total # of Minutes Spent Total Time Spent with Patient: Total time spent is greater than 50% in coordination of care (as documented) at patient's floor/unit and/or counseling patient: Coding Level of Care Code 77971 SUB INP/OBS CARE 3/50MIN Diagnoses Acute exacerbation of chronic obstructive pulmonary disease J44.1 Acute and chronic respiratory failure J96.20 Elevated troponin R79.89 Iron deficiency anemia, unspecified iron deficiency anemia type D50.9 Iron deficiency anemia type: unspecified iron deficiency Urinary tract infection N39.0 (4) Iron deficiency anemia Iron deficiency anemia type: unspecified iron deficiency Qualified Code(s): D50.9 - Iron deficiency anemia, unspecified
[2024-12-12 06:27] LABS: Hematocrit (blood only) 32.2 % (37.0-47.0); Hemoglobin 9.8 g/dl (12.0-16.0); Immature Granulocytes # (auto) 0.01 K/uL (0.01-0.20); Immature Granulocytes % (auto) 0.2 %; Mean Corpuscular Hemoglobin 28.1 pg (25.0-34.0); Mean Corpuscular Volume 92.3 fL (80.0-100.0); Platelet Count 175 K/uL (130-400); RDW Standard Deviation 56.4 fL (36.4-46.3); Red Blood Count 3.49 M/uL (4.20-5.40); White Blood Count 5.83 K/ul (4.8-10.8)
[2024-12-12 06:44] LABS: Anion Gap 4.0 (3-11); Blood Urea Nitrogen 24.0 mg/dl (6-23); Calcium 9.0 mg/dl (8.6-10.3); Carbon Dioxide 34.0 mmol/L (21-32); Chloride 102.0 mmol/L (98-107); Creatinine Clr Calc Pharmacy 33.3 ml/min; Glucose 103.0 mg/dl (70-99(Fasting)); Iron 26.0 mcg/dl (35-150); Magnesium 2.1 mg/dl (1.7-2.4); Potassium 4.4 mmol/L (3.5-5.1); Sodium 140.0 mmol/L (136-145); Total Iron Binding Cap Calc 288.0 mcg/dl (250-450); Transferrin 206.0 mg/dl (200-360); Transferrin (FE) Percent Satur 9.0 % (15-50)
[2024-12-12 07:04] LABS: Ferritin 17.4 ng/ml (8-388)
[2024-12-12 07:25] VITALS: RESP 18
[2024-12-12] MEDS: ROSUVASTATIN CALCIUM 20 MG TAB PO SCH (08:34)
[2024-12-12] MEDS: IRON SUCROSE 300 MG in SODIUM CHLORIDE 0.9% 250 ML IV ONE (09:47)
[2024-12-12 10:49] VITALS: BP 108/70; TEMP 97.9
[2024-12-12 12:21] VITALS: O2SAT 96
--- NOTE | 2024-12-12 16:34 | Discharge Summary ---
Discharge Summary Date of Service December 12, 2024 Principal Dx & Hospital Course #1 = Principal Diagnosis (1) Acute exacerbation of chronic obstructive pulmonary disease: (2) Acute and chronic respiratory failure: (3) Elevated troponin: (4) Iron deficiency anemia: (5) Urinary tract infection: Plan This patient is a 69-year-old female with a history of PAD and recent femorofemoral bypass with thrombectomy and brachial pseudoaneurysm, HTN, COPD, chronic respiratory failure with hypoxemia on 3L NC O2, B12 deficiency, HLD, cachexia who was admitted with a COPD exacerbation and elevated troponin level. #acute on chronic respiratory failure w/hypoxemia/COPD with acute exacerbation- typically on 3 L nasal cannula up to 5L at the time of presentation the emergency department. Consistent with COPD exacerbation likely triggered by seasonal allergies, environmental, ongoing cigarette smoking. Improved, weaned to 3L NC O2 which is her chronic amount. Still with diffuse wheezing and rhonchi but she overall feels back to her baseline. -continue maintenance inhalers and albuterol as needed -She received IV Solu-Medrol and convert to prednisone on discharge for an 8-day taper -She was treated with Rocephin for several days but there was no evidence of PNA on chest x-ray so this was discontinued - She completed a 5-day course of azithromycin for COPD exacerbation - Encouraged smoking cessation on discharge #elevated troponin/PAD/CAD/history of stroke/acute HFrEF/HTN-troponin peaked at 189. She did not have any angina but did present with progressively worsening dyspnea. ECG without ischemic changes. Her echocardiogram did show akinesis of the apex and a reduced LVEF at 45-50%. Cardiology was consulted who did not recommend cardiac catheterization at this time. There is a possibility that this is also a stress-induced cardiomyopathy. - Cardiology is recommending starting guideline directed medical therapy for HFrEF - Continue lisinopril and add Toprol-XL 12.5 mg p.o. once daily (cardioselective will reduce risk of COPD exacerbation) - Monitor blood pressures after discharge with starting metoprolol - continue aspirin, Eliquis for PAD, and home rosuvastatin -Follow-up with cardiology as an outpatient recommended if patient desires #C. difficile colitis-she completed a 2-week course of oral vancomycin but this was extended throughout her hospitalization while she was on antibiotics for UTI and COPD exacerbation. Her diarrhea is resolved. -Can now discontinue oral vancomycin #Anemia-with Hgb 8.9, normocytic. Recent B12 level borderline low and folate was normal in 10/2024. Iron levels low at that time. Hemoglobin baseline around 10, no evidence of bleeding from anywhere. Iron studies show significant iron deficiency with transferrin saturation low at 9% and ferritin quite low at 17. She was given 1 dose of Venofer 300 mg IV x 1 -Consider repeat IV iron transfusions as an outpatient-defer to PCP - Continue B12 1000 mcg p.o. daily # E. coli UTI -urine culture growing pansensitive E. coli. Unclear if was ever symptomatic with this - Finished 3 days of ceftriaxone #severe protein calorie malnutrition - very low BMI, RD consult, encourage supplementation with protein shakes, multivitamin, and add thiamine 100 mg p.o. daily as per dietitian recommendations - acute on chronic weight loss with 10 pounds over the last month - RD consult, supplement as tolerated #depression/anxiety - monitor closely no indication to change medications at this time - continue sertraline #hypertension - continue lisinopril and adding Toprol-XL for cardiomyopathy #osteoporosis - continue supplementation no acute changes at this time DVT prophylaxis-Eliquis Disposition-stable for discharge to home Notes For Next Care Provider Monitor BP closely after starting metoprolol XL Needs follow-up with cardiology arranged Medication Changes From Visit See medication list Admission HPI Per Admitting Provider Patient is a 69-year-old female with past medical history of COPD on chronic 3L O2 nasal cannula, HTN, depression, HLD, previous CVA, vertebral artery stenosis, carotid stenosis, aortoiliac disease. Patient has followed with vascular surgery and is s/p left right femoral artery bypass February 2024 due to right iliac artery occlusion and s/p left iliac artery angiogram with ELECTRIC METER TESTER and stent Ap 2024 complicated intraoperatively Subsequently treated for infection with cefepime and vancomycin. Most recently has developed episode of C. difficile. She is currently 10 days into a 2-week course of oral vancomycin. Notes that her breathing has been relatively good yesterday but through the night progressively worse, audibly congested for family. Oxygen needs have increased. Secondary to that she came to the emergency department for evaluation. Workup there noted a modestly elevated troponin, no chest pain or changes to her EKG. Symptoms and signs consistent with a COPD exacerbation. She was given stress dose Solu-Medrol started on antibiotics referred for admission for respiratory support, pulmonary toilet and close respiratory monitroing. Discharge Exam Constitutional + cachectic; no acute distress Respiratory normal respiratory effort and + cough Auscultation: + rhonchi (Bilateral lower lung husain), + wheezes (diffuse) and + abnormal I/E ratio Cardiovascular RRR, no murmur, no edema Gastrointestinal (Abdomen) normal bowel sounds, soft, nontender, no hepatosplenomegaly Psychiatric A+Ox3, euthymic affect Discharge Plan Discharge Items Patient Disposition: Home - Self-Care Reason For Visit: SHORTNESS OF BREATH Discharge Diagnosis: COPD exacerbation Acute on chronic respiratory failure with hypoxemia Cardiomyopathy Iron deficiency anemia E. coli UTI Condition on Discharge: Fair Activity: Resume your previous activity Non-emergency contact: Primary Care Provider Call non-emergency contact if: you have any medication questions and your symptoms worsen Follow-up/Referrals: Coretta Mai CRNP [Primary Care Provider] - (Follow-up within 1-2 weeks) Diet: Regular Addtl Attending Provider Instructions: You were admitted with an exacerbation of COPD and a urinary tract infection. You were treated with steroids and antibiotics with improvement. Please finish out a course of prednisone tapering over the next 8 days. You are also found to have some strain on the heart and an echocardiogram of the heart revealed a portion of the heart is not pumping effectively. This is called heart failure/cardiomyopathy. You are being started on a medication to help with heart failure called metoprolol. This medication can also lower the blood pressure so please check your blood pressure at least 1-2 times per day and keep a record of your blood pressures for your doctor. You can follow-up with a diesel motor mechanic if you desire-your PCP can refer you for this after discharge. Because of your weight loss and malnutrition, the dietitian saw you and recommended starting on a multivitamin and a thiamine supplement in addition to protein shakes. You are deficient in iron and this causes you to be anemic. You were given a dose of IV iron while you were here. Please follow-up with your primary care physician with regards to your anemia. Call your Primary Care doctor if any of the following symptoms or problems start or get worse: * Shortness of breath or difficulty breathing * Wake up at night short of breath * Chest pain * Cough * Swelling of your hands, feet, or legs * More fatigued or tired with your normal activity * Palpitations - sudden fast heart beats WEIGHT * Weigh yourself every morning after using the bathroom. * Use the same scale. * Wear the same amount of clothing. * Write your weight down on a chart. * Call your Primary Care doctor if you gain more than 2-3 pounds in 1-2 days. MEDICATIONS * Use this discharge instruction sheet for medication instructions. * Take your medications at the time your doctor ordered. * Do not skip a dose of your medicines. * If you miss a dose of medicine, take it as soon as possible, but DO NOT DOUBLE A DOSE. * Read your medicine information when you get home. * Know all of the side effects of your medicine. If in doubt, ask your pharmacist * Call your Primary Care doctor's office if you have any side effects. * Be sure all of your doctors know what medicine and herbs you take (including cold, flu, and herbal medicine). Take the following with you to your follow-up doctor appointments: * Weight Chart * Medication List * List of questions Do not drink excessive alcohol, beer or wine. Pending Studies at Discharge: No Stand-Alone Forms: My [facility] [employer], Smoking Cessation Medications and DC Order Prescriptions: New metoprolol succinate 25 mg Tablet Extended Release 24 Hr 12.5 mg PO QAM Qty: 15 0RF thiamine HCl (vitamin B1) 100 mg tablet 100 mg PO DAILY Qty: 30 0RF Rx Instructions: Uluy-qvt-bobnmca prednisone 10 mg tablet 40 mg PO DAILY Qty: 20 0RF Rx Instructions: X 2 days then decrease by 10 mg every 2 days until gone Continued lisinopril 10 mg tablet 10 mg PO QAM Qty: 90 3RF Trelegy Ellipta 100-62.5-25 mcg blister with device 1 inh inhalation HS Qty: 60 5RF sertraline 100 mg tablet 200 mg PO QAM Qty: 180 3RF (DME) Flutter Valve Device See Rx Instructions .ROUTE .MEDSUPPLY Qty: 1 0RF Rx Instructions: Use it every 6 hours when awake. acetaminophen 325 mg capsule 650 mg PO Q4H PRN (Reason: Pain) Hold Instructions: Hold while taking oxycodone/acetaminophen for pain. aspirin 81 mg Tablet,Delayed Release (Dr/Ec) 81 mg PO QAM Qty: 1 0RF albuterol sulfate 90 mcg/actuation HFA aerosol inhaler 2 - 4 puff inhalation Q6 PRN (Reason: Shortness Of Breath Or Wheezing) Cerovite Senior 0.4 mg-300 mcg- 250 mcg Tablet 1 tab PO QAM Qty: 30 0RF Eliquis 2.5 mg Tablet 2.5 mg PO BID Qty: 60 11RF cyanocobalamin (vitamin B-12) 1,000 mcg tablet 1,000 mcg PO DAILY Qty: 90 1RF rosuvastatin 40 mg tablet 40 mg PO DAILY Discontinued oxycodone-acetaminophen [Percocet] 5-325 mg Tablet 1 tab PO Q6H PRN (Reason: pain) Qty: 30 0RF Discharge Orders: Discharge Order- CHF (Routine); Ordered 12/12/24 Ordered By: Loreta Torres Admission Data Admit Date/Time: 12/08/24 12:59 Attending Provider: Loreta Torres Admit Provider: Derrick Brown Primary Care Provider: Coretta Mai Other Providers: Jose Angel Bella; Filipe Cevallos Hospital Stay Data Consultations 12/08/24 12:18 ED Decision to Admit Stat 12/11/24 16:14 Consult Cardiology Routine Diagnostic Imagining Performed Echocardiogram Pending Results Patient Have Any Pending Studies at Discharge: No Discharge Instructions Given to Patient (Per Discharging Provider) You were admitted with an exacerbation of COPD and a urinary tract infection. You were treated with steroids and antibiotics with improvement. Please finish out a course of prednisone tapering over the next 8 days. You are also found to have some strain on the heart and an echocardiogram of the heart revealed a portion of the heart is not pumping effectively. This is called heart failure/cardiomyopathy. You are being started on a medication to help with heart failure called metoprolol. This medication can also lower the blood pressure so please check your blood pressure at least 1-2 times per day and keep a record of your blood pressures for your doctor. You can follow-up with a diesel motor mechanic if you desire-your PCP can refer you for this after discharge. Because of your weight loss and malnutrition, the dietitian saw you and recommended starting on a multivitamin and a thiamine supplement in addition to protein shakes. You are deficient in iron and this causes you to be anemic. You were given a dose of IV iron while you were here. Please follow-up with your primary care physician with regards to your anemia. Call your Primary Care doctor if any of the following symptoms or problems start or get worse: * Shortness of breath or difficulty breathing * Wake up at night short of breath * Chest pain * Cough * Swelling of your hands, feet, or legs * More fatigued or tired with your normal activity * Palpitations - sudden fast heart beats WEIGHT * Weigh yourself every morning after using the bathroom. * Use the same scale. * Wear the same amount of clothing. * Write your weight down on a chart. * Call your Primary Care doctor if you gain more than 2-3 pounds in 1-2 days. MEDICATIONS * Use this discharge instruction sheet for medication instructions. * Take your medications at the time your doctor ordered. * Do not skip a dose of your medicines. * If you miss a dose of medicine, take it as soon as possible, but DO NOT DOUBLE A DOSE. * Read your medicine information when you get home. * Know all of the side effects of your medicine. If in doubt, ask your pharmacist * Call your Primary Care doctor's office if you have any side effects. * Be sure all of your doctors know what medicine and herbs you take (including cold, flu, and herbal medicine). Take the following with you to your follow-up doctor appointments: * Weight Chart * Medication List * List of questions Do not drink excessive alcohol, beer or wine. Total Time Total Time Spent Total Time Spent (In Minutes): 35 minutes Total Time Includes: Examination of the Patient, Discharge Planning, Medication Reconciliation and Communication With Other Providers (Cardiology) Coding Level of Care Code 95696 INP/OBS DISCH >30 MIN Diagnoses Acute exacerbation of chronic obstructive pulmonary disease J44.1 Acute and chronic respiratory failure J96.20 Elevated troponin R79.89 Iron deficiency anemia, unspecified iron deficiency anemia type D50.9 Iron deficiency anemia type: unspecified iron deficiency Urinary tract infection N39.0
--- NOTE | 2024-12-12 16:45 | Cardiology Consultation ---
Date of Consultation December 12, 2024 Assessment & Plan (1) Cardiomyopathy: 2. Elevated troponin 3. Complex PADleft to right femorofemoral bypass, left iliac stenting, left femoral endarterectomy/embolectomy and left brachial artery pseudoaneurysm postrepair. 4. Chronic respiratory failure/COPDon 3 L O2 baseline 5. Hypertension/dyslipidemia 6. Iron deficiency anemia 7. Ongoing tobacco abuse 8. CachexiaBMI 13 Patient seen today due to mildly elevated troponin and new apical wall motion abnormality. She has been chest pain free throughout recent hospitalizations. She remains hemodynamically and electrically stable. No signs of heart failure on exam. Echo and prior chest CT reviewed. High suspicion patient has underlying CAD but currently low suspicion for high risk ACS. [place] appears thinned and wall motion abnormality could be chronic. Findings also potentially consistent with stress- induced cardiomyopathy. With the patient's vascular history and prior complications recommend medical management of suspected CAD. Recommend further optimizing GDMT for cardiomyopathy and continued ASCVD risk factor modification. Agree with adding low-dose Toprol-XL. Continue current lisinopril. Continue current aspirin, statin and on Eliquis prior PAD/arterial thrombus. From a cardiac standpoint okay with discharge today. Case discussed with Dr. Torres. History of Present Illness Attending Physician: Loreta Torres MD History of Present Illness Mrs. Suazo is a pleasant 69 year-old woman with a history of complex peripheral arterial disease, COPD with chronic hypoxic respiratory failure on 3 L O2 seen today in the setting of mildly elevated troponin and new wall motion abnormality on echo. Other medical issues include cachexia (BMI 13), hypertension, dyslipidemia, iron-deficiency anemia and ongoing tobacco abuse. Presented to [facility] 12/08/2024 with worsening breathing difficulties, hypoxia. She was treated for COPD exacerbation including antibiotics and steroids. At no time has she endorsed any chest pain. Presenting ECG showed sinus rhythm with poor R wave progression (previously noted) and no new ST abnormalities. HS TropI trended up to 190. Repeat echo showed EF 45% with apical akinesis, no thrombus. No significant valve disease. Apical wall motion abnormality new from last echo 08/2019. At baseline lives independently, can walk short distances across her home and do housework on 3 L without dyspnea. Chest CT 06/2024 shows dense coronary artery calcification involving left main LAD, circumflex. Also with bilateral subclavian artery disease. Allergies Allergy/AdvReac Type Severity Reaction Status Date / Time codeine AdvReac Intermediate Vomiting Verified 11/28/24 10:27 Home Medications Medication Instructions Recorded Confirmed Type aspirin 81 mg tablet,delayed 81 mg PO QAM #1 tab 09/01/19 12/08/24 Rx release acetaminophen 325 mg capsule 650 mg PO Q4H PRN Pain 09/14/19 12/08/24 History Flutter Valve #1 ea 08/13/20 11/28/24 Rx apixaban 2.5 mg tablet (Eliquis) 2.5 mg PO BID #60 tabs 02/18/24 12/08/24 Rx lisinopril 10 mg tablet 10 mg PO QAM #90 tabs 06/05/24 12/08/24 Rx albuterol sulfate 90 mcg/actuation 2 - 4 puff inhalation Q6 PRN 07/01/24 12/08/24 History aerosol inhaler Shortness Of Breath Or Wheezing ermuutmo-ejj-xoewt acid 0.4 1 tab PO QAM #30 tabs 07/04/24 12/08/24 Rx mg-lycopene 300 mcg-lutein 250 mcg tablet (Cerovite Senior) fluticasone fur. 100 mcg-umeclid 1 inh inhalation HS #60 ea 07/24/24 12/08/24 Rx 62.5 mcg-vilant 25 mcg inhalat.powder (Trelegy Ellipta) sertraline 100 mg tablet 200 mg (2 x 100 mg) PO QAM #180 07/24/24 12/08/24 Rx tabs cyanocobalamin (vitamin B-12) 1,000 mcg PO DAILY #90 tabs 11/05/24 12/08/24 Rx 1,000 mcg tablet rosuvastatin 40 mg tablet 40 mg PO DAILY 12/11/24 12/11/24 History metoprolol succinate 25 mg 12.5 mg (1/2 x 25 mg) PO QAM #15 12/12/24 Rx tablet,extended release 24 hr tabs prednisone 10 mg tablet 40 mg (4 x 10 mg) PO DAILY #20 tabs 12/12/24 Rx thiamine HCl (vitamin B1) 100 mg 100 mg PO DAILY #30 tabs 12/12/24 Rx tablet Patient History Medical History PAD (peripheral artery disease) Vision loss, right eye HLD (hyperlipidemia) Depression Mass of right axilla HTN (hypertension) Iron deficiency anemia Underweight Abdominal mass Multiple pulmonary nodules Chronic respiratory failure with hypoxia ICAO (internal carotid artery occlusion) Osteoporosis Arthritis History of stroke Diverticular disease Chronic obstructive pulmonary disease Surgical History S/P vascular surgery S/P femoral-femoral bypass surgery History of tooth extraction History of tonsillectomy History of cataract surgery History of bronchoscopy Hx of foot surgery History of section Hx of hemorrhoidectomy History of colonoscopy Family History Other No family history of adverse response to anesthesia Denies family history of Ovarian cancer Prostate cancer Myocardial infarction Breast cancer Colorectal cancer Social History Smoking Status: Current some day smoker Tobacco Type: Cigarettes Age Started Using Tobacco: 18; Age Quit Using Tobacco: 65; packs per day: 1; Cigarettes Per Day: every other day; Second Hand Exposure: Yes; Do You Dip or Chew Tobacco: No; Hx Alcohol Use: No Hx Substance Use: No Preferred Language: Argentine Communication Ability: Effective Visual Impairment: Limited Hearing Ability: Normal Cooperative Extension Agent Required: No Beliefs That Will Affect Care: None marital status: / Current Living Situation: Family current occupational status: disabled How many Children do You have: 2 Feels Safe at Home: Yes Childhood Exposure to Second-Hand Smoke: Yes Diet: regular caffeine: Yes (coffee) during the past year weight has: remained stable Dental Care, Regularly: No Physical Activity Frequency: Daily Seatbelt Use: never Sunscreen Use: No Assistive Devices: Oxygen - at Night and Walker Review of Systems Review of Systems: All systems reviewed & are unremarkable except as noted in HPI & below Physical Exam Physical Exam: General: Thin, up walking halls HEENT: Sclerae anicteric Lungs: Poor air movement bilaterally, scattered wheezing Cardiac: Distant heart sounds regular, no murmurs Vascular: 2+ radial bilaterally Abdomen: Soft, nontender Extremities: Well perfused, no peripheral edema Psych: Alert orient x3, normal affect and mood Results & Data Vital Signs (Past 12 Hours) Vital Signs Temp Pulse Pulse Resp BP Pulse Ox O2 Del Method 12/12/24 15:13 72 12/12/24 12:46 76 12/12/24 12:46 Nasal Cannula 12/12/24 12:20 74 18 96 Nasal Cannula 12/12/24 10:46 97.9 F 72 108/70 97 Nasal Cannula 12/12/24 08:30 105/58 L 96 Nasal Cannula 12/12/24 07:54 97.7 F 90 18 95/61 L 96 Room Air 12/12/24 07:24 18 96 Nasal Cannula O2 Flow Rate 12/12/24 15:13 12/12/24 12:46 12/12/24 12:46 3 12/12/24 12:20 3 12/12/24 10:46 12/12/24 08:30 3 12/12/24 07:54 4 12/12/24 07:24 2 PG Care Time/CCT Total # of Minutes Spent Total Time Spent with Patient: Total time spent is greater than 50% in coordination of care (as documented) at patient's floor/unit and/or counseling patient: Coding Level of Care Code 10929 INT INP/OBS CARE 2/55MIN Diagnoses Cardiomyopathy I42.9
[2024-12-12 16:53] VITALS: PULSE 93
[2024-12-13] MEDS ORDERED: METOPROLOL SUCC 25MG EXT REL TAB PO SCH (09:00)
== END 2024-12-12 17:22 | disposition home or self-care (01) | DRG 190 ==
LOC: ED 09:52 → EDINP 12:59 → SUATTDRO 12:59 → 4W 15:58